=== PATIENT | female | born 1945 | race Two or more races ===

== ENCOUNTER 2016-11-12 14:34 | Emergency (ER) | payer MEDICARE, OTHER ==
[~2016-11-12] VITALS: Ht 152.4 cm; Wt 82.6 kg
[~2016-11-12 14:34] MED LIST: CALC-312 PO; DICL50TA2 PO; DULO60CA PO; FENO134C PO; LOSA100T27 PO; OMEP20CA74 OR; PREG25CA PO; PREG50CA PO; RISE35TA PO; RIVA20TA PO; SIMV-8 PO
[2016-11-12] MEDS ORDERED: ACETAMINOPHEN 325 MG TAB PO ONE (17:00)
[2016-11-12 18:34] VITALS: BP 151/70
== END 2016-11-12 19:15 | disposition home or self-care (01) ==
LOC: ER 14:34
DX: S20.211A Contusion of right front wall of thorax, initial encounter (principal); M19.90 Unspecified osteoarthritis, unspecified site; I25.10 Atherosclerotic heart disease of native coronary artery without angina pectoris; E78.5 Hyperlipidemia, unspecified; I10 Essential (primary) hypertension; W06.XXXA Fall from bed, initial encounter; Y93.89 Activity, other specified; Y92.89 Other specified places as the place of occurrence of the external cause; Y99.8 Other external cause status
CPT/HCPCS: 71020; 71250

== ENCOUNTER 2017-09-19 22:40 | Emergency (ER) | payer MEDICARE, OTHER ==
[~2017-09-19] VITALS: Ht 157.5 cm; Wt 87.5 kg
[2017-09-20 00:20] VITALS: BP 147/70
[2017-09-20] MEDS ORDERED: LIDOCAINE VISCOUS 2% 15ML UD PO ONE (01:30)
[2017-09-20] MEDS ORDERED: ALUM & MAG HYDROX-SIMETH LIQ(MAALOX) 30 ML PO ONE (01:30)
== END 2017-09-20 01:18 | disposition home or self-care (01) ==
LOC: ER 22:49
DX: K21.0 Gastro-esophageal reflux disease with esophagitis (principal); M19.90 Unspecified osteoarthritis, unspecified site; J45.909 Unspecified asthma, uncomplicated; I25.10 Atherosclerotic heart disease of native coronary artery without angina pectoris; E78.5 Hyperlipidemia, unspecified; I10 Essential (primary) hypertension; Z79.899 Other long term (current) drug therapy

== ENCOUNTER 2020-06-09 22:26 | Emergency (ER) | payer MEDICARE, OTHER ==
[~2020-06-09] VITALS: Ht 162.6 cm; Wt 68.0 kg
[~2020-06-09 22:26] MED LIST changes: +LOSA-39 PO; -LOSA100T27 PO
[2020-06-09 23:19] LABS: Basophils # (auto) 0.1 10 ^3/uL (0-0.2); Eosinophils # (auto) 0.1 10 ^3/uL (0-0.8); Lymphocytes # (auto) 2.6 10 ^3/uL (0.4-5.4); Mean Corpuscular Hemoglobin 19.4 pg (28.0-32.0); Monocytes # (auto) 0.7 10 ^3/uL (0-1.3); Neutrophils % (auto) 53.7 % (37.0-80.0); Nucleated Red Blood Cells % 0.1 %; White Blood Cell 7.5 10^3/uL (4.4-10.8)
[2020-06-09 23:21] LABS: Basophils % (auto) 1.3 % (0.0-2.0); Eosinophils % (auto) 1.6 % (0.0-7.0); Lymphocytes % (auto) 34.2 % (10.0-50.0); Mean Corpuscular Volume 62.7 fL (80.0-100.0); Monocytes % (auto) 9.2 % (0.0-12.0); Platelet Count (auto) 214 10^3/uL (140-450); Red Blood Cells 4.15 10^6/uL (4.0-5.20); Red Cell Distribution Width 19.6 % (11.8-14.3)
[2020-06-09 23:38] LABS: Albumin 3.1 g/dL (3.4-5.0); Anion Gap 4 (5-15); Blood Urea Nitrogen 15 mg/dL (7-18); Calcium 8.3 mg/dL (8.5-10.1); Carbon Dioxide 27 mmol/L (21-32); Chloride 114 mmol/L (98-107); Glucose 123 mg/dL (74-106); Magnesium 2.3 mg/dL (1.6-2.6); Potassium 3.7 mmol/L (3.5-5.1); Sodium 145 mmol/L (136-145)
[2020-06-09 23:43] LABS: Alanine Aminotransferase 9 U/L (13-56); Alkaline Phosphatase 119 U/L (45-117); Aspartate Aminotransferase 13 U/L (15-37); BUN/Creatinine Ratio 13.9; Bilirubin, Total 0.2 mg/dL (0.2-1.0); GFR African American 64 mL/min; GFR Non-African American 53 mL/min; Total Protein 7.5 g/dL (6.4-8.2)
[2020-06-09 23:48] LABS: INR 0.97 (0.9-1.15); Partial Thromboplastin Time 25.4 sec (23.0-31.2)
[2020-06-10] MEDS ORDERED: IOHEXOL 350 MG/ML 100ML IJ ONE (00:29)
[2020-06-10 02:18] LABS: Urine Bacteria FEW /hpf (None Seen); Urine Blood Negative /uL (Negative); Urine Specific Gravity 1.011 (1.001-1.035); Urine WBC <1 /hpf (0 - 5)
[2020-06-10 04:27] VITALS: BP 165/78
== END 2020-06-10 04:30 | disposition home or self-care (01) ==
LOC: ER 22:26 → EDBD 22:26 → ER 06-10 04:30
DX: R07.89 Other chest pain (principal); I10 Essential (primary) hypertension; E78.5 Hyperlipidemia, unspecified; K21.9 Gastro-esophageal reflux disease without esophagitis; Z79.899 Other long term (current) drug therapy; Z88.6 Allergy status to analgesic agent
CPT/HCPCS: 36415; 71045; 71275; 80053; 81001; 83735; 83880; 84443; 84484; 85025; 85379; 85610; 85730; 93005; 99285; Q9967

== ENCOUNTER 2020-08-16 18:05 | Emergency (ER) | payer MEDICARE, OTHER ==
[~2020-08-16] VITALS: Ht 154.9 cm; Wt 81.6 kg
[2020-08-16 18:05] VITALS: BP 149/46
== END 2020-08-16 20:53 | disposition home or self-care (01) ==
LOC: ER 18:05
DX: R07.89 Other chest pain (principal); I10 Essential (primary) hypertension; E78.5 Hyperlipidemia, unspecified; M19.90 Unspecified osteoarthritis, unspecified site; J45.909 Unspecified asthma, uncomplicated; K21.9 Gastro-esophageal reflux disease without esophagitis; Z88.6 Allergy status to analgesic agent; Z79.899 Other long term (current) drug therapy
CPT/HCPCS: 93005

== ENCOUNTER 2021-09-18 12:50 | Inpatient (IN) | payer MEDICARE, OTHER ==
[~2021-09-18] VITALS: Ht 152.4 cm; Wt 75.3 kg
[2021-09-18] MEDS ORDERED: MORPHINE SULFATE 4 MG/ML SYR/VIAL IV ONE (13:15)
[2021-09-18] MEDS ORDERED: ONDANSETRON HCL 4 MG/2 ML VIAL IV ONE (13:15)
[2021-09-18 14:23] LABS: Basophils # (auto) 0.2 10 ^3/uL (0-0.2); Basophils % (auto) 1.1 % (0.0-2.0); Eosinophils # (auto) 0 10 ^3/uL (0-0.8); Eosinophils % (auto) 0.2 % (0.0-7.0); Hematocrit 27.2 % (36.0-46.0); Hemoglobin 8.5 g/dL (12.2-16.2); Lymphocytes # (auto) 1.8 10 ^3/uL (0.4-5.4); Lymphocytes % (auto) 11.8 % (10.0-50.0); Mean Corpuscular Hemoglobin 19.7 pg (28.0-32.0); Mean Corpuscular Hgb Conc. 31.1 g/dL (32.0-36.0); Mean Corpuscular Volume 63.3 fL (80.0-100.0); Monocytes % (auto) 6.8 % (0.0-12.0); Neutrophils # (auto) 12.1 10 ^3/uL (1.6-8.6); Neutrophils % (auto) 80.1 % (37.0-80.0); Red Blood Cells 4.29 10^6/uL (4.0-5.20); Red Cell Distribution Width 29.2 % (11.8-14.3); White Blood Cell 15.1 10^3/uL (4.4-10.8)
[2021-09-18 14:41] LABS: Albumin 2.9 g/dL (3.4-5.0); Calcium 8.3 mg/dL (8.5-10.1)
[2021-09-18 14:43] LABS: BUN/Creatinine Ratio 10.1
[2021-09-18 14:46] LABS: Bilirubin, Total 0.3 mg/dL (0.2-1.0); Total Protein 7.2 g/dL (6.4-8.2)
[2021-09-18] MEDS ORDERED: KETOROLAC TROMETH 30 MG/ML 1ML VIAL IV ONE (15:30)
[2021-09-18] MEDS ORDERED: AZITHROMYCIN 500MG/ 250ML 250 ML IV ONE (15:45)
[2021-09-18] MEDS ORDERED: cefTRIAXone 1GM/50ML D5W 50 ML IV ONE (15:45)
[2021-09-18] MEDS ORDERED: ALBUTEROL SULF 2.5 MG/0.5ML(0.5%) NEB SOLN NEB PRN (18:00)
[2021-09-18] MEDS ORDERED: hydrALAZINE HCL 20 MG/ML VL IV PRN (18:00)
[2021-09-18] MEDS ORDERED: NICOTINE 7MG/24HR TOPICAL PATCH TD ONE (18:00)
[2021-09-18] MEDS ORDERED: PANTOPRAZOLE 40 MG/10 ML VIAL INJ IV ONE (18:00)
[2021-09-18 18:53] LABS: Cholesterol 136 mg/dL (< 200); Triglycerides 169 mg/dL (< 150)
[2021-09-18 18:55] LABS: HDL Cholesterol 30 mg/dL (40-59); LDL Cholesterol 83 mg/dL (< 100)
[2021-09-18 20:11] VITALS: BP 125/49
[2021-09-18 22:00] VITALS: BP 128/45
[2021-09-19 05:00] VITALS: BP 131/64
[2021-09-19 09:00] VITALS: BP 121/45
[2021-09-19] MEDS: NICOTINE 7MG/24HR TOPICAL PATCH TD SCH (09:34)
[2021-09-19] MEDS: PANTOPRAZOLE 40 MG/10 ML VIAL INJ IV SCH (09:34)
[2021-09-19] MEDS: cefTRIAXone 1GM/50ML D5W 50 ML IV SCH (09:35)
[2021-09-19] MEDS ORDERED: ENOXAPARIN SOD 40 MG/0.4 ML SYRINGE SC SCH (10:00)
[2021-09-19] MEDS ORDERED: AZITHROMYCIN 500MG/ 250ML 250 ML IV SCH (10:00)
[2021-09-19 13:00] VITALS: BP 132/40
[2021-09-19] MEDS ORDERED: traMADol HCL 50 MG TAB PO PRN (13:00)
[2021-09-19 13:41] LABS: Urine Bacteria FEW /hpf (None Seen); Urine Blood 3+ /uL (Negative); Urine Mucus FEW (None Seen); Urine WBC 4746 /hpf (0 - 5); Urine WBC Clumps PRESENT /hpf (None Seen)
[2021-09-19 13:46] LABS: Urine Specific Gravity 1.019 (1.001-1.035)
[2021-09-19] MEDS: SODIUM CHLORIDE 0.9% 1,000 ML IV SCH (13:48)
[2021-09-19] MEDS ORDERED: FUROSEMIDE 40 MG/4 ML VIAL IV ONE (15:00)
[2021-09-19 17:00] VITALS: BP 146/61
[2021-09-19 22:00] VITALS: BP 130/61
[2021-09-19 23:03] LABS: % Iron Saturation 3.4 % (15-50)
[2021-09-20 05:00] VITALS: BP 128/56
[2021-09-20 05:53] LABS: Basophils # (auto) 0 10 ^3/uL (0-0.2); Hemoglobin 7.6 g/dL (12.2-16.2); Lymphocytes # (auto) 2.1 10 ^3/uL (0.4-5.4); Lymphocytes % (auto) 12.6 % (10.0-50.0)
[2021-09-20 05:56] LABS: Basophils % (auto) 0.3 % (0.0-2.0); Eosinophils # (auto) 0.1 10 ^3/uL (0-0.8); Eosinophils % (auto) 0.4 % (0.0-7.0); Hematocrit 25.1 % (36.0-46.0); Mean Corpuscular Hemoglobin 19.4 pg (28.0-32.0); Mean Corpuscular Hgb Conc. 30.4 g/dL (32.0-36.0); Mean Corpuscular Volume 63.9 fL (80.0-100.0); Monocytes # (auto) 1.3 10 ^3/uL (0-1.3); Neutrophils % (auto) 78.7 % (37.0-80.0); Red Blood Cells 3.93 10^6/uL (4.0-5.20); White Blood Cell 16.5 10^3/uL (4.4-10.8)
[2021-09-20 05:59] LABS: Red Cell Distribution Width 29.1 % (11.8-14.3)
[2021-09-20 06:00] LABS: BUN/Creatinine Ratio 13.7; Calcium 8.5 mg/dL (8.5-10.1)
[2021-09-20] MEDS: PANTOPRAZOLE 40 MG/10 ML VIAL INJ IV SCH (11:49)
[2021-09-20] MEDS: cefTRIAXone 1GM/50ML D5W 50 ML IV SCH (11:49)
[2021-09-20] MEDS: NICOTINE 7MG/24HR TOPICAL PATCH TD SCH (11:50)
[2021-09-20] MEDS: SODIUM CHLORIDE 0.9% 1,000 ML IV SCH (11:51)
[2021-09-20 13:00] VITALS: BP 135/59
[2021-09-20 17:00] VITALS: BP 144/64
[2021-09-20] MEDS ORDERED: FERROUS SULFATE 325mg EC TAB PO SCH (18:00)
[2021-09-20 21:04] VITALS: BP 144/80
== END 2021-09-20 21:34 | disposition left against medical advice (07) | DRG 872 ==
LOC: ER 12:50 → OVERFLOW 18:00 → WEST WING 20:45
PROVIDERS: ADMIT Registered Nurse; ATTEND Internal Medicine
DX: A41.9 Sepsis, unspecified organism (principal); N13.6 Pyonephrosis; I13.10 Hypertensive heart and chronic kidney disease without heart failure, with stage 1 through stage 4 chronic kidney disease, or unspecified chronic kidney disease; D50.9 Iron deficiency anemia, unspecified; D63.8 Anemia in other chronic diseases classified elsewhere; E66.01 Morbid (severe) obesity due to excess calories; E78.5 Hyperlipidemia, unspecified; I25.10 Atherosclerotic heart disease of native coronary artery without angina pectoris; J45.909 Unspecified asthma, uncomplicated; M79.7 Fibromyalgia; H57.89 Other specified disorders of eye and adnexa; Z53.29 Procedure and treatment not carried out because of patient's decision for other reasons; R79.89 Other specified abnormal findings of blood chemistry; F17.210 Nicotine dependence, cigarettes, uncomplicated; H11.31 Conjunctival hemorrhage, right eye; K80.20 Calculus of gallbladder without cholecystitis without obstruction; Z20.822 Contact with and (suspected) exposure to COVID-19; X58.XXXA Exposure to other specified factors, initial encounter; K21.9 Gastro-esophageal reflux disease without esophagitis; K29.70 Gastritis, unspecified, without bleeding; K43.9 Ventral hernia without obstruction or gangrene; N18.2 Chronic kidney disease, stage 2 (mild); N26.1 Atrophy of kidney (terminal); R29.6 Repeated falls; S20.211A Contusion of right front wall of thorax, initial encounter; Z79.01 Long term (current) use of anticoagulants; Z79.899 Other long term (current) drug therapy; Z83.3 Family history of diabetes mellitus; Z86.718 Personal history of other venous thrombosis and embolism; Z86.711 Personal history of pulmonary embolism; Y93.89 Activity, other specified; Y92.89 Other specified places as the place of occurrence of the external cause; Y99.8 Other external cause status; Z88.5 Allergy status to narcotic agent; Z88.8 Allergy status to other drugs, medicaments and biological substances; Z68.32 Body mass index [BMI] 32.0-32.9, adult
CPT/HCPCS: 36415; 71045; 74176; 76775; 78707; 80048; 80053; 80061; 81001; 83036; 83540; 83550; 83880; 84484; 85025; 87040; 87086; 93005; 96365; 96367; 96375; C9113; G0378; J0696; J1885; J2405

== ENCOUNTER 2022-02-21 22:42 | Inpatient (IN) | payer MEDICARE, OTHER ==
[~2022-02-21] VITALS: Ht 162.6 cm; Wt 79.5 kg
[2022-02-22] VITALS (9 sets, daily range): BP systolic 128–147; BP diastolic 46–107
[2022-02-22 00:18] LABS: Basophils # (auto) 0 10 ^3/uL (0-0.2); Basophils % (auto) 0.5 % (0.0-2.0); Eosinophils # (auto) 0.1 10 ^3/uL (0-0.8); Eosinophils % (auto) 1.4 % (0.0-7.0); Hematocrit 21.6 % (36.0-46.0); Lymphocytes # (auto) 2.5 10 ^3/uL (0.4-5.4); Lymphocytes % (auto) 28.8 % (10.0-50.0); Mean Corpuscular Hemoglobin 19.1 pg (28.0-32.0); Mean Corpuscular Volume 63.7 fL (80.0-100.0); Monocytes % (auto) 11.3 % (0.0-12.0); Nucleated Red Blood Cells % 0.1 %; Red Blood Cells 3.38 10^6/uL (4.0-5.20); Red Cell Distribution Width 19.2 % (11.8-14.3); White Blood Cell 8.6 10^3/uL (4.4-10.8)
[2022-02-22 00:26] LABS: Albumin 2.7 g/dL (3.4-5.0); Calcium 7.7 mg/dL (8.5-10.1); Potassium 4.5 mmol/L (3.5-5.1)
[2022-02-22 00:29] LABS: Bilirubin, Total 0.3 mg/dL (0.2-1.0); Hemoglobin 6.5 g/dL (12.2-16.2); Total Protein 6.5 g/dL (6.4-8.2)
[2022-02-22 01:39] LABS: INR 1.23 (0.9-1.15); Partial Thromboplastin Time 40.9 sec (24.6-33.4)
[2022-02-22 01:49] LABS: Urine Bacteria MOD /hpf (None Seen); Urine Blood Negative /uL (Negative); Urine WBC 6 /hpf (0 - 5)
[2022-02-22] MEDS ORDERED: cefTRIAXone 1GM/50ML D5W 50 ML IV ONE (02:45)
[2022-02-22 07:37] LABS: Hemoglobin 7.5 g/dL (12.2-16.2)
[2022-02-22 07:40] LABS: Hematocrit 24.2 % (36.0-46.0)
[2022-02-22] MEDS ORDERED: PANTOPRAZOLE 80 MG in SODIUM CHL 0.9% 100 ML IV ONE (09:15)
[2022-02-22] MEDS ORDERED: guaiFENesin-DM 100/10mg/5ml SYR PO PRN (09:15)
[2022-02-22] MEDS ORDERED: DEXTROSE (50%) 50ML SYRG IV PRN (09:15)
[2022-02-22] MEDS ORDERED: PANTOPRAZOLE 40mg/50ML NS AE 50 ML IV ONE (09:15)
[2022-02-22] MEDS ORDERED: ONDANSETRON HCL 4 MG/2 ML VIAL IV PRN (09:15)
[2022-02-22] MEDS: FENOFIBRATE 134 MG PO SCH (10:00)
[2022-02-22] MEDS ORDERED: PREGABALIN 25 MG CAP PO SCH (10:00)
[2022-02-22 10:09] LABS: % Iron Saturation 3.8 % (15-50)
[2022-02-22] MEDS: SODIUM CHLORIDE 0.9% 1,000 ML IV SCH ×2 (10:13→23:42)
[2022-02-22] MEDS: DULoxetine HCL 30 MG CAP PO SCH (10:14)
[2022-02-22] MEDS: CALCIUM CARB 500 MG CHEW TAB PO SCH ×2 (10:14→22:24)
[2022-02-22] MEDS: LOSARTAN POTASSIUM 50 MG TAB PO SCH (10:14)
[2022-02-22] MEDS: ACCU-CHEK COMFORT CURVE STRIP VI SCH ×3 (12:00→23:43)
[2022-02-22] MEDS: InsuLIN REG 1unit/0.01ml Soln (100units/ml) SC SCH ×3 (12:00→23:43)
[2022-02-22] MEDS: PREGABALIN 25 MG CAP PO SCH ×2 (14:33→22:23)
[2022-02-22] MEDS ORDERED: LORazepam 0.5 MG TAB PO PRN (16:30)
[2022-02-22] MEDS ORDERED: NICOTINE 21MG/24 HR TOPICAL PATCH TD ONE (16:45)
[2022-02-22] MEDS ORDERED: ATORVASTATIN 20 MG TAB PO SCH (22:00)
[2022-02-22] MEDS: SUCRALFATE 1 GM/10 ML ORAL SUSP PO SCH (22:22)
[2022-02-23 00:01] LABS: Basophils # (auto) 0.2 10 ^3/uL (0-0.2); Eosinophils # (auto) 0.1 10 ^3/uL (0-0.8); Eosinophils % (auto) 1.7 % (0.0-7.0); Hematocrit 29.2 % (36.0-46.0); Lymphocytes # (auto) 1.9 10 ^3/uL (0.4-5.4); Lymphocytes % (auto) 21.8 % (10.0-50.0); Mean Corpuscular Hemoglobin 20.5 pg (28.0-32.0); Mean Corpuscular Hgb Conc. 30.7 g/dL (32.0-36.0); Mean Corpuscular Volume 66.9 fL (80.0-100.0); Monocytes # (auto) 0.4 10 ^3/uL (0-1.3); Monocytes % (auto) 4.6 % (0.0-12.0); Neutrophils # (auto) 6.2 10 ^3/uL (1.6-8.6); Neutrophils % (auto) 69.9 % (37.0-80.0); Nucleated Red Blood Cells % 0.1 %; Red Blood Cells 4.36 10^6/uL (4.0-5.20); Red Cell Distribution Width 22.2 % (11.8-14.3); White Blood Cell 8.8 10^3/uL (4.4-10.8)
[2022-02-23] MEDS: InsuLIN REG 1unit/0.01ml Soln (100units/ml) SC SCH (05:33)
[2022-02-23] MEDS: ACCU-CHEK COMFORT CURVE STRIP VI SCH (05:33)
[2022-02-23 05:52] VITALS: BP 127/74
[2022-02-23] MEDS: SUCRALFATE 1 GM/10 ML ORAL SUSP PO SCH ×4 (06:09→22:09)
[2022-02-23] MEDS: PREGABALIN 25 MG CAP PO SCH ×3 (06:09→22:05)
[2022-02-23 06:37] LABS: Basophils # (auto) 0 10 ^3/uL (0-0.2); Eosinophils # (auto) 0.1 10 ^3/uL (0-0.8); Hemoglobin 8.5 g/dL (12.2-16.2); Lymphocytes # (auto) 1.6 10 ^3/uL (0.4-5.4); Red Blood Cells 4.05 10^6/uL (4.0-5.20); White Blood Cell 7.8 10^3/uL (4.4-10.8)
[2022-02-23 06:39] LABS: Basophils % (auto) 0.4 % (0.0-2.0); Eosinophils % (auto) 1.6 % (0.0-7.0); Lymphocytes % (auto) 21.2 % (10.0-50.0); Mean Corpuscular Hemoglobin 20.9 pg (28.0-32.0); Mean Corpuscular Hgb Conc. 31.4 g/dL (32.0-36.0); Mean Corpuscular Volume 66.6 fL (80.0-100.0); Monocytes # (auto) 0.8 10 ^3/uL (0-1.3); Monocytes % (auto) 10.5 % (0.0-12.0); Neutrophils # (auto) 5.2 10 ^3/uL (1.6-8.6); Neutrophils % (auto) 66.3 % (37.0-80.0); Nucleated Red Blood Cells % 0.1 %
[2022-02-23 06:51] LABS: Red Cell Distribution Width 22.2 % (11.8-14.3)
[2022-02-23 06:56] LABS: Albumin 2.7 g/dL (3.4-5.0); Calcium 8.2 mg/dL (8.5-10.1); Potassium 3.6 mmol/L (3.5-5.1)
[2022-02-23 07:02] LABS: BUN/Creatinine Ratio 11.9; Bilirubin, Total 0.5 mg/dL (0.2-1.0); Total Protein 6.5 g/dL (6.4-8.2)
[2022-02-23 09:00] VITALS: BP 138/68
[2022-02-23] MEDS: FENOFIBRATE 134 MG PO SCH (10:00)
[2022-02-23] MEDS: CALCIUM CARB 500 MG CHEW TAB PO SCH ×2 (10:23→22:09)
[2022-02-23] MEDS: NICOTINE 21MG/24 HR TOPICAL PATCH TD SCH (10:23)
[2022-02-23] MEDS: LOSARTAN POTASSIUM 50 MG TAB PO SCH (10:23)
[2022-02-23] MEDS: DULoxetine HCL 30 MG CAP PO SCH (10:23)
[2022-02-23] MEDS ORDERED: cefTRIAXone 1GM/50ML D5W 50 ML IV ONE (10:30)
[2022-02-23] MEDS ORDERED: PANTOPRAZOLE 40 MG/10 ML VIAL INJ IV ONE (10:30)
[2022-02-23 12:26] VITALS: BP 139/59
[2022-02-23] MEDS: SODIUM CHLORIDE 0.9% 1,000 ML IV SCH (13:51)
[2022-02-23 17:32] VITALS: BP 155/58
[2022-02-23 21:23] VITALS: BP 130/60
[2022-02-23] MEDS: PANTOPRAZOLE 40 MG/10 ML VIAL INJ IV SCH (22:06)
[2022-02-24 04:56] VITALS: BP 148/69
[2022-02-24 05:32] LABS: Basophils # (auto) 0.1 10 ^3/uL (0-0.2); Eosinophils # (auto) 0.1 10 ^3/uL (0-0.8); Eosinophils % (auto) 1.6 % (0.0-7.0); Hematocrit 27.6 % (36.0-46.0); Hemoglobin 8.6 g/dL (12.2-16.2); Lymphocytes # (auto) 1.4 10 ^3/uL (0.4-5.4); Lymphocytes % (auto) 17.7 % (10.0-50.0); Mean Corpuscular Hemoglobin 20.8 pg (28.0-32.0); Mean Corpuscular Hgb Conc. 31.3 g/dL (32.0-36.0); Mean Corpuscular Volume 66.4 fL (80.0-100.0); Monocytes # (auto) 0.7 10 ^3/uL (0-1.3); Monocytes % (auto) 9.6 % (0.0-12.0); Neutrophils # (auto) 5.4 10 ^3/uL (1.6-8.6); Neutrophils % (auto) 70.1 % (37.0-80.0); Red Blood Cells 4.16 10^6/uL (4.0-5.20); White Blood Cell 7.7 10^3/uL (4.4-10.8)
[2022-02-24 05:34] LABS: Red Cell Distribution Width 22.3 % (11.8-14.3)
[2022-02-24] MEDS: PREGABALIN 25 MG CAP PO SCH ×3 (05:49→22:13)
[2022-02-24 06:01] LABS: BUN/Creatinine Ratio 11.1; Calcium 8.3 mg/dL (8.5-10.1); Potassium 3.4 mmol/L (3.5-5.1)
[2022-02-24] MEDS: SODIUM CHLORIDE 0.9% 1,000 ML IV SCH ×2 (06:29→19:00)
[2022-02-24] MEDS: SUCRALFATE 1 GM/10 ML ORAL SUSP PO SCH ×4 (06:33→22:13)
[2022-02-24 08:50] VITALS: BP 153/72
[2022-02-24] MEDS: DULoxetine HCL 30 MG CAP PO SCH (10:00)
[2022-02-24] MEDS: CALCIUM CARB 500 MG CHEW TAB PO SCH ×2 (10:00→22:14)
[2022-02-24] MEDS ORDERED: POTASSIUM CHL 20 Meq TABLET PO ONE (10:15)
[2022-02-24] MEDS: PANTOPRAZOLE 40 MG/10 ML VIAL INJ IV SCH ×2 (11:33→22:13)
[2022-02-24] MEDS: cefTRIAXone 1GM/50ML D5W 50 ML IV SCH (11:33)
[2022-02-24] MEDS: LOSARTAN POTASSIUM 50 MG TAB PO SCH (11:34)
[2022-02-24] MEDS: NICOTINE 21MG/24 HR TOPICAL PATCH TD SCH (11:34)
[2022-02-24 12:50] VITALS: BP 152/90
[2022-02-24] MEDS ORDERED: HYDROcodone-ACET 5/325MG TAB PO PRN (13:00)
[2022-02-24] MEDS ORDERED: ACETAMINOPHEN 500 MG TAB PO PRN (13:00)
[2022-02-24] MEDS ORDERED: LIDOCAINE VISCOUS 2% 15ML UD ONE (13:57)
[2022-02-24] MEDS ORDERED: SODIUM CHLORIDE LOCK 10 ML ONE (13:57)
[2022-02-24] MEDS ORDERED: diphenhdrAMINE HCL 50 MG/1 ML VL ONE (13:58)
[2022-02-24] MEDS: MIDAZOLAM HCL 5 MG/ML-1ML VIAL ONE ×2 (14:26→14:29)
[2022-02-24] MEDS: fentaNYL CITRATE 100 MCG/2 ML VL ONE ×2 (14:26→14:29)
[2022-02-24 16:50] VITALS: BP 132/62
[2022-02-24 22:04] VITALS: BP 135/49
[2022-02-25 05:27] VITALS: BP 150/71
[2022-02-25] MEDS: SUCRALFATE 1 GM/10 ML ORAL SUSP PO SCH ×2 (05:54→12:51)
[2022-02-25] MEDS: PREGABALIN 25 MG CAP PO SCH ×2 (05:54→14:00)
[2022-02-25 06:00] VITALS: BP 149/68
[2022-02-25 06:27] LABS: Basophils # (auto) 0 10 ^3/uL (0-0.2); Basophils % (auto) 0.5 % (0.0-2.0); Eosinophils # (auto) 0.1 10 ^3/uL (0-0.8); Eosinophils % (auto) 1.3 % (0.0-7.0); Hematocrit 30.9 % (36.0-46.0); Hemoglobin 9.7 g/dL (12.2-16.2); Lymphocytes # (auto) 1.7 10 ^3/uL (0.4-5.4); Mean Corpuscular Hgb Conc. 31.2 g/dL (32.0-36.0); Mean Corpuscular Volume 67.1 fL (80.0-100.0); Monocytes # (auto) 0.8 10 ^3/uL (0-1.3); Monocytes % (auto) 9.4 % (0.0-12.0); Neutrophils # (auto) 5.8 10 ^3/uL (1.6-8.6); Neutrophils % (auto) 68.8 % (37.0-80.0); Red Blood Cells 4.61 10^6/uL (4.0-5.20); Red Cell Distribution Width 22.4 % (11.8-14.3); White Blood Cell 8.4 10^3/uL (4.4-10.8)
[2022-02-25 06:35] LABS: BUN/Creatinine Ratio 10.8; Calcium 8.4 mg/dL (8.5-10.1); Potassium 3.6 mmol/L (3.5-5.1)
[2022-02-25 08:41] VITALS: BP 149/69
[2022-02-25] MEDS: cefTRIAXone 1GM/50ML D5W 50 ML IV SCH (09:25)
[2022-02-25] MEDS: NICOTINE 21MG/24 HR TOPICAL PATCH TD SCH (09:26)
[2022-02-25] MEDS: PANTOPRAZOLE 40 MG/10 ML VIAL INJ IV SCH (09:27)
[2022-02-25] MEDS: LOSARTAN POTASSIUM 50 MG TAB PO SCH (09:28)
[2022-02-25] MEDS: DULoxetine HCL 30 MG CAP PO SCH (09:28)
[2022-02-25] MEDS: CALCIUM CARB 500 MG CHEW TAB PO SCH (09:29)
[2022-02-25] MEDS: SODIUM CHLORIDE 0.9% 1,000 ML IV SCH (09:44)
[2022-02-25] MEDS ORDERED: SUCR1TAB22 OR (12:09)
[2022-02-25] MEDS ORDERED: CIPR250T3 PO (12:09)
[2022-02-25] MEDS ORDERED: PANT40TA2 PO (12:09)
[2022-02-25 13:00] VITALS: BP 158/68
[2022-02-25 13:52] VITALS: BP 141/68
== END 2022-02-25 15:00 | disposition home or self-care (01) | DRG 378 ==
LOC: ER 22:42 → TELE 02-22 09:29 → TELE-CENTR 02-22 21:37
PROVIDERS: ADMIT Nurse Practitioner Family; ATTEND Internal Medicine
PROC: 30233N1 Transfusion of Nonautologous Red Blood Cells into Peripheral Vein, Percutaneous Approach (ICD-10-PCS; 2022-02-22)
PROC: 0DB68ZX Excision of Stomach, Via Natural or Artificial Opening Endoscopic, Diagnostic (ICD-10-PCS; 2022-02-24)
PROC: 0DB98ZX Excision of Duodenum, Via Natural or Artificial Opening Endoscopic, Diagnostic (ICD-10-PCS; principal; 2022-02-24 14:20)
DX: K29.91 Gastroduodenitis, unspecified, with bleeding (principal); E46 Unspecified protein-calorie malnutrition; E87.0 Hyperosmolality and hypernatremia; N12 Tubulo-interstitial nephritis, not specified as acute or chronic; K44.9 Diaphragmatic hernia without obstruction or gangrene; D64.9 Anemia, unspecified; J45.909 Unspecified asthma, uncomplicated; I25.10 Atherosclerotic heart disease of native coronary artery without angina pectoris; K80.20 Calculus of gallbladder without cholecystitis without obstruction; N18.9 Chronic kidney disease, unspecified; I12.9 Hypertensive chronic kidney disease with stage 1 through stage 4 chronic kidney disease, or unspecified chronic kidney disease; E83.51 Hypocalcemia; K21.9 Gastro-esophageal reflux disease without esophagitis; R73.9 Hyperglycemia, unspecified; Z20.822 Contact with and (suspected) exposure to COVID-19; R51.9 Headache, unspecified; E78.5 Hyperlipidemia, unspecified; E66.9 Obesity, unspecified; Z79.899 Other long term (current) drug therapy; Z68.31 Body mass index [BMI] 31.0-31.9, adult; Z88.8 Allergy status to other drugs, medicaments and biological substances; Z83.3 Family history of diabetes mellitus; Z71.6 Tobacco abuse counseling; Z86.718 Personal history of other venous thrombosis and embolism; Z72.0 Tobacco use
CPT/HCPCS: 36415; 43239; 70450; 71046; 74176; 80048; 80053; 81001; 82962; 83540; 83550; 83930; 83935; 84300; 84550; 85014; 85018; 85025; 85045; 85610; 85730; 86850; 86900; 86901; 86920; 87086; 87426; 93970; 96365; 96366; 96367; 99291; C9113; G0378; J0696; J2250

== ENCOUNTER 2022-08-20 12:41 | Inpatient (IN) | payer MEDICARE, OTHER ==
[~2022-08-20] VITALS: Ht 154.9 cm; Wt 71.6 kg
[~2022-08-20 12:41] MED LIST changes: +CIPR250T3 PO; -DICL50TA2 PO; -OMEP20CA74 OR; +PANT40TA2 PO; +SUCR1TAB22 OR
[2022-08-20 13:29] LABS: Basophils # (auto) 0 10 ^3/uL (0-0.2); Basophils % (auto) 0.7 % (0.0-2.0); Eosinophils # (auto) 0.1 10 ^3/uL (0-0.8); Lymphocytes # (auto) 1.7 10 ^3/uL (0.4-5.4); Monocytes # (auto) 0.6 10 ^3/uL (0-1.3); Neutrophils # (auto) 4.5 10 ^3/uL (1.6-8.6)
[2022-08-20 13:31] LABS: Eosinophils % (auto) 1.7 % (0.0-7.0); Hematocrit 36.1 % (36.0-46.0); Hemoglobin 11.3 g/dL (12.2-16.2); Mean Corpuscular Hemoglobin 26.3 pg (28.0-32.0); Mean Corpuscular Hgb Conc. 31.3 g/dL (32.0-36.0); Mean Corpuscular Volume 84.3 fL (80.0-100.0); Monocytes % (auto) 8.7 % (0.0-12.0); Neutrophils % (auto) 64.9 % (37.0-80.0); Red Blood Cells 4.28 10^6/uL (4.0-5.20)
[2022-08-20 13:33] LABS: Red Cell Distribution Width 21.8 % (11.8-14.3)
[2022-08-20 13:58] LABS: Albumin 3.1 g/dL (3.4-5.0); Calcium 9.1 mg/dL (8.5-10.1); Potassium 3.7 mmol/L (3.5-5.1)
[2022-08-20 14:01] LABS: BUN/Creatinine Ratio 14.3 (10.0-20.0); Bilirubin, Total 0.2 mg/dL (0.2-1.0); Total Protein 7.5 g/dL (6.4-8.2)
[2022-08-20] MEDS ORDERED: IOHEXOL 300 MG/ML 100ML BOTTLE IJ ONE ×2 (15:47→19:15)
[2022-08-20 20:11] LABS: Urine Bacteria FEW /hpf (None Seen); Urine Blood Negative /uL (Negative); Urine Mucus FEW (None Seen); Urine WBC 7 /hpf (0 - 5)
[2022-08-20 21:22] VITALS: BP 153/66
[2022-08-20] MEDS ORDERED: hydrALAZINE HCL 20 MG/ML VL IV PRN (23:45)
[2022-08-20] MEDS ORDERED: D5W/SOD CHLO 0.9% 1,000 ML IV SCH (23:45)
[2022-08-20] MEDS ORDERED: ONDANSETRON HCL 4 MG/2 ML VIAL IV PRN (23:45)
[2022-08-21] MEDS ORDERED: cefTRIAXone 1GM/50ML D5W 50 ML IV SCH (09:00)
[2022-08-21] MEDS ORDERED: PANTOPRAZOLE 40 MG/10 ML VIAL INJ IV SCH (10:00)
== END 2022-08-21 03:16 | disposition left against medical advice (07) | DRG 392 ==
LOC: ER 12:41 → OVERFLOW 23:46
PROVIDERS: ADMIT Nurse Practitioner; ATTEND Nurse Practitioner
DX: R10.9 Unspecified abdominal pain (principal); N39.0 Urinary tract infection, site not specified; I25.10 Atherosclerotic heart disease of native coronary artery without angina pectoris; N18.9 Chronic kidney disease, unspecified; K21.9 Gastro-esophageal reflux disease without esophagitis; M19.90 Unspecified osteoarthritis, unspecified site; E78.5 Hyperlipidemia, unspecified; J45.909 Unspecified asthma, uncomplicated; I12.9 Hypertensive chronic kidney disease with stage 1 through stage 4 chronic kidney disease, or unspecified chronic kidney disease; Z88.5 Allergy status to narcotic agent; Z88.8 Allergy status to other drugs, medicaments and biological substances; Z83.3 Family history of diabetes mellitus; Z88.3 Allergy status to other anti-infective agents; Z79.899 Other long term (current) drug therapy; K42.9 Umbilical hernia without obstruction or gangrene
CPT/HCPCS: 36415; 71046; 74177; 76705; 80053; 81001; 85025; 93005; G0378

== ENCOUNTER 2022-09-25 13:26 | Emergency (ER) | payer MEDICARE, OTHER ==
[~2022-09-25] VITALS: Ht 152.4 cm; Wt 72.2 kg
[~2022-09-25 13:26] MED LIST changes: -DULO60CA PO; +DULO60CA41 PO; -FENO134C PO; +FENO134C19 PO; -LOSA-39 PO; +LOSA100T58 PO; -SIMV-8 PO; +SIMV20TA20 PO
[2022-09-25 13:37] VITALS: BP 133/60
[2022-09-25] MEDS ORDERED: ACET500T58 PO (17:39)
[2022-09-25] MEDS ORDERED: IBUP1TAB5 PO (17:39)
[2022-09-25] MEDS ORDERED: ACETAMINOPHEN 500 MG TAB PO ONE (17:45)
== END 2022-09-25 17:54 | disposition home or self-care (01) ==
LOC: ER 13:26
DX: L60.0 Ingrowing nail (principal); I12.9 Hypertensive chronic kidney disease with stage 1 through stage 4 chronic kidney disease, or unspecified chronic kidney disease; N18.9 Chronic kidney disease, unspecified; I25.10 Atherosclerotic heart disease of native coronary artery without angina pectoris; K21.9 Gastro-esophageal reflux disease without esophagitis; E78.5 Hyperlipidemia, unspecified; J45.909 Unspecified asthma, uncomplicated; Z79.899 Other long term (current) drug therapy; Z88.5 Allergy status to narcotic agent; Z88.8 Allergy status to other drugs, medicaments and biological substances
CPT/HCPCS: 11730; 99284; L3260

== ENCOUNTER 2022-10-09 14:59 | Emergency (ER) | payer MEDICARE, OTHER ==
[~2022-10-09] VITALS: Ht 157.5 cm; Wt 75.0 kg
[~2022-10-09 14:59] MED LIST changes: +ACET500T58 PO; +IBUP1TAB5 PO
[2022-10-09 15:44] LABS: Basophils # (auto) 0 10 ^3/uL (0-0.2); Basophils % (auto) 0.5 % (0.0-2.0); Eosinophils # (auto) 0.1 10 ^3/uL (0-0.8); Lymphocytes # (auto) 1.8 10 ^3/uL (0.4-5.4); Monocytes # (auto) 0.7 10 ^3/uL (0-1.3); Nucleated Red Blood Cells % 0.1 %
[2022-10-09 15:45] LABS: Eosinophils % (auto) 1.7 % (0.0-7.0); Hematocrit 34.6 % (36.0-46.0); Hemoglobin 11.1 g/dL (12.2-16.2); Lymphocytes % (auto) 23.5 % (10.0-50.0); Mean Corpuscular Hemoglobin 25.6 pg (28.0-32.0); Monocytes % (auto) 8.7 % (0.0-12.0); Neutrophils % (auto) 65.6 % (37.0-80.0); Red Blood Cells 4.32 10^6/uL (4.0-5.20); White Blood Cell 7.6 10^3/uL (4.4-10.8)
[2022-10-09 16:26] LABS: Anion Gap 8 (5-15); BUN/Creatinine Ratio 22.2 (10.0-20.0); Blood Urea Nitrogen 30 mg/dL (7-18); Carbon Dioxide 24 mmol/L (21-32); Chloride 110 mmol/L (98-107); GFR African American 49 mL/min; GFR Non-African American 40 mL/min; Glucose 98 mg/dL (74-106); Potassium 4.2 mmol/L (3.5-5.1); Sodium 142 mmol/L (136-145)
[2022-10-09 16:27] LABS: Alanine Aminotransferase 10 U/L (13-56); Albumin 3.2 g/dL (3.4-5.0); Alkaline Phosphatase 80 U/L (45-117); Aspartate Aminotransferase 18 U/L (15-37); Bilirubin, Total 0.3 mg/dL (0.2-1.0); Calcium 8.7 mg/dL (8.5-10.1); Total Protein 7.2 g/dL (6.4-8.2)
[2022-10-09 16:42] LABS: Urine Bacteria FEW /hpf (None Seen); Urine Blood Negative /uL (Negative); Urine Mucus FEW (None Seen); Urine Specific Gravity 1.024 (1.001-1.035); Urine WBC 9 /hpf (0 - 5)
[2022-10-09] MEDS ORDERED: ZOFR4T PO (16:48)
[2022-10-09] MEDS ORDERED: CEPH250C PO (16:48)
[2022-10-09] MEDS ORDERED: ONDANSETRON ODT 4 MG TAB PO ONE (17:00)
[2022-10-09 17:18] VITALS: BP 141/74
== END 2022-10-09 17:21 | disposition home or self-care (01) ==
LOC: ER 14:59
DX: K52.9 Noninfective gastroenteritis and colitis, unspecified (principal); K43.9 Ventral hernia without obstruction or gangrene; I12.9 Hypertensive chronic kidney disease with stage 1 through stage 4 chronic kidney disease, or unspecified chronic kidney disease; N18.9 Chronic kidney disease, unspecified; J45.909 Unspecified asthma, uncomplicated; K21.9 Gastro-esophageal reflux disease without esophagitis; E78.5 Hyperlipidemia, unspecified; Z90.710 Acquired absence of both cervix and uterus; Z88.6 Allergy status to analgesic agent; Z88.2 Allergy status to sulfonamides
CPT/HCPCS: 36415; 74176; 80053; 81001; 84484; 85025; 93005; 99284; Q0162

== ENCOUNTER 2023-05-20 18:27 | Inpatient (IN) | payer MEDICARE, OTHER ==
[~2023-05-20] VITALS: Ht 152.4 cm; Wt 72.9 kg
[~2023-05-20 18:27] MED LIST changes: +CEPH250C PO; +ZOFR4T PO
[2023-05-20 20:02] LABS: Basophils # (auto) 0 10 ^3/uL (0-0.2); Basophils % (auto) 0.6 % (0.0-2.0); Eosinophils # (auto) 0.1 10 ^3/uL (0-0.8); Hematocrit 18.6 % (36.0-46.0); Lymphocytes # (auto) 1.4 10 ^3/uL (0.4-5.4); Lymphocytes % (auto) 17.3 % (10.0-50.0); Mean Corpuscular Hgb Conc. 29.2 g/dL (32.0-36.0); Mean Corpuscular Volume 65.1 fL (80.0-100.0); Monocytes # (auto) 0.7 10 ^3/uL (0-1.3); Neutrophils % (auto) 73.1 % (37.0-80.0); Nucleated Red Blood Cells % 0.2 %; Red Blood Cells 2.86 10^6/uL (4.0-5.20); Red Cell Distribution Width 18.7 % (11.8-14.3); White Blood Cell 8.2 10^3/uL (4.4-10.8)
[2023-05-20 20:09] LABS: Hemoglobin 5.4 g/dL (12.2-16.2)
[2023-05-20 20:19] LABS: Albumin 3.8 g/dL (3.2-4.8); Alkaline Phosphatase 82 U/L (46-116); Anion Gap 9 (5-15); Aspartate Aminotransferase 12 U/L (13-40); BUN/Creatinine Ratio 13.6 (10.0-20.0); Bilirubin, Total 0.4 mg/dL (0.2-1.0); Blood Urea Nitrogen 14 mg/dL (9-23); Calcium 8.5 mg/dL (8.7-10.4); Carbon Dioxide 23 mmol/L (20-30); Chloride 114 mmol/L (98-107); Glucose 104 mg/dL (74-106); Potassium 3.5 mmol/L (3.5-5.1); Sodium 146 mmol/L (136-145); Total Protein 7.3 g/dL (5.7-8.2)
[2023-05-20 20:29] LABS: Alanine Aminotransferase < 9 U/L (7-40)
[2023-05-20 20:37] LABS: Anisocytosis Slight; Hypochromia Marked; Platelet Estimate Adequate
[2023-05-20] MEDS ORDERED: ONDANSETRON HCL 4 MG/2 ML VIAL IV PRN (22:15)
[2023-05-20] MEDS ORDERED: NITROGLYCERIN 0.4 MG SL TAB SL PRN (22:15)
[2023-05-20] MEDS ORDERED: MORPHINE SULFATE INJ 2 MG/ml SYRG IV PRN (22:15)
[2023-05-20 23:31] LABS: Urine Epithelial Cast None Seen /hpf (<5)
[2023-05-20 23:57] LABS: Urine Bacteria MOD /hpf (None Seen); Urine Blood Negative /uL (Negative); Urine Clarity Clear (Clear); Urine Color Yellow (Yellow); Urine Mucus FEW (None Seen); Urine Protein, UAD TRACE (Negative); Urine Specific Gravity 1.017 (1.001-1.035); Urine WBC 19 /hpf (0 - 5)
[2023-05-21] VITALS (11 sets, daily range): BP systolic 110–158; BP diastolic 48–76; PULSE 80–86; RESP 18–22; TEMP 97.7–98.7; O2SAT 94–96
[2023-05-21] MEDS: PANTOPRAZOLE 40 MG TAB PO ONE (01:02)
[2023-05-21] MEDS: FUROSEMIDE 20 MG/2 ML VIAL IV ONE (01:03)
[2023-05-21 08:45] LABS: Eosinophils # (auto) 0.1 10 ^3/uL (0-0.8); Hemoglobin 7.7 g/dL (12.2-16.2); Lymphocytes # (auto) 1.4 10 ^3/uL (0.4-5.4); Mean Corpuscular Volume 71.5 fL (80.0-100.0)
[2023-05-21 08:46] LABS: Basophils # (auto) 0 10 ^3/uL (0-0.2); Basophils % (auto) 0.4 % (0.0-2.0); Eosinophils % (auto) 1.3 % (0.0-7.0); Hematocrit 25.5 % (36.0-46.0); Mean Corpuscular Hemoglobin 21.6 pg (28.0-32.0); Mean Corpuscular Hgb Conc. 30.3 g/dL (32.0-36.0); Monocytes # (auto) 0.8 10 ^3/uL (0-1.3); Monocytes % (auto) 8.8 % (0.0-12.0); Neutrophils # (auto) 6.4 10 ^3/uL (1.6-8.6); Neutrophils % (auto) 73.5 % (37.0-80.0); Nucleated Red Blood Cells % 0.5 %; Red Blood Cells 3.57 10^6/uL (4.0-5.20); White Blood Cell 8.7 10^3/uL (4.4-10.8)
[2023-05-21 08:55] LABS: Red Cell Distribution Width 24.1 % (11.8-14.3)
[2023-05-21 09:02] LABS: Alanine Aminotransferase < 9 U/L (7-40); Albumin 3.7 g/dL (3.2-4.8); Alkaline Phosphatase 79 U/L (46-116); Anion Gap 7 (5-15); Aspartate Aminotransferase 15 U/L (13-40); BUN/Creatinine Ratio 10.6 (10.0-20.0); Bilirubin, Total 0.6 mg/dL (0.2-1.0); Blood Urea Nitrogen 10 mg/dL (9-23); Calcium 8.6 mg/dL (8.5-10.1); Carbon Dioxide 24 mmol/L (20-30); Chloride 114 mmol/L (98-107); Glucose 100 mg/dL (74-106); Potassium 3.5 mmol/L (3.5-5.1); Sodium 145 mmol/L (136-145)
[2023-05-21] MEDS: PANTOPRAZOLE 40 MG TAB PO SCH (09:22)
[2023-05-21] MEDS: FUROSEMIDE 20 MG TAB PO SCH (09:22)
[2023-05-21] MEDS: LOSARTAN POTASSIUM 50 MG TAB PO SCH (09:23)
[2023-05-21] MEDS ORDERED: IPRATROPIUM BROM 0.5 MG/2.5ML INH SOL NEB PRN (09:45)
[2023-05-21] MEDS ORDERED: ALBUTEROL SULF 2.5 MG/0.5ML(0.5%) NEB SOLN NEB ONE (09:45)
[2023-05-21] MEDS ORDERED: ALBUTEROL SULF 2.5 MG/0.5ML(0.5%) NEB SOLN NEB SCH (10:00)
[2023-05-21] MEDS: NICOTINE 7MG/24HR TOPICAL PATCH TD SCH (11:31)
[2023-05-21] MEDS: cefTRIAXone 1GM/50ML D5W 50 ML IV SCH (11:32)
[2023-05-21 12:36] LABS: Triglycerides 110 mg/dL (< 150)
[2023-05-21 12:37] LABS: LDL Cholesterol 47 mg/dL (< 100)
[2023-05-21 12:38] LABS: Cholesterol 82 mg/dL (< 200); HDL Cholesterol 21 mg/dL (40-59)
[2023-05-21] MEDS: PANTOPRAZOLE 40 MG/10 ML VIAL INJ IV ONE (14:14)
[2023-05-21] MEDS: AZITHROMYCIN 500MG/ 250ML 250 ML IV ONE (14:14)
[2023-05-21 15:26] LABS: Basophils # (auto) 0 10 ^3/uL (0-0.2); Eosinophils # (auto) 0.1 10 ^3/uL (0-0.8); Mean Corpuscular Hgb Conc. 30.2 g/dL (32.0-36.0); Red Blood Cells 3.54 10^6/uL (4.0-5.20); White Blood Cell 9.2 10^3/uL (4.4-10.8)
[2023-05-21 15:27] LABS: Basophils % (auto) 0.4 % (0.0-2.0); Eosinophils % (auto) 1.1 % (0.0-7.0); Hematocrit 24.9 % (36.0-46.0); Hemoglobin 7.5 g/dL (12.2-16.2); Lymphocytes # (auto) 1.4 10 ^3/uL (0.4-5.4); Lymphocytes % (auto) 15.5 % (10.0-50.0); Mean Corpuscular Hemoglobin 21.3 pg (28.0-32.0); Mean Corpuscular Volume 70.4 fL (80.0-100.0); Monocytes # (auto) 0.6 10 ^3/uL (0-1.3); Nucleated Red Blood Cells % 0.2 %
[2023-05-21 15:35] LABS: Red Cell Distribution Width 24.2 % (11.8-14.3)
[2023-05-21 17:18] LABS: Anisocytosis Slight; Hypochromia Moderate; Platelet Estimate Adequate
[2023-05-21] MEDS: ATORVASTATIN 20 MG TAB PO SCH (22:22)
[2023-05-21] MEDS: hydrALAZINE HCL 20 MG/ML VL IV PRN (23:14)
[2023-05-22] VITALS (8 sets, daily range): BP systolic 108–148; BP diastolic 54–93; PULSE 79–85; RESP 17–20; TEMP 97.9–98.5; O2SAT 94–100
[2023-05-22] MEDS ORDERED: INFLUENZA QUAD 2023-2024 0.5 ML SYRG IM ONE (03:45)
[2023-05-22 04:25] LABS: Basophils # (auto) 0 10 ^3/uL (0-0.2); Eosinophils # (auto) 0.1 10 ^3/uL (0-0.8); Eosinophils % (auto) 1.5 % (0.0-7.0); Hemoglobin 7.9 g/dL (12.2-16.2); Lymphocytes # (auto) 1.7 10 ^3/uL (0.4-5.4); Monocytes # (auto) 0.8 10 ^3/uL (0-1.3); Neutrophils % (auto) 68.2 % (37.0-80.0)
[2023-05-22 04:28] LABS: Basophils % (auto) 0.4 % (0.0-2.0); Chloride 112 mmol/L (98-107); Hematocrit 25.7 % (36.0-46.0); Lymphocytes % (auto) 20.2 % (10.0-50.0); Mean Corpuscular Hgb Conc. 30.8 g/dL (32.0-36.0); Mean Corpuscular Volume 71.4 fL (80.0-100.0); Monocytes % (auto) 9.7 % (0.0-12.0); Neutrophils # (auto) 5.7 10 ^3/uL (1.6-8.6); Nucleated Red Blood Cells % 0.2 %; Potassium 3.2 mmol/L (3.5-5.1); Sodium 145 mmol/L (136-145); White Blood Cell 8.4 10^3/uL (4.4-10.8)
[2023-05-22 04:29] LABS: Anion Gap 7 (5-15); Carbon Dioxide 26 mmol/L (20-30)
[2023-05-22 04:30] LABS: Calcium 8.5 mg/dL (8.7-10.4); Red Cell Distribution Width 23.9 % (11.8-14.3)
[2023-05-22 04:35] LABS: % Iron Saturation 6.6 % (15-50); BUN/Creatinine Ratio 11.6 (10.0-20.0); Blood Urea Nitrogen 10 mg/dL (9-23); Glucose 95 mg/dL (74-106)
[2023-05-22 04:37] LABS: INR 1.12 (0.9-1.15); Partial Thromboplastin Time 29.9 SEC (24.5-34.5); Prothrombin Time 11.7 sec (9.3-11.8)
[2023-05-22] MEDS ORDERED: NALOXONE HCL 0.4 MG/ML VIAL ONE (08:11)
[2023-05-22] MEDS ORDERED: SODIUM CHLORIDE LOCK 10 ML ONE (08:11)
[2023-05-22] MEDS ORDERED: FLUMAZENIL 0.1 MG/ML INJ 10ML MDV IV ONE (08:11)
[2023-05-22] MEDS ORDERED: SIMETHICONE 40 MG/0.6 ML ORAL DROP ONE (08:13)
[2023-05-22] MEDS ORDERED: PNEUMOCOCCAL VACC POLYS 25 MCG/0.5 ML VIAL IM ONE (10:00)
[2023-05-22] MEDS: LIDOCAINE VISCOUS 2% 15ML UD ONE (10:40)
[2023-05-22] MEDS: fentaNYL CITRATE 100 MCG/2 ML VL ONE (10:42)
[2023-05-22] MEDS: MIDAZOLAM HCL 5 MG/ML-1ML VIAL ONE (10:42)
[2023-05-22] MEDS: diphenhdrAMINE HCL 50 MG/1 ML VL ONE (10:43)
[2023-05-22] MEDS: POTASSIUM CHL 20 Meq TABLET PO ONE (12:04)
[2023-05-22] MEDS: GOLYTELY 4L KIT PO ONE (12:10)
[2023-05-22] MEDS: AZITHROMYCIN 500MG/ 250ML 250 ML IV SCH (12:33)
[2023-05-22] MEDS: IRON SUCROSE COMPLEX 100 ML IV SCH (14:22)
[2023-05-22] MEDS: PANTOPRAZOLE 40 MG/10 ML VIAL INJ IV SCH (14:24)
[2023-05-23] VITALS (7 sets, daily range): BP systolic 130–149; BP diastolic 46–85; PULSE 74–89; RESP 13–18; TEMP 97.9–98.9; O2SAT 93–98
[2023-05-23] MEDS: MAGNESIUM CITRATE SOLUTION 300 ML BTL PO ONE ×2 (06:05→11:30)
[2023-05-23] MEDS: GOLYTELY 4L KIT PO ONE (06:06)
[2023-05-23 06:17] LABS: Basophils # (auto) 0.1 10 ^3/uL (0-0.2); Hemoglobin 8.2 g/dL (12.2-16.2); Lymphocytes # (auto) 1.5 10 ^3/uL (0.4-5.4); Monocytes # (auto) 0.8 10 ^3/uL (0-1.3)
[2023-05-23 06:21] LABS: Anion Gap 8 (5-15); Basophils % (auto) 1.2 % (0.0-2.0); Carbon Dioxide 22 mmol/L (20-30); Chloride 112 mmol/L (98-107); Eosinophils # (auto) 0.2 10 ^3/uL (0-0.8); Eosinophils % (auto) 2.3 % (0.0-7.0); Hematocrit 27.9 % (36.0-46.0); Mean Corpuscular Hemoglobin 21.9 pg (28.0-32.0); Mean Corpuscular Hgb Conc. 29.6 g/dL (32.0-36.0); Monocytes % (auto) 11.5 % (0.0-12.0); Neutrophils # (auto) 4.3 10 ^3/uL (1.6-8.6); Nucleated Red Blood Cells % 0.1 %; Potassium 3.5 mmol/L (3.5-5.1); Red Blood Cells 3.77 10^6/uL (4.0-5.20); Sodium 142 mmol/L (136-145); White Blood Cell 6.8 10^3/uL (4.4-10.8)
[2023-05-23 06:22] LABS: Calcium 8.7 mg/dL (8.7-10.4)
[2023-05-23 06:27] LABS: BUN/Creatinine Ratio 8.6 (10.0-20.0); Blood Urea Nitrogen 7 mg/dL (9-23); Glucose 84 mg/dL (74-106)
[2023-05-23 06:33] LABS: Red Cell Distribution Width 24.6 % (11.8-14.3)
[2023-05-23 08:39] LABS: Platelet Estimate Adequate
[2023-05-23 08:45] LABS: Anisocytosis Moderate; Hypochromia Moderate
[2023-05-23 08:46] LABS: Ovalocytes MANY; Stomatocytes Few; Tear Drop Cells FEW
[2023-05-23] MEDS: AZITHROMYCIN 250 MG TAB PO SCH (10:08)
[2023-05-23] MEDS ORDERED: PROPOFOL 10 MG/ML 20 ML IV ONE (14:44)
[2023-05-23] MEDS ORDERED: LIDOCAINE HCL 100 MG/5ML (2%) SYRG INJ IV ONE (14:44)
[2023-05-23] MEDS ORDERED: fentaNYL CITRATE 100 MCG/2 ML VL ONE (15:05)
[2023-05-23] MEDS ORDERED: ONDANSETRON HCL 4 MG/2 ML VIAL IV PRN (15:30)
[2023-05-24 05:00] VITALS: BP 142/46; PULSE 75; RESP 17; TEMP 98; O2SAT 96
[2023-05-24 06:08] LABS: Basophils # (auto) 0 10 ^3/uL (0-0.2); Basophils % (auto) 0.6 % (0.0-2.0); Eosinophils # (auto) 0.2 10 ^3/uL (0-0.8); Lymphocytes # (auto) 1.3 10 ^3/uL (0.4-5.4); Monocytes # (auto) 0.8 10 ^3/uL (0-1.3); Nucleated Red Blood Cells % 0.2 %
[2023-05-24 06:10] LABS: Eosinophils % (auto) 2.5 % (0.0-7.0); Hematocrit 26.9 % (36.0-46.0); Hemoglobin 8.2 g/dL (12.2-16.2); Lymphocytes % (auto) 18.4 % (10.0-50.0); Mean Corpuscular Hemoglobin 21.4 pg (28.0-32.0); Mean Corpuscular Hgb Conc. 30.3 g/dL (32.0-36.0); Mean Corpuscular Volume 70.4 fL (80.0-100.0); Monocytes % (auto) 11.1 % (0.0-12.0); Neutrophils # (auto) 4.7 10 ^3/uL (1.6-8.6); Neutrophils % (auto) 67.4 % (37.0-80.0); Red Blood Cells 3.82 10^6/uL (4.0-5.20)
[2023-05-24 06:15] LABS: Anion Gap 7 (5-15); Carbon Dioxide 22 mmol/L (20-30); Chloride 115 mmol/L (98-107); Potassium 3.6 mmol/L (3.5-5.1); Red Cell Distribution Width 24.7 % (11.8-14.3); Sodium 144 mmol/L (136-145)
[2023-05-24 06:16] LABS: Calcium 8.6 mg/dL (8.7-10.4)
[2023-05-24 06:21] LABS: BUN/Creatinine Ratio 7.9 (10.0-20.0); Blood Urea Nitrogen 6 mg/dL (9-23); Glucose 90 mg/dL (74-106)
[2023-05-24 07:40] LABS: Anisocytosis Moderate
[2023-05-24 07:41] LABS: Hypochromia Moderate; Platelet Estimate Adequate
[2023-05-24 08:00] VITALS: RESP 18
[2023-05-24 08:54] VITALS: BP 155/73; PULSE 75; RESP 17; TEMP 98; O2SAT 98
[2023-05-24] MEDS ORDERED: POTA-228 PO ×2 (10:16)
[2023-05-24] MEDS ORDERED: PANT40TA2 PO ×2 (10:16)
[2023-05-24] MEDS ORDERED: FUR20T PO ×2 (10:16)
[2023-05-24] MEDS ORDERED: SUCR1TAB22 OR ×2 (10:16)
[2023-05-24 12:35] VITALS: BP 157/77; PULSE 79; RESP 17; TEMP 98.1; O2SAT 93
[2023-05-24 13:17] VITALS: BP 139/66; PULSE 79; RESP 17; TEMP 98.1; O2SAT 97
[2023-05-24] MEDS ORDERED: FERR1TAB36 PO ×2 (16:54)
== END 2023-05-24 14:05 | disposition home or self-care (01) | DRG 380 ==
LOC: ER 18:27 → OVERFLOW 22:29 → CENTRAL 05-21 21:43
PROVIDERS: ADMIT Nurse Practitioner; ATTEND Internal Medicine
PROC: 30233N1 Transfusion of Nonautologous Red Blood Cells into Peripheral Vein, Percutaneous Approach (ICD-10-PCS; principal; 2023-05-21)
PROC: 0DB48ZX Excision of Esophagogastric Junction, Via Natural or Artificial Opening Endoscopic, Diagnostic (ICD-10-PCS; 2023-05-22)
PROC: 0DB68ZX Excision of Stomach, Via Natural or Artificial Opening Endoscopic, Diagnostic (ICD-10-PCS; 2023-05-22)
PROC: 0DBP8ZZ Excision of Rectum, Via Natural or Artificial Opening Endoscopic (ICD-10-PCS; 2023-05-23)
DX: K22.11 Ulcer of esophagus with bleeding (principal); I21.A1 Myocardial infarction type 2; I50.41 Acute combined systolic (congestive) and diastolic (congestive) heart failure; J96.00 Acute respiratory failure, unspecified whether with hypoxia or hypercapnia; I13.0 Hypertensive heart and chronic kidney disease with heart failure and stage 1 through stage 4 chronic kidney disease, or unspecified chronic kidney disease; N39.0 Urinary tract infection, site not specified; D50.9 Iron deficiency anemia, unspecified; K21.01 Gastro-esophageal reflux disease with esophagitis, with bleeding; K57.30 Diverticulosis of large intestine without perforation or abscess without bleeding; K29.70 Gastritis, unspecified, without bleeding; E66.9 Obesity, unspecified; F17.210 Nicotine dependence, cigarettes, uncomplicated; K44.9 Diaphragmatic hernia without obstruction or gangrene; I25.10 Atherosclerotic heart disease of native coronary artery without angina pectoris; E78.5 Hyperlipidemia, unspecified; M81.0 Age-related osteoporosis without current pathological fracture; J44.9 Chronic obstructive pulmonary disease, unspecified; N18.9 Chronic kidney disease, unspecified; Z79.01 Long term (current) use of anticoagulants; Z86.711 Personal history of pulmonary embolism; Z88.3 Allergy status to other anti-infective agents; Z88.5 Allergy status to narcotic agent; Z86.718 Personal history of other venous thrombosis and embolism; Z95.1 Presence of aortocoronary bypass graft; Z90.710 Acquired absence of both cervix and uterus; Z83.3 Family history of diabetes mellitus; Z68.31 Body mass index [BMI] 31.0-31.9, adult
CPT/HCPCS: 36415; 36430; 43239; 71045; 71260; 80048; 80053; 80061; 81001; 82962; 83036; 83540; 83550; 83605; 83880; 84443; 84484; 85025; 85610; 85730; 86850; 86900; 86901; 86920; 87040; 87086; 93005; 93306; 96365; 96367; 96375; 97110; 97163; 99291; C9113; G0378; J1756; J2250; J2704

== ENCOUNTER → 2023-06-05 | Outpatient (CLI) | payer MEDICARE, OTHER ==
[~2023-06-05] MED LIST changes: -CEPH250C PO; -CIPR250T3 PO; +FERR1TAB36 PO; +FUR20T PO; -IBUP1TAB5 PO; +POTA-228 PO; -PREG25CA PO; -PREG50CA PO
[2023-06-05 10:40] LABS: Basophils # (auto) 0 10 ^3/uL (0-0.2); Basophils % (auto) 0.7 % (0.0-2.0); Eosinophils # (auto) 0.1 10 ^3/uL (0-0.8); Eosinophils % (auto) 1.5 % (0.0-7.0); Hemoglobin 9.1 g/dL (12.2-16.2); Lymphocytes # (auto) 1.4 10 ^3/uL (0.4-5.4); Monocytes # (auto) 0.7 10 ^3/uL (0-1.3)
[2023-06-05 10:43] LABS: Hematocrit 30.3 % (36.0-46.0); Lymphocytes % (auto) 20.2 % (10.0-50.0); Mean Corpuscular Hemoglobin 22.1 pg (28.0-32.0); Mean Corpuscular Volume 73.4 fL (80.0-100.0); Monocytes % (auto) 10.1 % (0.0-12.0); Neutrophils # (auto) 4.6 10 ^3/uL (1.6-8.6); Neutrophils % (auto) 67.5 % (37.0-80.0); Red Blood Cells 4.13 10^6/uL (4.0-5.20); White Blood Cell 6.8 10^3/uL (4.4-10.8)
== END | disposition home or self-care (01) ==
LOC: LAB 10:25
PROVIDERS: ATTEND Internal Medicine
DX: I10 Essential (primary) hypertension (principal); E55.9 Vitamin D deficiency, unspecified
CPT/HCPCS: 36415; 82306; 85025

== ENCOUNTER → 2023-06-19 | Outpatient (CLI) | payer MEDICARE, OTHER ==
[~2023-06-19] MED LIST changes: +CEPH250C PO; +CIPR250T3 PO; +IBUP1TAB5 PO; +PREG25CA PO; +PREG50CA PO
[2023-06-19 10:29] LABS: Basophils % (auto) 0.7 % (0.0-2.0); Eosinophils # (auto) 0.1 10 ^3/uL (0-0.8); Lymphocytes # (auto) 2.2 10 ^3/uL (0.4-5.4); Monocytes # (auto) 0.6 10 ^3/uL (0-1.3)
[2023-06-19 10:36] LABS: Basophils # (auto) 0 10 ^3/uL (0-0.2); Eosinophils % (auto) 1.6 % (0.0-7.0); Hematocrit 37.4 % (36.0-46.0); Hemoglobin 11.3 g/dL (12.2-16.2); Lymphocytes % (auto) 31.3 % (10.0-50.0); Mean Corpuscular Hgb Conc. 30.2 g/dL (32.0-36.0); Mean Corpuscular Volume 73.1 fL (80.0-100.0); Neutrophils # (auto) 4.1 10 ^3/uL (1.6-8.6); Neutrophils % (auto) 58.4 % (37.0-80.0); Nucleated Red Blood Cells % 0.2 %; Red Blood Cells 5.12 10^6/uL (4.0-5.20); White Blood Cell 7.1 10^3/uL (4.4-10.8)
[2023-06-19 10:53] LABS: Red Cell Distribution Width 27.8 % (11.8-14.3)
[2023-06-19 11:12] LABS: Albumin 4.3 g/dL (3.2-4.8); Alkaline Phosphatase 91 U/L (46-116); Anion Gap 8 (5-15); Aspartate Aminotransferase 16 U/L (13-40); BUN/Creatinine Ratio 16.7 (10.0-20.0); Blood Urea Nitrogen 17 mg/dL (9-23); Calcium 10.3 mg/dL (8.5-10.1); Carbon Dioxide 28 mmol/L (20-30); Chloride 107 mmol/L (98-107); Glucose 96 mg/dL (74-106); Potassium 4.1 mmol/L (3.5-5.1); Sodium 143 mmol/L (136-145)
[2023-06-19 11:13] LABS: Bilirubin, Total 0.4 mg/dL (0.2-1.0); Folate (Folic Acid) 15.67 ng/mL (>5.38); Total Protein 8.1 g/dL (5.7-8.2)
[2023-06-19 11:19] LABS: Alanine Aminotransferase < 9 U/L (7-40)
[2023-06-19 12:42] LABS: Platelet Estimate Adequate
[2023-06-19 12:43] LABS: Anisocytosis Moderate; Hypochromia Moderate
[2023-06-19 12:44] LABS: Ovalocytes MODERATE; Stomatocytes Few
== END | disposition home or self-care (01) ==
LOC: LAB 09:26
PROVIDERS: ATTEND Internal Medicine
DX: I10 Essential (primary) hypertension (principal); D64.9 Anemia, unspecified
CPT/HCPCS: 36415; 80053; 82607; 82746; 83615; 85025

== ENCOUNTER → 2023-08-21 | Outpatient (CLI) | payer MEDICARE, MEDICAID ==
[~2023-08-21] MED LIST changes: -CEPH250C PO; -CIPR250T3 PO; -IBUP1TAB5 PO; +LOSA-535 PO; -LOSA100T58 PO; -PREG25CA PO; -PREG50CA PO; -SUCR1TAB22 OR; +SUCR1TAB31 OR
== END | disposition home or self-care (01) ==
LOC: XYW 08:01
PROVIDERS: ATTEND Internal Medicine
DX: R07.9 Chest pain, unspecified (principal); I34.0 Nonrheumatic mitral (valve) insufficiency; I10 Essential (primary) hypertension; R42 Dizziness and giddiness; Z79.899 Other long term (current) drug therapy
CPT/HCPCS: 78452; 93017; A9500

== ENCOUNTER → 2023-08-23 | Outpatient (CLI) | payer MEDICARE, MEDICAID ==
[2023-08-21] MEDS: ADENOSINE 61 MG in GIVE UN-DILUTED 0 ML IV STA (09:44)
[~2023-08-23] VITALS: Ht 149.9 cm; Wt 72.6 kg
[~2023-08-23] MED LIST changes: +AMLO1TAB22 PO; +APIX5TAB PO; +BECL80AE11 IN; +FERR-7 PO; +PANT40PA PO; +PREG75CA PO; +RANO500T3 PO; +RISETAB3 PO; +SIMV10TA20 PO; +SUCR1TAB PO; +[UNRECOGNIZED DRUG - CODE] IM
== END | disposition home or self-care (01) ==
LOC: XYW 09:01
PROVIDERS: ATTEND Internal Medicine
DX: I08.0 Rheumatic disorders of both mitral and aortic valves (principal); R07.9 Chest pain, unspecified
CPT/HCPCS: 93306; J0153

== ENCOUNTER 2023-08-31 06:58 | Day surgery (SDC) | payer MEDICARE, MEDICAID ==
[2023-08-30 10:20] LABS: Basophils # (auto) 0 10 ^3/uL (0-0.2); Eosinophils # (auto) 0.1 10 ^3/uL (0-0.8); Monocytes # (auto) 0.8 10 ^3/uL (0-1.3); Neutrophils # (auto) 4.6 10 ^3/uL (1.6-8.6)
[2023-08-30 10:21] LABS: Basophils % (auto) 0.5 % (0.0-2.0); Eosinophils % (auto) 1.2 % (0.0-7.0); Hematocrit 37.9 % (36.0-46.0); Hemoglobin 12.2 g/dL (12.2-16.2); Lymphocytes % (auto) 34.9 % (10.0-50.0); Mean Corpuscular Hemoglobin 25.6 pg (28.0-32.0); Mean Corpuscular Hgb Conc. 32.3 g/dL (32.0-36.0); Mean Corpuscular Volume 79.4 fL (80.0-100.0); Monocytes % (auto) 9.3 % (0.0-12.0); Neutrophils % (auto) 54.1 % (37.0-80.0); Red Blood Cells 4.77 10^6/uL (4.0-5.20); Red Cell Distribution Width 20.6 % (11.8-14.3); White Blood Cell 8.5 10^3/uL (4.4-10.8)
[2023-08-30 10:22] LABS: INR 1.06 (0.9-1.15); Partial Thromboplastin Time 31.3 SEC (24.5-34.5); Prothrombin Time 11.2 sec (9.3-11.8)
[2023-08-30 10:46] LABS: Albumin 4.1 g/dL (3.2-4.8); Alkaline Phosphatase 86 U/L (46-116); Anion Gap 5 (5-15); Aspartate Aminotransferase 17 U/L (13-40); Bilirubin, Total 0.3 mg/dL (0.2-1.0); Blood Urea Nitrogen 16 mg/dL (9-23); Calcium 9.7 mg/dL (8.5-10.1); Carbon Dioxide 28 mmol/L (20-30); Chloride 110 mmol/L (98-107); Glucose 85 mg/dL (74-106); Potassium 4.4 mmol/L (3.5-5.1); Sodium 143 mmol/L (136-145); Total Protein 7.5 g/dL (5.7-8.2)
[2023-08-30 10:59] LABS: Alanine Aminotransferase < 9 U/L (7-40)
[~2023-08-31] VITALS: Ht 154.9 cm; Wt 72.1 kg
[2023-08-31] VITALS (9 sets, daily range): BP systolic 141–162; BP diastolic 62–76; PULSE 61–83; RESP 11–19; TEMP 97.8; O2SAT 92–100
[~2023-08-31 06:58] MED LIST changes: -ACET500T58 PO; -CALC-312 PO; -DULO60CA41 PO; -FERR1TAB36 PO; -PANT40TA2 PO; -RISE35TA PO; -RIVA20TA PO; -SIMV20TA20 PO; -SUCR1TAB31 OR; -ZOFR4T PO
[2023-08-31] MEDS ORDERED: HEPARIN IN NS 1000Units/500mL 1,500 ML ONE (08:01)
[2023-08-31] MEDS ORDERED: IODIXANOL 320MG/ML 100ML BTL IV ONE (08:01)
[2023-08-31] MEDS ORDERED: LIDOCAINE 2%HCL (LOCAL ANESTH.) INJ 20ML MDV ONE (08:01)
[2023-08-31] MEDS ORDERED: IOHEXOL 350 MG/ML 100ML IJ ONE (08:01)
[2023-08-31] MEDS ORDERED: VERAPAMIL 2.5MG/ML INJ 2ML VIAL IV ONE (08:02)
[2023-08-31] MEDS ORDERED: HEPARIN SODIUM (PORCINE) 5000 UNITS/ML 1ML VIAL ONE (08:02)
[2023-08-31] MEDS ORDERED: ANGIOMAX 250 MG VIAL IV ONE (08:02)
[2023-08-31] MEDS ORDERED: fentaNYL CITRATE 100 MCG/2 ML VL ONE (08:03)
[2023-08-31] MEDS ORDERED: SODIUM CHL 0.9% 0 ML ONE (08:03)
[2023-08-31] MEDS ORDERED: MIDAZOLAM HCL 2MG/2ML 2ml VIAL (1mg/ml) ONE (08:03)
== END 2023-08-31 10:42 | disposition home or self-care (01) ==
LOC: CATH 06:58
PROVIDERS: ATTEND Student in an Organized Health Care Education/Training Program
DX: R94.39 Abnormal result of other cardiovascular function study (principal); I20.9 Angina pectoris, unspecified; I25.82 Chronic total occlusion of coronary artery; I34.81 Nonrheumatic mitral (valve) annulus calcification; F17.210 Nicotine dependence, cigarettes, uncomplicated; Z88.6 Allergy status to analgesic agent; Z88.5 Allergy status to narcotic agent; Z88.8 Allergy status to other drugs, medicaments and biological substances; Z79.899 Other long term (current) drug therapy; Z98.890 Other specified postprocedural states; Z86.718 Personal history of other venous thrombosis and embolism; Z83.3 Family history of diabetes mellitus; Z86.711 Personal history of pulmonary embolism
CPT/HCPCS: 36415; 80053; 85025; 85610; 85730; 93458; C1725; C1894; J1644; J2250; J7030; Q9967; 99152

== ENCOUNTER 2023-09-28 13:27 | Emergency (ER) | payer MEDICARE, MEDICAID ==
[~2023-09-28] VITALS: Ht 149.9 cm; Wt 70.6 kg
[2023-09-28] MEDS ORDERED: ACET-1080 PO (14:48)
[2023-09-28] MEDS ORDERED: CEPH500C PO (14:48)
[2023-09-28 14:59] VITALS: BP 120/58; PULSE 77; RESP 16; TEMP 98.2; O2SAT 97
== END 2023-09-28 15:07 | disposition home or self-care (01) ==
LOC: ER 13:29
DX: L03.031 Cellulitis of right toe (principal); J45.909 Unspecified asthma, uncomplicated; I12.9 Hypertensive chronic kidney disease with stage 1 through stage 4 chronic kidney disease, or unspecified chronic kidney disease; N18.9 Chronic kidney disease, unspecified; K21.9 Gastro-esophageal reflux disease without esophagitis; E78.5 Hyperlipidemia, unspecified; F17.210 Nicotine dependence, cigarettes, uncomplicated; Z90.710 Acquired absence of both cervix and uterus

== ENCOUNTER 2023-12-26 13:58 | Inpatient (IN) | payer MEDICARE, MEDICAID ==
[~2023-12-26] VITALS: Ht 182.9 cm; Wt 83.8 kg
[~2023-12-26 13:58] MED LIST changes: +ACET-1080 PO; +CEPH500C PO; -FUR20T PO; +FURO20TA4 PO
[2023-12-26] MEDS ORDERED: ONDANSETRON HCL 4 MG/2 ML VIAL IV PRN (16:00)
[2023-12-26] MEDS ORDERED: MAALOX PLUS or MAALOX 30 ML PO PRN (16:00)
[2023-12-26] MEDS: SODIUM CHLORIDE 0.9% 1,000 ML IV SCH (16:00)
[2023-12-26] MEDS ORDERED: DOCUSATE SOD 100 MG CAP PO PRN (16:00)
[2023-12-26] MEDS ORDERED: RISEDRONATE SODIUM 35 MG PO SCH (16:00)
[2023-12-26] MEDS ORDERED: ACETAMINOPHEN 325 MG TAB PO PRN (16:00)
[2023-12-26 16:54] VITALS: BP 156/75; PULSE 82; PULSE 85; RESP 18; RESP 20; TEMP 98.6; O2SAT 97
[2023-12-26 17:00] VITALS: BP 162/73; PULSE 84; RESP 17; TEMP 98.7; O2SAT 95
[2023-12-26 17:36] VITALS: BP 152/78; PULSE 82; RESP 20; TEMP 98.5; O2SAT 97
[2023-12-26] MEDS: ERGOCALCIFEROL 50,000 UNIT(1.25MG) CAP PO SCH (19:01)
[2023-12-26] MEDS: cefTRIAXone 1GM/50ML D5W 50 ML IV ONE (19:01)
[2023-12-26] MEDS: CYANOCOBALAMIN (B-12) 1000 MCG/1 ML VIAL IM ONE (19:01)
[2023-12-26 21:00] VITALS: BP 160/82; PULSE 69; RESP 20; TEMP 97.9; O2SAT 91
[2023-12-26] MEDS: SUCRALFATE 1 GM TAB PO SCH (22:55)
[2023-12-26] MEDS: APIXABAN 5 MG TAB PO SCH (22:56)
[2023-12-26] MEDS: RANOLAZINE ER 500 MG TAB PO SCH (22:56)
[2023-12-26] MEDS: PREGABALIN CAPSULE 75 MG CAP PO SCH (22:57)
[2023-12-27 01:00] VITALS: BP 164/83; PULSE 70; RESP 20; TEMP 98; O2SAT 93
[2023-12-27 05:00] VITALS: BP 153/72; PULSE 76; RESP 18; TEMP 98.2; O2SAT 94
[2023-12-27 06:21] LABS: Basophils # (auto) 0.1 10 ^3/uL (0-0.2); Basophils % (auto) 0.8 % (0.0-2.0); Eosinophils # (auto) 0.2 10 ^3/uL (0-0.8); Hematocrit 31.9 % (36.0-46.0); Hemoglobin 10.5 g/dL (12.2-16.2); Lymphocytes # (auto) 1.8 10 ^3/uL (0.4-5.4); Lymphocytes % (auto) 23.9 % (10.0-50.0); Mean Corpuscular Hemoglobin 28.1 pg (28.0-32.0); Mean Corpuscular Hgb Conc. 32.8 g/dL (32.0-36.0); Mean Corpuscular Volume 85.7 fL (80.0-100.0); Monocytes # (auto) 0.9 10 ^3/uL (0-1.3); Monocytes % (auto) 11.2 % (0.0-12.0); Neutrophils # (auto) 4.8 10 ^3/uL (1.6-8.6); Neutrophils % (auto) 62.1 % (37.0-80.0); Platelet Count (auto) 287 10^3/uL (140-450); Red Blood Cells 3.73 10^6/uL (4.0-5.20); Red Cell Distribution Width 15.9 % (11.8-14.3); White Blood Cell 7.7 10^3/uL (4.4-10.8)
[2023-12-27 06:24] LABS: Chloride 111 mmol/L (98-107); Sodium 144 mmol/L (136-145)
[2023-12-27 06:25] LABS: Anion Gap 6 (5-15); Carbon Dioxide 27 mmol/L (20-30)
[2023-12-27 06:26] LABS: Calcium 8.8 mg/dL (8.7-10.4)
[2023-12-27 06:30] LABS: Glucose 90 mg/dL (74-106)
[2023-12-27 06:31] LABS: BUN/Creatinine Ratio 9.9 (10.0-20.0); Blood Urea Nitrogen 10 mg/dL (9-23)
[2023-12-27] MEDS: POTASSIUM CHL 10 Meq TABLET PO SCH (06:37)
[2023-12-27 08:04] VITALS: BP 139/73; PULSE 59; RESP 17; TEMP 97.9; O2SAT 97
[2023-12-27] MEDS: FERROUS SULFATE 325mg EC TAB PO SCH (08:42)
[2023-12-27] MEDS: LOSARTAN POTASSIUM 50 MG TAB PO SCH (08:42)
[2023-12-27] MEDS: amLODIPine BESYLATE 5 MG TAB PO SCH (08:42)
[2023-12-27] MEDS: PANTOPRAZOLE 40 MG TAB PO SCH (08:43)
[2023-12-27] MEDS: FUROSEMIDE 20 MG TAB PO SCH (08:44)
[2023-12-27] MEDS: FENOFIBRATE PO SCH (10:00)
[2023-12-27] MEDS ORDERED: ENOXAPARIN SOD 40 MG/0.4 ML SYRINGE SC SCH (10:00)
[2023-12-27 11:47] VITALS: BP 139/67; PULSE 74; RESP 17; TEMP 97.6; O2SAT 94
[2023-12-27] MEDS: LORazepam 0.5 MG TAB PO PRN (12:44)
[2023-12-27] MEDS: CYANOCOBALAMIN (B-12) 1000 MCG/1 ML VIAL IM SCH (13:36)
[2023-12-27 16:54] VITALS: BP_SYST 131; BP_SYST 136; BP_DIAS 65; BP_DIAS 78; PULSE 67; PULSE 69; RESP 18; TEMP 97.2; TEMP 98.2; O2SAT 97; O2SAT 98
[2023-12-27 21:00] VITALS: BP 140/71; PULSE 86; RESP 18; TEMP 98.3; O2SAT 96
[2023-12-27] MEDS: NICOTINE 14 MG/24HR TOPICAL PATCH TD ONE (22:36)
[2023-12-27] MEDS: cefTRIAXone 1GM/50ML D5W 50 ML IV SCH (22:37)
[2023-12-28 01:00] VITALS: BP 152/77; PULSE 75; RESP 18; TEMP 97.9; O2SAT 97
[2023-12-28 05:00] VITALS: BP 130/70; PULSE 69; RESP 19; TEMP 97.3; O2SAT 98
[2023-12-28 08:00] VITALS: PULSE 63; RESP 18; O2SAT 95
[2023-12-28] MEDS ORDERED: CEFD300C2 PO (08:40)
[2023-12-28 09:00] VITALS: BP 149/71; PULSE 63; RESP 18; TEMP 99.7; O2SAT 95
[2023-12-28] MEDS: NICOTINE 14 MG/24HR TOPICAL PATCH TD SCH (11:08)
[2023-12-28] MEDS: cefTRIAXone 1GM/50ML D5W 50 ML IV ONE (11:08)
[2023-12-28 12:25] VITALS: BP 149/71; PULSE 63; RESP 18; TEMP 99.7; O2SAT 95
== END 2023-12-28 13:10 | disposition home or self-care (01) | DRG 690 ==
LOC: EAST 15:08
PROVIDERS: ADMIT Internal Medicine; ATTEND Internal Medicine
DX: N30.00 Acute cystitis without hematuria (principal); I50.32 Chronic diastolic (congestive) heart failure; I11.0 Hypertensive heart disease with heart failure; J44.9 Chronic obstructive pulmonary disease, unspecified; E66.01 Morbid (severe) obesity due to excess calories; E78.5 Hyperlipidemia, unspecified; I48.91 Unspecified atrial fibrillation; I25.5 Ischemic cardiomyopathy; Z88.3 Allergy status to other anti-infective agents; Z68.25 Body mass index [BMI] 25.0-25.9, adult; Z72.0 Tobacco use; Z71.6 Tobacco abuse counseling
CPT/HCPCS: 36415; 74018; 76775; 80048; 80053; 81001; 82306; 82607; 84443; 85025; G0378

== ENCOUNTER → 2024-01-24 | Outpatient (CLI) | payer MEDICARE, MEDICAID ==
[~2024-01-24] MED LIST changes: +CEFD300C2 PO; -CEPH500C PO
[2024-01-24 13:35] LABS: Urine Bacteria None Seen /hpf (None Seen)
[2024-01-24 14:13] LABS: Urine Blood Negative /uL (Negative); Urine Clarity Clear (Clear); Urine Color Yellow (Yellow); Urine Protein, UAD TRACE (Negative); Urine Specific Gravity 1.016 (1.001-1.035); Urine Urobilinogen Normal (Negative); Urine WBC 1 /hpf (0 - 5); Urine pH 5.5 (5.0-9.0)
== END | disposition home or self-care (01) ==
LOC: LAB 13:32
PROVIDERS: ATTEND Internal Medicine
DX: N30.00 Acute cystitis without hematuria (principal)
CPT/HCPCS: 81001; 87086

== ENCOUNTER → 2024-05-06 | Outpatient (CLI) | payer MEDICARE, MEDICAID ==
[2024-05-06 14:43] LABS: Urine Bacteria None Seen /hpf (None Seen)
[2024-05-06 16:03] LABS: Basophils # (auto) 0 10 ^3/uL (0-0.2); Basophils % (auto) 0.3 % (0.0-2.0); Eosinophils # (auto) 0.1 10 ^3/uL (0-0.8); Eosinophils % (auto) 1.4 % (0.0-7.0); Hematocrit 39.8 % (36.0-46.0); Hemoglobin 12.9 g/dL (12.2-16.2); Lymphocytes # (auto) 2.1 10 ^3/uL (0.4-5.4); Lymphocytes % (auto) 32.1 % (10.0-50.0); Mean Corpuscular Hemoglobin 27.7 pg (28.0-32.0); Mean Corpuscular Hgb Conc. 32.3 g/dL (32.0-36.0); Mean Corpuscular Volume 85.5 fL (80.0-100.0); Monocytes # (auto) 0.6 10 ^3/uL (0-1.3); Neutrophils # (auto) 3.7 10 ^3/uL (1.6-8.6); Neutrophils % (auto) 57.2 % (37.0-80.0); Nucleated Red Blood Cells % 0.2 %; Platelet Count (auto) 201 10^3/uL (140-450); Red Blood Cells 4.65 10^6/uL (4.0-5.20); Red Cell Distribution Width 17.2 % (11.8-14.3); White Blood Cell 6.5 10^3/uL (4.4-10.8)
[2024-05-06 16:04] LABS: Urine Blood Negative /uL (Negative); Urine Clarity Clear (Clear); Urine Color Yellow (Yellow); Urine Protein, UAD TRACE (Negative); Urine Specific Gravity 1.019 (1.001-1.035); Urine Squamous Epithelial Cell FEW /hpf (<5); Urine Urobilinogen Normal (Negative); Urine WBC 2 /hpf (0 - 5); Urine pH 5.5 (5.0-9.0)
[2024-05-06 16:10] LABS: Alkaline Phosphatase 75 U/L (46-116); Anion Gap 7 (5-15); Aspartate Aminotransferase 15 U/L (13-40); BUN/Creatinine Ratio 14.4 (10.0-20.0); Blood Urea Nitrogen 17 mg/dL (9-23); Calcium 10.3 mg/dL (8.7-10.4); Carbon Dioxide 26 mmol/L (20-31); Glucose 100 mg/dL (74-106); Potassium 4.7 mmol/L (3.5-5.1)
[2024-05-06 16:11] LABS: Albumin 4.1 g/dL (3.2-4.8); Total Protein 7.5 g/dL (5.7-8.2)
[2024-05-06 16:12] LABS: Alanine Aminotransferase < 9 U/L (7-40); Bilirubin, Total 0.3 mg/dL (0.2-1.0); Chloride 112 mmol/L (98-107); Sodium 145 mmol/L (136-145)
== END | disposition home or self-care (01) ==
LOC: LAB 14:23
PROVIDERS: ATTEND Internal Medicine
DX: I10 Essential (primary) hypertension (principal); Z79.899 Other long term (current) drug therapy
CPT/HCPCS: 36415; 80053; 81001; 82306; 82607; 84443; 85025

== ENCOUNTER 2024-06-25 10:41 | Inpatient (IN) | payer MEDICARE, MEDICAID ==
[~2024-06-25] VITALS: Ht 152.4 cm; Wt 71.6 kg
[2024-06-25] VITALS (8 sets, daily range): BP systolic 0–122; BP diastolic 69; PULSE 80–90; RESP 18–84; TEMP 97.5–98.2; O2SAT 96–100
--- NOTE | 2024-06-25 11:10 | ED.PDOC ---
SOB-HPI HPI Comments 79y F who presents to the ED for chief complaint of shortness of breath. Per daughter, pt has been having flu-like symptoms for the past 1 week with associated fever, cough, congestion, with associated nausea, vomiting and diarrhea for the past 1 week. Pt was at PCP appt today for her symptoms with noted increasing shortness of breath and pt had vitals checked and noted 02 sat was at 80% and pt was placed on 4 L via nc and sent to the ED for further eval uation. Pt now in the ED, in no noted respiratory distress with noted 02 sat of 96% on 4 L via nc. Pt states she is heavy smoker but denies history of COPD and 02 use at home. Pt otherwise denies chest pain, headache, dizziness, and any other symptoms. Pt otherwise denies any other symptoms at this time. Chief Complaint: shorntess of breath Time Seen by MD: 11:04 Primary Care Provider: YONIS Reviewed notes: Nurses Notes, Employment Instructional Associate Notes, Medications, Allergies Information Source: Patient, Relative Mode of Arrival: Wheelchair Brought in by: daughter Severity: Moderate Timing: Days Duration: Since onset Context: At Rest, With Light Exertion PE Risk Factors: None History of: Asthma, DVT/PE Prehospital treatment: Oxygen Modifying Factors: Exertion Associated Signs and Symptoms: Fever, Wheeze, Cough, Nasal Congestion If cough with SOB: Clear Past Medical History PAST MEDICAL HISTORY: Arthritis, Asthma, CAD, CKF, GERD, High Lipids, HTN Surgical History: CABG, Hernia Repair, Hysterectomy EXPEDITIONARY FIGHTING [employer] History: No Pertinent EXPEDITIONARY FIGHTING [employer]WMAN History Family History Family History: Family hx of DM Social History Smoker: Cigarettes Alcohol: Denies ETOH Use Drugs: Denies Drug Use Lives In: Home Constitutional: reports: fatigue, fever; denies: chills, diaphoresis, malaise, sweats, weakness, others EENTM: reports: nose congestion; denies: blurred vision, double vision, ear bleeding, ear discharge, ear drainage, ear pain, ear ringing, eye pain, eye redness, hearing loss, mouth pain, mouth swelling, nasal discharge, nose bleeding, nose pain, photophobia, tearing, throat pain, throat swelling, voice changes, others Respiratory: reports: cough, shortness of breath; denies: hemoptysis, orthopnea, SOB at rest, SOB with excertion, stridor, wheezing, others Cardiovascular: denies: chest pain, dizzy spells, diaphoresis, Dyspnea on exertion, edema, irregular heart beat, left arm pain, lightheadedness, palpitations, PND, syncope, others Gastrointestinal: reports: diarrhea, nausea, vomiting; denies: abdomen distended, abdominal pain, blood streaked bowels, constipated, dysphagia, difficulty swallowing, hematemesis, melena, poor appetite, poor fluid intake, rectal bleeding, rectal pain, others Genitourinary: denies: abnormal vagina bleeding, burning, dyspareunia, dysuria, flank pain, frequency, hematuria, incontinence, pain, , vagina di scharge, urgency, others Neurological: denies: dizziness, fainting, headache, left sided numbness, left sided weakness, numbness, paresthesia, pre-existing deficit, right sided numbness, right sided weakness, seizure, speech problems, tingling, tremors, weakness, others Musculoskeletal: denies: back pain, gout, joint pain, joint swelling, muscle pain, muscle stiffness, neck pain, others Integumetry: denies: bruises, change in color, change in hair/nails, dryness, laceration, lesions, lumps, rash, wounds, others Allergic/Immunocompromised: denies: Difficulty Healing, Frequent Infections, Hives, Itching, others Hematologic/Lymphatic: denies: anemia, blood clots, easy bleeding, easy bruising, swollen glands, others Endocrine: denies: excessive hunger, excessive sweating, excessive thirst, excessive urination, flushing, intolerance to cold, intolerance to heat, unexplained weight gain, unexplained weight loss, others Psychiatric: denies: anxiety, bipolar disorder, depression, hopeless, panic disorder, schizophrenia, sleepless, suicidal, others All Other Systems: Reviewed and Negative Physical Exam General Appearance: Moderate Distress HEENT: Normal ENT Inspection, Pharynx Normal, TMs Normal Neck: Full Range of Motion, Non-Tender, Normal, Normal Inspection Respiratory: Chest Non-Tender, Decreased Breath Sounds, Lungs Clear, Respiratory Distress Cardiovascular: No Edema, No JVD, No Murmur, No Gallop, Normal Peripheral Pulses, Regular Rate/Rhythm Breast Exam: Deferred Gastrointestinal: No Organomegaly, Non Tender, No Pulsatile Mass, Normal Bowel Sounds, Soft Genitalia: Deferred Pelvic: Deferred Rectal: Deferred Extremities: No calf tenderness, Normal capillary refill, Normal inspection, Normal range of motion, Non-tender, No pedal edema Musculoskeletal : Apperance: Normal Neurologic: Alert, oracle iam consultant II-XII nml as Tested, No Motor Deficits, Normal Affect, Normal Mood, No Sensory Deficits Cerebellar Function: Normal Reflexes: Normal Skin: Dry, Normal Color, Warm Lymphatic: No Adenopathy EKG EKG : Pulse Rate (adult): 85 Francis: Normal Cardiac Rhythm: NSR Block: None Hypertrophy: None ST: Normal Was a procedure done? Was a procedure done?: No Differential Dx Differential Diagnosis: Asthma, Bronchitis, CHF, COPD, Hypertension, Myocardial infarction, Pneumonia, Pulmonary Embolism, Respiratory Distress Comments COVID, Influenza A and B, X-Ray, Labs, Meds, VS Vital Signs Date Time Temp Pulse Resp B/P (MAP) Pulse Ox O2 Delivery O2 Flow Rate FiO2 06/25/24 14:36 88 15 135/60 (85) 85 06/25/24 11:47 98.2 88 20 122/69 (86) 96 98.2 06/25/24 11:47 88 20 96 Nasal Cannula* 6 44 06/25/24 11:20 18 97 Nasal Cannula* 4 36 06/25/24 11:10 85 06/25/24 10:48 85 06/25/24 10:46 28 96 Nasal Cannula* 4 36 06/25/24 10:46 98.2 82 28 122/64 (83) 96 Lab Test 06/25/24 15:00 06/25/24 12:44 06/25/24 11:30 Range/Units Influenza Type A Antigen Negative Negative Influenza Type B Antigen Negative Negative SARS-CoV-2 Antigen (Rapid) Negative NEGATIVE Troponin I High Sensitivity 5 5 </=34 ng/L White Blood Count 10.4 4.4-10.8 10^3/uL Red Blood Count 4.84 4.0-5.20 10^6/uL Hemoglobin 13.3 12.2-16.2 g/dL Hematocrit 41.3 36.0-46.0 % Mean Corpuscular Volume 85.3 80.0-100.0 fL Mean Corpuscular Hemoglobin 27.5 L 28.0-32.0 pg Mean Corpuscular Hemoglobin Concent 32.2 32.0-36.0 g/dL Red Cell Distribution Width 14.9 H 11.8-14.3 % Platelet Count 308 140-450 10^3/uL Mean Platelet Volume 9.8 6.9-10.8 fL Neutrophils (%) (Auto) 76.8 37.0-80.0 % Lymphocytes (%) (Auto) 13.9 10.0-50.0 % Monocytes (%) (Auto) 8.2 0.0-12.0 % Eosinophils (%) (Auto) 0.7 0.0-7.0 % Basophils (%) (Auto) 0.4 0.0-2.0 % Neutrophils # (Auto) 8.0 1.6-8.6 10 ^3/uL Lymphocytes # (Auto) 1.4 0.4-5.4 10 ^3/uL Monocytes # (Auto) 0.8 0-1.3 10 ^3/uL Eosinophils # (Auto) 0.1 0-0.8 10 ^3/uL Basophils # (Auto) 0 0-0.2 10 ^3/uL Nucleated Red Blood Cells 0.0 % D-Dimer, Quantitative 4.40 H 0.0-0.49 mg/L FEU Sodium Level 143 136-145 mmol/L Potassium Level 4.0 3.5-5.1 mmol/L Chloride Level 109 H 98-107 mmol/L Carbon Dioxide Level 26 20-31 mmol/L Anion Gap 8 5-15 Blood Urea Nitrogen 16 9-23 mg/dL Creatinine 1.38 H 0.550-1.02 mg/dL Glomerular Filtration Rate Calc 39 >90 mL/min BUN/Creatinine Ratio 11.6 10.0-20.0 Serum Glucose 105 74-106 mg/dL Lactic Acid Level 1.1 0.4-2.0 mmol/L Calcium Level 10.0 8.7-10.4 mg/dL B-Type Natriuretic Peptide 70.26 0-100 pg/mL Current Medications Medications (Trade) Dose Ordered Sig/Callie Route Start Time Stop Time Status Last Admin Methylprednisolone Sodium Succinate (Solu Medrol) 125 mg ONCE ONCE IV 06/25/24 11:00 06/25/24 11:01 DC 06/25/24 11:30 Ipratropium [place] (Atrovent Medneb) 1 mg ONCE ONCE HHN 06/25/24 11:00 06/25/24 11:01 DC 06/25/24 11:19 Albuterol (Ventolin Medneb) 20 mg ONCE ONCE HHN 06/25/24 11:00 06/25/24 11:01 DC 06/25/24 11:19 Levofloxacin/ Dextrose 100 ml @ 100 mls/hr ONCE ONCE IV 06/25/24 15:00 06/25/24 15:59 DC 06/25/24 15:07 EXAM: XY CHEST PORTABLE IMPRESSION: Right basilar opacity which may reflect pneumonia. CBC is within normal limits The chemistry panel is within normal limits The D-dimer is elevated at 4.40 The rest of the chemistry panel is within normal limits. The patient was started on Solu-Medrol 125 mg IV push The patient was given a breathing treatment of albuterol and Atrovent The patient was also started on Levaquin after blood cultures were drawn. There is a concern for possible PE We discussed the findings with the hospitalist and there is a chance we are going to get a CT scan of the chest to rule out PE The patient was being admitted. Images Reviewed?: Images reviewed and evaluated by me Time of 1ST Reevaluation: 11:35 Reevaluation 1ST: Unchanged Patient Education/Counseling: Diagnosis, Treatment, Prognosis Family Education/Counseling: Diagnosis, Treatment, Prognosis Additional Information -Reviewed patient's previous visit(s): - The following tests were ordered, and results were reviewed by me: ekgx1, trop x3, cbc, bmp, ua, chest x-ray, bmp, lactic acid, covid test, influenza a and b, - Additional information was gathered from interviewing the following independent Historian: pt daughter - I reviewed and agreed with the following test results read by other provider: radiologist - I discussed treatments and results with medical personnel and: patient Comprehensive systems review obtained and negative except for what is stated in the HPI. Departure 1 Departure Time of Disposition: 17:21 Impression: Primary Impression: Acute respiratory failure Qualified Codes: J96.01 - Acute respiratory failure with hypoxia Additional Impression: Elevated d-dimer Disposition: 09 ADMITTED INPATIENT Admit to: Tele Condition: Fair Critical Care Note Critical Care Time?: Yes (45 min-critical care time only) Stability Stability form required: Yes Unstable for transfer: Telemetry monitoring (Telemetry monitoring required), ED Physician Assesment (Clinical assesment) Heart Score Heart Score: Heart Score Response (Comments) Value History Moderate Suspicious 1 EKG Normal 0 Age >65 2 Risk Factors 1 or 2 risk factors 1 Troponin Normal limit 0 Total 4 I personally scribed for BRIGIDA SINGER MD ([email or web address]) on 06/25/24 at 11:10. Electronically submitted by Caity Phan ([facility]). I personally scribed for BRIGIDA SINGER MD ([email or web address]) on 06/25/24 at 11:34. Electronically submitted by Caity Phan ([facility]). BRIGIDA SINGER MD Jun 25, 2024 11:10
[2024-06-25] MEDS: IPRATROPIUM BROM 0.5 MG/2.5ML INH SOL HHN ONE (11:19)
[2024-06-25] MEDS: ALBUTEROL SULF 2.5 MG/0.5ML(0.5%) NEB SOLN HHN ONE (11:19)
--- NOTE | 2024-06-25 11:23 | DVH ---
EXAM: XY CHEST PORTABLE Indication: sob Technique: Single frontal view of the chest was obtained Comparison: XY CHEST PORTABLE on DOS: 05/22/23, XY CHEST PORTABLE on DOS: 05/20/23, EKG on DOS: 2, CXRP on DOS: 09/18/21 FINDINGS: Lines and Tubes: None Lungs: Right basilar opacity. Pleura: No effusion. No pneumothorax. Cardiomediastinal contours: Unremarkable. Atherosclerotic vascular calcifications of the thoracic ao rta are noted. Bones: No acute osseous abnormality. IMPRESSION: Right basilar opacity which may reflect pneumonia.
[2024-06-25] MEDS: methylPREDNISolone SOD SUCC 125 MG/2 ML VL IV ONE (11:30)
[2024-06-25 12:04] LABS: Basophils # (auto) 0 10 ^3/uL (0-0.2); Basophils % (auto) 0.4 % (0.0-2.0); Eosinophils # (auto) 0.1 10 ^3/uL (0-0.8); Eosinophils % (auto) 0.7 % (0.0-7.0); Hematocrit 41.3 % (36.0-46.0); Hemoglobin 13.3 g/dL (12.2-16.2); Lymphocytes # (auto) 1.4 10 ^3/uL (0.4-5.4); Lymphocytes % (auto) 13.9 % (10.0-50.0); Mean Corpuscular Hemoglobin 27.5 pg (28.0-32.0); Mean Corpuscular Hgb Conc. 32.2 g/dL (32.0-36.0); Mean Corpuscular Volume 85.3 fL (80.0-100.0); Monocytes # (auto) 0.8 10 ^3/uL (0-1.3); Monocytes % (auto) 8.2 % (0.0-12.0); Neutrophils % (auto) 76.8 % (37.0-80.0); Platelet Count (auto) 308 10^3/uL (140-450); Red Blood Cells 4.84 10^6/uL (4.0-5.20); Red Cell Distribution Width 14.9 % (11.8-14.3); White Blood Cell 10.4 10^3/uL (4.4-10.8)
[2024-06-25 12:07] LABS: Sodium 143 mmol/L (136-145)
[2024-06-25 12:08] LABS: Anion Gap 8 (5-15); Carbon Dioxide 26 mmol/L (20-31)
[2024-06-25 12:13] LABS: BUN/Creatinine Ratio 11.6 (10.0-20.0); Blood Urea Nitrogen 16 mg/dL (9-23); Glucose 105 mg/dL (74-106)
[2024-06-25 12:16] LABS: Chloride 109 mmol/L (98-107)
[2024-06-25] MEDS: levoFLOXacin 500MG 100 ML IV ONE (15:07)
[2024-06-25] MEDS ORDERED: NITROGLYCERIN 0.4 MG SL TAB SL PRN (15:30)
[2024-06-25] MEDS ORDERED: MORPHINE SULFATE INJ 2 MG/ml SYRG IV PRN (15:30)
[2024-06-25] MEDS ORDERED: HYDROcodone-ACET 5/325MG TAB PO PRN (15:30)
[2024-06-25] MEDS ORDERED: ONDANSETRON HCL 4 MG/2 ML VIAL IV PRN (15:30)
[2024-06-25] MEDS ORDERED: DOCUSATE SOD 100 MG CAP PO PRN (15:30)
[2024-06-25] MEDS ORDERED: DULO1CAP6 PO (15:36)
[2024-06-25] MEDS: AZITHROMYCIN 500MG/ 250ML 250 ML IV ONE (15:45)
--- NOTE | 2024-06-25 15:56 | DVHHP2 ---
History of Present Illness Reason for Visit: Shortness of breath History of Present Illness Manda Groves is a 79-year-old female with past medical history of GERD, hypertension, hyperlipidemia, coronary artery disease, chronic renal disease, asthma, fibromyalgia, and arthritis, who came to the hospital due to shortness of breath. Patient lives with her daughter. Per the daughter the patient had been experiencing flu like symptoms, including fever, cough, congestion, nausea, vomiting, and diarrhea for 1 week. She went to her primary care provider today who sent her to the hospital due to her oxygenation being in the low 80's when she went to see them. On arrival to the ER her RA O2 sats were in the low 80's, patient was placed on 4L NC, O2 sats increased to mid 90's. Cardiovascular: CAD, HTN, hyperipidemia Pulmonary: Asthma GI: GERD Renal/: Chronic renal insuff Past Surgical History: CABG (2001), Hysterectomy, Hernia Repair Smoke: <1 pack per day ALCOHOL: none Drugs: None Lives: with Family Domestic Violence: Neg Review of Systems Constitutional: No: Fever, Chills, Sweats, Weakness, Malaise, Other Eyes: No: Pain, Vision change, Conjunctivae inflammation, Eyelid inflammation, Other, Redness ENT: No: Ear pain, Ear discharge, Nose pain, Nose discharge, Nose congestion, Mouth pain, Mouth swelling, Throat pain, Throat swelling, Other Respiratory: Cough, Shortness of breath, SOB with excertion, Wheezing; No: Dry, Hemoptysis, Pleuritic Pain, Sputum, Wheezing, Other Cardiovascular: No: Chest Pain, Palpitations, Orthopnea, Paroxysmal Noc. Dyspnea, Edema, Lt Headedness, Other Gastrointestinal: No: Nausea, Vomiting, Abdominal Pain, Diarrhea, Constipation, Melena, Hematochezia, Other Genitourinary: No Dysuria, No Frequency, No Incontinence, No Hematuria, No Retention, No Other Musculoskeletal: No: other, neck pain, shoulder pain, arm pain, back pain, hand pain, leg pain, foot pain Skin: No: Rash, Lesions, Jaundice, Bruising, Other Neurological: No: Weakness, Numbness, Incoordination, Change in speech, Confusion, Seizures, Other Allergies: Coded Allergies: Metronidazole (Verified Allergy, Intermediate, SWELLING, 09/20/21) SWELLING AND REDNESS Morphine (Verified Allergy, Mild, 11/03/15) NAUSEA/VOMITING Codeine (Verified Allergy, Unknown, 11/12/16) Medications Current Medications Medications Dose Ordered Sig/Callie Route Start Time Stop Time Status Last Admin Dose Admin Sodium Chloride 10 ml Q8HR IV 06/25/24 22:00 UNV Acetaminophen/ Hydrocodone Bitart 1 tab Q4HP PRN PO 06/25/24 15:30 UNV Ondansetron HCl 4 mg Q4HP PRN IV 06/25/24 15:30 UNV Docusate Sodium 100 mg BIDPRN PRN PO 06/25/24 15:30 UNV Acetaminophen 650 mg Q6HP PRN PO 06/25/24 15:30 UNV Nitroglycerin 0.4 mg Q5MINP PRN SL 06/25/24 15:30 UNV Morphine Sulfate 2 mg Q30M PRN IV 06/25/24 15:30 UNV Methylprednisolone Sodium Succinate 40 mg BID IV 06/25/24 22:00 UNV Ipratropium [place] 0.5 mg Q6HWA NEB 06/25/24 18:00 UNV Albuterol 2.5 mg Q6HWA NEB 06/25/24 18:00 UNV Nicotine 1 patch DAILY TD 06/26/24 10:00 UNV Amlodipine Besylate 10 mg DAILY PO 06/26/24 10:00 UNV Apixaban 5 mg BID PO 06/25/24 22:00 UNV Pregabalin 5 mg BID PO 06/25/24 22:00 UNV Ranolazine 500 mg BID PO 06/25/24 22:00 UNV Patient Own Medication 1 cap DAILY PO 06/26/24 10:00 UNV Patient Own Medication 325 mg DAILY PO 06/26/24 10:00 UNV Patient Own Medication 1 tab DAILY PO 06/26/24 10:00 UNV Patient Own Medication 10 mg DAILY PO 06/26/24 10:00 UNV Patient Own Medication 1 tab DAILY PO 06/26/24 10:00 UNV Azithromycin 250 ml @ 125 mls/hr DAILY IV 06/26/24 10:00 UNV Ceftriaxone Sodium 50 ml @ 100 mls/hr DAILY@09 IV 06/26/24 09:00 UNV Exam Vital Signs Vital Signs Date Time Temp Pulse Resp B/P (MAP) Pulse Ox O2 Delivery O2 Flow Rate FiO2 06/25/24 11:47 98.2 88 20 122/69 (86) 96 98.2 06/25/24 11:47 Nasal Cannula* 6 44 General Appearance: Alert, Oriented X3, Cooperative, moderate distress HEENT: Atraumatic, PERRLA Respiratory: Other (bilateral wheezing and diminished breath sounds) Cardiovascular: Regular rate, Normal S1, Normal S2, No murmurs Abdominal: Normal bowel sounds, Soft, No tenderness, No hepatospenomegaly Extremities: No clubbing, No cyanosis, No edema, Normal pulses, No tenderness/swelling Skin: No rashes, No breakdown, No significant lesion Neuro: Normal gait, Normal speech, Strength at 5/5 X4 ext, Normal tone Psych/Mental Status: Mental status NL, Mood NL Labs/Xrays Labs Test 06/25/24 15:00 06/25/24 12:44 06/25/24 11:30 Range/Units Troponin I High Sensitivity 5 </=34 ng/L White Blood Count 10.4 4.4-10.8 10^3/uL Red Blood Count 4.84 4.0-5.20 10^6/uL Hemoglobin 13.3 12.2-16.2 g/dL Hematocrit 41.3 36.0-46.0 % Mean Corpuscular Volume 85.3 80.0-100.0 fL Mean Corpuscular Hemoglobin 27.5 L 28.0-32.0 pg Mean Corpuscular Hemoglobin Concent 32.2 32.0-36.0 g/dL Red Cell Distribution Width 14.9 H 11.8-14.3 % Platelet Count 308 140-450 10^3/uL Mean Platelet Volume 9.8 6.9-10.8 fL Neutrophils (%) (Auto) 76.8 37.0-80.0 % Lymphocytes (%) (Auto) 13.9 10.0-50.0 % Monocytes (%) (Auto) 8.2 0.0-12.0 % Eosinophils (%) (Auto) 0.7 0.0-7.0 % Basophils (%) (Auto) 0.4 0.0-2.0 % Neutrophils # (Auto) 8.0 1.6-8.6 10 ^3/uL Lymphocytes # (Auto) 1.4 0.4-5.4 10 ^3/uL Monocytes # (Auto) 0.8 0-1.3 10 ^3/uL Eosinophils # (Auto) 0.1 0-0.8 10 ^3/uL Basophils # (Auto) 0 0-0.2 10 ^3/uL Nucleated Red Blood Cells 0.0 % D-Dimer, Quantitative 4.40 H 0.0-0.49 mg/L FEU Sodium Level 143 136-145 mmol/L Potassium Level 4.0 3.5-5.1 mmol/L Chloride Level 109 H 98-107 mmol/L Carbon Dioxide Level 26 20-31 mmol/L Anion Gap 8 5-15 Blood Urea Nitrogen 16 9-23 mg/dL Creatinine 1.38 H 0.550-1.02 mg/dL Glomerular Filtration Rate Calc 39 >90 mL/min BUN/Creatinine Ratio 11.6 10.0-20.0 Serum Glucose 105 74-106 mg/dL Lactic Acid Level 1.1 0.4-2.0 mmol/L Calcium Level 10.0 8.7-10.4 mg/dL B-Type Natriuretic Peptide 70.26 0-100 pg/mL EXAM: XY CHEST PORTABLE FINDINGS: Lines and Tubes: None Lungs: Right basilar opacity. Pleura: No effusion. No pneumothorax. Cardiomediastinal contours: Unremarkable. Atherosclerotic vascular calcifications of the thoracic aorta are noted. Bones: No acute osseous abnormality. IMPRESSION: Right basilar opacity which may reflect pneumonia. Assessment/Plan Assessment/Plan Assessment: Pneumonia, Acute hypomimia, Elevated D-dimer, Hypertension, Hyperlipidemia, Chronic kidney disease, Asthma, Tobacco dependance, Plan: Admit to Tele, VQ scan ordered not CTA due to renal function, IV hydration, IV steroids, IV antibiotics, Supplemental oxygen as needed, Breathing treatments, Home medications reconciled, Counseled on importance of tobacco cessation, Plan discussed with: Patient, Daughter My Orders Orders - ARELIS BILLINGSLEY Procedure Category Date Status Time Admit ADMIT 06/25/24 Transmitted 15:27 Code Status CODE 06/25/24 Transmitted 15:27 Sodium Chloride Lock PHA 06/25/24 Logged (Saline Lock Ns) 22:00 Hydrocodone-Acet PHA 06/25/24 Logged 5/325mg Tab ([place] 15:30 Ondansetron Hcl PHA 06/25/24 Logged (Zofran) 15:30 Docusate Sodium PHA 06/25/24 Logged Capsule (Colace 15:30 Complete Blood Count LAB 06/26/24 Verified 04:00 Comprehensive LAB 06/26/24 Verified Metabolic Panel 04:00 Cardiac DIET 06/25/24 Transmitted Diet-2gna,Lofat,Lochol Dinner Condition: Critical JOSEPHINE 06/25/24 In Process 15:27 Acetaminophen Tablet PHA 06/25/24 Logged (Tylenol Tablet) 15:30 Nitroglycerin PHA 06/25/24 Logged Sublingual (Ntrostat 15:30 Morphine Sulfate PHA 06/25/24 Logged Injection 15:30 Stat Ekg For Chest JOSEPHINE 06/25/24 In Process Pain 15:27 Notify Of Changes JOSEPHINE 06/25/24 In Process From Base 15:27 Seismic Engineer For JOSEPHINE 06/25/24 In Process 24 Hours 15:27 Emergency Dysrhythmia [facility] 06/25/24 In Process Protocol 15:27 Rhythm Strips Once JOSEPHINE 06/25/24 In Process Every Shift 15:27 Oxygen By Nasal RT 06/25/24 Transmitted Cannula 15:27 Methylprednisolone PHA 06/25/24 Logged Sod Succ (Solu Medrol 22:00 Ipratropium Medneb PHA 06/25/24 Logged (Atrovent Medneb) 18:00 Albuterol Medneb PHA 06/25/24 Logged (Ventolin Medneb) 18:00 Nicotine 14mg/24hr PHA 06/26/24 Logged (Nicoderm 14mg/24hr) 10:00 Amlodipine Tablet PHA 06/26/24 Logged (Norvasc Tablet) 10:00 Apixaban (Eliquis) PHA 06/25/24 Logged 22:00 Pregabalin Capsule PHA 06/25/24 Logged (Lyrica Capsule) 22:00 Ranolazine (Ranexa Er) PHA 06/25/24 Logged 22:00 (Nf) Fenofibrate PHA 06/26/24 Logged (Fenofibrate 10:00 (Nf) Ferrous Sulfate PHA 06/26/24 Logged (Iron) 10:00 (Nf) Losartan PHA 06/26/24 Logged Potassium 10:00 (Nf) Simvastatin PHA 06/26/24 Logged 10:00 (Nf) Duloxetine Hcl PHA 06/26/24 Logged 10:00 Azithromycin 500mg/ PHA 06/26/24 Logged 250ml (Zithromax 50 10:00 Azithromycin 500mg/ PHA 06/25/24 Logged 250ml (Zithromax 50 15:45 Ceftriaxone 1gm/50ml PHA 06/26/24 Logged D5w (Rocephin) 09:00 Sodium Chloride 0.9% PHA 06/25/24 Logged 15:45 Nm Vq Scan NM 06/25/24 Logged 15:39 Date of Service: Jun 25, 2024 Billing Provider: ARELIS BILLINGSLEY Common Visit Codes: [id number] INP/OBS CARE (MOD) ARELIS BILLINGSLEY Jun 25, 2024 15:56
[2024-06-25 16:14] LABS: COVID19 ANTIGEN SOFIA FIA NEGATIVE (NEGATIVE); Rapid Influenza A Negative (Negative); Rapid Influenza B Negative (Negative)
[2024-06-25] MEDS: ALBUTEROL SULF 2.5 MG/0.5ML(0.5%) NEB SOLN NEB SCH (17:33)
[2024-06-25] MEDS: IPRATROPIUM BROM 0.5 MG/2.5ML INH SOL NEB SCH (17:33)
[2024-06-25] MEDS: SODIUM CHLORIDE 0.9% 1,000 ML IV ONE (17:55)
[2024-06-25] MEDS: SIMVASTATIN 10MG TABLET PO SCH (22:00)
[2024-06-25] MEDS: SODIUM CHLOR 0.9% PF (SALINE LOCK) 10ML VIAL/SYR IV SCH (22:00)
[2024-06-25 22:54] LABS: Urine Bacteria FEW /hpf (None Seen); Urine Blood Negative /uL (Negative); Urine Clarity Turbid (Clear); Urine Color Yellow (Yellow); Urine Hyaline Cast MANY /lpf (0 - 2); Urine Mucus FEW (None Seen); Urine Protein, UAD 1+ (Negative); Urine Squamous Epithelial Cell FEW /hpf (<5); Urine Urobilinogen Normal (Negative); Urine WBC 9 /HPF (0-5)
[2024-06-25] MEDS: APIXABAN 5 MG TAB PO SCH (22:57)
[2024-06-25] MEDS: PREGABALIN CAPSULE 75 MG CAP PO SCH (22:57)
[2024-06-25] MEDS: RANOLAZINE ER 500 MG TAB PO SCH (22:57)
[2024-06-25] MEDS: methylPREDNISolone SOD SUCC 40 MG/ML VL IV SCH (22:57)
[2024-06-26] VITALS (18 sets, daily range): BP systolic 105–124; BP diastolic 56–70; PULSE 72–91; RESP 16–20; TEMP 97–98; O2SAT 86–100
[2024-06-26 05:57] LABS: Basophils # (auto) 0 10 ^3/uL (0-0.2); Eosinophils # (auto) 0 10 ^3/uL (0-0.8); Hematocrit 34.6 % (36.0-46.0); Lymphocytes # (auto) 0.9 10 ^3/uL (0.4-5.4); Lymphocytes % (auto) 7.6 % (10.0-50.0); Mean Corpuscular Hgb Conc. 31.7 g/dL (32.0-36.0); Mean Corpuscular Volume 85.3 fL (80.0-100.0); Monocytes # (auto) 0.2 10 ^3/uL (0-1.3); Monocytes % (auto) 1.6 % (0.0-12.0); Neutrophils # (auto) 11.3 10 ^3/uL (1.6-8.6); Neutrophils % (auto) 90.8 % (37.0-80.0); Platelet Count (auto) 258 10^3/uL (140-450); Red Blood Cells 4.06 10^6/uL (4.0-5.20); Red Cell Distribution Width 15.2 % (11.8-14.3); White Blood Cell 12.4 10^3/uL (4.4-10.8)
[2024-06-26 06:21] LABS: Alkaline Phosphatase 63 U/L (46-116); Anion Gap 9 (5-15); BUN/Creatinine Ratio 19.1 (10.0-20.0); Calcium 9.7 mg/dL (8.7-10.4); Carbon Dioxide 22 mmol/L (20-31); Sodium 143 mmol/L (136-145)
[2024-06-26 06:22] LABS: Albumin 3.8 g/dL (3.2-4.8); Aspartate Aminotransferase 13 U/L (13-40)
[2024-06-26 06:23] LABS: Total Protein 6.7 g/dL (5.7-8.2)
[2024-06-26 06:33] LABS: Alanine Aminotransferase < 9 U/L (7-40); Bilirubin, Total 0.2 mg/dL (0.2-1.0); Blood Urea Nitrogen 27 mg/dL (9-23); Chloride 112 mmol/L (98-107); Glucose 156 mg/dL (74-106)
[2024-06-26] MEDS: cefTRIAXone 1GM/50ML D5W 50 ML IV SCH (09:06)
[2024-06-26] MEDS: NICOTINE 14 MG/24HR TOPICAL PATCH TD SCH (09:08)
[2024-06-26] MEDS: LOSARTAN POTASSIUM 50 MG TAB PO SCH (09:10)
[2024-06-26] MEDS: DULoxetine HCL 30 MG CAP PO SCH (09:10)
[2024-06-26] MEDS: FERROUS SULFATE 325mg EC TAB PO SCH (09:11)
[2024-06-26] MEDS: amLODIPine BESYLATE 5 MG TAB PO SCH (09:11)
--- NOTE | 2024-06-26 10:35 | ECG ---
[facility] Test Date: 2024-06-25 Test Time: 10:48:36 Pat Name: DOMI YANG Department: ER Room: [facility]T B Gender: F Claims Specialist: RENEE : 1945 Requested By: BRIGIDA SINGER Order Number: [id number] Reading MD: Mauro Cruz Measurements Intervals [place] Rate: 85 P: 44 WV: 145 QRS: -14 QRSD: 95 T: 49 QT: 389 QTc: 463 Interpretive Statements Sinus rhythm Electronically Signed On 06-28-2024 17:36:59 PST by Mauro Cruz Please click the below link to view image of tracing.
--- NOTE | 2024-06-26 11:29 | DVH ---
CLINICAL INFORMATION: 79 years old, Female; PULMONARY EMBOLISM. TECHNIQUE: 9.7 mCi of Xenon-133 gas was used for the ventilation portion of the exam. Posterior vent ilation imaging was obtained. 4.5 mCi of technetium 99m MAA was used for the perfusion portion of the exam. Imaging was obtained in multiple planes of projection. COMPARISON: Chest radiograph dated 06/25/2024. FINDINGS: Perfusion imaging shows no mismatched segmental or subsegmental segmental defects. Ventilation imaging shows no defects. There is normal washout. IMPRESSION: Normal exam. No evidence of pulmonary embolism.
[2024-06-26] MEDS: AZITHROMYCIN 500MG/ 250ML 250 ML IV SCH (14:00)
--- NOTE | 2024-06-26 15:05 | DVHPN2 ---
Progress Note Date Seen: Jun 26, 2024 Medical Necessity Reason Pt with a Central, PICC or Fol: No Subjective Patient reports: No new complaints Review of Systems: HEENT:Normal, CVS:Normal, RESPIRATORY:Normal, GI:Normal, :Normal, MSK:Normal, NEURO:Normal Objective vital signs Vital Sign Date Time Temp Pulse Resp B/P (MAP) Pulse Ox O2 Delivery O2 Flow Rate FiO2 06/26/24 12:38 97.9 78 18 113/59 (77) 94 97.9 06/26/24 12:27 Nasal Cannula* 4 36 Total Intake and Output 06/25/24 06/25/24 06/26/24 15:00 23:00 07:00 Intake Total 800 ml 140 ml Balance 800 ml 140 ml medications Current Medications Medications Dose Ordered Sig/Callie Route Start Time Stop Time Status Last Admin Dose Admin Sodium Chloride 10 ml Q8HR IV 06/25/24 22:00 06/26/24 14:02 10 ML Acetaminophen/ Hydrocodone Bitart 1 tab Q4HP PRN PO 06/25/24 15:30 Ondansetron HCl 4 mg Q4HP PRN IV 06/25/24 15:30 Docusate Sodium 100 mg BIDPRN PRN PO 06/25/24 15:30 Acetaminophen 650 mg Q6HP PRN PO 06/25/24 15:30 Nitroglycerin 0.4 mg Q5MINP PRN SL 06/25/24 15:30 Morphine Sulfate 2 mg Q30M PRN IV 06/25/24 15:30 Methylprednisolone Sodium Succinate 40 mg BID IV 06/25/24 22:00 06/26/24 09:06 40 MG Ipratropium [place] 0.5 mg Q6HWA NEB 06/25/24 18:00 06/26/24 12:27 0.5 MG Albuterol 2.5 mg Q6HWA NEB 06/25/24 18:00 06/26/24 12:27 2.5 MG Nicotine 1 patch DAILY TD 06/26/24 10:00 06/26/24 09:08 1 PATCH Amlodipine Besylate 10 mg DAILY PO 06/26/24 10:00 06/26/24 09:11 10 MG Apixaban 5 mg BID PO 06/25/24 22:00 06/26/24 09:11 5 MG Pregabalin 75 mg BID PO 06/25/24 22:00 06/26/24 09:10 75 MG Ranolazine 500 mg BID PO 06/25/24 22:00 06/26/24 09:11 500 MG Ferrous Sulfate 325 mg DAILY PO 06/26/24 10:00 06/26/24 09:11 325 MG Duloxetine HCl 60 mg DAILY PO 06/26/24 10:00 06/26/24 09:10 60 MG Azithromycin 250 ml @ 125 mls/hr DAILY IV 06/26/24 10:00 06/26/24 14:00 125 MLS/HR Ceftriaxone Sodium 50 ml @ 100 mls/hr DAILY@09 IV 06/26/24 09:00 06/26/24 09:06 100 MLS/HR Losartan Potassium 50 mg DAILY PO 06/27/24 10:00 UNV Examination: GENERAL:Normal, HEENT:Normal, NECK:Normal, LUNGS:Normal, LUNGS:Abnormal (on oxygen, decreased bilateral), CVS:Normal, ABDOMEN:Normal, MSK:Normal, SKIN:Normal, NEURO:Normal, :Normal laboratory and microbiology Laboratory Tests 06/26/24 04:37 Test 06/26/24 04:37 Range/Units Serum Glucose 156 H 74-106 mg/dL Microbiology Date/Time Source Procedure Growth Status 06/25/24 11:10 Blood Blood Culture - Preliminary NO GROWTH AFTER 24 HOURS OF INCUBATION. Resulted Problem List/Assessment/Plan Problem List/Assessment/Plan #1 acute resp failure: cont oxygen #2 right pneumonia- gram positive/neg: iv antibiotics #3 copd with exacerbation : steroids, bronchodilators #4 cad ? s/p stent #5 obesity #6 chronic diastolic heart failure #7 ckd stage 3 #8 htn #9 hyperlipidemia #10 ? afib: on eliquis #11 gerd advance care planning- full code- time spent 19 mins Plan discussed with: Patient My Orders My Orders Orders - PASCALE CASTRO MD Procedure Category Date Status Time Losartan Tablet PHA 06/27/24 Logged (Cozaar Tablet) 10:00 Pt Request For Service PT 06/26/24 Logged 14:51 Echo 2d Mode Cardiac US 06/26/24 Logged DOP 14:51 Basic Metabolic Panel LAB 06/27/24 Verified 06:00 Complete Blood Count LAB 06/27/24 Verified 06:00 Chest Portable XY 06/27/24 Logged 06:00 Date of Service: Jun 26, 2024 Billing Provider: PASCALE ACSTRO MD Common Visit Codes: [id number] INP/OBS CARE(HIGH) Secondary Visit Codes: [id number] CARE PLAN 30 MINUTES PASCALE CASTRO MD Jun 26, 2024 15:05
--- NOTE | 2024-06-26 15:06 | CODING ---
Date of Service: Jun 26, 2024 Billing Provider: PASCALE CASTRO MD Common Visit Codes: [id number] INP/OBS CARE(HIGH) Secondary Visit Codes: [id number] CHNG SMOKING >10MIN, [id number] CARE PLAN 30 MINUTES PASCALE CASTRO MD Jun 26, 2024 15:06
[2024-06-26] MEDS: PANTOPRAZOLE 40 MG TAB PO ONE (17:35)
--- NOTE | 2024-06-26 21:30 | DVHSR ---
APPROVED REPORT EXAM: Two-dimensional and M-mode echocardiogram with Doppler and color Doppler. Blood Pressure: 113/59 mmHg INDICATION CAD RISK FACTORS Height: 60, Weight: 157 DIMENSIONS LVDd (3.8-5.7cm)LA (2D)4.8 (1.9-4.0cm)Aortic Root3.1 (2.0-3.7cm) LVDs (2.5-4.0cm)LA (MM) (1.9-4.0cm)Aortic Cusp Exc1.8 (1.5-2.0cm) EF (%) 60.0 (55-70%)Rt. Atrium3.9 (1.9-4.0cm)Asc. Aorta cm Mitral Valve MitralMitral Stenosis E wave1.38m/sMV Mean GR.6mmHg A wave1.66m/sMV Peak GR.126mmHg E/A ratio0.82D MVAcm2 DECEL [id number] 1/2 Inhp41ot IVRTmsDop MVA2.83cm2 Aortic Valve Aortic ValveAortic Stenosis V11.08m/Jenniffer Mean GR.6mmHg V21.70m/Jenniffer Peak GR.12mmHg LVOT Diameter2.0 (1.8-2.4cm)Doppler AVA1.99cm2 AI P 1/2 Pkle104.58ms Pulmonic Valve V20.84m/s Tricuspid Valve TR Velocity2.78m/s [id number] Conclusion Sinus rhythm. Left atrial enlargement with concentric LVH. Mild aortic sclerosis without stenosis. Moderate mitral annular calcification of the base of the pos terior mitral leaflet. There is calcification at the base. Mild calcification of the sinuses of Kiley tony and the right coronary cusp. Left ventricular function is preserved at 60% with normal RV function. Moderate mitral insufficiency. Moderate tricuspid regurgitation. Mild aortic insufficiency. No pericardial effusion masses or vegetations.
[2024-06-26] MEDS ORDERED: FENOFIBRATE MICRONIZED 134 MG PO SCH (22:00)
[2024-06-27] VITALS (15 sets, daily range): BP systolic 111–149; BP diastolic 57–79; PULSE 76–95; RESP 16–20; TEMP 97.4–98.3; O2SAT 81–100
[2024-06-27] MEDS: PANTOPRAZOLE 40 MG TAB PO SCH (05:20)
--- NOTE | 2024-06-27 05:47 | DVH ---
EXAM: XR Chest, 1 View CLINICAL INDICATION: pneumonia TECHNIQUE: Frontal view of the chest. COMPARISON: XY CHEST PORTABLE on DOS: 06/25/24, XY CHEST PORTABLE on DOS: 05/22/23, XY CHEST PORTABLE on DOS: 05/20/23, EKG on DOS: 02/21/22, CXRP on DOS: 09/18/21 FINDINGS: LUNGS AND PLEURAL SPACES: Bibasilar atelectasis or pneumonia. No pneumothorax. HEART: Unremarkable. No cardiomegaly. MEDIASTINUM: Unremarkable. Normal mediastinal contour. BONES/JOINTS: Unremarkable. No acute fracture. OTHER FINDINGS: . IMPRESSION: Bibasilar atelectasis or pneumonia.
[2024-06-27 06:26] LABS: Basophils # (auto) 0 10 ^3/uL (0-0.2); Basophils % (auto) 0.1 % (0.0-2.0); Eosinophils # (auto) 0 10 ^3/uL (0-0.8); Hematocrit 36.4 % (36.0-46.0); Hemoglobin 11.5 g/dL (12.2-16.2); Lymphocytes % (auto) 5.6 % (10.0-50.0); Mean Corpuscular Hgb Conc. 31.7 g/dL (32.0-36.0); Mean Corpuscular Volume 85.2 fL (80.0-100.0); Monocytes # (auto) 0.4 10 ^3/uL (0-1.3); Monocytes % (auto) 1.9 % (0.0-12.0); Neutrophils # (auto) 17.1 10 ^3/uL (1.6-8.6); Neutrophils % (auto) 92.4 % (37.0-80.0); Nucleated Red Blood Cells % 0.1 %; Platelet Count (auto) 290 10^3/uL (140-450); Red Blood Cells 4.27 10^6/uL (4.0-5.20); White Blood Cell 18.5 10^3/uL (4.4-10.8)
[2024-06-27 07:49] LABS: Anion Gap 11 (5-15); Calcium 9.7 mg/dL (8.7-10.4); Carbon Dioxide 21 mmol/L (20-31)
[2024-06-27 07:54] LABS: Chloride 111 mmol/L (98-107); Potassium 4.7 mmol/L (3.5-5.1); Sodium 143 mmol/L (136-145)
[2024-06-27 07:55] LABS: BUN/Creatinine Ratio 23.4 (10.0-20.0)
[2024-06-27 07:56] LABS: Blood Urea Nitrogen 30 mg/dL (9-23); Glucose 145 mg/dL (74-106)
[2024-06-27] MEDS: LOSARTAN POTASSIUM 50 MG TAB PO SCH (08:54)
--- NOTE | 2024-06-27 12:37 | DVHPN2 ---
Reviewed: Care Plan, H&P, Labs, Medications, Previous Orders, Radiology Changes from previous H/P or p: No Changes Eyes: No Pain, No Vision change, No Conjunctivae inflammation, No Eyelid inflammation, No Other, No Redness ENT: No Ear pain, No Ear discharge, No Nose pain, No Nose discharge, No Nose congestion, No Mouth pain, No Mouth swelling, No Throat pain, No Throat swelling, No Other Cardiovascular: No Chest Pain, No Palpitations, No Orthopnea, No Paroxysmal Noc. Dyspnea, No Edema, No Lt Headedness, No Other Respiratory: Cough; No Dry; Shortness of breath, SOB with excertion, Wheezing; No Hemoptysis, No Pleuritic Pain, No Sputum, No Other Gastrointestinal: No Nausea, No Vomiting, No Abdominal Pain, No Diarrhea, No Constipation, No Melena, No Hematochezia, No Other Genitourinary: No Dysuria, No Frequency, No Incontinence, No Hematuria, No Retention, No Other Musculoskeletal: No other, No neck pain, No shoulder pain, No arm pain, No back pain, No hand pain, No leg pain, No foot pain Skin: No Rash, No Lesions, No Jaundice, No Bruising, No Other Objective Vitals Vital Signs Date Time Temp Pulse Resp B/P (MAP) Pulse Ox O2 Delivery O2 Flow Rate FiO2 06/27/24 11:41 81 18 99 06/27/24 09:00 97.8 132/57 (82) 97.8 06/27/24 08:15 Nasal Cannula* 4 36 Intake/Output Intake and Output 06/27/24 07:00 Intake Total 1840 ml Balance 1840 ml Intake Oral 1540 ml IV Total 300 ml # Voids 6 Medications Current Medications Medications Dose Ordered Sig/Callie Route Start Time Stop Time Status Last Admin Dose Admin Sodium Chloride 10 ml Q8HR IV 06/25/24 22:00 06/27/24 05:23 10 ML Acetaminophen/ Hydrocodone Bitart 1 tab Q4HP PRN PO 06/25/24 15:30 Ondansetron HCl 4 mg Q4HP PRN IV 06/25/24 15:30 Docusate Sodium 100 mg BIDPRN PRN PO 06/25/24 15:30 Acetaminophen 650 mg Q6HP PRN PO 06/25/24 15:30 Nitroglycerin 0.4 mg Q5MINP PRN SL 06/25/24 15:30 Morphine Sulfate 2 mg Q30M PRN IV 06/25/24 15:30 Methylprednisolone Sodium Succinate 40 mg BID IV 06/25/24 22:00 06/27/24 08:53 40 MG Ipratropium [place] 0.5 mg Q6HWA NEB 06/25/24 18:00 06/27/24 11:31 0.5 MG Albuterol 2.5 mg Q6HWA NEB 06/25/24 18:00 06/27/24 11:31 2.5 MG Nicotine 1 patch DAILY TD 06/26/24 10:00 06/27/24 08:51 1 PATCH Amlodipine Besylate 10 mg DAILY PO 06/26/24 10:00 06/27/24 08:55 10 MG Apixaban 5 mg BID PO 06/25/24 22:00 06/27/24 08:54 5 MG Pregabalin 75 mg BID PO 06/25/24 22:00 06/27/24 10:12 75 MG Ranolazine 500 mg BID PO 06/25/24 22:00 06/27/24 08:55 500 MG Ferrous Sulfate 325 mg DAILY PO 06/26/24 10:00 06/27/24 08:54 325 MG Duloxetine HCl 60 mg DAILY PO 06/26/24 10:00 06/27/24 08:53 60 MG Azithromycin 250 ml @ 125 mls/hr DAILY IV 06/26/24 10:00 06/27/24 08:56 125 MLS/HR Ceftriaxone Sodium 50 ml @ 100 mls/hr DAILY@09 IV 06/26/24 09:00 06/27/24 08:52 100 MLS/HR Losartan Potassium 50 mg DAILY PO 06/27/24 10:00 06/27/24 08:54 50 MG Pantoprazole Sodium 40 mg DAILY@0600 PO 06/27/24 06:00 06/27/24 05:20 40 MG Laboratory Results Laboratory Tests 06/27/24 05:25 Chemistry Test 06/27/24 05:25 Calcium Level 9.7 mg/dL (8.7-10.4) HgA1c, TSH Test 06/27/24 05:25 Thyroid Stimulating Hormone (TSH) 0.08 uIU/mL (0.55-4.78) L Urinalysis Test 06/25/24 21:00 Urine Color Yellow (Yellow) Urine Clarity Turbid (Clear) H Urine pH 5.0 (5.0-9.0) Urine Specific [place] 1.020 (1.001-1.035) Urine Protein 1+ (Negative) H Urine Ketones Trace (Negative) Urine Blood Negative /uL (Negative) Urine Nitrite Negative (Negative) Urine Bilirubin Negative (Negative) Urine Urobilinogen Normal mg/dL (Negative) Urine Leukocyte Esterase Trace /uL (Negative) Urine RBC 1 /hpf (0 - 4) Urine Microscopic WBC 9 /HPF (0-5) H Urine Squamous Epithelial Cells Few /hpf (<5) Urine Bacteria Few /hpf (None Seen) H Urine Hyaline Casts Many /lpf (0 - 2) Urine Mucus Few (None Seen) Urine Glucose Trace mg/dL (Normal) Microbiology Microbiology Date/Time Source Procedure Growth Status 06/25/24 11:10 Blood Blood Culture - Preliminary NO GROWTH AFTER 48 HOURS OF INCUBATION. Resulted Labs and/or images reviewed: Labs reviewed by me, Image(s) reviewed by me Assessment/Plan Assessment/Plan Covering for Dr. Mercer #1 acute resp failure: cont oxygen #2 right pneumonia- gram positive/neg: iv antibiotics Rocephin azithromycin #3 copd with exacerbation : steroids, bronchodilators #4 cad ? s/p stent #5 obesity #6 chronic diastolic heart failure #7 ckd stage 3 #8 htn #9 hyperlipidemia #10 ? afib: on eliquis #11 gerd # 12. Severe hyperthyroidism TSH less than 0.08, patient is not on any thyroid replacement medication, thyroid ultrasound ordered Daughter Amanda [phone] Fuller came Plan discussed with: Patient Date of Service: Jun 27, 2024 Billing Provider: ANJELICA BREWER MD Common Visit Codes: [id number] INP/OBS CARE(HIGH) ANJELICA BREWER MD Jun 27, 2024 12:37
[2024-06-28] VITALS (17 sets, daily range): BP systolic 128–149; BP diastolic 53–78; PULSE 79–111; RESP 16–85; TEMP 97.5–98.3; O2SAT 20–100
--- NOTE | 2024-06-28 11:09 | DVHPN2 ---
Reviewed: Care Plan, H&P, Labs, Medications, Previous Orders, Radiology Changes from previous H/P or p: No Changes Eyes: No Pain, No Vision change, No Conjunctivae inflammation, No Eyelid inflammation, No Other, No Redness ENT: No Ear pain, No Ear discharge, No Nose pain, No Nose discharge, No Nose congestion, No Mouth pain, No Mouth swelling, No Throat pain, No Throat swelling, No Other Cardiovascular: No Chest Pain, No Palpitations, No Orthopnea, No Paroxysmal Noc. Dyspnea, No Edema, No Lt Headedness, No Other Respiratory: Cough; No Dry; Shortness of breath, SOB with excertion, Wheezing; No Hemoptysis, No Pleuritic Pain, No Sputum, No Other Gastrointestinal: No Nausea, No Vomiting, No Abdominal Pain, No Diarrhea, No Constipation, No Melena, No Hematochezia, No Other Genitourinary: No Dysuria, No Frequency, No Incontinence, No Hematuria, No Retention, No Other Musculoskeletal: No other, No neck pain, No shoulder pain, No arm pain, No back pain, No hand pain, No leg pain, No foot pain Skin: No Rash, No Lesions, No Jaundice, No Bruising, No Other Objective Vitals Vital Signs Date Time Temp Pulse Resp B/P (MAP) Pulse Ox O2 Delivery O2 Flow Rate FiO2 06/28/24 09:45 149/78 06/28/24 09:00 97.8 93 16 93 97.8 06/28/24 08:15 Nasal Cannula* 4 36 Intake/Output Intake and Output 06/28/24 07:00 Intake Total 1120 ml Balance 1120 ml Intake Oral 820 ml IV Total 300 ml # Voids 4 # Bowel Movements 2 Medications Current Medications Medications Dose Ordered Sig/Callie Route Start Time Stop Time Status Last Admin Dose Admin Sodium Chloride 10 ml Q8HR IV 06/25/24 22:00 06/28/24 06:05 10 ML Acetaminophen/ Hydrocodone Bitart 1 tab Q4HP PRN PO 06/25/24 15:30 Ondansetron HCl 4 mg Q4HP PRN IV 06/25/24 15:30 Docusate Sodium 100 mg BIDPRN PRN PO 06/25/24 15:30 Acetaminophen 650 mg Q6HP PRN PO 06/25/24 15:30 Nitroglycerin 0.4 mg Q5MINP PRN SL 06/25/24 15:30 Morphine Sulfate 2 mg Q30M PRN IV 06/25/24 15:30 Methylprednisolone Sodium Succinate 40 mg BID IV 06/25/24 22:00 06/28/24 09:43 40 MG Ipratropium [place] 0.5 mg Q6HWA NEB 06/25/24 18:00 06/28/24 06:50 0.5 MG Albuterol 2.5 mg Q6HWA NEB 06/25/24 18:00 06/28/24 06:50 2.5 MG Nicotine 1 patch DAILY TD 06/26/24 10:00 06/28/24 09:46 1 PATCH Amlodipine Besylate 10 mg DAILY PO 06/26/24 10:00 06/28/24 09:45 10 MG Apixaban 5 mg BID PO 06/25/24 22:00 06/28/24 09:44 5 MG Pregabalin 75 mg BID PO 06/25/24 22:00 06/28/24 09:44 75 MG Ranolazine 500 mg BID PO 06/25/24 22:00 06/28/24 09:44 500 MG Ferrous Sulfate 325 mg DAILY PO 06/26/24 10:00 06/28/24 09:45 325 MG Duloxetine HCl 60 mg DAILY PO 06/26/24 10:00 06/28/24 09:45 60 MG Azithromycin 250 ml @ 125 mls/hr DAILY IV 06/26/24 10:00 06/28/24 09:45 125 MLS/HR Ceftriaxone Sodium 50 ml @ 100 mls/hr DAILY@09 IV 06/26/24 09:00 06/28/24 09:34 100 MLS/HR Losartan Potassium 50 mg DAILY PO 06/27/24 10:00 06/28/24 09:45 50 MG Pantoprazole Sodium 40 mg DAILY@0600 PO 06/27/24 06:00 06/28/24 06:05 40 MG Laboratory Results Laboratory Tests 06/27/24 05:25 Urinalysis Test 06/25/24 21:00 Urine Color Yellow (Yellow) Urine Clarity Turbid (Clear) H Urine pH 5.0 (5.0-9.0) Urine Specific [place] 1.020 (1.001-1.035) Urine Protein 1+ (Negative) H Urine Ketones Trace (Negative) Urine Blood Negative /uL (Negative) Urine Nitrite Negative (Negative) Urine Bilirubin Negative (Negative) Urine Urobilinogen Normal mg/dL (Negative) Urine Leukocyte Esterase Trace /uL (Negative) Urine RBC 1 /hpf (0 - 4) Urine Microscopic WBC 9 /HPF (0-5) H Urine Squamous Epithelial Cells Few /hpf (<5) Urine Bacteria Few /hpf (None Seen) H Urine Hyaline Casts Many /lpf (0 - 2) Urine Mucus Few (None Seen) Urine Glucose Trace mg/dL (Normal) Microbiology Microbiology Date/Time Source Procedure Growth Status 06/25/24 11:10 Blood Blood Culture - Preliminary NO GROWTH AFTER 48 HOURS OF INCUBATION. Resulted Labs and/or images reviewed: Labs reviewed by me, Image(s) reviewed by me Assessment/Plan Assessment/Plan Covering for Dr. Mercer #1 acute resp failure: cont oxygen #2 right pneumonia- gram positive/neg: iv antibiotics Rocephin azithromycin #3 copd with exacerbation : steroids, bronchodilators #4 CAD stents #5 obesity #6 chronic diastolic heart failure #7 ckd stage 3 #8 htn #9 hyperlipidemia #10 afib: on eliquis #11 gerd # 12. Severe hyperthyroidism TSH less than 0.08, patient is not on any thyroid replacement medication, thyroid ultrasound ordered Daughter Amanda [phone] Marcano Plan discussed with: Patient Date of Service: Jun 28, 2024 Billing Provider: ANJELICA BREWER MD Common Visit Codes: [id number] INP/OBS CARE(HIGH) ANJELICA BREWER MD Jun 28, 2024 11:09
--- NOTE | 2024-06-28 12:00 | DVH ---
ULTRASOUND SOFT TISSUE HEAD AND NECK CLINICAL INDICATION: TECHNIQUE: Multiple real time sonographic images of the thyroid were obtained. Comparison: None FINDINGS: The right thyroid gland measures 4.2 x 1.5 x 2.1 cm. The left thyroid gland measures approximately 4.0 x 2.3 x 1.7 cm. The isthmus measures 0.6 cm. Multiple cysts and colloid cysts are present. Echogenic nodule is present in the left thyroid measuring 1.2 cm, TR 3. IMPRESSION: 1.2 cm TR 3 nodule in the left thyroid. [employer] TI-RADS Categories and Recommendations (2017): TR1: 0 points, Benign, No FNA TR2: 2 points, Not suspicious, No FNA TR3: 3 points, Mildly suspicious, FNA if > or = 2.5 cm, Follow if > or = 1.5 cm TR4: 4-6 points, Moderately Suspicious, FNA if > or = 1.5 cm, Follow if > or = 1.0 cm TR5: 7+ points, Highly Suspicious, FNA if > or = 1.0 cm, Follow if > or = 0.5 cm Follow-up ultrasound guidelines: TR5: yearly for 5 years, if no growth or change in TI-RADS level TR4: at 1, 2, 3 and 5 years, if no growth or change in TI-RADS level TR3: at 1, 3 and 5 years, if no growth or change in TI-RADS level If increased but below threshold for FNA, repeat in one year. Source: ACR Thyroid Imaging, Reporting and Data System (TI-RADS): White Paper of the A[employer] TI-RADS Committee. Thanh et al., J Am Fan Radiol 2017;14:587-595.
[2024-06-29] VITALS (15 sets, daily range): BP systolic 111–142; BP diastolic 52–73; PULSE 74–91; RESP 15–19; TEMP 97.5–98.2; O2SAT 91–98
--- NOTE | 2024-06-29 12:04 | DVHPN2 ---
Reviewed: Care Plan, H&P, Labs, Medications, Previous Orders, Radiology Changes from previous H/P or p: No Changes Eyes: No Pain, No Vision change, No Conjunctivae inflammation, No Eyelid inflammation, No Other, No Redness ENT: No Ear pain, No Ear discharge, No Nose pain, No Nose discharge, No Nose congestion, No Mouth pain, No Mouth swelling, No Throat pain, No Throat swelling, No Other Cardiovascular: No Chest Pain, No Palpitations, No Orthopnea, No Paroxysmal Noc. Dyspnea, No Edema, No Lt Headedness, No Other Respiratory: Cough; No Dry; Shortness of breath, SOB with excertion, Wheezing; No Hemoptysis, No Pleuritic Pain, No Sputum, No Other Gastrointestinal: No Nausea, No Vomiting, No Abdominal Pain, No Diarrhea, No Constipation, No Melena, No Hematochezia, No Other Genitourinary: No Dysuria, No Frequency, No Incontinence, No Hematuria, No Retention, No Other Musculoskeletal: No other, No neck pain, No shoulder pain, No arm pain, No back pain, No hand pain, No leg pain, No foot pain Skin: No Rash, No Lesions, No Jaundice, No Bruising, No Other Objective Vitals Vital Signs Date Time Temp Pulse Resp B/P (MAP) Pulse Ox O2 Delivery O2 Flow Rate FiO2 06/29/24 10:32 135/60 06/29/24 09:00 97.9 74 15 91 97.9 06/29/24 06:28 Nasal Cannula 5.0 06/29/24 06:28 40 Intake/Output Intake and Output 06/29/24 07:00 Intake Total 1600 ml Balance 1600 ml Intake Oral 1300 ml IV Total 300 ml # Voids 2 Medications Current Medications Medications Dose Ordered Sig/Callie Route Start Time Stop Time Status Last Admin Dose Admin Sodium Chloride 10 ml Q8HR IV 06/25/24 22:00 06/29/24 05:53 10 ML Acetaminophen/ Hydrocodone Bitart 1 tab Q4HP PRN PO 06/25/24 15:30 Ondansetron HCl 4 mg Q4HP PRN IV 06/25/24 15:30 Docusate Sodium 100 mg BIDPRN PRN PO 06/25/24 15:30 Acetaminophen 650 mg Q6HP PRN PO 06/25/24 15:30 Nitroglycerin 0.4 mg Q5MINP PRN SL 06/25/24 15:30 Morphine Sulfate 2 mg Q30M PRN IV 06/25/24 15:30 Methylprednisolone Sodium Succinate 40 mg BID IV 06/25/24 22:00 06/29/24 10:29 40 MG Ipratropium [place] 0.5 mg Q6HWA NEB 06/25/24 18:00 06/29/24 06:28 0.5 MG Albuterol 2.5 mg Q6HWA NEB 06/25/24 18:00 06/29/24 06:28 2.5 MG Nicotine 1 patch DAILY TD 06/26/24 10:00 06/29/24 10:30 1 PATCH Amlodipine Besylate 10 mg DAILY PO 06/26/24 10:00 06/29/24 10:32 10 MG Apixaban 5 mg BID PO 06/25/24 22:00 06/29/24 10:32 5 MG Pregabalin 75 mg BID PO 06/25/24 22:00 06/29/24 10:52 75 MG Ranolazine 500 mg BID PO 06/25/24 22:00 06/29/24 10:52 500 MG Ferrous Sulfate 325 mg DAILY PO 06/26/24 10:00 06/29/24 10:31 325 MG Duloxetine HCl 60 mg DAILY PO 06/26/24 10:00 06/29/24 10:31 60 MG Azithromycin 250 ml @ 125 mls/hr DAILY IV 06/26/24 10:00 06/29/24 10:31 125 MLS/HR Ceftriaxone Sodium 50 ml @ 100 mls/hr DAILY@09 IV 06/26/24 09:00 06/29/24 08:50 100 MLS/HR Losartan Potassium 50 mg DAILY PO 06/27/24 10:00 06/29/24 10:32 50 MG Pantoprazole Sodium 40 mg DAILY@0600 PO 06/27/24 06:00 06/29/24 05:52 40 MG Laboratory Results Laboratory Tests 06/27/24 05:25 Urinalysis Test 06/25/24 21:00 Urine Color Yellow (Yellow) Urine Clarity Turbid (Clear) H Urine pH 5.0 (5.0-9.0) Urine Specific [place] 1.020 (1.001-1.035) Urine Protein 1+ (Negative) H Urine Ketones Trace (Negative) Urine Blood Negative /uL (Negative) Urine Nitrite Negative (Negative) Urine Bilirubin Negative (Negative) Urine Urobilinogen Normal mg/dL (Negative) Urine Leukocyte Esterase Trace /uL (Negative) Urine RBC 1 /hpf (0 - 4) Urine Microscopic WBC 9 /HPF (0-5) H Urine Squamous Epithelial Cells Few /hpf (<5) Urine Bacteria Few /hpf (None Seen) H Urine Hyaline Casts Many /lpf (0 - 2) Urine Mucus Few (None Seen) Urine Glucose Trace mg/dL (Normal) Microbiology Microbiology Date/Time Source Procedure Growth Status 06/25/24 11:10 Blood Blood Culture - Preliminary NO GROWTH AFTER 72 HOURS OF INCUBATION. Resulted Labs and/or images reviewed: Labs reviewed by me, Image(s) reviewed by me Assessment/Plan Assessment/Plan Covering for Dr. Mercer #1 acute resp failure: cont oxygen #2 Right-sided pneumonia: Rocephin azithromycin #3 copd with exacerbation : steroids, bronchodilators #4 CAD stents #5 obesity #6 chronic diastolic heart failure #7 ckd stage 3 #8 htn #9 hyperlipidemia #10 afib: on eliquis #11 gerd # 12. Severe hyperthyroidism TSH less than 0.08, patient is not on any thyroid replacement medication, thyroid ultrasound shows 1.2 cm left thyroid nodule, fine needle aspiration biopsy recommended if more than 2.5 cm Daughter Amanda [phone] Krys Contreras discussed with: Patient Date of Service: Jun 29, 2024 Billing Provider: ANJELICA BREWER MD Common Visit Codes: [id number] INP/OBS CARE(HIGH) ANJELICA BREWER MD Jun 29, 2024 12:04
[2024-06-29] MEDS: ACETAMINOPHEN 325 MG TAB PO PRN (17:16)
[2024-06-30] VITALS (13 sets, daily range): BP systolic 132–145; BP diastolic 58–87; PULSE 67–87; RESP 16–20; TEMP 97.5–98.2; O2SAT 91–100
[2024-06-30 06:39] LABS: Hemoglobin 12.1 g/dL (12.2-16.2); Platelet Count (auto) 244 10^3/uL (140-450); White Blood Cell 10.6 10^3/uL (4.4-10.8)
[2024-06-30 06:42] LABS: Hematocrit 38.3 % (36.0-46.0); Mean Corpuscular Hemoglobin 26.6 pg (28.0-32.0); Mean Corpuscular Hgb Conc. 31.5 g/dL (32.0-36.0); Mean Corpuscular Volume 84.4 fL (80.0-100.0); Red Blood Cells 4.54 10^6/uL (4.0-5.20); Red Cell Distribution Width 15.2 % (11.8-14.3)
[2024-06-30 07:25] LABS: Albumin 3.7 g/dL (3.2-4.8); Alkaline Phosphatase 61 U/L (46-116); Anion Gap 8 (5-15); BUN/Creatinine Ratio 21.3 (10.0-20.0); Carbon Dioxide 26 mmol/L (20-31); Sodium 143 mmol/L (136-145); Total Protein 6.5 g/dL (5.7-8.2)
[2024-06-30 07:36] LABS: Band Neutrophils % (manual) 0; Basophils % (manual) 0 (0.0-2.0); Blast Cells 0; Eosinophils % (manual) 0 (0-7); Metamyelocytes % 0; Myelocytes % 0; Promyelocytes % 0; Reactive Lymphocytes 0
[2024-06-30 07:38] LABS: Alanine Aminotransferase < 9 U/L (7-40); Aspartate Aminotransferase < 8 U/L (13-40); Bilirubin, Total 0.2 mg/dL (0.2-1.0); Blood Urea Nitrogen 27 mg/dL (9-23); Chloride 109 mmol/L (98-107); Glucose 143 mg/dL (74-106); Potassium 5.3 mmol/L (3.5-5.1)
[2024-06-30 10:53] LABS: Lymphocytes % (manual) 6 (10.0-50.0); Monocytes % (manual) 4 (0-12); Platelet Estimate Adequate
--- NOTE | 2024-06-30 11:39 | DVHDS2 ---
Discharge Summary Date of Admission Jun 25, 2024 at 15:27 Date of Discharge: Jun 30, 2024 Labs/Diagnostic Data: Laboratory Results Test 06/30/24 06:21 06/27/24 05:25 06/25/24 21:00 06/25/24 15:00 White Blood Count 10.6 10^3/uL (4.4-10.8) Red Blood Count 4.54 10^6/uL (4.0-5.20) Hemoglobin 12.1 g/dL (12.2-16.2) Hematocrit 38.3 % (36.0-46.0) Mean Corpuscular Volume 84.4 fL (80.0-100.0) Mean Corpuscular Hemoglobin 26.6 pg (28.0-32.0) Mean Corpuscular Hemoglobin Concent 31.5 g/dL (32.0-36.0) Red Cell Distribution Width 15.2 % (11.8-14.3) Platelet Count 244 10^3/uL (140-450) Mean Platelet Volume 9.7 fL (6.9-10.8) Neutrophils (%) (Auto) % (37.0-80.0) Lymphocytes (%) (Auto) % (10.0-50.0) Monocytes (%) (Auto) % (0.0-12.0) Basophils (%) (Auto) % (0.0-2.0) Neutrophils # (Auto) 10 ^3/uL (1.6-8.6) Lymphocytes # (Auto) 10 ^3/uL (0.4-5.4) Monocytes # (Auto) 10 ^3/uL (0-1.3) Differential Total Cells Counted 100.0 (100) Neutrophils % (Manual) 90 (37.0-80.0) Band Neutrophils % (Manual) 0 Lymphocytes % (Manual) 6 (10.0-50.0) Monocytes % (Manual) 4 (0-12) Eosinophils % (Manual) 0 (0-7) Basophils % (Manual) 0 (0.0-2.0) Metamyelocytes % (manual) 0 Myelocytes % (Manual) 0 Promyelocytes % (Manual) 0 Blast Cells % (Manual) 0 Reactive Lymphocytes 0 Platelet Estimate Adequate Sodium Level 143 mmol/L (136-145) Potassium Level 5.3 mmol/L (3.5-5.1) Chloride Level 109 mmol/L (98-107) Carbon Dioxide Level 26 mmol/L (20-31) Anion Gap 8 (5-15) Blood Urea Nitrogen 27 mg/dL (9-23) Creatinine 1.27 mg/dL (0.550-1.02) Glomerular Filtration Rate Calc 43 mL/min (>90) BUN/Creatinine Ratio 21.3 (10.0-20.0) Serum Glucose 143 mg/dL (74-106) Calcium Level 9.0 mg/dL (8.7-10.4) Total Bilirubin 0.2 mg/dL (0.2-1.0) Aspartate Amino Transferase (AST) < 8 U/L (13-40) Alanine Aminotransferase (ALT) < 9 U/L (7-40) Alkaline Phosphatase 61 U/L (46-116) Total Protein 6.5 g/dL (5.7-8.2) Albumin 3.7 g/dL (3.2-4.8) Eosinophils (%) (Auto) 0.0 % (0.0-7.0) Eosinophils # (Auto) 0 10 ^3/uL (0-0.8) Basophils # (Auto) 0 10 ^3/uL (0-0.2) Nucleated Red Blood Cells 0.1 % Thyroid Stimulating Hormone (TSH) 0.08 uIU/mL (0.55-4.78) Urine Color Yellow (Yellow) Urine Clarity Turbid (Clear) Urine pH 5.0 (5.0-9.0) Urine Specific [place] 1.020 (1.001-1.035) Urine Protein 1+ (Negative) Urine Ketones Trace (Negative) Urine Blood Negative /uL (Negative) Urine Nitrite Negative (Negative) Urine Bilirubin Negative (Negative) Urine Urobilinogen Normal mg/dL (Negative) Urine Leukocyte Esterase Trace /uL (Negative) Urine RBC 1 /hpf (0 - 4) Urine Microscopic WBC 9 /HPF (0-5) Urine Squamous Epithelial Cells Few /hpf (<5) Urine Bacteria Few /hpf (None Seen) Urine Hyaline Casts Many /lpf (0 - 2) Urine Mucus Few (None Seen) Urine Glucose Trace mg/dL (Normal) Influenza Type A Antigen Negative (Negative) Influenza Type B Antigen Negative (Negative) SARS-CoV-2 Antigen (Rapid) Negative (NEGATIVE) Test 06/25/24 12:44 06/25/24 11:30 Troponin I High Sensitivity 5 ng/L (</=34) D-Dimer, Quantitative 4.40 mg/L FEU (0.0-0.49) Lactic Acid Level 1.1 mmol/L (0.4-2.0) B-Type Natriuretic Peptide 70.26 pg/mL (0-100) Other Laboratory Tests 06/30/24 06:21 Brief Hx & Hospital Course: SEE DICTATED NOTE Condition at Discharge: Fair Final Diagnosis/Problems List COPD Discharge Disposition: Home Discharge Instruct/Medications Diet: Cardiac 2g Na,low cholest Activity: No Restrictions, As Tolerated Follow Up/Referral: FU WITH DR KRUEGER IN 1 WK Medications: RESUME HOME MEDS SCRIPT TO PHARMACY DC HOME AFTER K LEVEL Discharge Statement: "Patient was advised to return to the ER or call 911 if any headaches, dizziness, shortness of breath, chest pain, abdominal pain, bleeding, fevers, or worsening of medical condition. Patient was counseled about treatment plan, medications, possible side effects, patientverbalized understanding. All questions were answered to the best of my ability. This discharge took greater then 30 minutes in planning, reviewing documentation, counseling the patient, and discussing with other team members." ASSESSMENT ASSESSMENT Assessment COPD Date of Service: Jun 30, 2024 Billing Provider: PASCALE CASTRO MD Common Visit Codes: 33248-[id number]/OBS DISCH DAY >30min PASCALE CASTRO MD Jun 30, 2024 11:39
[2024-06-30] MEDS ORDERED: NICO14DI29 TD (11:50)
[2024-06-30] MEDS ORDERED: AZITTAB2 PO (11:50)
[2024-06-30] MEDS ORDERED: PRED20TA2 PO (11:50)
--- NOTE | 2024-06-30 12:10 | DVHDS ---
DATE OF DISCHARGE: 06/30/2024 The patient is a 79-year-old lady who was admitted with history of increasing shortness of breath, fever, and cough and congestion. The patient has history of hypertension, hyperlipidemia, coronary artery disease, chronic kidney disease, and GERD. HOSPITAL COURSE: The patient had V/Q scan that was normal. Chest x-ray showed a right basilar opacity. The patient was placed on intravenous antibiotics along with bronchodilators. The patient had a thyroid ultrasound that showed evidence of a thyroid nodule on the left thyroid. The patient is now improved in her symptoms. Echocardiogram done showed ejection fraction of 60% with concentric LVH. The patient will now be discharged home after a repeat potassium to resume her home medications as well as to be on prednisone 20 mg daily for five days, Zithromax 500 mg daily for five days, and nicotine patch 14 mg daily. She will follow up with her primary in one week. FINAL DIAGNOSES: * Acute respiratory failure. * Right-sided pneumonia, gram-positive, gram-negative. * Chronic obstructive pulmonary disease with exacerbation. * Coronary artery disease. * Chronic diastolic heart failure. * Obesity. * Chronic kidney disease stage III. * Hypertension. * Hyperlipidemia. * Gastroesophageal reflux disease. * Tobacco abuse. * Questionable atrial fibrillation. Time spent in discharge planning and review of plan with the patient and nursing was 39 minutes. MD ANAIS Miller/CHRIST TID: [id number] RECEIPT: [id number]
[2024-07-01] MEDS ORDERED: predniSONE 20 MG TAB PO SCH (10:00)
[2024-07-01] MEDS ORDERED: AZITHROMYCIN 250 MG TAB PO SCH (10:00)
== END 2024-06-30 13:03 | disposition home or self-care (01) | DRG 177 ==
LOC: ER 10:41 → OVERFLOW 15:27 → TELE-WESTW 23:38
PROVIDERS: ADMIT Internal Medicine; ATTEND Internal Medicine
DX: J15.69 Pneumonia due to other Gram-negative bacteria (principal); J96.00 Acute respiratory failure, unspecified whether with hypoxia or hypercapnia; J44.1 Chronic obstructive pulmonary disease with (acute) exacerbation; J44.0 Chronic obstructive pulmonary disease with (acute) lower respiratory infection; I13.0 Hypertensive heart and chronic kidney disease with heart failure and stage 1 through stage 4 chronic kidney disease, or unspecified chronic kidney disease; I50.32 Chronic diastolic (congestive) heart failure; J15.9 Unspecified bacterial pneumonia; F17.210 Nicotine dependence, cigarettes, uncomplicated; K21.9 Gastro-esophageal reflux disease without esophagitis; E78.5 Hyperlipidemia, unspecified; E05.90 Thyrotoxicosis, unspecified without thyrotoxic crisis or storm; E04.1 Nontoxic single thyroid nodule; N18.30 Chronic kidney disease, stage 3 unspecified; Z20.822 Contact with and (suspected) exposure to COVID-19; I48.91 Unspecified atrial fibrillation; E66.9 Obesity, unspecified; M79.7 Fibromyalgia; I25.10 Atherosclerotic heart disease of native coronary artery without angina pectoris; Z90.710 Acquired absence of both cervix and uterus; Z95.1 Presence of aortocoronary bypass graft; Z83.3 Family history of diabetes mellitus; Z88.6 Allergy status to analgesic agent; Z88.5 Allergy status to narcotic agent; Z88.8 Allergy status to other drugs, medicaments and biological substances; Z79.899 Other long term (current) drug therapy; Z88.3 Allergy status to other anti-infective agents; Z79.01 Long term (current) use of anticoagulants; Z79.2 Long term (current) use of antibiotics; Z68.30 Body mass index [BMI] 30.0-30.9, adult
CPT/HCPCS: 36415; 71045; 76536; 78582; 80048; 80053; 81001; 83605; 83880; 84132; 84443; 84484; 85007; 85025; 85027; 85379; 87040; 87426; 87804; 93005; 93306; 94640; 94644; 97110; 97116; 97163; 97530; 99291; G0378; J1956

== ENCOUNTER 2024-07-16 11:15 | Inpatient (IN) | payer MEDICARE, MEDICAID ==
[2024-07-16] VITALS (8 sets, daily range): BP systolic 119–145; BP diastolic 58–69; PULSE 77–93; RESP 17–19; TEMP 97.5–97.8; O2SAT 90–100
[~2024-07-16] VITALS: Ht 152.4 cm; Wt 77.0 kg
[~2024-07-16 11:15] MED LIST changes: +AZITTAB2 PO; -CEFD300C2 PO; +DULO1CAP6 PO; -FURO20TA4 PO; +NICO14DI29 TD; -POTA-228 PO; +PRED20TA2 PO; -SUCR1TAB PO
[2024-07-16] MEDS ORDERED: ACETAMINOPHEN 325 MG TAB PO PRN (15:15)
--- NOTE | 2024-07-16 15:25 | DVHHPRES ---
History of Present Illness Resident Creating Document: PATRICIO DEL RIO RESIDENT Reason for Visit: SOB History of Present Illness This is a 79-year-old female who came into the hospital with chief complain of shortness of Breath. 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 Surgical history: Hernia repair Family history: Noncontributory Social history: Denies illicit drug use and alcohol use. States being a heavy smoker for the last four years, quit recently a couple of weeks ago. Patient states that for the last couple of weeks she has been having worsening shortness of breath, cough, fever, general malaise. She was recently discharged from this hospital on June 30, at that time she had COPD exacerbation and pneumonia. Patient stated that after being discharged she felt better for one week but then she started to have significant shortness of breath again. Patient currently denies any recent sick contacts, any traveling, any other new medication. She says she is compliant with her prescribed medications. Family was at bedside and they also concur with the was patient was saying. On my initial assessment, patient only complain of shortness of breath and mild productive cough, she denied any chest pain, abdominal pain, nausea, lightheadedness, dizziness, she is tolerating diet, ambulatory, independent, she has a walker at home. Patient was admitted for further management. Cardiovascular: CAD, CHF, HTN, hyperipidemia Pulmonary: Asthma, COPD, Pulmonary embolus Psych: Depression Rheumatologic: Fibromyalgia Past Medical History See HPI Past Surgical History See HPI Family History See HPI Smoke: 1 pack per day ALCOHOL: none Drugs: None Lives: with Family Review of Systems Constitutional: Yes: Fever; No: Chills, Sweats, Weakness, Malaise, Other Eyes: No: Pain, Vision change, Conjunctivae inflammation, Eyelid inflammation, Other, Redness ENT: No: Ear pain, Ear discharge, Nose pain, Nose discharge, Nose congestion, Mouth pain, Mouth swelling, Throat pain, Throat swelling, Other Respiratory: Cough, Shortness of breath, SOB with excertion, Wheezing, Sputum; No: Dry, Hemoptysis, Pleuritic Pain, Wheezing, Other Cardiovascular: No: Chest Pain, Palpitations, Orthopnea, Paroxysmal Noc. Dyspnea, Edema, Lt Headedness, Other Gastrointestinal: No: Nausea, Vomiting, Abdominal Pain, Diarrhea, Constipation, Melena, Hematochezia, Other Genitourinary: No Dysuria, No Frequency, No Incontinence, No Hematuria, No Retention, No Other Musculoskeletal: No: other, neck pain, shoulder pain, arm pain, back pain, hand pain, leg pain, foot pain Skin: No: Rash, Lesions, Jaundice, Bruising, Other Neurological: No: Weakness, Numbness, Incoordination, Change in speech, Confusion, Seizures, Other Allergies: Coded Allergies: Metronidazole (Verified Allergy, Intermediate, SWELLING, 09/20/21) SWELLING AND REDNESS Morphine (Verified Allergy, Mild, 11/03/15) NAUSEA/VOMITING Codeine (Verified Allergy, Unknown, 11/12/16) Medications Current Medications Medications Dose Ordered Sig/Callie Route Start Time Stop Time Status Last Admin Dose Admin Levofloxacin/ Dextrose 100 ml @ 100 mls/hr DAILY IV 07/17/24 10:00 UNV Nicotine 1 patch DAILY TD 07/17/24 10:00 UNV Albuterol 2.5 mg Q6HWA NEB 07/16/24 18:00 UNV Ipratropium [place] 0.5 mg Q6HWA NEB 07/16/24 18:00 UNV Methylprednisolone Sodium Succinate 40 mg BID IV 07/16/24 22:00 UNV Exam General Appearance: Alert, Oriented X3, Cooperative, No acute distress HEENT: Atraumatic, PERRLA, EOMI, Mucous membr. moist/pink Respiratory: Other ([id number] diffuse crackles, scattered wheezing) Cardiovascular: Regular rate Abdominal: Normal bowel sounds, Soft Extremities: No clubbing, No cyanosis, No edema, Normal pulses Skin: No rashes, No breakdown, No significant lesion Neuro: Normal gait, Normal speech, Strength at 5/5 X4 ext, Normal tone Psych/Mental Status: Mental status NL, Mood NL Assessment/Plan Assessment/Plan Shortness of breath likely due to COPD/asthma exacerbation, rule out pneumonia, acute on chronic diastolic CHF exacerbation History of CAD status post one stent History of DVT History of PE History of hypertension Dyslipidemia Fibromyalgia Depression GERD Ex heavy smoker Plan: DuoNebs q.6 hours while awake Levaquin 500 mg IV q.d. Solu-Medrol 40 mg IV b.i.d. Continue therapeutic Lovenox Ordered COVID test, influenza test, MRSA test Ordered chest x-ray, EKG Ordered CBC, CMP, magnesium, urinalysis, BNP, lactic acid Continue home medications Goals of care were discussed for over 30 minutes. Full code Case was discussed with Dr. Perrin Plan discussed with: Patient, Daughter, Other (RN) My Orders Orders - PATRICIO DEL RIO RESIDENT Procedure Category Date Status Time Admit ADMIT 07/16/24 Transmitted 15:05 Notify Of Changes JOSEPHINE 07/16/24 In Process From Base 15:05 Electrocardigram EKG 07/16/24 Logged 15:05 Complete Blood Count LAB 07/16/24 Logged 15:05 Comprehensive LAB 07/16/24 Logged Metabolic Panel 15:05 Magnesium LAB 07/16/24 Logged 15:05 B-Type Natriuretic LAB 07/16/24 Logged Peptide 15:05 Chest Portable XY 07/16/24 Logged 15:05 Urinalysis LAB 07/16/24 Logged 15:05 Respiratory Culture TONY 07/16/24 Logged W/ Gs 15:05 Covid19 Antigen [place] LAB 07/16/24 Logged Rapid Influenza A&B LAB 07/16/24 Logged 15:05 Mrsa Screen TONY 07/16/24 Logged 15:05 Levofloxacin 500mg PHA 07/17/24 Logged (Levaquin 500mg/ 100m 10:00 Levofloxacin 500mg PHA 07/16/24 Logged (Levaquin 500mg/ 100m 15:15 Nicotine 14mg/24hr PHA 07/16/24 Logged (Nicoderm 14mg/24hr) 15:15 Nicotine 14mg/24hr PHA 07/17/24 Logged (Nicoderm 14mg/24hr) 10:00 Albuterol Medneb PHA 07/16/24 Logged (Ventolin Medneb) 18:00 Ipratropium Medneb PHA 07/16/24 Logged (Atrovent Medneb) 18:00 Methylprednisolone PHA 07/16/24 Logged Sod Succ (Solu Medrol 15:15 Methylprednisolone PHA 07/16/24 Logged Sod Succ (Solu Medrol 22:00 Lactic Acid W/ Reflex LAB 07/16/24 Logged Order 15:05 Furosemide Injection PHA 07/16/24 Logged (Lasix Injection) 15:15 Ranolazine (Ranexa Er) PHA 07/16/24 Transmitted 22:00 (Nf) Duloxetine Hcl PHA 07/17/24 Transmitted 10:00 (Nf) Pantoprazole PHA 07/17/24 Transmitted Sodium 10:00 (Nf) Simvastatin PHA 07/17/24 Transmitted 10:00 Date of Service: Jul 16, 2024 Billing Provider: DANA PERRIN MD Common Visit Codes: [id number] INP/OBS CARE (HIGH) Secondary Visit Codes: [id number] CARE PLAN 30 MINUTES PATRICIO DEL RIO RESIDENT Jul 16, 2024 15:25 DANA PERRIN MD Jul 16, 2024 17:33
[2024-07-16 16:03] LABS: Basophils # (auto) 0 10 ^3/uL (0-0.2); Basophils % (auto) 0.4 % (0.0-2.0); Eosinophils # (auto) 0.2 10 ^3/uL (0-0.8); Eosinophils % (auto) 2.4 % (0.0-7.0); Hematocrit 38.7 % (36.0-46.0); Hemoglobin 12.4 g/dL (12.2-16.2); Lymphocytes # (auto) 1.5 10 ^3/uL (0.4-5.4); Mean Corpuscular Hemoglobin 27.9 pg (28.0-32.0); Mean Corpuscular Hgb Conc. 32.1 g/dL (32.0-36.0); Mean Corpuscular Volume 86.8 fL (80.0-100.0); Monocytes # (auto) 0.6 10 ^3/uL (0-1.3); Monocytes % (auto) 8.4 % (0.0-12.0); Neutrophils # (auto) 4.6 10 ^3/uL (1.6-8.6); Neutrophils % (auto) 66.8 % (37.0-80.0); Nucleated Red Blood Cells % 0.1 %; Platelet Count (auto) 154 10^3/uL (140-450); Red Blood Cells 4.46 10^6/uL (4.0-5.20); Red Cell Distribution Width 17.5 % (11.8-14.3); White Blood Cell 6.9 10^3/uL (4.4-10.8)
[2024-07-16 16:20] LABS: Alkaline Phosphatase 67 U/L (46-116); Anion Gap 8 (5-15); BUN/Creatinine Ratio 18.3 (10.0-20.0); Blood Urea Nitrogen 22 mg/dL (9-23); Calcium 9.5 mg/dL (8.7-10.4); Carbon Dioxide 24 mmol/L (20-31); Glucose 82 mg/dL (74-106); Potassium 4.1 mmol/L (3.5-5.1); Total Protein 6.5 g/dL (5.7-8.2)
[2024-07-16 16:21] LABS: Bilirubin, Total 0.3 mg/dL (0.2-1.0)
[2024-07-16 16:22] LABS: Alanine Aminotransferase < 9 U/L (7-40); Aspartate Aminotransferase 11 U/L (13-40); Chloride 115 mmol/L (98-107); Sodium 147 mmol/L (136-145)
[2024-07-16] MEDS: methylPREDNISolone SOD SUCC 40 MG/ML VL IV ONE (18:19)
[2024-07-16] MEDS: levoFLOXacin 500MG 100 ML IV ONE (18:19)
[2024-07-16] MEDS: FUROSEMIDE 20 MG/2 ML VIAL IV ONE (18:19)
[2024-07-16] MEDS: NICOTINE 14 MG/24HR TOPICAL PATCH TD ONE (18:20)
[2024-07-16] MEDS: ALBUTEROL SULF 2.5 MG/0.5ML(0.5%) NEB SOLN NEB SCH (19:24)
[2024-07-16] MEDS: IPRATROPIUM BROM 0.5 MG/2.5ML INH SOL NEB SCH (19:24)
[2024-07-16 20:13] LABS: Urine Bacteria FEW /hpf (None Seen); Urine Blood Negative /uL (Negative); Urine Clarity Clear (Clear); Urine Color Light-Yellow (Yellow); Urine Protein, UAD Negative (Negative); Urine Specific Gravity 1.015 (1.001-1.035); Urine Squamous Epithelial Cell FEW /hpf (<5); Urine Urobilinogen Normal (Negative); Urine WBC 2 /HPF (0-5); Urine pH 5.5 (5.0-9.0)
[2024-07-16 20:30] LABS: Rapid Influenza A Negative (Negative); Rapid Influenza B Negative (Negative)
[2024-07-16 20:31] LABS: COVID19 ANTIGEN SOFIA FIA NEGATIVE (NEGATIVE)
[2024-07-16] MEDS: RANOLAZINE ER 500 MG TAB PO SCH (21:05)
[2024-07-16] MEDS: ENOXAPARIN SOD 100 MG/1 ML SYRINGE SC SCH (21:06)
[2024-07-16] MEDS: methylPREDNISolone SOD SUCC 40 MG/ML VL IV SCH (21:06)
[2024-07-16] MEDS: PREGABALIN CAPSULE 75 MG CAP PO SCH (21:06)
--- NOTE | 2024-07-16 22:56 | DVH ---
CHEST RADIOGRAPH Indication: sob Technique: Single frontal view of the chest was obtained Comparison: XY CHEST PORTABLE on DOS: 06/27/24, XY CHEST PORTABLE on DOS: 06/25/24, XY CHEST PORTABLE o n DOS: 05/22/23 FINDINGS: Lines and Tubes: None Lungs: No focal consolidation. Mild elevation of the right diaphragm with atelectasis in the right ba se Pleura: No effusion. No pneumothorax. Cardiomediastinal contours: Unremarkable Bones: No acute osseous abnormality. IMPRESSION: 1. Mild elevation of the right diaphragm with atelectasis in the right base.
[2024-07-17] VITALS (14 sets, daily range): BP systolic 117–144; BP diastolic 55–77; PULSE 66–91; RESP 16–20; TEMP 97.4–98.4; O2SAT 90–99
[2024-07-17 06:49] LABS: Basophils # (auto) 0 10 ^3/uL (0-0.2); Basophils % (auto) 0.2 % (0.0-2.0); Eosinophils # (auto) 0 10 ^3/uL (0-0.8); Hematocrit 35.9 % (36.0-46.0); Lymphocytes # (auto) 0.8 10 ^3/uL (0.4-5.4); Lymphocytes % (auto) 13.6 % (10.0-50.0); Mean Corpuscular Hemoglobin 28.5 pg (28.0-32.0); Mean Corpuscular Hgb Conc. 33.5 g/dL (32.0-36.0); Mean Corpuscular Volume 85.1 fL (80.0-100.0); Monocytes # (auto) 0.1 10 ^3/uL (0-1.3); Monocytes % (auto) 1.3 % (0.0-12.0); Neutrophils % (auto) 84.9 % (37.0-80.0); Nucleated Red Blood Cells % 0.1 %; Platelet Count (auto) 170 10^3/uL (140-450); Red Blood Cells 4.22 10^6/uL (4.0-5.20); Red Cell Distribution Width 16.9 % (11.8-14.3); White Blood Cell 5.9 10^3/uL (4.4-10.8)
--- NOTE | 2024-07-17 06:49 | DVHPNRES ---
Progress Note Date Seen: Jul 17, 2024 Resident Creating Document: PATRICIO DEL RIO RESIDENT Medical Necessity Reason Pt with a Central, PICC or Fol: No Subjective Review of Systems On my assessment, patient only complain of shortness of breath and mild product shakira cough, she denied any chest pain, abdominal pain, nausea, lightheadedness, dizziness, she is tolerating diet, ambulatory, independent. She stated feeling better than on admission. Objective vital signs Vital Sign Date Time Temp Pulse Resp B/P (MAP) Pulse Ox O2 Delivery O2 Flow Rate FiO2 07/17/24 06:21 82 16 96 07/17/24 06:15 Nasal Cannula* 2 28 07/17/24 05:00 97.4 117/61 (79) 97.4 Total Intake and Output 07/16/24 07/16/24 07/17/24 15:00 23:00 07:00 Intake Total 250 ml 400 ml Balance 250 ml 400 ml medications Current Medications Medications Dose Ordered Sig/Callie Route Start Time Stop Time Status Last Admin Dose Admin Levofloxacin/ Dextrose 100 ml @ 100 mls/hr DAILY IV 07/17/24 10:00 Nicotine 1 patch DAILY TD 07/17/24 10:00 Albuterol 2.5 mg Q6HWA NEB 07/16/24 18:00 07/17/24 06:15 2.5 MG Ipratropium [place] 0.5 mg Q6HWA NEB 07/16/24 18:00 07/17/24 06:15 0.5 MG Methylprednisolone Sodium Succinate 40 mg BID IV 07/16/24 22:00 07/16/24 21:06 40 MG Ranolazine 500 mg BID PO 07/16/24 22:00 07/16/24 21:05 500 MG Duloxetine HCl 60 mg DAILY PO 07/17/24 10:00 Pantoprazole Sodium 40 mg DAILY PO 07/17/24 10:00 Patient Own Medication 10 mg DAILY PO 07/17/24 10:00 Acetaminophen 650 mg Q6HP PRN PO 07/16/24 15:15 Pregabalin 75 mg BID PO 07/16/24 22:00 07/16/24 21:06 75 MG Enoxaparin Sodium 80 mg Q12HR SC 07/16/24 22:00 07/16/24 21:06 80 MG Examination General: Awake, alert, comfortable appearing, in no acute distress. HEENT: Head is normocephalic and atraumatic. Pupils are equal, round, and reactive to light. Extraocular muscles are intact. No nasal discharge. No facial trauma. Intraoral exam shows moist mucous membranes with no tonsillar enlargement or exudate. Neck: Supple with no cervical lymphadenopathy No meningismus. No goiter. Heart: Regular rate without murmur, rub, or gallop. Lungs: Diffuse mild crackles and scattered wheezing Abdomen: No external sign of injury. Bowel sounds are present. Abdomen is soft, nontender. No rebound, no guarding, no rigidity. There are no palpable masses. There is no flank pain on exam. Extremities: Strong peripheral pulses. There is no clubbing, no cyanosis, and no edema. Skin: No rash. Neurologic: Cranial nerves II-XII intact without motor, sensory, or cerebellar deficit, no asterixis. laboratory and microbiology Test 07/17/24 06:13 Range/Units Serum Glucose Pending Labs and/or images reviewed: Labs reviewed by me, Image(s) reviewed by me (RN) Problem List/Assessment/Plan Problem List/Assessment/Plan Acute hypoxic respiratory failure COPD/asthma exacerbation, Pneumonia gram (+) vs gram (-), atypicals, acute on chronic diastolic CHF exacerbation History of CAD status post one stent History of DVT History of PE History of hypertension CKD stage 3a Dyslipidemia Fibromyalgia Depression GERD Ex heavy smoker Obesity Plan: DuoNebs q.6 hours while awake Levaquin 500 mg IV q.d. Solu-Medrol 40 mg IV qd Lasix 40mg iv Continue therapeutic Lovenox Ordered COVID test (-), influenza test (-), MRSA test Ordered chest x-ray shows atelectasis, mild congestion Continue home medications ordered chest ct shows possible interstitial pneumonia, possible viral, vascular congestion Goals of care were discussed for over 30 minutes. Full code Case was discussed with Dr. Perrin Plan discussed with: Patient, Other (RN) My Orders My Orders Orders - PATRICIO DEL RIO RESIDENT Procedure Category Date Status Time Admit ADMIT 07/16/24 Transmitted 15:05 Notify Of Changes JOSEPHINE 07/16/24 In Process From Base 15:05 Electrocardigram EKG 07/16/24 Logged 15:05 Chest Portable XY 07/16/24 Resulted 15:05 Respiratory Culture TONY 07/16/24 Logged W/ Gs 15:05 Mrsa Screen TONY 07/16/24 In Process 15:05 Levofloxacin 500mg PHA 07/17/24 In Process (Levaquin 500mg/ 100m 10:00 Nicotine 14mg/24hr PHA 07/17/24 In Process (Nicoderm 14mg/24hr) 10:00 Albuterol Medneb PHA 07/16/24 In Process (Ventolin Medneb) 18:00 Ipratropium Medneb PHA 07/16/24 In Process (Atrovent Medneb) 18:00 Methylprednisolone PHA 07/16/24 In Process Sod Succ (Solu Medrol 22:00 Ranolazine (Ranexa Er) PHA 07/16/24 In Process 22:00 Duloxetine Hcl PHA 07/17/24 In Process Capsule (Cymbalta 10:00 Pantoprazole Tablet PHA 07/17/24 In Process (Protonix Tablet) 10:00 (Nf) Simvastatin PHA 07/17/24 In Process 10:00 Acetaminophen Tablet PHA 07/16/24 In Process (Tylenol Tablet) 15:15 Pregabalin Capsule PHA 07/16/24 In Process (Lyrica Capsule) 22:00 Enoxaparin Sodium PHA 07/16/24 In Process (Lovenox) 22:00 Complete Blood Count LAB 07/17/24 In Process 04:00 Comprehensive LAB 07/17/24 In Process Metabolic Panel 04:00 Magnesium LAB 07/17/24 In Process 04:[address] 07/17/24 Logged 06:15 Date of Service: Jul 17, 2024 Billing Provider: DANA PERRIN MD Common Visit Codes: [id number] INP/OBS CARE(HIGH) Secondary Visit Codes: [id number] CARE PLAN 30 MINUTES PATRICIO DEL RIO RESIDENT Jul 17, 2024 06:49 DANA PERRIN MD Jul 18, 2024 12:46
[2024-07-17 07:18] LABS: Alkaline Phosphatase 73 U/L (46-116); Anion Gap 9 (5-15); BUN/Creatinine Ratio 19.3 (10.0-20.0); Bilirubin, Total 0.3 mg/dL (0.2-1.0); Calcium 9.6 mg/dL (8.7-10.4); Carbon Dioxide 22 mmol/L (20-31); Potassium 4.6 mmol/L (3.5-5.1); Total Protein 6.5 g/dL (5.7-8.2)
[2024-07-17 07:24] LABS: Alanine Aminotransferase < 9 U/L (7-40); Aspartate Aminotransferase 10 U/L (13-40); Blood Urea Nitrogen 28 mg/dL (9-23); Chloride 114 mmol/L (98-107); Glucose 141 mg/dL (74-106); Sodium 145 mmol/L (136-145)
--- NOTE | 2024-07-17 09:38 | ECG ---
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
[2024-07-17] MEDS: SIMVASTATIN 10 MG TABLET PO SCH (10:00)
--- NOTE | 2024-07-17 10:00 | DVH ---
Procedure: CT CHEST WITHOUT CONTRAST Reason for study/Clinical History: sob Comparison Study: None available at time of dictation. TECHNIQUE: Multidetector CT of the chest was performed from the lung apices to the upper abdomen with out the use of intravenous contract. Axial, coronal and sagittal multiplanar reformats were performed . Radiation Dose Information: CT Dose: CTDI volume is 18.6 mGy. Dose-length product is 606.8 mGy*cm The dose indicators for CT are the volume Computed Tomography (CT) Dose Index (CTDIvol) and the Dose Length Product (DLP), and are measured in units of mGy and mGy-cm, respectively. These indicators are not patient dose, but values generated from the CT scanner acquisition factors. The report includes radiation exposure data for exposures received during this examination. FINDINGS: Lower neck: Unremarkable. Lungs: Possible atelectasis or airspace disease in the right middle lobe. No suspicious pulmonary nod ule. Dependent atelectasis. Heart/Vascular Structures: Cardiomegaly. Coronary artery calcifications. Vascular calcifications of t he aorta. Main pulmonary artery is enlarged measuring 3.9 cm. Lymph Nodes: No adenopathy Pleura: No pleural effusion or significant pneumothorax. Musculoskeletal: No acute osseous abnormality. Degenerative changes of the spine. Soft tissues: Normal. Upper abdomen: Cholelithiasis. IMPRESSION: Limited examination secondary to extensive patient respiratory motion artifact. Dependent atelectasis. Suggestion of possible right middle lobe airspace disease. Enlarged main pulmonary artery measuring 3.9 cm may represent underlying pulmonary arterial hypertens ion. Radiation optimization: All CT scans at this facility use at least one of these dose optimization arthur hniques: automated exposure control mA and/or kV adjustment per patient size (includes targeted exam s where dose is matched to clinical indication) or iterative reconstruction.
[2024-07-17] MEDS: levoFLOXacin 500MG 100 ML IV SCH (10:11)
[2024-07-17] MEDS: DULoxetine HCL 30 MG CAP PO SCH (10:13)
[2024-07-17] MEDS: PANTOPRAZOLE 40 MG TAB PO SCH (10:13)
[2024-07-17] MEDS: NICOTINE 14 MG/24HR TOPICAL PATCH TD SCH (10:14)
[2024-07-17] MEDS: FUROSEMIDE 20 MG/2 ML VIAL IV ONE (13:23)
[2024-07-18] VITALS (9 sets, daily range): BP systolic 122–140; BP diastolic 62–76; PULSE 70–98; RESP 16–20; TEMP 97.4–98.6; O2SAT 90–99
[2024-07-18 05:29] LABS: Calcium 8.9 mg/dL (8.7-10.4); Sodium 144 mmol/L (136-145)
[2024-07-18 05:30] LABS: Anion Gap 9 (5-15); Carbon Dioxide 22 mmol/L (20-31)
[2024-07-18 05:35] LABS: BUN/Creatinine Ratio 24.8 (10.0-20.0)
[2024-07-18 05:36] LABS: Blood Urea Nitrogen 35 mg/dL (9-23); Chloride 113 mmol/L (98-107); Glucose 124 mg/dL (74-106)
--- NOTE | 2024-07-18 06:52 | DVHDSRES ---
Discharge Summary Date of Admission Resident Creating Document: PATRICIO DEL RIO RESIDENT Jul 16, 2024 at 14:05 Date of Discharge: Jul 18, 2024 Admitting Diagnosis COPD exacerbation Labs/Diagnostic Data: Laboratory Results Test 07/18/24 04:50 07/17/24 06:13 07/16/24 17:47 07/16/24 15:48 Sodium Level 144 mmol/L (136-145) Potassium Level 4.0 mmol/L (3.5-5.1) Chloride Level 113 mmol/L (98-107) Carbon Dioxide Level 22 mmol/L (20-31) Anion Gap 9 (5-15) Blood Urea Nitrogen 35 mg/dL (9-23) Creatinine 1.41 mg/dL (0.550-1.02) Glomerular Filtration Rate Calc 38 mL/min (>90) BUN/Creatinine Ratio 24.8 (10.0-20.0) Serum Glucose 124 mg/dL (74-106) Calcium Level 8.9 mg/dL (8.7-10.4) Magnesium Level 2.0 mg/dL (1.6-2.6) B-Type Natriuretic Peptide 91.45 pg/mL (0-100) White Blood Count 5.9 10^3/uL (4.4-10.8) Red Blood Count 4.22 10^6/uL (4.0-5.20) Hemoglobin 12.0 g/dL (12.2-16.2) Hematocrit 35.9 % (36.0-46.0) Mean Corpuscular Volume 85.1 fL (80.0-100.0) Mean Corpuscular Hemoglobin 28.5 pg (28.0-32.0) Mean Corpuscular Hemoglobin Concent 33.5 g/dL (32.0-36.0) Red Cell Distribution Width 16.9 % (11.8-14.3) Platelet Count 170 10^3/uL (140-450) Mean Platelet Volume 9.8 fL (6.9-10.8) Neutrophils (%) (Auto) 84.9 % (37.0-80.0) Lymphocytes (%) (Auto) 13.6 % (10.0-50.0) Monocytes (%) (Auto) 1.3 % (0.0-12.0) Eosinophils (%) (Auto) 0.0 % (0.0-7.0) Basophils (%) (Auto) 0.2 % (0.0-2.0) Neutrophils # (Auto) 5.0 10 ^3/uL (1.6-8.6) Lymphocytes # (Auto) 0.8 10 ^3/uL (0.4-5.4) Monocytes # (Auto) 0.1 10 ^3/uL (0-1.3) Eosinophils # (Auto) 0 10 ^3/uL (0-0.8) Basophils # (Auto) 0 10 ^3/uL (0-0.2) Nucleated Red Blood Cells 0.1 % Total Bilirubin 0.3 mg/dL (0.2-1.0) Aspartate Amino Transferase (AST) 10 U/L (13-40) Alanine Aminotransferase (ALT) < 9 U/L (7-40) Alkaline Phosphatase 73 U/L (46-116) Total Protein 6.5 g/dL (5.7-8.2) Albumin 4.0 g/dL (3.2-4.8) Urine Color Light-yellow (Yellow) Urine Clarity Clear (Clear) Urine pH 5.5 (5.0-9.0) Urine Specific Cortez 1.015 (1.001-1.035) Urine Protein Negative (Negative) Urine Ketones Negative (Negative) Urine Blood Negative /uL (Negative) Urine Nitrite Negative (Negative) Urine Bilirubin Negative (Negative) Urine Urobilinogen Normal mg/dL (Negative) Urine Leukocyte Esterase Negative /uL (Negative) Urine RBC <1 /hpf (0 - 4) Urine Microscopic WBC 2 /HPF (0-5) Urine Squamous Epithelial Cells Few /hpf (<5) Urine Bacteria Few /hpf (None Seen) Urine Glucose Normal mg/dL (Normal) Influenza Type A Antigen Negative (Negative) Influenza Type B Antigen Negative (Negative) SARS-CoV-2 Antigen (Rapid) Negative (NEGATIVE) Lactic Acid Level 0.6 mmol/L (0.4-2.0) Other Laboratory Tests 07/18/24 04:50 07/17/24 06:13 Brief Hx & Hospital Course: This is a 79-year-old female who came into the hospital with chief complain of shortness of Breath. 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 Surgical history: Hernia repair Family history: Noncontributory Social history: Denies illicit drug use and alcohol use. States being a heavy smoker for the last four years, quit recently a couple of weeks ago. Patient states that for the last couple of weeks she has been having worsening shortness of breath, cough, fever, general malaise. She was recently discharged from this hospital on June 30, at that time she had COPD exacerbation and pneumonia. Patient stated that after being discharged she felt better for one week but then she started to have significant shortness of breath again. Patient currently denies any recent sick contacts, any traveling, any other new medication. She says she is compliant with her prescribed medications. Family was at bedside and they also concur with the was patient was saying. On my initial assessment, patient only complain of shortness of breath and mild productive cough, she denied any chest pain, abdominal pain, nausea, lightheadedness, dizziness, she is tolerating diet, ambulatory, independent, she has a walker at home. Patient was admitted for further management. Throughout patient's hospitalization she had significant clinical improvement, she continued to be on DuoNebs, she was on broad-spectrum antibiotics as well, we will also diurese in the patient with Lasix. Patient was negative for COVID and influenza test. We performed a chest CT which demonstrated atelectasis, patient was started on incentive spirometry. Patient was walked for minutes and we menstrual her saturation, it was well above 92%. Patient states feeling much better than on admission, she currently denied any significant shortness of breath, chest pain, dizziness, lightheadedness, abdominal pain, nausea, vomiting, she is currently tolerating diet, ambulatory, independent. Physical examination as below: General: Awake, alert, comfortable appearing, in no acute distress. HEENT: Head is normocephalic and atraumatic. Pupils are equal, round, and reactive to light. Extraocular muscles are intact. No nasal discharge. No facial trauma. Intraoral exam shows moist mucous membranes with no tonsillar enlargement or exudate. Neck: Supple with no cervical lymphadenopathy No meningismus. No goiter. Heart: Regular rate without murmur, rub, or gallop. Lungs: Diffuse mild crackles and scattered wheezing Abdomen: No external sign of injury. Bowel sounds are present. Abdomen is soft, nontender. No rebound, no guarding, no rigidity. There are no palpable masses. There is no flank pain on exam. Extremities: Strong peripheral pulses. There is no clubbing, no cyanosis, and no edema. Skin: No rash. Neurologic: Cranial nerves II-XII intact without motor, sensory, or cerebellar deficit, no asterixis. Patient will be discharged home and continue home medications as prescribed. She will continue taking Anoro inhaler, albuterol inhaler as needed, she will continue Levaquin for three more days, prednisone 40 mg p.o. q.d. for three days, she will also continue her home medications as prescribed. Patient will follow with her PCP within 1-2 weeks, we spent over 30 minute explaining the plan. Case was discussed with Dr. Perrin Operations or Procedures [place] [id number] Ph: [phone] DIAGNOSTIC IMAGING Diagnostic Imaging Report : [id number] Signed PATIENT: DOMI YANG ACCT: [id number] UNIT: [id number] : 1945 LOC: [facility] ROOM / BED: [address] [place] [address] AGE / SEX: 79 / F ADM STATUS: ADM IN SERVICE 1505 ORDERING PHYSICIAN: PATRICIO DEL RIO RESIDENT PROCEDURE(s): CXRP - CHEST PORTABLE REASON: sob ORDER NUMBER(s): [id number], ACCESSION NUMBER(s): [id number] CHEST RADIOGRAPH Indication: sob Technique: Single frontal view of the chest was obtained Comparison: XY CHEST PORTABLE on DOS: 06/27/24, XY CHEST PORTABLE on DOS: 06/25/24, XY CHEST PORTABLE on DOS: 05/22/23 FINDINGS: Lines and Tubes: None Lungs: No focal consolidation. Mild elevation of the right diaphragm with atelectasis in the right base Pleura: No effusion. No pneumothorax. Cardiomediastinal contours: Unremarkable Bones: No acute osseous abnormality. IMPRESSION: 1. Mild elevation of the right diaphragm with atelectasis in the right base. ATED BY: BRYANT CARLSON Jr., DO DICTATED DATE/TIME: 07/16/24 7138 SIGNED BY: BRYANT CARLSON Jr., DO SIGNED DATE/TIME: 07/16/242252 CC: [place] [id number] Ph: [phone] DIAGNOSTIC IMAGING Diagnostic Imaging Report : [id number] Signed PATIENT: DOMI YANG ACCT: [id number] UNIT: [id number] : 1945 LOC: [facility] ROOM / BED: [address] [place] [address] AGE / SEX: 79 / F ADM STATUS: ADM IN SERVICE 4 ORDERING PHYSICIAN: PATRICIO DEL RIO RESIDENT PROCEDURE(s): CX2CT - CHEST WITHOUT CONTRAST REASON: sob ORDER NUMBER(s): [id number], ACCESSION NUMBER(s): [id number] Procedure: CT CHEST WITHOUT CONTRAST Reason for study/Clinical History: sob Comparison Study: None available at time of dictation. TECHNIQUE: Multidetector CT of the chest was performed from the lung apices to the upper abdomen without the use of intravenous contract. Axial, coronal and sagittal multiplanar reformats were performed. Radiation Dose Information: CT Dose: CTDI volume is 18.6 mGy. Dose-length product is 606.8 mGy*cm The dose indicators for CT are the volume Computed Tomography (CT) Dose Index (CTDIvol) and the Dose Length Product (DLP), and are measured in units of mGy and mGy-cm, respectively. These indicators are not patient dose, but values generated from the CT scanner acquisition factors. The report includes radiation exposure data for exposures received during this examination. FINDINGS: Lower neck: Unremarkable. Lungs: Possible atelectasis or airspace disease in the right middle lobe. No suspicious pulmonary nodule. Dependent atelectasis. Heart/Vascular Structures: Cardiomegaly. Coronary artery calcifications. Vascular calcifications of the aorta. Main pulmonary artery is enlarged measuring 3.9 cm. Lymph Nodes: No adenopathy Pleura: No pleural effusion or significant pneumothorax. Musculoskeletal: No acute osseous abnormality. Degenerative changes of the spine. Soft tissues: Normal. Upper abdomen: Cholelithiasis. IMPRESSION: Limited examination secondary to extensive patient respiratory motion artifact. Dependent atelectasis. Suggestion of possible right middle lobe airspace disease. Enlarged main pulmonary artery measuring 3.9 cm may represent underlying pulmonary arterial hypertension. Radiation optimization: All CT scans at this facility use at least one of these dose optimization techniques: automated exposure control mA and/or kV adjustment per patient size (includes targeted exams where dose is matched to clinical indication) or iterative reconstruction. ATED BY: PRADEEP BAILEY MD DICTATED DATE/TIME: 07/17/24957 SIGNED BY: PRADEEP BAILEY MD SIGNED DATE/TIME: 07/17/24957 CC: Condition at Discharge: Guarded Final Diagnosis/Problems List Acute hypoxic respiratory failure COPD/asthma exacerbation, Pneumonia gram (+) vs gram (-), atypicals, acute on chronic diastolic CHF exacerbation History of CAD status post one stent History of DVT History of PE History of hypertension CKD stage 3a Dyslipidemia Fibromyalgia Depression GERD Ex heavy smoker Obesity Discharge Disposition: Home Discharge Statement: "Patient was advised to return to the ER or call 911 if any headaches, dizziness, shortness of breath, chest pain, abdominal pain, bleeding, fevers, or worsening of medical condition. Patient was counseled about treatment plan, medications, possible side effects, patientverbalized understanding. All questions were answered to the best of my ability. This discharge took greater then 30 minutes in planning, reviewing documentation, counseling the patient, and discussing with other team members." ASSESSMENT ASSESSMENT Assessment Date of Service: Jul 18, 2024 Billing Provider: DANA PERRIN MD Common Visit Codes: 62514-JYP/OBS DISCH DAY >30min PATRICIO DEL RIO RESIDENT Jul 18, 2024 06:51 DANA PERRIN MD Jul 18, 2024 18:53
[2024-07-18] MEDS: ENOXAPARIN SOD 80 MG/0.8ML SYRINGE SC SCH (09:36)
[2024-07-18] MEDS: methylPREDNISolone SOD SUCC 40 MG/ML VL IV SCH (09:38)
[2024-07-18] MEDS ORDERED: LEVO500T91 PO (12:02)
[2024-07-18] MEDS ORDERED: UMEC1AER IN (12:02)
[2024-07-18] MEDS ORDERED: PRED20TA2 PO (12:02)
== END 2024-07-18 15:12 | disposition home or self-care (01) | DRG 177 ==
LOC: WEST WING 14:05
PROVIDERS: ADMIT Internal Medicine; ATTEND Internal Medicine
DX: J15.69 Pneumonia due to other Gram-negative bacteria (principal); I50.33 Acute on chronic diastolic (congestive) heart failure; J96.01 Acute respiratory failure with hypoxia; I13.0 Hypertensive heart and chronic kidney disease with heart failure and stage 1 through stage 4 chronic kidney disease, or unspecified chronic kidney disease; J45.901 Unspecified asthma with (acute) exacerbation; J15.9 Unspecified bacterial pneumonia; E78.5 Hyperlipidemia, unspecified; M79.7 Fibromyalgia; F32.A Depression, unspecified; E66.9 Obesity, unspecified; K21.9 Gastro-esophageal reflux disease without esophagitis; F17.210 Nicotine dependence, cigarettes, uncomplicated; N18.31 Chronic kidney disease, stage 3a; Z20.822 Contact with and (suspected) exposure to COVID-19; I25.10 Atherosclerotic heart disease of native coronary artery without angina pectoris; Z79.899 Other long term (current) drug therapy; Z86.711 Personal history of pulmonary embolism; Z79.01 Long term (current) use of anticoagulants; Z88.6 Allergy status to analgesic agent; Z88.5 Allergy status to narcotic agent; Z88.8 Allergy status to other drugs, medicaments and biological substances; Z68.32 Body mass index [BMI] 32.0-32.9, adult
CPT/HCPCS: 36415; 71045; 71250; 80048; 80053; 81001; 83605; 83735; 83880; 85025; 87081; 87426; 87804; 93005; 94640; G0378; J1956

== ENCOUNTER 2024-08-06 06:53 | Day surgery (SDC) | payer MEDICARE, MEDICAID ==
[2024-08-01 10:05] LABS: Basophils # (auto) 0 10 ^3/uL (0-0.2); Basophils % (auto) 0.6 % (0.0-2.0); Eosinophils # (auto) 0.1 10 ^3/uL (0-0.8); Hemoglobin 11.4 g/dL (12.2-16.2); Lymphocytes # (auto) 1.5 10 ^3/uL (0.4-5.4); Lymphocytes % (auto) 22.9 % (10.0-50.0); Mean Corpuscular Hemoglobin 27.3 pg (28.0-32.0); Mean Corpuscular Hgb Conc. 31.8 g/dL (32.0-36.0); Mean Corpuscular Volume 85.8 fL (80.0-100.0); Monocytes # (auto) 0.7 10 ^3/uL (0-1.3); Monocytes % (auto) 10.4 % (0.0-12.0); Neutrophils # (auto) 4.3 10 ^3/uL (1.6-8.6); Neutrophils % (auto) 65.1 % (37.0-80.0); Nucleated Red Blood Cells % 0.1 %; Platelet Count (auto) 195 10^3/uL (140-450); Red Blood Cells 4.19 10^6/uL (4.0-5.20); Red Cell Distribution Width 17.8 % (11.8-14.3); White Blood Cell 6.7 10^3/uL (4.4-10.8)
[2024-08-01 10:38] LABS: Alkaline Phosphatase 58 U/L (46-116); Anion Gap 7 (5-15); Aspartate Aminotransferase 13 U/L (13-40); BUN/Creatinine Ratio 13.4 (10.0-20.0); Blood Urea Nitrogen 15 mg/dL (9-23); Calcium 9.1 mg/dL (8.7-10.4); Carbon Dioxide 26 mmol/L (20-31); Glucose 81 mg/dL (74-106); Potassium 4.2 mmol/L (3.5-5.1); Sodium 144 mmol/L (136-145); Total Protein 6.3 g/dL (5.7-8.2)
[2024-08-01 10:39] LABS: Alanine Aminotransferase < 9 U/L (7-40); Bilirubin, Total 0.4 mg/dL (0.2-1.0); Chloride 111 mmol/L (98-107)
[2024-08-01 10:45] LABS: INR 1.05 (0.9-1.15); Partial Thromboplastin Time 29.7 SEC (24.5-34.5); Prothrombin Time 11.1 sec (9.3-11.8)
[~2024-08-06] VITALS: Ht 162.6 cm; Wt 73.9 kg
[2024-08-06] VITALS (12 sets, daily range): BP systolic 116–138; BP diastolic 49–70; PULSE 68–80; RESP 14–18; TEMP 97.2–97.3; O2SAT 92–95
[~2024-08-06 06:53] MED LIST changes: -AZITTAB2 PO; +CHOL1CAP59 PO; +CYAN1TAB11 PO; -DULO1CAP6 PO; +DULO60CA90 PO; +FURO20TA3 PO; -NICO14DI29 TD; -PANT40PA PO; +PANT40TA57 PO; +POM PR; +POTA-228 PO; -PRED20TA2 PO; +SUCR1TAB PO; +UMEC1AER IN
[2024-08-06] MEDS: IODIXANOL 320MG/ML 100ML BTL IV ONE (07:25)
[2024-08-06] MEDS: HEPARIN IN NS 1000Units/500mL 1,500 ML ONE (07:25)
[2024-08-06] MEDS: HEPARIN SODIUM (PORCINE) 5000 UNITS/ML 1ML VIAL ONE (08:37)
[2024-08-06] MEDS: VERAPAMIL 2.5MG/ML INJ 2ML VIAL IV ONE (08:37)
[2024-08-06] MEDS: fentaNYL CITRATE 100 MCG/2 ML VL ONE (08:37)
[2024-08-06] MEDS: ANGIOMAX 250 MG VIAL IV ONE (08:37)
[2024-08-06] MEDS: LIDOCAINE 2%HCL (LOCAL ANESTH.) INJ 20ML MDV ONE (08:38)
[2024-08-06] MEDS: MIDAZOLAM HCL 2MG/2ML 2ml VIAL (1mg/ml) ONE (08:38)
[2024-08-06] MEDS: SODIUM CHL 0.9% 50 ML ONE (08:38)
--- NOTE | 2024-08-06 10:32 | DVHOP2 ---
Operative Report - 2 Report Details Date: 08/06/24 Preop Diagnosis: CAD Postop Diagnosis: CAD. Unsuccessful aperture of HOT BREAD BAKER of RCA Surgeon: Quintin Cruz MD Anesthesiologist: Conscious sedation Anesthesia: Mac, Local ( conscious sedation ordered. Monitor patient throughout the procedure.) Consent: The patient was informed of the risks and benefits of the procedure. These include but are not limited to complications of anesthesia, postoperative infection, incomplete relief of symptoms, recurrence of symptoms, damage to blood vessels, nerves and tendons, deep venous thrombosis, pulmonary embolism and possible need for repeat surgery in the future. Complications: Wire perforation of RCA. No tamponade. Patient was dynamically stable throughout. Estimated Blood Loss: 5 cc Findings: Occluded RCA Indications for Surgery: Chest pain Name of Procedure Performed Left heart catheterization bilateral cine coronary angiography. Left ventriculography. Attempted aperture of occluded RCA/ HOT BREAD BAKER. Procedure Details Procedure Details: Prior local anesthesia with 2% lidocaine to the right wrist and full informed consent obtained patient was prepped and draped in usual fashion followed by placement of a six English sheath into the radial artery through which a Mark catheter was used for ventriculography and cannulation of both right and left coronary ostia. In AL seven five guide was then used to attempted aperture of the RCA as will be delineated below. Patient tolerated procedure well. Wire perforation occurred sealed with a small balloon inflation. Patient remained hemodynamically stable. Hemodynamics: Aortic blood pressure was 130/70. End-diastolic pressure was 10. There was no gradient across the aortic valve on pullback. Coronary anatomy the RCA is a large vessel that is 100% occluded proximally. Intracoronary collaterals to the mid RCA. Left main is large and normal. Left anterior descending is large and normal. Diagonals and septals are free of significant disease. The circumflex is large and codominant. Two obtuse marginal branches are within normal limits. Collateralization to the distal posterolateral branch of the RCA and PDA are noted. Ventriculography in the DICKEY projection shows an EF of 65% with no significant regional wall motion abnormalities. Angioplasty was performed for which an AL 0.75 SIX EQUATORIAL GUINEAN GUIDE WAS PLACED INTO THE RCA. WE THEN TOOK A PRO VIA THREE IN AN EFFORT TO OBTAIN ACCESS INTO THE PROXIMAL CAP WHICH WAS SUCCESSFUL. WE THEN USED THE TELEPORT CATHETER TO GET INTO THE PROXIMAL RCA. APPROXIMATELY 8-10 MM DISTAL TO THE CATHETER AND WE WERE ENCOUNTERING A DISTAL PLAQUE WHICH WE WERE NOT ABLE TO CROSS. WE TRIED A PRO VIA SIX AND SUBSEQUENTLY PRO BN NINE WIRE. We found ourselves not to be in the true lumen. A small contrast injection revealed wire perforation. There was no evidence of significant pericardial staining. Perforation was self-limited. We cautiously took an eight by 2.5 mm balloon to tamponade the ostium of the RCA. We left a 3 minute inflation and discontinued anticoagulants. Patient remained hemodynamically stable. The procedure was terminated. Impression: Unsuccessful aperture of CTA. Wire perforation without hemodynamic abnormalities further complications. Self sealing perforation. Recommendations: will continue with medical therapy . Risk factor modificat ion to continue. Condition Guarded Disposition Home Date of Service: Aug 06, 2024 Billing Provider: QUINTIN CRUZ Sr., MD Cardiology Common Codes: 32706-BISNAYY INP/OBS CARE (High) Cardiology Procedure Codes: 79105-MGKOKH VESSEL W/I VASC FAM, 88997-YKZH HEART CATH W/INTRA INJ ( PTCA of RCA. Unsuccessful aperture of HOT BREAD BAKER of the RCA) QUINTIN CRUZ Sr., MD Aug 06, 2024 10:32
== END 2024-08-06 15:40 | disposition home or self-care (01) ==
LOC: CATH 06:53
PROVIDERS: ATTEND Internal Medicine
DX: I25.119 Atherosclerotic heart disease of native coronary artery with unspecified angina pectoris (principal); I25.82 Chronic total occlusion of coronary artery; F41.8 Other specified anxiety disorders; Z79.01 Long term (current) use of anticoagulants; Z79.899 Other long term (current) drug therapy; Z95.1 Presence of aortocoronary bypass graft; Z95.5 Presence of coronary angioplasty implant and graft; Z86.718 Personal history of other venous thrombosis and embolism; Z86.711 Personal history of pulmonary embolism; Z86.2 Personal history of diseases of the blood and blood-forming organs and certain disorders involving the immune mechanism; Z87.891 Personal history of nicotine dependence; Z88.5 Allergy status to narcotic agent; Z83.3 Family history of diabetes mellitus; Z82.0 Family history of epilepsy and other diseases of the nervous system
CPT/HCPCS: 36415; 80053; 85025; 85610; 85730; 92943; 93458; C1725; C1769; C1887; C1894; J0583; J1644; J2250; J3010; Q9967; 99152; 99153

== ENCOUNTER 2024-10-09 13:25 | Emergency (ER) | payer MEDICARE, MEDICAID ==
[~2024-10-09] VITALS: Ht 149.9 cm; Wt 74.2 kg
--- NOTE | 2024-10-09 13:37 | ED.PDOC ---
History of Present Illness HPI Comments A 79 year old female presents to the ED c/o generalized body itching. Patient states she has been experiencing generalized body itching for the past 3 days. Patient reports her itching initially started on her nose, but eventually spread to the rest of her body. Patient denies fever, SOB, chest pain, abdominal pain, nausea, vomiting, diarrhea, headache, dizziness. No other symptoms or modifying factors reported at this time. Patient is alert and oriented x4 and has a stable gait. pt also wants her h/h checked, because every 6 months, she needs a transfusion Time Seen by MD: 13:29 Primary Care Provider: PATI Reviewed Notes: Nurses Notes, Medications, Allergies Allergies: Coded Allergies: Metronidazole (Verified Allergy, Intermediate, SWELLING, 08/01/24) SWELLING AND REDNESS Morphine (Verified Allergy, Mild, 08/01/24) NAUSEA/VOMITING Codeine (Verified Allergy, Unknown, 08/01/24) Home Meds Active Scripts Umeclidinium-Vilanterol (Anoro Ellipta 62.5-25 Mcg/INH) 1 Aer Aer, 1 AER IN DAILY for 30 Days, #1 AER 2 Refills Prov:PATRICIO DEL RIO RESIDENT 07/18/24 Acetaminophen (Tylenol 8 Hour Arthritis) 650 Mg Tab, 650 MG PO TID, #30 TAB Prov:JORGE DELGADILLO 09/28/23 Reported Medications Patients Own Medication (PATIENTS OWN MEDICATION) ., 45 MCG MI for SUPPLEMENT/ K2 PTS OWN MED-OBTAIN FROM PT AND SEND TO RX DRUG: FREQ: RX# EXP: DATE DISP: TECH: RPH: 08/01/24 Cholecalciferol (Vitamin D3 250 Mcg (43848 Ut)) 1 Cap Cap, 1 CAP PO QWEEKLY for SUPPLEMENT, CAP 08/01/24 Cyanocobalamin (Vitamin B12) 1,000 Mcg Tab, 1000 MCG PO DAILY for SUPPLEMENT, TAB 08/01/24 Sucralfate (Sucralfate) 1 Gm Tab, 1 GM PO ACHS for GERD, GM 08/01/24 Beclomethasone Dipropionate (Qvar Redihaler) 80 Mcg/Act Aer, 160 MCG IN BID for COPD, AER 08/01/24 Duloxetine HCl (Duloxetine Hydrocloride) 60 Mg Cap, 60 MG PO DAILY for DEPRESSION, CAP 08/01/24 Furosemide (Furosemide) 20 Mg Tab, 20 MG PO DAILY for EDEMA, MG 08/01/24 Potassium Chloride (Potassium Chloride ER) 10 Meq Tab, 10 MEQ PO DAILY for SUPPLEMENT, TAB 08/01/24 Pantoprazole Sodium Sesquihydr (Pantoprazole Sodium Dr) 40 Mg Tab, 40 MG PO DAILY for GERD, TAB 08/01/24 Simvastatin (Simvastatin) 10 Mg Tab, 10 MG PO DAILY for HIGH CHOLESTEROL, MG 08/30/23 Ranolazine (Ranolazine ER) 500 Mg Tab, 500 MG PO BID for CHEST PAIN, TAB 08/30/23 Pregabalin (Lyrica) 75 Mg Cap, 1 CAP PO BID for NERVE PAIN, 0 Refills 08/30/23 Ferrous Sulfate (Iron) 325 Mg Tab, 325 MG PO DAILY for LOW IRON, TAB 08/30/23 Hydroxyzine Hcl (Hydroxyzine Hcl) 50 Mg/Ml Inj, 25 MG IM Q6HPRN 08/30/23 Apixaban Base (ELIQUIS) 5 Mg Tab, 5 MG PO BID for STOP ON 08/05/24, TAB 08/30/23 Risedronate Sodium (Atelvia) 35 Mg Tab, 35 MG PO QWEEKLY for OSTEOPOROSIS 08/30/23 Amlodipine Besylate (Amlodipine Besylate) 5 Mg Tab, 10 MG PO DAILY for HTN 08/30/23 Fenofibrate (Fenofibrate Micronized) 134 Mg Cap, 1 CAP PO DAILY for HIGH CHOLESTEROL 11/02/15 Losartan Potassium (Losartan Potassium) 100 Mg Tab, 1 TAB PO DAILY for HTN, #30 TAB 5 Refills 11/02/15 Information Source: Patient Mode of Arrival: Ambulatory Severity: Mild Timing: Days Duration: Since onset, Days Prehospital treatment: None Medication Refill: For: Other (generalized body itching) Past Medical History PAST MEDICAL HISTORY: Arthritis, Asthma, CAD, CKF, COPD, GERD, High Lipids, HTN Surgical History: CABG, Hernia Repair, Hysterectomy WEB SOFTWARE ENGINEER History: No Pertinent WEB SOFTWARE ENGINEER History Family History Family History: Reviewed,noncontributory to illness Social History Smoker: Cigarettes Alcohol: Denies ETOH Use Drugs: Denies Drug Use Lives In: Home Constitutional: denies: chills, diaphoresis, fatigue, fever, malaise, sweats, weakness, others EENTM: denies: blurred vision, double vision, ear bleeding, ear discharge, ear drainage, ear pain, ear ringing, eye pain, eye redness, hearing loss, mouth pain, mouth swelling, nasal discharge, nose bleeding, nose congestion, nose pain, photophobia, tearing, throat pain, throat swelling, voice changes, others Respiratory: denies: cough, hemoptysis, orthopnea, SOB at rest, shortness of breath, SOB with excertion, stridor, wheezing, others Cardiovascular: denies: chest pain, dizzy spells, diaphoresis, Dyspnea on exertion, edema, irregular heart beat, left arm pain, lightheadedness, palpitations, PND, syncope, others Gastrointestinal: denies: abdomen distended, abdominal pain, blood streaked bowels, constipated, diarrhea, dysphagia, difficulty swallowing, hematemesis, melena, nausea, poor appetite, poor fluid intake, rectal bleeding, rectal pain, vomiting, others Genitourinary: denies: abnormal vagina bleeding, burning, dyspareunia, dysuria, flank pain, frequency, hematuria, incontinence, pain, , vagina discharge, urgency, others Neurological: denies: dizziness, fainting, headache, left sided numbness, left sided weakness, numbness, paresthesia, pre-existing deficit, right sided numbness, right sided weakness, seizure, speech problems, tingling, tremors, we akness, others Musculoskeletal: denies: back pain, gout, joint pain, joint swelling, muscle pain, muscle stiffness, neck pain, others Integumetry: reports: others (itching); denies: bruises, change in color, change in hair/nails, dryness, laceration, lesions, lumps, rash, wounds Allergic/Immunocompromised: denies: Difficulty Healing, Frequent Infections, Hives, Itching, others Hematologic/Lymphatic: denies: anemia, blood clots, easy bleeding, easy bruising, swollen glands, others Endocrine: denies: excessive hunger, excessive sweating, excessive thirst, excessive urination, flushing, intolerance to cold, intolerance to heat, unex plained weight gain, unexplained weight loss, others Psychiatric: denies: anxiety, bipolar disorder, depression, hopeless, panic disorder, schizophrenia, sleepless, suicidal, others All Other Systems: Reviewed and Negative Physical Exam General Appearance: No Apparent Distress, Normal HEENT: Normal ENT Inspection, Pharynx Normal, TMs Normal Neck: Full Range of Motion, Non-Tender, Normal, Normal Inspection Respiratory: Chest Non-Tender, Lungs Clear, No Accessory Muscle Use, No Respiratory Distress, Normal Breath Sounds Cardiovascular: No Edema, No JVD, No Murmur, No Gallop, Normal Peripheral Puls es, Regular Rate/Rhythm Breast Exam: Deferred Gastrointestinal: No Organomegaly, Non Tender, No Pulsatile Mass, Normal Bowel Sounds, Soft Genitalia: Deferred Pelvic: Deferred Rectal: Deferred Extremities: No calf tenderness, Normal capillary refill, Normal inspection, Normal range of motion, Non-tender, No pedal edema Musculoskeletal : Apperance: Normal Neurologic: Alert, frame assembler II-XII nml as Tested, No Motor Deficits, Normal Affect, Normal Mood, No Sensory Deficits Cerebellar Function: Normal Reflexes: Normal Skin: Dry, Normal Color, Warm Lymphatic: No Adenopathy Was a procedure done? Was a procedure done?: No Differential Dx Considerations may include: generalized body itching, allergic reaction, pruritus, herpes zoster, parasitosis, hyperbilirubinemia, other causes of pruritis, such as PV, fe deficiency anemia, lymphoma X-Ray, Labs, Meds, VS Vital Signs Date Time Temp Pulse Resp B/P (MAP) Pulse Ox O2 Delivery O2 Flow Rate FiO2 10/09/24 13:35 98.1 78 18 129/71 (90) 95 98.1 Lab Test 10/09/24 14:27 Range/Units White Blood Count 7.0 4.4-10.8 10^3/uL Red Blood Count 4.89 4.0-5.20 10^6/uL Hemoglobin 13.0 12.2-16.2 g/dL Hematocrit 40.0 36.0-46.0 % Mean Corpuscular Volume 81.9 80.0-100.0 fL Mean Corpuscular Hemoglobin 26.6 L 28.0-32.0 pg Mean Corpuscular Hemoglobin Concent 32.5 32.0-36.0 g/dL Red Cell Distribution Width 16.2 H 11.8-14.3 % Platelet Count 202 140-450 10^3/uL Mean Platelet Volume 9.7 6.9-10.8 fL Neutrophils (%) (Auto) 50.0 37.0-80.0 % Lymphocytes (%) (Auto) 38.2 10.0-50.0 % Monocytes (%) (Auto) 9.0 0.0-12.0 % Eosinophils (%) (Auto) 1.9 0.0-7.0 % Basophils (%) (Auto) 0.9 0.0-2.0 % Neutrophils # (Auto) 3.5 1.6-8.6 10 ^3/uL Lymphocytes # (Auto) 2.7 0.4-5.4 10 ^3/uL Monocytes # (Auto) 0.6 0-1.3 10 ^3/uL Eosinophils # (Auto) 0.1 0-0.8 10 ^3/uL Basophils # (Auto) 0.1 0-0.2 10 ^3/uL Nucleated Red Blood Cells 0.1 % X-Ray, Labs, Meds, VS Comment External medical records reviewed: [None] Independent historians: [None] Social determinants of health: [None] Labs ordered: CBC Reviewed and interpreted results: Normal Radiology imaging ordered: None Treatments ordered: None Procedures performed: None Critical care time: None Based on the history of present illness and physical exam, patient will be discharged home. Discussed plan for discharge home with Rx [Vistaril 25mg ]. Medications warnings given. Shared decision making: Patient instructed to follow up with their primary care physician in 1-2 days for re-evaluation of symptoms. Patient verbalizes understanding to return to ED for new or worsening symptoms of if follow up with PCP cannot be obtained. Patient understands and feels comfortable going home at this time. All questions addressed at time of discharge. Time of 1ST Reevaluation: 16:05 Reevaluation 1ST: Improved Patient Education/Counseling: Diagnosis, Treatment, Need For Follow Up Family Education/Counseling: Diagnosis, Treatment, Need For Follow Up Departure 1 Departure Time of Disposition: 16:05 Impression: Primary Impression: Pruritus Disposition: 01 HOME / SELF CARE / HOMELESS Condition: Stable Additional Instructions: Follow up with PCP in 1-2 days. Take medications as prescribed. Return to ED for any new or worsening symptoms. Discharged With: Self Critical Care Note Critical Care Time?: No Stability Stability form required: No I personally scribed for PRADEEP MONACO MD ([email or web address]) on 10/09/24 at 13:37. Electronically submitted by Chris Rodriguez ([email or web address]). I personally scribed for PRADEEP MONACO MD ([facility]) on 10/09/24 at 14:09. Electronically submitted by Chris Rodriguez ([email or web address]). I personally scribed for PRADEEP MONACO MD ([facility]) on 10/09/24 at 15:17. Electronically submitted by Chris Rodriguez ([email or web address]). PRADEEP MONACO MD Oct 09, 2024 13:37
[2024-10-09 14:47] LABS: Basophils # (auto) 0.1 10 ^3/uL (0-0.2); Basophils % (auto) 0.9 % (0.0-2.0); Eosinophils # (auto) 0.1 10 ^3/uL (0-0.8); Eosinophils % (auto) 1.9 % (0.0-7.0); Lymphocytes # (auto) 2.7 10 ^3/uL (0.4-5.4); Lymphocytes % (auto) 38.2 % (10.0-50.0); Mean Corpuscular Hemoglobin 26.6 pg (28.0-32.0); Mean Corpuscular Hgb Conc. 32.5 g/dL (32.0-36.0); Mean Corpuscular Volume 81.9 fL (80.0-100.0); Monocytes # (auto) 0.6 10 ^3/uL (0-1.3); Neutrophils # (auto) 3.5 10 ^3/uL (1.6-8.6); Nucleated Red Blood Cells % 0.1 %; Platelet Count (auto) 202 10^3/uL (140-450); Red Blood Cells 4.89 10^6/uL (4.0-5.20); Red Cell Distribution Width 16.2 % (11.8-14.3)
[2024-10-09 17:48] VITALS: BP 129/84; PULSE 80; RESP 20; TEMP 98.1; O2SAT 99
== END 2024-10-09 17:49 | disposition home or self-care (01) ==
LOC: ER 13:30
DX: L29.9 Pruritus, unspecified (principal); F17.210 Nicotine dependence, cigarettes, uncomplicated; M19.90 Unspecified osteoarthritis, unspecified site; E78.5 Hyperlipidemia, unspecified; J44.9 Chronic obstructive pulmonary disease, unspecified; I12.9 Hypertensive chronic kidney disease with stage 1 through stage 4 chronic kidney disease, or unspecified chronic kidney disease; N18.9 Chronic kidney disease, unspecified; I25.810 Atherosclerosis of coronary artery bypass graft(s) without angina pectoris; K21.9 Gastro-esophageal reflux disease without esophagitis; Z79.01 Long term (current) use of anticoagulants; Z79.51 Long term (current) use of inhaled steroids; Z79.899 Other long term (current) drug therapy; Z88.1 Allergy status to other antibiotic agents; Z88.5 Allergy status to narcotic agent; Z90.710 Acquired absence of both cervix and uterus; Z95.1 Presence of aortocoronary bypass graft; Z98.890 Other specified postprocedural states
CPT/HCPCS: 36415; 85025

== ENCOUNTER 2024-10-14 14:45 | Outpatient (CLI) | payer MEDICARE, MEDICAID ==
[~2024-10-14 14:45] MED LIST changes: +ALBUTEROL SULF 2.5 MG/0.5ML(0.5%) NEB SOLN ONE
== END 2024-10-14 17:00 | disposition home or self-care (01) ==
LOC: RT 14:45
PROVIDERS: ATTEND Internal Medicine Pulmonary Disease
DX: J44.9 Chronic obstructive pulmonary disease, unspecified (principal); R06.00 Dyspnea, unspecified
CPT/HCPCS: 94060; 94729

== ENCOUNTER 2024-10-26 20:51 | Inpatient (IN) | payer MEDICARE, MEDICAID ==
[~2024-10-26] VITALS: Ht 152.4 cm; Wt 78.1 kg
[~2024-10-26 20:51] MED LIST changes: -ALBUTEROL SULF 2.5 MG/0.5ML(0.5%) NEB SOLN ONE
[2024-10-26] MEDS: HYDROcodone-ACET 5/325MG TAB PO ONE (21:20)
--- NOTE | 2024-10-26 21:49 | DVH ---
CLINICAL INDICATION: fall TECHNIQUE: 3 radiographic views of the left ribs were obtained. Comparison: None FINDINGS/IMPRESSION: There is no evidence of acute fracture or dislocation. Cortical irregularity around the neck of the left humerus correlate for symptoms. The visualized joint space is well maintained. Small left pleural effusion. Not present on prior study 06/25/2024 The alignment is anatomical. There is no radiopaque foreign body.
--- NOTE | 2024-10-26 21:55 | ED.PDOC ---
Delia. trauma (HPI) HPI Comments 79y F who presents to the ED for chief complaint of fall injury. Pt states she had fall from wheelchair to the L side of her hip and states she has since been having lightheadedness with shortness with exertion that has been exacerbated earlier this afternoon which led to the fall and pt came to the ED for further e valuation. reportedly, pt has copd and is O2 dependent but awaiting for oxygen Time Seen by MD: 21:02 Primary Care Provider: ? Reviewed notes: Medications, Allergies Allergies: Coded Allergies: Metronidazole (Verified Allergy, Intermediate, SWELLING, 08/01/24) SWELLING AND REDNESS Morphine (Verified Allergy, Mild, 08/01/24) NAUSEA/VOMITING Codeine (Verified Allergy, Unknown, 08/01/24) Home Meds Active Scripts Umeclidinium-Vilanterol (Anoro Ellipta 62.5-25 Mcg/INH) 1 Aer Aer, 1 AER IN DAILY for 30 Days, #1 AER 2 Refills Prov:PATRICIO DEL RIO RESIDENT 07/18/24 Acetaminophen (Tylenol 8 Hour Arthritis) 650 Mg Tab, 650 MG PO TID, #30 TAB Prov:JORGE DELGADILLO PA 09/28/23 Reported Medications Patients Own Medication (PATIENTS OWN MEDICATION) ., 45 MCG MS for SUPPLEMENT/ K2 PTS OWN MED-OBTAIN FROM PT AND SEND TO RX DRUG: FREQ: RX# EXP: DATE DISP: TECH: RPH: 08/01/24 Cholecalciferol (Vitamin D3 250 Mcg (09252 Ut)) 1 Cap Cap, 1 CAP PO QWEEKLY for SUPPLEMENT, CAP 08/01/24 Cyanocobalamin (Vitamin B12) 1,000 Mcg Tab, 1000 MCG PO DAILY for SUPPLEMENT, TAB 08/01/24 Sucralfate (Sucralfate) 1 Gm Tab, 1 GM PO ACHS for GERD, GM 08/01/24 Beclomethasone Dipropionate (Qvar Redihaler) 80 Mcg/Act Aer, 160 MCG IN BID for COPD, AER 08/01/24 Duloxetine HCl (Duloxetine Hydrocloride) 60 Mg Cap, 60 MG PO DAILY for DEPRESSION, CAP 08/01/24 Furosemide (Furosemide) 20 Mg Tab, 20 MG PO DAILY for EDEMA, MG 08/01/24 Potassium Chloride (Potassium Chloride ER) 10 Meq Tab, 10 MEQ PO DAILY for SUPPLEMENT, TAB 08/01/24 Pantoprazole Sodium Sesquihydr (Pantoprazole Sodium Dr) 40 Mg Tab, 40 MG PO ROSE LY for GERD, TAB 08/01/24 Simvastatin (Simvastatin) 10 Mg Tab, 10 MG PO DAILY for HIGH CHOLESTEROL, MG 08/30/23 Ranolazine (Ranolazine ER) 500 Mg Tab, 500 MG PO BID for CHEST PAIN, TAB 08/30/23 Pregabalin (Lyrica) 75 Mg Cap, 1 CAP PO BID for NERVE PAIN, 0 Refills 08/30/23 Ferrous Sulfate (Iron) 325 Mg Tab, 325 MG PO DAILY for LOW IRON, TAB 08/30/23 Hydroxyzine Hcl (Hydroxyzine Hcl) 50 Mg/Ml Inj, 25 MG IM Q6HPRN 08/30/23 Apixaban Base (ELIQUIS) 5 Mg Tab, 5 MG PO BID for STOP ON 08/05/24, TAB 08/30/23 Risedronate Sodium (Atelvia) 35 Mg Tab, 35 MG PO QWEEKLY for OSTEOPOROSIS 08/30/23 Amlodipine Besylate (Amlodipine Besylate) 5 Mg Tab, 10 MG PO DAILY for HTN 08/30/23 Fenofibrate (Fenofibrate Micronized) 134 Mg Cap, 1 CAP PO DAILY for HIGH CHOLESTEROL 11/02/15 Losartan Potassium (Losartan Potassium) 100 Mg Tab, 1 TAB PO DAILY for HTN, #30 TAB 5 Refills 11/02/15 Information Source: Patient, Relative Mode of Arrival: Wheelchair Brought in by: family member Past Medical History PAST MEDICAL HISTORY: Arthritis, Asthma, CAD, CKF, COPD, GERD, High Lipids, HTN Surgical History: CABG, Hernia Repair, Hysterectomy 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 History: No Pertinent 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 PORTFOLIO LEADER History Family History Family History: Reviewed,noncontributory to illness Social History Smoker: Cigarettes Alcohol: Denies ETOH Use Drugs: Denies Drug Use Lives In: Home Constitutional: denies: chills, diaphoresis, fatigue, fever, malaise, sweats, weakness, others EENTM: denies: blurred vision, double vision, ear bleeding, ear discharge, ear drainage, ear pain, ear ringing, eye pain, eye redness, hearing loss, mouth pain, mouth swelling, nasal discharge, nose bleeding, nose congestion, nose pain, photophobia, tearing, throat pain, throat swelling, voice changes, others Respiratory: reports: shortness of breath; denies: cough, hemoptysis, orthopnea, SOB at rest, SOB with excertion, stridor, wheezing, others Cardiovascular: denies: chest pain, dizzy spells, diaphoresis, Dyspnea on exertion, edema, irregular heart beat, left arm pain, lightheadedness, palpitations, PND, syncope, others Gastrointestinal: denies: abdomen distended, abdominal pain, blood streaked bowels, constipated, diarrhea, dysphagia, difficulty swallowing, hematemesis, melena, nausea, poor appetite, poor fluid intake, rectal bleeding, rectal pain, vomiting, others Genitourinary: denies: abnormal vagina bleeding, burning, dyspareunia, dysuria, flank pain, frequency, hematuria, incontinence, pain, , vagina discharge, urgency, others Neurological: denies: dizziness, fainting, headache, left sided numbness, left sided weakness, numbness, paresthesia, pre-existing deficit, right sided numbness, right sided weakness, seizure, speech problems, tingling, tremors, weakness, others Musculoskeletal: reports: joint pain (L hip pain); denies: back pain, gout, joint swelling, muscle pain, muscle stiffness, neck pain, others Integumetry: denies: bruises, change in color, change in hair/nails, dryness, laceration, lesions, lumps, rash, wounds, others Allergic/Immunocompromised: denies: Difficulty Healing, Frequent Infections, Hives, Itching, others Hematologic/Lymphatic: denies: anemia, blood clots, easy bleeding, easy bruising, swollen glands, others Endocrine: denies: excessive hunger, excessive sweating, excessive thirst, excessive urination, flushing, intolerance to cold, intolerance to heat, unexplained weight gain, unexplained weight loss, others Psychiatric: denies: anxiety, bipolar disorder, depression, hopeless, panic disorder, schizophrenia, sleepless, suicidal, others All Other Systems: Reviewed and Negative Physical Exam General Appearance: No Apparent Distress, Normal HEENT: Normal ENT Inspection, Pharynx Normal, TMs Normal Neck: Full Range of Motion, Non-Tender, Normal, Normal Inspection Respiratory: Chest Non-Tender, Lungs Clear, No Accessory Muscle Use, No Respiratory Distress, Normal Breath Sounds Cardiovascular: No Edema, No JVD, No Murmur, No Gallop, Normal Peripheral Pulses, Regular Rate/Rhythm Breast Exam: Deferred Gastrointestinal: LLQ (tenderness to palpation) Genitalia: Deferred Pelvic: Deferred Rectal: Deferred Extremities: Other Musculoskeletal : Apperance: Normal Neurologic: Alert, emt i/85 II-XII nml as Tested, No Motor Deficits, Normal Affect, Normal Mood, No Sensory Deficits Cerebellar Function: Normal Reflexes: Normal Skin: Dry, Normal Color, Warm Lymphatic: No Adenopathy Was a procedure done? Was a procedure done?: No Differential Diagnosis Multiple Trauma: Fractures, Intraabdominal Injury, Pneumothorax, Cerebral Contusion, Pulmonary Contusion, Abrasions, Contusion, Hematoma, Other (chf, respiratory failure, acs) Neck Injury: Cervical Sprain X-Ray, Labs, Meds, VS Vital Signs Date Time Temp Pulse Resp B/P (MAP) Pulse Ox O2 Delivery O2 Flow Rate FiO2 10/26/24 23:22 97.7 71 20 112/56 (74) 93 97.7 10/26/24 23:22 72 20 93 Room Air 10/26/24 21:10 97.9 72 20 120/78 (92) 93 97.9 Lab Test 10/26/24 22:48 Range/Units White Blood Count 7.6 4.4-10.8 10^3/uL Red Blood Count 4.55 4.0-5.20 10^6/uL Hemoglobin 11.9 L 12.2-16.2 g/dL Hematocrit 36.6 36.0-46.0 % Mean Corpuscular Volume 80.5 80.0-100.0 fL Mean Corpuscular Hemoglobin 26.2 L 28.0-32.0 pg Mean Corpuscular Hemoglobin Concent 32.6 32.0-36.0 g/dL Red Cell Distribution Width 15.8 H 11.8-14.3 % Platelet Count 179 140-450 10^3/uL Mean Platelet Volume 9.7 6.9-10.8 fL Neutrophils (%) (Auto) 55.2 37.0-80.0 % Lymphocytes (%) (Auto) 32.7 10.0-50.0 % Monocytes (%) (Auto) 9.9 0.0-12.0 % Eosinophils (%) (Auto) 1.5 0.0-7.0 % Basophils (%) (Auto) 0.7 0.0-2.0 % Neutrophils # (Auto) 4.2 1.6-8.6 10 ^3/uL Lymphocytes # (Auto) 2.5 0.4-5.4 10 ^3/uL Monocytes # (Auto) 0.8 0-1.3 10 ^3/uL Eosinophils # (Auto) 0.1 0-0.8 10 ^3/uL Basophils # (Auto) 0.1 0-0.2 10 ^3/uL Nucleated Red Blood Cells 0.0 % Sodium Level 146 H 136-145 mmol/L Potassium Level 3.9 3.5-5.1 mmol/L Chloride Level 111 H 98-107 mmol/L Carbon Dioxide Level 26 20-31 mmol/L Anion Gap 9 5-15 Blood Urea Nitrogen 31 H 9-23 mg/dL Creatinine 1.83 H 0.550-1.02 mg/dL Glomerular Filtration Rate Calc 28 >90 mL/min BUN/Creatinine Ratio 16.9 10.0-20.0 Serum Glucose 111 H 74-106 mg/dL Calcium Level 9.2 8.7-10.4 mg/dL Troponin I High Sensitivity 5 </=34 ng/L Current Medications Medications (Trade) Dose Ordered Sig/Callie Route Start Time Stop Time Status Last Admin Acetaminophen/ Hydrocodone Bitart ([place] 5/325MG Tab) 1 tab ONCE ONCE PO 10/26/24 21:15 10/26/24 21:16 DC 10/26/24 21:20 [place] [id number] Ph: [phone] DIAGNOSTIC IMAGING Diagnostic Imaging Report : [id number] Signed PATIENT: DOMI YANG ACCT: [id number] UNIT: [id number] : 1945 LOC: ER ROOM / BED: / AGE / SEX: 79 / F ADM STATUS: REG ER SERVICE 08 ORDERING PHYSICIAN: PRADEEP MONACO MD PROCEDURE(s): LRIBS - L RIB X RAY REASON: fall ORDER NUMBER(s): [id number], ACCESSION NUMBER(s): [id number] CLINICAL INDICATION: fall TECHNIQUE: 3 radiographic views of the left ribs were obtained. Comparison: None FINDINGS/IMPRESSION: There is no evidence of acute fracture or dislocation. Cortical irregularity around the neck of the left humerus correlate for symptoms. The visualized joint space is well maintained. Small left pleural effusion. Not present on prior study 06/25/2024 The alignment is anatomical. There is no radiopaque foreign body. ATED BY: BRYANT CARLSON Jr., DO DICTATED DATE/TIME: 10/26/242146 SIGNED BY: BRYANT CARLSON Jr., SIGNED DATE/TIME: 10/26/242146 CC: Time of 1ST Reevaluation: 23:52 Reevaluation 1ST: Unchanged Patient Education/Counseling: Diagnosis, Treatment, Prognosis, Need For Follow Up Family Education/Counseling: Diagnosis, Treatment, Prognosis, Need For Follow Up, No Family Present Comments pt has significant pain from the fall. xray and ct are unremarkable. however she will need continuous pain control. more importantly, she fell, due to dizziness that followed dyspnea with exertion. she will be admitted for workup for a cardiac cause of the near syncope Departure 1 Departure Time of Disposition: 23:54 Impression: Primary Impression: Near syncope Additional Impressions: Falling Chest wall contusion Qualified Codes: S20.212A - Contusion of left front wall of thorax, initial encounter Intractable pain MEJIA (dyspnea on exertion) Disposition: ADMITTED INPATIENT Admit to: Tele Condition: Serious Discharged With: Self, Relative Critical Care Note Critical Care Time?: Yes (55 min-critical care time only) Critical care comment: Due to concerns for patients condition deteriorating, the care required my highest level of attention and readiness to intervene. I assessed the patient, reviewed the medical records, ordered the appropriate tests and treatments, then reassessed for results and responsiveness. I communicated with medical personnel and consultants and formulated a plan of care. Total critical care time excludes any procedures Stability Stability form required: No Heart Score Heart Score: Heart Score Response (Comments) Value History Moderate Suspicious 1 EKG Repolarization Disturb 1 Age >65 2 Risk Factors >3 or Hx ASHD 2 Troponin Normal limit 0 Total 6 I personally scribed for PRADEEP MONACO MD ([email or web address]) on 10/26/24 at 21:54. Electronically submitted by Caity Phan ([email or web address]). I personally scribed for PRADEEP MONACO MD ([facility]) on 10/26/24 at 22:27. Electronically submitted by Caity Phan ([email or web address]). PRADEEP MONACO MD Oct 26, 2024 21:54
[2024-10-26 23:01] LABS: Nucleated Red Blood Cells % 0.0 %
[2024-10-26 23:03] LABS: Hematocrit 36.6 % (36.0-46.0); Hemoglobin 11.9 g/dL (12.2-16.2); Mean Corpuscular Hemoglobin 26.2 pg (28.0-32.0); Mean Corpuscular Volume 80.5 fL (80.0-100.0)
[2024-10-26 23:12] LABS: Potassium 3.9 mmol/L (3.5-5.1)
[2024-10-26 23:13] LABS: Anion Gap 9 (5-15); Calcium 9.2 mg/dL (8.7-10.4); Carbon Dioxide 26 mmol/L (20-31)
[2024-10-26 23:15] LABS: Chloride 111 mmol/L (98-107); Sodium 146 mmol/L (136-145)
[2024-10-26 23:18] LABS: BUN/Creatinine Ratio 16.9 (10.0-20.0)
[2024-10-26 23:20] LABS: Blood Urea Nitrogen 31 mg/dL (9-23); Glucose 111 mg/dL (74-106)
[2024-10-27] VITALS (10 sets, daily range): BP systolic 120–132; BP diastolic 60–73; PULSE 61–77; RESP 15–20; TEMP 97.1–98; O2SAT 91–98
[2024-10-27] MEDS: fentaNYL CITRATE 100 MCG/2 ML VL IM ONE (01:50)
[2024-10-27] MEDS ORDERED: ONDANSETRON HCL 4 MG/2 ML VIAL IV PRN (03:00)
[2024-10-27] MEDS ORDERED: MECLIZINE HCL 25 MG TAB PO PRN (03:00)
[2024-10-27] MEDS: SODIUM CHLORIDE 0.9% 500 ML IV ONE (03:00)
--- NOTE | 2024-10-27 03:13 | DVHHP2 ---
History of Present Illness Reason for Visit: Fall injury History of Present Illness 79-year-old female presents for evaluation of fall injury. Patient reports having recurrent falls over the past three months. She states becoming dizzy and then she loses her balance. Yesterday she fell onto her left side and presents with complaints of left rib pain. Denies head trauma or loss of consciousness. No other acute complaints reported. Past Medical History Chronic kidney disease, CAD, asthma, COPD, GERD, dyslipidemia, hypertension Past Surgical History Hernia repair, hysterectomy, CABG Family History Noncontributory Smoke: <1 pack per day ALCOHOL: none Drugs: None Lives: with Family Review of Systems Review of Systems Review of systems are currently negative otherwise addressed in HPI. Allergies: Coded Allergies: Metronidazole (Verified Allergy, Intermediate, SWELLING, 08/01/24) SWELLING AND REDNESS Morphine (Verified Allergy, Mild, 08/01/24) NAUSEA/VOMITING Codeine (Verified Allergy, Unknown, 08/01/24) Exam Vital Signs Vital Signs Date Time Temp Pulse Resp B/P (MAP) Pulse Ox O2 Delivery O2 Flow Rate FiO2 10/27/24 01:50 125/61 10/27/24 00:18 97.7 64 16 90 97.7 10/27/24 00:18 Nasal Cannula* 4 36 Exam Gen: 79-year-old female in mild distress Skin: Warm, dry, normal color and texture, no rash. HEENT: Normocephalic atraumatic, mucous membranes moist and pink. Neck: Cervical and supraclavicular nodes normal without enlargement, trachea is midline, thyroid gland is normal without masses. Pulmonary: Clear to auscultation and percussion bilaterally. Cardiac: Regular rate and rhythm. No murmur Abdomen: Soft, nontender, nondistended, bowel sounds present all 4 quadrants, no guarding, no rigidity, no organomegaly. Extremities: No cyanosis, clubbing, no edema Neuro: Cranial nerves II through XII grossly intact, normal affect and speech, no focal motor deficits. Labs/Xrays ORDERING PHYSICIAN: PRADEEP MONACO MD PROCEDURE(s): LRIBS - L RIB X RAY REASON: fall ORDER NUMBER(s): [id number], ACCESSION NUMBER(s): [id number] CLINICAL INDICATION: fall TECHNIQUE: 3 radiographic views of the left ribs were obtained. Comparison: None FINDINGS/IMPRESSION: There is no evidence of acute fracture or dislocation. Cortical irregularity around the neck of the left humerus correlate for symptoms. The visualized joint space is well maintained. Small left pleural effusion. Not present on prior study 06/25/2024 The alignment is anatomical. There is no radiopaque foreign body. Labs Test 10/26/24 23:50 10/26/24 22:48 Range/Units Troponin I High Sensitivity 4 </=34 ng/L White Blood Count 7.6 4.4-10.8 10^3/uL Red Blood Count 4.55 4.0-5.20 10^6/uL Hemoglobin 11.9 L 12.2-16.2 g/dL Hematocrit 36.6 36.0-46.0 % Mean Corpuscular Volume 80.5 80.0-100.0 fL Mean Corpuscular Hemoglobin 26.2 L 28.0-32.0 pg Mean Corpuscular Hemoglobin Concent 32.6 32.0-36.0 g/dL Red Cell Distribution Width 15.8 H 11.8-14.3 % Platelet Count 179 140-450 10^3/uL Mean Platelet Volume 9.7 6.9-10.8 fL Neutrophils (%) (Auto) 55.2 37.0-80.0 % Lymphocytes (%) (Auto) 32.7 10.0-50.0 % Monocytes (%) (Auto) 9.9 0.0-12.0 % Eosinophils (%) (Auto) 1.5 0.0-7.0 % Basophils (%) (Auto) 0.7 0.0-2.0 % Neutrophils # (Auto) 4.2 1.6-8.6 10 ^3/uL Lymphocytes # (Auto) 2.5 0.4-5.4 10 ^3/uL Monocytes # (Auto) 0.8 0-1.3 10 ^3/uL Eosinophils # (Auto) 0.1 0-0.8 10 ^3/uL Basophils # (Auto) 0.1 0-0.2 10 ^3/uL Nucleated Red Blood Cells 0.0 % Sodium Level 146 H 136-145 mmol/L Potassium Level 3.9 3.5-5.1 mmol/L Chloride Level 111 H 98-107 mmol/L Carbon Dioxide Level 26 20-31 mmol/L Anion Gap 9 5-15 Blood Urea Nitrogen 31 H 9-23 mg/dL Creatinine 1.83 H 0.550-1.02 mg/dL Glomerular Filtration Rate Calc 28 >90 mL/min BUN/Creatinine Ratio 16.9 10.0-20.0 Serum Glucose 111 H 74-106 mg/dL Calcium Level 9.2 8.7-10.4 mg/dL Assessment/Plan Assessment/Plan Assessment Recurrent falls Dizziness COPD with exacerbation Hypertension Acute on chronic renal failure Plan Admit the patient to [facility] to the hospitalist Physical therapy eval Head CT pending Chest x-ray pending UA pending Resume home medications Continue treatment per orders. Plan discussed with: Patient My Orders Orders - PASCALE PAL Procedure Category Date Status Time NS PHA 10/27/24 Verified 03:00 Pt Request For Service PT 10/27/24 Verified 02:58 Meclizine Tablet PHA 10/27/24 Verified (Antivert Tablet) 03:00 Chest Xray 1 View XY 10/27/24 Verified 02:[address] 10/27/24 Verified 02:58 Ranolazine (Ranexa Er) PHA 10/27/24 Verified 10:00 Atorvastatin (Lipitor) PHA 10/27/24 Verified 22:00 Amlodipine Tablet PHA 10/27/24 Verified (Norvasc Tablet) 10:00 Apixaban (Eliquis) PHA 10/27/24 Verified 10:00 Duloxetine Hcl PHA 10/27/24 Verified Capsule (Cymbalta 10:00 Furosemide Tablet PHA 10/27/24 Verified (Lasix Tablet) 10:00 Date of Service: Oct 27, 2024 Billing Provider: PASCALE PAL Common Visit Codes: [id number] INP/OBS CARE (HIGH) PASCALE PAL Oct 27, 2024 03:13
--- NOTE | 2024-10-27 03:55 | DVH ---
EXAM: CT HEAD WITHOUT CONTRAST INDICATION: DIZZINESS TECHNIQUE: CT of the head without intravenous contrast. Radiation Dose : 1. Head: CT Dose: CTDI volume is 53.49 mGy. Dose-length product is 926.16 mGy*cm The dose indicators for CT are the volume Computed Tomography (CT) Dose Index (CTDIvol) and the Dose Length Product (DLP), and are measured in units of mGy and mGy-cm, respectively. These indicators are not patient dose, but values generated from the CT scanner acquisition factors. The report includes radiation exposure data for exposures received during this examination. COMPARISON: HEAD WITHOUT CONTRAST on DOS: 02/22/22 FINDINGS: There is no evidence of acute intracranial hemorrhage, extra-axial collection, mass effect, midline s hift, herniation or hydrocephalus. Chronic appearing right basal ganglia lacunar infarct. The ventricles, sulci and cisterns are age appropriate. The simons-white differentiation is intact. Patchy periventricular and subcortical white matter hypoattenuation is nonspecific but may be related to small vessel ischemic disease. The visualized paranasal sinuses and mastoid air cells are clear. The surrounding soft tissues and osseous structures are unremarkable. IMPRESSION: 1. No acute intracranial abnormality. 2. Chronic sequelae of microvascular disease and right basal ganglia lacunar infarct. Radiation optimization: All CT scans at this facility use at least one of these dose optimization arthur hniques: automated exposure control mA and/or kV adjustment per patient size (includes targeted exam s where dose is matched to clinical indication) or iterative reconstruction.
[2024-10-27] MEDS: APIXABAN 5 MG TAB PO SCH (10:27)
[2024-10-27] MEDS: RANOLAZINE ER 500 MG TAB PO SCH (10:27)
[2024-10-27] MEDS: FUROSEMIDE 20 MG TAB PO SCH (10:27)
--- NOTE | 2024-10-27 13:35 | DVHPN2 ---
Subjective Seen and examined at bedside, patient is known to me from outpatient clinic. Need sputum sample. Very short of breath Changes from previous H/P or p: No Changes Objective Vitals Vital Signs Date Time Temp Pulse Resp B/P (MAP) Pulse Ox O2 Delivery O2 Flow Rate FiO2 10/27/24 12:00 65 17 136/70 (92) 92 10/27/24 07:30 98.0 98.0 10/27/24 07:30 Nasal Cannula* 2 28 General Appearance: Alert, Oriented X3, Cooperative Lungs: Other (Creps) Cardiovascular: Regular rate, Normal S1, Normal S2 Abdomen: Normal bowel sounds, Soft Psych/Mental Status: Mental status NL Medications Current Medications Medications Dose Ordered Sig/Callie Route Start Time Stop Time Status Last Admin Dose Admin Meclizine HCl 25 mg Q8HPRN PRN PO 10/27/24 03:00 Ranolazine 500 mg BID PO 10/27/24 10:00 10/27/24 10:27 500 MG Atorvastatin Calcium 10 mg HS PO 10/27/24 22:00 Amlodipine Besylate 10 mg DAILY PO 10/27/24 10:00 10/27/24 10:28 10 MG Apixaban 5 mg BID PO 10/27/24 10:00 10/27/24 10:27 5 MG Duloxetine HCl 60 mg DAILY PO 10/27/24 10:00 10/27/24 10:28 60 MG Furosemide 20 mg DAILY PO 10/27/24 10:00 10/27/24 10:27 20 MG Albuterol 2.5 mg Q6HPRN PRN NEB 10/27/24 03:00 Ipratropium [place] 0.5 mg Q6HPRN PRN NEB 10/27/24 03:00 Ondansetron HCl 4 mg Q4HP PRN IV 10/27/24 03:00 Acetaminophen 650 mg Q6HP PRN PO 10/27/24 03:00 Laboratory Results Laboratory Tests 10/26/24 22:48 Chemistry Test 10/26/24 22:48 Calcium Level 9.2 mg/dL (8.7-10.4) Cardiac Markers Test 10/26/24 22:48 B-Type Natriuretic Peptide 64.37 pg/mL (0-100) Assessment/Plan Assessment/Plan # Acute Resp Failure - Titrate Oxygen down # COPD Exacerbation - Prednisone PO - Doxy - Duoneb # Pleural Effusion - Lasix # Thyroid Disorder - Check TFTs critical care time 39 mins Plan discussed with: Patient, Daughter My Orders Orders - DANA KRUEGER MD Procedure Category Date Status Time Urinalysis LAB 10/27/24 Logged 13:10 Sputum Induction RT 10/27/24 Logged 13:10 Respiratory Culture TONY 10/27/24 Logged W/ Gs 13:10 Furosemide Injection PHA 10/27/24 Logged (Lasix Injection) 18:00 Doxycycline Tablet PHA 10/27/24 Logged (Vibramycin Tablet) 22:00 Acetylcysteine PHA 10/27/24 Logged Inhalation 20% 18:00 Prednisone Tablet PHA 10/27/24 Logged 13:15 Prednisone Tablet PHA 10/27/24 Logged 22:00 Complete Blood Count LAB 10/28/24 Verified 04:00 Comprehensive LAB 10/28/24 Verified Metabolic Panel 04:00 Magnesium LAB 10/28/24 Verified 04:00 Communication Order ORDERS 10/27/24 Transmitted 13:14 Date of Service: Oct 27, 2024 Billing Provider: DANA KRUEGER MD Common Visit Codes: [id number] CARE 30-74 MIN DANA KRUEGER MD Oct 27, 2024 13:35
[2024-10-27] MEDS: predniSONE 20 MG TAB PO ONE (14:15)
[2024-10-27 15:08] LABS: Free T4 (Free Thyroxine) 1.18 ng/dL (0.89-1.76)
--- NOTE | 2024-10-27 16:46 | DVHSR ---
APPROVED REPORT EXAM: Two-dimensional and M-mode echocardiogram with Doppler and color Doppler. Blood Pressure: 128/59 mmHg INDICATION EF RISK FACTORS Height: 60, Weight: 160 DIMENSIONS LVDd4.4 (3.8-5.7cm)LA (2D)4.2 (1.9-4.0cm)Aortic Root3.3 (2.0-3.7cm) LVDs2.9 (2.5-4.0cm)LA (MM) (1.9-4.0cm)Aortic Cusp Exc1.4 (1.5-2.0cm) EF (%) 64.0 (55-70%)Rt. Atrium (1.9-4.0cm)Asc. Aorta cm Mitral Valve MitralMitral Stenosis E wave1.10m/sMV Mean GR.mmHg A wave1.43m/sMV Peak GR.109mmHg E/A ratio0.82D MVAcm2 DECEL [id number] 1/2 [id number] IVRTmsDop MVA2.10cm2 Aortic Valve Aortic ValveAortic Stenosis V10.98m/Jenniffer Mean GR.6mmHg V21.77m/Jenniffer Peak GR.13mmHg LVOT Diameter2.0 (1.8-2.4cm)Doppler AVA1.74cm2 AI P 1/2 Bcxd737.86ms Pulmonic Valve V20.96m/s Tricuspid Valve TR Velocity2.76m/s [id number] Conclusion lvef 60% by visual estimate mild LVH normal rv function biatrial enlargement moderate to severe mitral regurg moderate MAC, MS not assessed well moderate aortic regurg by p12t no significant
[2024-10-27] MEDS: FUROSEMIDE 20 MG/2 ML VIAL IV SCH (18:00)
[2024-10-27] MEDS: IPRATROPIUM BROM 0.5 MG/2.5ML INH SOL NEB PRN (19:53)
[2024-10-27] MEDS: ACETYLCYSTEINE 20%(200MG/ML) SOL 4ML NEB SCH (19:53)
[2024-10-27] MEDS: ALBUTEROL SULF 2.5 MG/0.5ML(0.5%) NEB SOLN NEB PRN (19:53)
[2024-10-27] MEDS: predniSONE 20 MG TAB PO SCH (21:46)
[2024-10-27] MEDS: ATORVASTATIN 20 MG TAB PO SCH (21:47)
[2024-10-27] MEDS: DOXYCYCLINE 100 MG TAB/CAP PO SCH (21:56)
[2024-10-28] VITALS (14 sets, daily range): BP systolic 114–140; BP diastolic 61–86; PULSE 73–100; RESP 16–22; TEMP 97.2–99.1; O2SAT 90–99
[2024-10-28 05:49] LABS: Hematocrit 35.6 % (36.0-46.0); Hemoglobin 11.7 g/dL (12.2-16.2); Mean Corpuscular Hemoglobin 26.3 pg (28.0-32.0); Mean Corpuscular Volume 80.1 fL (80.0-100.0); Nucleated Red Blood Cells % 0.1 %
[2024-10-28 06:38] LABS: Albumin 3.9 g/dL (3.2-4.8); Alkaline Phosphatase 56 U/L (46-116); BUN/Creatinine Ratio 17.9 (10.0-20.0); Calcium 9.2 mg/dL (8.7-10.4); Magnesium 2.0 mg/dL (1.6-2.6); Potassium 3.9 mmol/L (3.5-5.1); Sodium 143 mmol/L (136-145); Total Protein 6.7 g/dL (5.7-8.2)
[2024-10-28 06:55] LABS: Alanine Aminotransferase < 9 U/L (7-40); Bilirubin, Total 0.3 mg/dL (0.2-1.0); Blood Urea Nitrogen 27 mg/dL (9-23); Chloride 111 mmol/L (98-107); Glucose 148 mg/dL (74-106)
[2024-10-28 06:58] LABS: Anion Gap 12 (5-15); Carbon Dioxide 20 mmol/L (20-31)
[2024-10-28] MEDS: ACETAMINOPHEN 325 MG TAB PO PRN (10:18)
[2024-10-28] MEDS: ERGOCALCIFEROL 50,000 UNIT(1.25MG) CAP PO SCH (16:24)
[2024-10-28 18:31] LABS: Urine Protein, UAD Negative (Negative)
[2024-10-29] VITALS (13 sets, daily range): BP systolic 110–133; BP diastolic 62–76; PULSE 70–87; RESP 16–22; TEMP 97–98.2; O2SAT 90–99
[2024-10-29 15:38] LABS: Base Excess -3.8 mmol/L (-2.0-3.0)
--- NOTE | 2024-10-29 18:20 | DVHPN2 ---
Subjective LATE ENTRY 10/28/24 Seen and examined at bedside, cont present meds Changes from previous H/P or p: No Changes Objective Vitals Vital Signs Date Time Temp Pulse Resp B/P (MAP) Pulse Ox O2 Delivery O2 Flow Rate FiO2 10/29/24 18:13 121/62 10/29/24 16:36 97.7 84 18 90 97.7 10/29/24 12:11 Room Air 0.0 10/29/24 12:11 21 Intake/Output Intake and Output 10/29/24 07:00 Intake Total 1300 ml Balance 1300 ml Intake Oral 1300 ml # Voids 3 General Appearance: Alert, Oriented X3, Cooperative Lungs: Other (Creps) Cardiovascular: Regular rate, Normal S1, Normal S2 Abdomen: Normal bowel sounds, Soft Psych/Mental Status: Mental status NL Medications Current Medications Medications Dose Ordered Sig/Callie Route Start Time Stop Time Status Last Admin Dose Admin Meclizine HCl 25 mg Q8HPRN PRN PO 10/27/24 03:00 Ranolazine 500 mg BID PO 10/27/24 10:00 10/29/24 09:27 500 MG Atorvastatin Calcium 10 mg HS PO 10/27/24 22:00 10/28/24 22:03 10 MG Amlodipine Besylate 10 mg DAILY PO 10/27/24 10:00 10/29/24 09:27 10 MG Apixaban 5 mg BID PO 10/27/24 10:00 10/29/24 09:27 5 MG Duloxetine HCl 60 mg DAILY PO 10/27/24 10:00 10/29/24 09:27 60 MG Albuterol 2.5 mg Q6HPRN PRN NEB 10/27/24 03:00 10/29/24 12:08 2.5 MG Ipratropium [place] 0.5 mg Q6HPRN PRN NEB 10/27/24 03:00 10/29/24 12:08 0.5 MG Ondansetron HCl 4 mg Q4HP PRN IV 10/27/24 03:00 Acetaminophen 650 mg Q6HP PRN PO 10/27/24 03:00 10/28/24 10:18 650 MG Furosemide 20 mg BIDD IV 10/27/24 18:00 10/29/24 18:13 20 MG Doxycycline Monohydrate 100 mg Q12HR PO 10/27/24 22:00 10/29/24 09:27 100 MG Acetylcysteine 200 mg Q6HR NEB 10/27/24 18:00 10/29/24 12:08 200 MG Prednisone 20 mg BID PO 10/27/24 22:00 10/29/24 09:27 20 MG Ergocalciferol 50,000 unit Q7D PO 10/28/24 16:15 10/28/24 16:24 50,000 UNIT Laboratory Results Laboratory Tests 10/28/24 05:14 Urinalysis Test 10/28/24 18:00 Urine Color Yellow (Yellow) Urine Clarity Clear (Clear) Urine pH 5.0 (5.0-9.0) Urine Specific [place] 1.019 (1.001-1.035) Urine Protein Negative (Negative) Urine Ketones Negative (Negative) Urine Blood Negative /uL (Negative) Urine Nitrite Negative (Negative) Urine Bilirubin Negative (Negative) Urine Urobilinogen Normal mg/dL (Negative) Urine Leukocyte Esterase Trace /uL (Negative) Urine RBC 1 /hpf (0 - 4) Urine Microscopic WBC 2 /HPF (0-5) Urine Squamous Epithelial Cells Few /hpf (<5) Urine Bacteria None seen /hpf (None Seen) Urine Glucose Normal mg/dL (Normal) Blood Gas Results Test 10/29/24 15:30 Arterial Blood pH 7.438 (7.350-7.450) FiO2 % 21.0 Microbiology Microbiology Date/Time Source Procedure Growth Status 10/27/24 14:05 Sputum Gram Stain - Final Resulted 10/27/24 14:05 Sputum Respiratory Culture - Preliminary Resulted Assessment/Plan Assessment/Plan # Acute Resp Failure - Titrate Oxygen down # COPD Exacerbation - Prednisone PO - Doxy - Duoneb # Pleural Effusion - Lasix # Thyroid Disorder - Check TFTs Plan discussed with: Patient My Orders Orders - DANA KRUEGER MD Procedure Category Date Status Time Abg W/ Co-Ox RT 10/29/24 Logged 15:18 * Archaeology Professor CONS 10/30/24 Transmitted Consult 08:10 Date of Service: Oct 28, 2024 Billing Provider: DANA KRUEGER MD Common Visit Codes: [id number] INP/OBS CARE(HIGH) DANA KRUEGER MD Oct 29, 2024 18:20
--- NOTE | 2024-10-29 18:21 | DVHPN2 ---
Subjective Seen and examined at bedside, cont present meds. Home OXygen eval with ABG Changes from previous H/P or p: No Changes Objective Vitals Vital Signs Date Time Temp Pulse Resp B/P (MAP) Pulse Ox O2 Delivery O2 Flow Rate FiO2 10/29/24 18:13 121/62 10/29/24 16:36 97.7 84 18 90 97.7 10/29/24 12:11 Room Air 0.0 10/29/24 12:11 21 Intake/Output Intake and Output 10/29/24 07:00 Intake Total 1300 ml Balance 1300 ml Intake Oral 1300 ml # Voids 3 General Appearance: Alert, Oriented X3, Cooperative Lungs: Other (Creps) Cardiovascular: Regular rate, Normal S1, Normal S2 Abdomen: Normal bowel sounds, Soft Psych/Mental Status: Mental status NL Medications Current Medications Medications Dose Ordered Sig/Callie Route Start Time Stop Time Status Last Admin Dose Admin Meclizine HCl 25 mg Q8HPRN PRN PO 10/27/24 03:00 Ranolazine 500 mg BID PO 10/27/24 10:00 10/29/24 09:27 500 MG Atorvastatin Calcium 10 mg HS PO 10/27/24 22:00 10/28/24 22:03 10 MG Amlodipine Besylate 10 mg DAILY PO 10/27/24 10:00 10/29/24 09:27 10 MG Apixaban 5 mg BID PO 10/27/24 10:00 10/29/24 09:27 5 MG Duloxetine HCl 60 mg DAILY PO 10/27/24 10:00 10/29/24 09:27 60 MG Albuterol 2.5 mg Q6HPRN PRN NEB 10/27/24 03:00 10/29/24 12:08 2.5 MG Ipratropium [place] 0.5 mg Q6HPRN PRN NEB 10/27/24 03:00 10/29/24 12:08 0.5 MG Ondansetron HCl 4 mg Q4HP PRN IV 10/27/24 03:00 Acetaminophen 650 mg Q6HP PRN PO 10/27/24 03:00 10/28/24 10:18 650 MG Furosemide 20 mg BIDD IV 10/27/24 18:00 10/29/24 18:13 20 MG Doxycycline Monohydrate 100 mg Q12HR PO 10/27/24 22:00 10/29/24 09:27 100 MG Acetylcysteine 200 mg Q6HR NEB 10/27/24 18:00 10/29/24 12:08 200 MG Prednisone 20 mg BID PO 10/27/24 22:00 10/29/24 09:27 20 MG Ergocalciferol 50,000 unit Q7D PO 10/28/24 16:15 10/28/24 16:24 50,000 UNIT Laboratory Results Laboratory Tests 10/28/24 05:14 Urinalysis Test 10/28/24 18:00 Urine Color Yellow (Yellow) Urine Clarity Clear (Clear) Urine pH 5.0 (5.0-9.0) Urine Specific [place] 1.019 (1.001-1.035) Urine Protein Negative (Negative) Urine Ketones Negative (Negative) Urine Blood Negative /uL (Negative) Urine Nitrite Negative (Negative) Urine Bilirubin Negative (Negative) Urine Urobilinogen Normal mg/dL (Negative) Urine Leukocyte Esterase Trace /uL (Negative) Urine RBC 1 /hpf (0 - 4) Urine Microscopic WBC 2 /HPF (0-5) Urine Squamous Epithelial Cells Few /hpf (<5) Urine Bacteria None seen /hpf (None Seen) Urine Glucose Normal mg/dL (Normal) Blood Gas Results Test 10/29/24 15:30 Arterial Blood pH 7.438 (7.350-7.450) FiO2 % 21.0 Microbiology Microbiology Date/Time Source Procedure Growth Status 10/27/24 14:05 Sputum Gram Stain - Final Resulted 10/27/24 14:05 Sputum Respiratory Culture - Preliminary Resulted Assessment/Plan Assessment/Plan # Acute Resp Failure - Titrate Oxygen down # COPD Exacerbation - Prednisone PO - Doxy - Duoneb # Pleural Effusion - Lasix # Thyroid Disorder - Check TFTs Plan discussed with: Patient, Daughter My Orders Orders - DANA KRUEGER MD Procedure Category Date Status Time Abg W/ Co-Ox RT 10/29/24 Logged 15:18 * Quality Engineering Manager CONS 10/30/24 Transmitted Consult 08:10 Date of Service: Oct 29, 2024 Billing Provider: DANA KRUEGER MD Common Visit Codes: [id number] INP/OBS CARE(MOD) DANA KRUEGER MD Oct 29, 2024 18:21
[2024-10-30] VITALS (13 sets, daily range): BP systolic 126–140; BP diastolic 69–84; PULSE 81–91; RESP 16–22; TEMP 36.8; O2SAT 92–100
[2024-10-30 06:43] LABS: Anion Gap 13 (5-15); Carbon Dioxide 24 mmol/L (20-31); Potassium 3.7 mmol/L (3.5-5.1)
[2024-10-30 06:44] LABS: Calcium 9.0 mg/dL (8.7-10.4)
[2024-10-30 06:49] LABS: BUN/Creatinine Ratio 24.4 (10.0-20.0)
[2024-10-30 06:54] LABS: Blood Urea Nitrogen 33 mg/dL (9-23); Chloride 109 mmol/L (98-107); Glucose 141 mg/dL (74-106); Sodium 146 mmol/L (136-145)
[2024-10-30] MEDS ORDERED: PRED20TA2 PO (07:34)
[2024-10-30] MEDS ORDERED: ERGO1CAP23 PO (07:34)
[2024-10-30] MEDS ORDERED: DOX100T PO (07:34)
--- NOTE | 2024-10-30 07:39 | DVHDS2 ---
Discharge Summary Date of Admission Oct 27, 2024 at 02:58 Date of Discharge: Oct 30, 2024 Admitting Diagnosis Acute Resp Failure Labs/Diagnostic Data: Laboratory Results Test 10/30/24 04:47 10/29/24 15:30 10/28/24 18:00 10/28/24 05:14 Sodium Level 146 mmol/L (136-145) Potassium Level 3.7 mmol/L (3.5-5.1) Chloride Level 109 mmol/L (98-107) Carbon Dioxide Level 24 mmol/L (20-31) Anion Gap 13 (5-15) Blood Urea Nitrogen 33 mg/dL (9-23) Creatinine 1.35 mg/dL (0.550-1.02) Glomerular Filtration Rate Calc 40 mL/min (>90) BUN/Creatinine Ratio 24.4 (10.0-20.0) Serum Glucose 141 mg/dL (74-106) Calcium Level 9.0 mg/dL (8.7-10.4) Blood Gas Specimen Type Arterial Blood Gas Sample Site Left radial Blood Gas Patient Temperature 37.0 Arterial Blood Date Drawn [id number] Arterial Blood pH 7.438 (7.350-7.450) Arterial Blood Partial Pressure CO2 29.1 mmHg (32.0-45.0) Arterial Blood Partial Pressure O2 50.9 mmHg (83.0-108.0) Arterial Blood HCO3 19.2 mmol/L (21.0-28.0) Arterial Blood Oxygen Saturation 84.2 % (94.0-98.0) Arterial Blood Base Excess -3.8 mmol/L (-2.0-3.0) Arterial Blood Oxyhemoglobin 83.4 % (94.0-98.0) Arterial Blood Carboxyhemoglobin 0.5 % (0.5-1.5) Arterial Blood Methemoglobin 0.4 % (0.0-1.5) Eber Test Yes Blood Gas Total Hemoglobin 12.70 g/dL (12.0-16.0) Blood Gas Modality Room air Blood Gas Spontaneous Rate 20 FiO2 % 21.0 Blood Gas Critical Value Read Back Yes Blood Gas Notified Whom Dr. annetta perrin Blood Gas Notified Time [id number] Blood Gas Notified By Rt tello adame Urine Color Yellow (Yellow) Urine Clarity Clear (Clear) Urine pH 5.0 (5.0-9.0) Urine Specific [place] 1.019 (1.001-1.035) Urine Protein Negative (Negative) Urine Ketones Negative (Negative) Urine Blood Negative /uL (Negative) Urine Nitrite Negative (Negative) Urine Bilirubin Negative (Negative) Urine Urobilinogen Normal mg/dL (Negative) Urine Leukocyte Esterase Trace /uL (Negative) Urine RBC 1 /hpf (0 - 4) Urine Microscopic WBC 2 /HPF (0-5) Urine Squamous Epithelial Cells Few /hpf (<5) Urine Bacteria None seen /hpf (None Seen) Urine Glucose Normal mg/dL (Normal) White Blood Count 5.2 10^3/uL (4.4-10.8) Red Blood Count 4.45 10^6/uL (4.0-5.20) Hemoglobin 11.7 g/dL (12.2-16.2) Hematocrit 35.6 % (36.0-46.0) Mean Corpuscular Volume 80.1 fL (80.0-100.0) Mean Corpuscular Hemoglobin 26.3 pg (28.0-32.0) Mean Corpuscular Hemoglobin Concent 32.8 g/dL (32.0-36.0) Red Cell Distribution Width 15.9 % (11.8-14.3) Platelet Count 161 10^3/uL (140-450) Mean Platelet Volume 9.8 fL (6.9-10.8) Neutrophils (%) (Auto) 82.0 % (37.0-80.0) Lymphocytes (%) (Auto) 15.9 % (10.0-50.0) Monocytes (%) (Auto) 1.7 % (0.0-12.0) Eosinophils (%) (Auto) 0.0 % (0.0-7.0) Basophils (%) (Auto) 0.4 % (0.0-2.0) Neutrophils # (Auto) 4.3 10 ^3/uL (1.6-8.6) Lymphocytes # (Auto) 0.8 10 ^3/uL (0.4-5.4) Monocytes # (Auto) 0.1 10 ^3/uL (0-1.3) Eosinophils # (Auto) 0 10 ^3/uL (0-0.8) Basophils # (Auto) 0 10 ^3/uL (0-0.2) Nucleated Red Blood Cells 0.1 % Magnesium Level 2.0 mg/dL (1.6-2.6) Total Bilirubin 0.3 mg/dL (0.2-1.0) Aspartate Amino Transferase (AST) 16 U/L (13-40) Alanine Aminotransferase (ALT) < 9 U/L (7-40) Alkaline Phosphatase 56 U/L (46-116) Total Protein 6.7 g/dL (5.7-8.2) Albumin 3.9 g/dL (3.2-4.8) Vitamin D 25-Hydroxy 27.1 ng/mL (30.0-100) Test 10/27/24 14:29 10/26/24 23:50 10/26/24 22:48 Thyroid Stimulating Hormone (TSH) 1.29 uIU/mL (0.55-4.78) Free Thyroxine (T4) Calculated 1.18 ng/dL (0.89-1.76) Total Triiodothyronine (TT3) 1.06 ng/mL (0.60-1.81) Troponin I High Sensitivity 4 ng/L (</=34) B-Type Natriuretic Peptide 64.37 pg/mL (0-100) Other Laboratory Tests 10/30/24 04:47 10/28/24 05:14 Brief Hx & Hospital Course: 79-year-old female presents for evaluation of fall injury. Patient reports having recurrent falls over the past three months. She states becoming dizzy and then she loses her balance. Patient reports she did not hit her head but rather she has been more short of breath. Patient was admitted and treated for Acute Resp Failure. Patient will be discharged with Doxy PO and Home Oxygen. Patient will be arranged for outpatient Mitral valve repair. Will see me in clinic in 1 week. Condition at Discharge: Stable Final Diagnosis/Problems List # Acute Resp Failure - Titrate Oxygen down # Severe Mitral Regurg # COPD Exacerbation - Prednisone PO - Doxy # Pleural Effusion / Pulm Edema - Lasix # Thyroid Disorder - Stable Discharge Disposition: Home Discharge Instruct/Medications Diet: Cardiac 2g Na,low cholest Activity: Light activity Follow Up/Referral: Dr. Perrin Medications: see med recc Scheduled Acetaminophen (Tylenol 8 Hour Arthritis), 650 MG PO TID Amlodipine Besylate (Amlodipine Besylate), 10 MG PO DAILY, (Reported) Apixaban Base (Eliquis), 5 MG PO BID, (Reported) Beclomethasone Dipropionate (Qvar Redihaler), 160 MCG IN BID, (Reported) Cholecalciferol (Vitamin D3 250 Mcg (64682 Ut)), 1 CAP PO QWEEKLY, (Reported) Cyanocobalamin (Vitamin B12), 1,000 MCG PO DAILY, (Reported) Doxycycline Monohydrate (Doxycycline Monohydrate), 100 MG PO Q12HR Duloxetine HCl (Duloxetine Hydrocloride), 60 MG PO DAILY, (Reported) Ergocalciferol (Vitamin D 09402 Unit), 50,000 UNIT PO Q7D Fenofibrate (Fenofibrate Micronized), 1 CAP PO DAILY, (Reported) Ferrous Sulfate (Iron), 325 MG PO DAILY, (Reported) Furosemide (Furosemide), 20 MG PO DAILY, (Reported) Hydroxyzine Hcl (Hydroxyzine Hcl), 25 MG IM Q6HPRN, (Reported) Losartan Potassium (Losartan Potassium), 1 TAB PO DAILY, (Reported) Pantoprazole Sodium Sesquihydr (Pantoprazole Sodium Dr), 40 MG PO DAILY, (Reported) Potassium Chloride (Potassium Chloride ER), 10 MEQ PO DAILY, (Reported) Prednisone (Prednisone), 20 MG PO QAM Pregabalin (Lyrica), 1 CAP PO BID, (Reported) Ranolazine (Ranolazine ER), 500 MG PO BID, (Reported) Risedronate Sodium (Atelvia), 35 MG PO QWEEKLY, (Reported) Simvastatin (Simvastatin), 10 MG PO DAILY, (Reported) Sucralfate (Sucralfate), 1 GM PO ACHS, (Reported) Umeclidinium-Vilanterol (Anoro Ellipta 62.5-25 Mcg/INH), 1 AER IN DAILY Miscellaneous Medications Patients Own Medication (Patients Own Medication), 45 MCG AK, (Reported) Discharge Statement: "Patient was advised to return to the ER or call 911 if any headaches, dizziness, shortness of breath, chest pain, abdominal pain, bleeding, fevers, or worsening of medical condition. Patient was counseled about treatment plan, medications, possible side effects, patientverbalized understanding. All questions were answered to the best of my ability. This discharge took greater then 30 minutes in planning, reviewing documentation, counseling the patient, and discussing with other team members." ASSESSMENT ASSESSMENT Assessment Date of Service: Oct 30, 2024 Billing Provider: DANA PERRIN MD Common Visit Codes: [id number] DISCH DAY >30min DANA PERRIN MD Oct 30, 2024 07:39
[2024-10-30] MEDS: FUROSEMIDE 20 MG/2 ML VIAL IV ONE (09:16)
== END 2024-10-30 13:00 | disposition home or self-care (01) | DRG 189 ==
LOC: ER 20:51 → OVERFLOW 10-27 02:58 → WEST WING 10-27 15:50
PROVIDERS: ADMIT Internal Medicine; ATTEND Internal Medicine
DX: J96.00 Acute respiratory failure, unspecified whether with hypoxia or hypercapnia (principal); N17.0 Acute kidney failure with tubular necrosis; J81.1 Chronic pulmonary edema; J90 Pleural effusion, not elsewhere classified; J44.1 Chronic obstructive pulmonary disease with (acute) exacerbation; N18.9 Chronic kidney disease, unspecified; I34.0 Nonrheumatic mitral (valve) insufficiency; I12.9 Hypertensive chronic kidney disease with stage 1 through stage 4 chronic kidney disease, or unspecified chronic kidney disease; K21.9 Gastro-esophageal reflux disease without esophagitis; I25.10 Atherosclerotic heart disease of native coronary artery without angina pectoris; F17.210 Nicotine dependence, cigarettes, uncomplicated; E07.9 Disorder of thyroid, unspecified; E78.5 Hyperlipidemia, unspecified; S20.212A Contusion of left front wall of thorax, initial encounter; R29.6 Repeated falls; Z95.1 Presence of aortocoronary bypass graft; Z90.710 Acquired absence of both cervix and uterus; Z88.3 Allergy status to other anti-infective agents; Z88.5 Allergy status to narcotic agent; W05.0XXA Fall from non-moving wheelchair, initial encounter; Y93.89 Activity, other specified; Y92.89 Other specified places as the place of occurrence of the external cause; Y99.8 Other external cause status
CPT/HCPCS: 36415; 36600; 70450; 71101; 80048; 80053; 81001; 82306; 82805; 83735; 83880; 84439; 84443; 84480; 84484; 85025; 87070; 87077; 87205; 93306; 94640; 97116; 97162; 97530; 99291; G0378

== ENCOUNTER 2024-12-10 17:36 | Inpatient (IN) | payer MEDICARE, MEDICAID ==
[~2024-12-10] VITALS: Ht 154.9 cm; Wt 71.0 kg
[~2024-12-10 17:36] MED LIST changes: +DOX100T PO; +ERGO1CAP23 PO; +PRED20TA2 PO
[2024-12-10] MEDS: SODIUM CHLORIDE 0.9% 1,000 ML IV ONE (18:45)
--- NOTE | 2024-12-10 18:58 | ED.PDOC ---
HPI Comments 79y F who presents to the ED for chief complaint of chest pain. Pt states she has been having chest pain for the past 4 days. Pt states the pain is left sided, rating the pain 9/10, radiating to the bilateral arms and legs, with associated generalized body aches with noted exacerbation of pain with movement and no relieving factors. Pt has associated shortness of breath but otherwise denies any other symptoms. Pt states she is followed by Dr Cruz and states she is waiting for referral for angiogram procedure. Pt otherwise has history of COPD, HTN and HLD. Pt otherwise has stable vitals in the ED. Pt denies any other symptoms at this time. pt has noted history of DVT in leg and is on blood thinner eliquis. Chief Complaint: Chest Pain Time Seen by MD: 18:45 Primary Care Provider: ? Reviewed Notes: Medications, Allergies Allergies: Coded Allergies: Metronidazole (Verified Allergy, Intermediate, SWELLING, 08/01/24) SWELLING AND REDNESS Morphine (Verified Allergy, Mild, 08/01/24) NAUSEA/VOMITING Codeine (Verified Allergy, Unknown, 08/01/24) Home Meds Active Scripts Ergocalciferol (VITAMIN D 90037 UNIT) 50,000 [place], [address] UNIT PO Q7D for 12 Days, #12 CAP Prov:DANA KRUEGER MD 10/30/24 Prednisone (Prednisone) 20 Mg Tab, 20 MG PO QAM for 3 Days, #3 TAB Prov:DANA KRUEGER MD 10/30/24 Doxycycline Monohydrate (Doxycycline Monohydrate) 100 Mg Tab, 100 MG PO Q12HR for 7 Days, #14 TAB Prov:DANA KRUEGER MD 10/30/24 Umeclidinium-Vilanterol (Anoro Ellipta 62.5-25 Mcg/INH) 1 Aer Aer, 1 AER IN DAILY for 30 Days, #1 AER 2 Refills Prov:PATRICIO DEL RIO 07/18/24 Acetaminophen (Tylenol 8 Hour Arthritis) 650 Mg Tab, 650 MG PO TID, #30 TAB Prov:JORGE DELGADILLO 09/28/23 Reported Medications Patients Own Medication (PATIENTS OWN MEDICATION) ., 45 MCG OK for SUPPLEMENT/ K2 PTS OWN MED-OBTAIN FROM PT AND SEND TO RX DRUG: FREQ: RX# EXP: DATE DISP: TECH: [facility] [place]: 08/01/24 Cholecalciferol (Vitamin D3 250 Mcg (49167 Ut)) 1 Cap Cap, 1 CAP PO QWEEKLY for SUPPLEMENT, CAP 08/01/24 Cyanocobalamin (Vitamin B12) 1,000 Mcg Tab, 1000 MCG PO DAILY for SUPPLEMENT, TAB 08/01/24 Sucralfate (Sucralfate) 1 Gm Tab, 1 GM PO ACHS for GERD, GM 08/01/24 Beclomethasone Dipropionate (Qvar Redihaler) 80 Mcg/Act Aer, 160 MCG IN BID for COPD, AER 08/01/24 Duloxetine HCl (Duloxetine Hydrocloride) 60 Mg Cap, 60 MG PO DAILY for DEPRESSION, CAP 08/01/24 Furosemide (Furosemide) 20 Mg Tab, 20 MG PO DAILY for EDEMA, MG 08/01/24 Potassium Chloride (Potassium Chloride ER) 10 Meq Tab, 10 MEQ PO DAILY for SUPPLEMENT, TAB 08/01/24 Pantoprazole Sodium Sesquihydr (Pantoprazole Sodium Dr) 40 Mg Tab, 40 MG PO DAILY for GERD, TAB 08/01/24 Simvastatin (Simvastatin) 10 Mg Tab, 10 MG PO DAILY for HIGH CHOLESTEROL, MG 08/30/23 Ranolazine (Ranolazine ER) 500 Mg Tab, 500 MG PO BID for CHEST PAIN, TAB 08/30/23 Pregabalin (Lyrica) 75 Mg Cap, 1 CAP PO BID for NERVE PAIN, 0 Refills 08/30/23 Ferrous Sulfate (Iron) 325 Mg Tab, 325 MG PO DAILY for LOW IRON, TAB 08/30/23 Hydroxyzine Hcl (Hydroxyzine Hcl) 50 Mg/Ml Inj, 25 MG IM Q6HPRN 08/30/23 Apixaban Base (ELIQUIS) 5 Mg Tab, 5 MG PO BID for STOP ON 08/05/24, TAB 08/30/23 Risedronate Sodium (Atelvia) 35 Mg Tab, 35 MG PO QWEEKLY for OSTEOPOROSIS 08/30/23 Amlodipine Besylate (Amlodipine Besylate) 5 Mg Tab, 10 MG PO DAILY for HTN 08/30/23 Fenofibrate (Fenofibrate Micronized) 134 Mg Cap, 1 CAP PO DAILY for HIGH CHOLESTEROL 11/02/15 Losartan Potassium (Losartan Potassium) 100 Mg Tab, 1 TAB PO DAILY for HTN, #30 TAB 5 Refills 11/02/15 Information Source: Patient, Relative Mode of Arrival: Wheelchair Past Medical History PAST MEDICAL HISTORY: Arthritis, Asthma, CAD, CKF, COPD, GERD, High Lipids, HTN Surgical History: CABG, Hernia Repair, Hysterectomy 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 History Family History Family History: Reviewed,noncontributory to illness Social History Smoker: Cigarettes Alcohol: Denies ETOH Use Drugs: Denies Drug Use Lives In: Home Constitutional: denies: chills, diaphoresis, fatigue, fever, malaise, sweats, weakness, others EENTM: denies: blurred vision, double vision, ear bleeding, ear discharge, ear drainage, ear pain, ear ringing, eye pain, eye redness, hearing loss, mouth pain, mouth swelling, nasal discharge, nose bleeding, nose congestion, nose pain, photophobia, tearing, throat pain, throat swelling, voice changes, others Respiratory: reports: shortness of breath; denies: cough, hemoptysis, orthopnea, SOB at rest, SOB with excertion, stridor, wheezing, others Cardiovascular: reports: chest pain; denies: dizzy spells, diaphoresis, Dyspnea on exertion, edema, irregular heart beat, left arm pain, lightheadedness, palpitations, PND, syncope, others Gastrointestinal: denies: abdomen distended, abdominal pain, blood streaked bowels, constipated, diarrhea, dysphagia, difficulty swallowing, hematemesis, melena, nausea, poor appetite, poor fluid intake, rectal bleeding, rectal pain, vomiting, others Genitourinary: denies: abnormal vagina bleeding, burning, dyspareunia, dysuria, flank pain, frequency, hematuria, incontinence, pain, , vagina discharge, urgency, others Neurological: denies: dizziness, fainting, headache, left sided numbness, left sided weakness, numbness, paresthesia, pre-existing deficit, right sided numbness, right sided weakness, seizure, speech problems, tingling, tremors, weakness, others Musculoskeletal: denies: back pain, gout, joint pain, joint swelling, muscle pain, muscle stiffness, neck pain, others Integumetry: denies: bruises, change in color, change in hair/nails, dryness, laceration, lesions, lumps, rash, wounds, others Allergic/Immunocompromised: denies: Difficulty Healing, Frequent Infections, Hives, Itching, others Hematologic/Lymphatic: denies: anemia, blood clots, easy bleeding, easy bruising, swollen glands, others Endocrine: denies: excessive hunger, excessive sweating, excessive thirst, excessive urination, flushing, intolerance to cold, intolerance to heat, unexplained weight gain, unexplained weight loss, others Psychiatric: denies: anxiety, bipolar disorder, depression, hopeless, panic disorder, schizophrenia, sleepless, suicidal, others All Other Systems: Reviewed and Negative Physical Exam General Appearance: Moderate Distress, Obese HEENT: Normal ENT Inspection, PERRL/EOMI Neck: Full Range of Motion, Non-Tender, Normal, Normal Inspection Respiratory: Crackles, Decreased Breath Sounds, Expiration, Inspiration, No Respiratory Distress Cardiovascular: No Edema, No JVD, No Murmur, No Gallop, Normal Peripheral Pulses, Regular Rate/Rhythm Breast Exam: Deferred Gastrointestinal: No Organomegaly, Non Tender, No Pulsatile Mass, Normal Bowel Sounds, Soft, Other (Obesity) Genitalia: Deferred Pelvic: Deferred Rectal: Deferred Extremities: No calf tenderness, Normal capillary refill, Normal inspection, Normal range of motion, Non-tender, Pedal edema 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 Was a procedure done?: No CP Differential Dx Differential Diagnosis: A-fib, A-Flutter, Angina, Anxiety / Panic Attack, Atrial Dysrhythmia, Electrolyte Disorder, Heart Failure, SD, PVC's Differential Diagnosis: HTN Essential, HTN Accelerated Differential Diagnosis: Pneumothorax, Pulmonary Embolus X-Ray, Labs, Meds, VS Vital Signs Date Time Temp Pulse Resp B/P (MAP) Pulse Ox O2 Delivery O2 Flow Rate FiO2 12/10/24 20:55 69 12/10/24 20:03 97.7 76 24 139/66 (90) 98 97.7 12/10/24 18:58 73 12/10/24 18:46 73 12/10/24 17:39 98.0 81 20 136/71 95 98.0 12/10/24 17:39 82 Lab Test 12/10/24 21:08 12/10/24 19:03 12/10/24 17:59 Range/Units Troponin I High Sensitivity 3 L 5 3 L </=34 ng/L White Blood Count 8.3 4.4-10.8 10^3/uL Red Blood Count 4.39 4.0-5.20 10^6/uL Hemoglobin 11.7 L 12.2-16.2 g/dL Hematocrit 35.7 L 36.0-46.0 % Mean Corpuscular Volume 81.2 80.0-100.0 fL Mean Corpuscular Hemoglobin 26.6 L 28.0-32.0 pg Mean Corpuscular Hemoglobin Concent 32.7 32.0-36.0 g/dL Red Cell Distribution Width 17.9 H 11.8-14.3 % Platelet Count 220 140-450 10^3/uL Mean Platelet Volume 10.4 6.9-10.8 fL Neutrophils (%) (Auto) 56.9 37.0-80.0 % Lymphocytes (%) (Auto) 27.6 10.0-50.0 % Monocytes (%) (Auto) 12.9 H 0.0-12.0 % Eosinophils (%) (Auto) 2.2 0.0-7.0 % Basophils (%) (Auto) 0.4 0.0-2.0 % Neutrophils # (Auto) 4.7 1.6-8.6 10 ^3/uL Lymphocytes # (Auto) 2.3 0.4-5.4 10 ^3/uL Monocytes # (Auto) 1.1 0-1.3 10 ^3/uL Eosinophils # (Auto) 0.2 0-0.8 10 ^3/uL Basophils # (Auto) 0 0-0.2 10 ^3/uL Nucleated Red Blood Cells 0.1 % Prothrombin Time 11.0 9.3-11.8 sec Prothrombin Time INR 1.04 0.9-1.15 Activated Partial Thromboplast Time 29.3 24.5-34.5 SEC D-Dimer, Quantitative 2.16 H 0.0-0.49 mg/L FEU Sodium Level 146 H 136-145 mmol/L Potassium Level 3.9 3.5-5.1 mmol/L Chloride Level 108 H 98-107 mmol/L Carbon Dioxide Level 28 20-31 mmol/L Anion Gap 10 5-15 Blood Urea Nitrogen 19 9-23 mg/dL Creatinine 1.28 H 0.550-1.02 mg/dL Glomerular Filtration Rate Calc 43 >90 mL/min BUN/Creatinine Ratio 14.8 10.0-20.0 Serum Glucose 124 H 74-106 mg/dL Calcium Level 9.7 8.7-10.4 mg/dL Magnesium Level 1.7 1.6-2.6 mg/dL Total Bilirubin 0.2 0.2-1.0 mg/dL Aspartate Amino Transferase (AST) 17 13-40 U/L Alanine Aminotransferase (ALT) < 9 7-40 U/L Alkaline Phosphatase 105 46-116 U/L B-Type Natriuretic Peptide 65.14 0-100 pg/mL Total Protein 6.9 5.7-8.2 g/dL Albumin 4.3 3.2-4.8 g/dL Current Medications Medications (Trade) Dose Ordered Sig/Callie Route Start Time Stop Time Status Last Admin Aspirin 162 mg ONCE ONCE PO 12/10/24 18:45 12/10/24 18:46 DC 12/10/24 18:45 Sodium Chloride 1,000 ml @ 150 mls/hr Q6H40M ONCE IV 12/10/24 18:45 12/11/24 01:24 12/10/24 18:45 [place] [id number] Ph: [phone] DIAGNOSTIC IMAGING Diagnostic Imaging Report : [id number] Signed PATIENT: DOMI YANG ACCT: [id number] UNIT: [id number] : 1945 LOC: ER ROOM / BED: / AGE / SEX: 79 / F ADM STATUS: REG ER SERVICE 184 ORDERING PHYSICIAN: TODD CUMMINS MD PROCEDURE(s): CXR2 - CHEST TWO VIEWS ROUTINE REASON: cp sob ORDER NUMBER(s): [id number], ACCESSION NUMBER(s): [id number] EXAM: XY CHEST TWO VIEWS ROUTINE CLINICAL HISTORY: sob TECHNIQUE: Single AP view of the chest WID: COMPARISON: CT CHEST WITHOUT CONTRAST on DOS: 07/17/24, chest x-ray from 07/16/2024 FINDINGS: Lines and tubes: None Chest: The heart size and pulmonary vasculature is within normal limits. Calcified plaque projects over the aortic arch. Prominent mitral annular calcifications are seen. Eventration of the right hemidiaphragm is evident with increased convex opacity of the right lung base likely the outline of the dome of the liver when correlated with prior CT chest. Linear bibasilar scarring or atelectasis. No pneumothorax. No significant pleural effusion. The osseous structures are grossly intact. IMPRESSION: Linear bibasilar scarring or atelectasis. ATED BY: OSCAR HARDIN MD DICTATED DATE/TIME: 12/10/241934 SIGNED BY: OSCAR HARDIN MD SIGNED DATE/TIME: 12/10/241934 CC: X-Ray, Labs, Meds, VS Comment Course in the emergency department eventful patient came in because of chest pain and shortness of breath with a past four days with a pulse ox of 95 she is 79 years old and taking Eliquis Eliquis she has also history of COPD hyp ertension high cholesterol CKD GERD CHF fibromyalgia she has a history of DVT on the left side CBC 8300 with 77% neutrophils H&H 11.735.7 The EKG shows normal sinus rhythm at 73 Chest x-ray shows some atelectasis The INR is 1.04 D-dimer 2.16 CMP GFR at 43 with a blood sugar of 124 Troponin three and five BNP 65.14 Patient will be admitted for further care suspicious for pulmonary embolism Time of 1ST Reevaluation: 18:45 Reevaluation 1ST: Unchanged Time of 2ND Reevaluation: 21:25 Reevaluation 2ND: Unchanged Patient Education/Counseling: Diagnosis, Treatment, Prognosis Family Education/Counseling: Diagnosis, Treatment, Prognosis, No Family Present SEPSIS Sepsis Screen Date sepsis recognized/suspect: Dec 10, 2024 Time Sepsis recognized/suspect: 1738 Recent Procedure: No On Antibiotic Therapy: No Respiratory Rate >20: No Heart Rate >90: No Temp<36 C (96.8 F) or >38.3 C: No SBP <90 or MAP <65 mmHG: No New Acute Mental Status Change: No Is the patient on CPAP, BIPAP,: No Physician Orders Electrocardigram (12/10/24 20:39) Heplock Iv (12/10/24 18:43) Blood Pressure (12/10/24 18:43) Oxygen (12/10/24 18:43) Pulse Oximetry (12/10/24 18:43) Chest Two Views Routine (12/10/24 18:43) Sodium Chloride 0.9% (12/10/24 18:45) Urinalysis (12/10/24 18:43) Nm Vq Scan (12/10/24 20:26) Vital Signs Date Time Temp Pulse Resp B/P (MAP) Pulse Ox O2 Delivery O2 Flow Rate FiO2 12/10/24 20:55 69 12/10/24 20:03 97.7 76 24 139/66 (90) 98 97.7 12/10/24 18:58 73 12/10/24 18:46 73 12/10/24 17:39 98.0 81 20 136/71 95 98.0 12/10/24 17:39 82 Laboratory Tests Test 12/10/24 17:59 White Blood Count 8.3 10^3/uL (4.4-10.8) Medications Medications Dose Ordered Sig/Callie Route Start Time Stop Time Status Last Admin Dose Admin Aspirin 162 mg ONCE ONCE PO 12/10/24 18:45 12/10/24 18:46 DC 12/10/24 18:45 Sodium Chloride 1,000 ml @ 150 mls/hr Q6H40M ONCE IV 12/10/24 18:45 12/11/24 01:24 12/10/24 18:45 Departure 1 Departure Time of Disposition: 20:32 Impression: Primary Impression: Chest pain Additional Impressions: Elevated d-dimer CKD (chronic kidney disease) stage 3, GFR 30-59 ml/min Qualified Codes: N18.32 - Chronic kidney disease, stage 3b Ruled Out: Pneumonia Disposition: 09 ADMITTED INPATIENT Condition: Fair Critical Care Note Critical Care Time?: No Stability Stability form required: Yes Heart Score Heart Score: Heart Score Response (Comments) Value History Slightly Suspicious 0 EKG Normal 0 Age >65 2 Risk Factors >3 or Hx ASHD 2 Troponin Normal limit 0 Total 4 I personally scribed for TODD CUMMINS MD ([email or web address]) on 12/10/24 at 18:58. Electronically submitted by Caity Phan ([email or web address]). I personally scribed for TODD CUMMINS MD ([email or web address]) on 12/10/24 at 20:13. Electronically submitted by Caity Phan ([email or web address]). TODD CUMMINS MD Dec 10, 2024 18:58
[2024-12-10 19:03] LABS: Hematocrit 35.7 % (36.0-46.0); Hemoglobin 11.7 g/dL (12.2-16.2); Mean Corpuscular Hemoglobin 26.6 pg (28.0-32.0); Mean Corpuscular Volume 81.2 fL (80.0-100.0); Nucleated Red Blood Cells % 0.1 %
[2024-12-10 19:16] LABS: Albumin 4.3 g/dL (3.2-4.8); Alkaline Phosphatase 105 U/L (46-116); Anion Gap 10 (5-15); BUN/Creatinine Ratio 14.8 (10.0-20.0); Blood Urea Nitrogen 19 mg/dL (9-23); Calcium 9.7 mg/dL (8.7-10.4); Carbon Dioxide 28 mmol/L (20-31); Magnesium 1.7 mg/dL (1.6-2.6); Potassium 3.9 mmol/L (3.5-5.1); Total Protein 6.9 g/dL (5.7-8.2)
[2024-12-10 19:23] LABS: Alanine Aminotransferase < 9 U/L (7-40); Bilirubin, Total 0.2 mg/dL (0.2-1.0); Chloride 108 mmol/L (98-107); Glucose 124 mg/dL (74-106); Sodium 146 mmol/L (136-145)
[2024-12-10 19:27] LABS: INR 1.04 (0.9-1.15); Partial Thromboplastin Time 29.3 SEC (24.5-34.5); Prothrombin Time 11.0 sec (9.3-11.8)
--- NOTE | 2024-12-10 19:37 | DVH ---
EXAM: XY CHEST TWO VIEWS ROUTINE CLINICAL HISTORY: cp sob TECHNIQUE: Single AP view of the chest WID: COMPARISON: CT CHEST WITHOUT CONTRAST on DOS: 07/17/24, chest x-ray from 07/16/2024 FINDINGS: Lines and tubes: None Chest: The heart size and pulmonary vasculature is within normal limits. Calcified plaque projects over the aortic arch. Prominent mitral annular calcifications are seen. Eventration of the right hemidiaphragm is evident with increased convex opacity of the right lung bas e likely the outline of the dome of the liver when correlated with prior CT chest. Linear bibasilar s carring or atelectasis. No pneumothorax. No significant pleural effusion. The osseous structures are grossly intact. IMPRESSION: Linear bibasilar scarring or atelectasis.
--- NOTE | 2024-12-10 21:20 | ECG ---
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
--- NOTE | 2024-12-10 21:20 | ECG ---
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
[2024-12-10] MEDS ORDERED: DOCUSATE SOD 100 MG CAP PO PRN (22:45)
[2024-12-10] MEDS ORDERED: ONDANSETRON HCL 4 MG/2 ML VIAL IV PRN (22:45)
[2024-12-10] MEDS ORDERED: NITROGLYCERIN 0.4 MG SL TAB SL PRN (22:45)
[2024-12-10] MEDS ORDERED: ACETAMINOPHEN 325 MG TAB PO PRN (22:45)
--- NOTE | 2024-12-10 22:48 | DVHHPRES ---
History of Present Illness Resident Creating Document: DEMI MCMILLAN RESIDENT History of Present Illness Manda Flores is a 79-year-old female, with past medical history of COPD, , CAD, arthritis, asthma, hypertension, hyperlipidemia and DVT. The patient presented to the ED with the chief complaint of 4 days of chest pain 5/10, that is progressive, continues substernal, pressure-like, increase with activity and improved at rest, that irradiates to both upper extremities, associated shortness of breath, palpitation, lightheaded and, left leg swelling edema. Today, the chest pain increased to 9/10 and she felt more out of breath, this prompt her visit to the ED. The patient reported she was on blood thinner eliquis but she stopped one moth ago. The patient denies headache, fever. chills, nausea, vomit or other symptoms. On the ED D-dimer is 2.16, troponin 3,5,3. Patient will be admitted for further evaluation and management. Past Surgical History: CABG, Hysterectomy, Hernia Repair Family History: None, Hypertension Smoke: 1 pack per day ALCOHOL: none Drugs: None Lives: with Family Review of Systems Constitutional: No: Fever, Chills, Sweats, Weakness, Malaise, Other Eyes: No: Pain, Vision change, Conjunctivae inflammation, Eyelid inflammation, Other, Redness ENT: No: Ear pain, Ear discharge, Nose pain, Nose discharge, Nose congestion, Mouth pain, Mouth swelling, Throat pain, Throat swelling, Other Respiratory: Shortness of breath, SOB with excertion; No: Cough, Dry, Wheezing, Hemoptysis, Pleuritic Pain, Sputum, Wheezing, Other Cardiovascular: Chest Pain, Palpitations, Edema, Lt Headedness; No: Orthopnea, Paroxysmal Noc. Dyspnea, Other Gastrointestinal: No: Nausea, Vomiting, Abdominal Pain, Diarrhea, Constipation, Melena, Hematochezia, Other Genitourinary: No Dysuria, No Frequency, No Incontinence, No Hematuria, No Retention, No Other Musculoskeletal: other (left leg edema) Skin: No: Rash, Lesions, Jaundice, Bruising, Other Neurological: No: Weakness, Numbness, Incoordination, Change in speech, Confusion, Seizures, Other Allergies: Coded Allergies: Metronidazole (Verified Allergy, Intermediate, SWELLING, 08/01/24) SWELLING AND REDNESS Morphine (Verified Allergy, Mild, 08/01/24) NAUSEA/VOMITING Codeine (Verified Allergy, Unknown, 08/01/24) Exam Vital Signs Vital Signs Date Time Temp Pulse Resp B/P (MAP) Pulse Ox O2 Delivery O2 Flow Rate FiO2 12/10/24 20:55 69 12/10/24 20:03 97.7 24 139/66 (90) 98 97.7 General Appearance: Alert, Oriented X3, Cooperative, mild distress HEENT: Atraumatic, Mucous membr. moist/pink Respiratory: Other (Bilateral lung expansion reduction, disminuished lung soun ds, bilateral mild crackles. ) Cardiovascular: Regular rate, Normal S1, Normal S2, No murmurs Abdominal: Normal bowel sounds, Soft, No tenderness, No hepatospenomegaly Extremities: No clubbing, No cyanosis, Normal pulses, No tenderness/swelling, Other (Left leg and foot edema) Skin: No rashes, No breakdown, No significant lesion Neuro: Normal gait, Normal speech, Strength at 5/5 X4 ext, Normal tone, Sensation intact Psych/Mental Status: Mental status NL, Mood NL Labs/Xrays Labs Test 12/10/24 21:08 12/10/24 17:59 Range/Units Troponin I High Sensitivity 3 L </=34 ng/L White Blood Count 8.3 4.4-10.8 10^3/uL Red Blood Count 4.39 4.0-5.20 10^6/uL Hemoglobin 11.7 L 12.2-16.2 g/dL Hematocrit 35.7 L 36.0-46.0 % Mean Corpuscular Volume 81.2 80.0-100.0 fL Mean Corpuscular Hemoglobin 26.6 L 28.0-32.0 pg Mean Corpuscular Hemoglobin Concent 32.7 32.0-36.0 g/dL Red Cell Distribution Width 17.9 H 11.8-14.3 % Platelet Count 220 140-450 10^3/uL Mean Platelet Volume 10.4 6.9-10.8 fL Neutrophils (%) (Auto) 56.9 37.0-80.0 % Lymphocytes (%) (Auto) 27.6 10.0-50.0 % Monocytes (%) (Auto) 12.9 H 0.0-12.0 % Eosinophils (%) (Auto) 2.2 0.0-7.0 % Basophils (%) (Auto) 0.4 0.0-2.0 % Neutrophils # (Auto) 4.7 1.6-8.6 10 ^3/uL Lymphocytes # (Auto) 2.3 0.4-5.4 10 ^3/uL Monocytes # (Auto) 1.1 0-1.3 10 ^3/uL Eosinophils # (Auto) 0.2 0-0.8 10 ^3/uL Basophils # (Auto) 0 0-0.2 10 ^3/uL Nucleated Red Blood Cells 0.1 % Prothrombin Time 11.0 9.3-11.8 sec Prothrombin Time INR 1.04 0.9-1.15 Activated Partial Thromboplast Time 29.3 24.5-34.5 SEC D-Dimer, Quantitative 2.16 H 0.0-0.49 mg/L FEU Sodium Level 146 H 136-145 mmol/L Potassium Level 3.9 3.5-5.1 mmol/L Chloride Level 108 H 98-107 mmol/L Carbon Dioxide Level 28 20-31 mmol/L Anion Gap 10 5-15 Blood Urea Nitrogen 19 9-23 mg/dL Creatinine 1.28 H 0.550-1.02 mg/dL Glomerular Filtration Rate Calc 43 >90 mL/min BUN/Creatinine Ratio 14.8 10.0-20.0 Serum Glucose 124 H 74-106 mg/dL Calcium Level 9.7 8.7-10.4 mg/dL Magnesium Level 1.7 1.6-2.6 mg/dL Total Bilirubin 0.2 0.2-1.0 mg/dL Aspartate Amino Transferase (AST) 17 13-40 U/L Alanine Aminotransferase (ALT) < 9 7-40 U/L Alkaline Phosphatase 105 46-116 U/L B-Type Natriuretic Peptide 65.14 0-100 pg/mL Total Protein 6.9 5.7-8.2 g/dL Albumin 4.3 3.2-4.8 g/dL SEPSIS Sepsis Screen Date sepsis recognized/suspect: Dec 10, 2024 Time Sepsis recognized/suspect: 1738 Recent Procedure: No On Antibiotic Therapy: No Respiratory Rate >20: No Heart Rate >90: No Temp<36 C (96.8 F) or >38.3 C: No SBP <90 or MAP <65 mmHG: No New Acute Mental Status Change: No Is the patient on CPAP, BIPAP,: No Physician Orders Electrocardigram (12/10/24:39) Heplock Iv (12/10/24 18:43) Blood Pressure (12/10/24 18:43) Oxygen (12/10/24 18:43) Pulse Oximetry (12/10/24 18:43) Chest Two Views Routine (12/10/24 18:43) Sodium Chloride 0.9% (12/10/24 18:45) Urinalysis (12/10/24 18:43) Nm Vq Scan (12/10/24 20:26) Admit (12/10/24 22:39) Code Status (12/10/24:) Vital Signs .PER UNIT PROTOCOL (12/10/24:39) Review Orders With Adm.Md (12/10/24 22:39) Bedside Commode (12/10/24:39) Docusate Sodium Capsule (Colace Capsule) (12/10/24 22:45) Acetaminophen Tablet (Tylenol Tablet) (12/10/24 22:45) Notify Md Of Changes From Base (12/10/24 22:39) Advance Directive (12/10/24 22:39) Urinalysis (12/10/24:39) Complete Blood Count (12/11/24 04:00) Patient Condition (12/10/24 22:39) Allergies (12/10/24 22:39) Hydrocodone-Acet 5/325mg Tab (Lanse 5/32 (12/10/24 22:45) Ondansetron Hcl (Zofran) (12/10/24 22:45) Drug Screen (12/10/24 22:39) Nitroglycerin Sublingual (Ntrostat Subli (12/10/24 22:45) Oxygen By Nasal Cannula (12/10/24:39) Stat Ekg For Chest Pain (12/10/24:39) Notify Md Of Changes From Base (12/10/24 22:39) Leaf Binner For 24 Hours (12/10/24 22:39) Rhythm Strips Once Every Shift (12/10/24 22:39) Cardiac Diet-2gna,Lofat,Lochol (12/11/24 Breakfast) Pantoprazole Tablet (Protonix Tablet) (12/10/24 22:45) Bilat Lower Dvt (12/10/24 22:39) Rapid Influenza A&B (12/10/24 22:39) Covid19 Antigen [facility] (12/10/24 ) Comprehensive Metabolic Panel (12/11/24 04:00) Echo 2d Mode Cardiac Dop (12/10/24 22:39) Vital Signs Date Time Temp Pulse Resp B/P (MAP) Pulse Ox O2 Delivery O2 Flow Rate FiO2 12/10/24 20:55 69 12/10/24 20:03 97.7 76 24 139/66 (90) 98 97.7 12/10/24 18:58 73 12/10/24 18:46 73 12/10/24 17:39 98.0 81 20 136/71 95 98.0 12/10/24 17:39 82 Laboratory Tests Test 12/10/24 17:59 White Blood Count 8.3 10^3/uL (4.4-10.8) Medications Medications Dose Ordered Sig/Callie Route Start Time Stop Time Status Last Admin Dose Admin Aspirin 162 mg ONCE ONCE PO 12/10/24 18:45 12/10/24 18:46 DC 12/10/24 18:45 162 MG Sodium Chloride 1,000 ml @ 150 mls/hr Q6H40M ONCE IV 12/10/24 18:45 12/11/24 01:24 12/10/24 18:45 150 MLS/HR Assessment/Plan Assessment/Plan #Acute chest pain, rule out ACS #Hx of DVT #Rule out DVT & PE EKG, troponins D-Dimer: 2.16 Chest Xray Bilateral leg Doppler US CT angiogram Wells score:4.5 #Acute on chronic COPD exacerbation #Acute hypoxic respiratory failure #Asthma O2 via NC 3L/m Albuterol NB Ipatropium NB ABG #Obesity Life style modification counselling. Cardiac diet DVT prophylaxis- Eliquis. PUD prophylaxis Protonic. Goals of care discussed with the patient > 35 min. Discussed plan of care with Dr. Perrin Code status: Full code PCP: . Plan discussed with: Patient, the patient agrees with the admission plan. Plan discussed with: Patient, Daughter My Orders Orders - DEMI MCMILLAN RESIDENT Procedure Category Date Status Time Admit ADMIT 12/10/24 Transmitted 22:39 Code Status CODE 12/10/24 Transmitted 22:39 Vital Signs [facility] 12/10/24 Transmitted 22:39 Review Orders With [facility] 12/10/24 Transmitted Adm. 22:39 Bedside Commode [facility] 12/10/24 Transmitted 22:39 Docusate Sodium [facility] 12/10/24 Transmitted Capsule (Colace 22:45 Acetaminophen Tablet [facility] 12/10/24 Transmitted (Tylenol Tablet) 22:45 Notify Md Of Changes [facility] 12/10/24 Transmitted From Base 22:39 Advance Directive [facility] 12/10/24 Transmitted 22:39 Urinalysis LAB 12/10/24 Transmitted 22:39 Complete Blood Count LAB 12/11/24 Verified 04:00 Patient Condition ORDERS 12/10/24 Verified 22:39 Allergies [facility] 12/10/24 Verified 22:39 Hydrocodone-Acet [facility] 12/10/24 Verified 5/325mg Tab (Lanse 22:45 Ondansetron Hcl [facility] 12/10/24 Verified (Zofran) 22:45 Drug Screen LAB 12/10/24 Verified 22:39 Nitroglycerin [facility] 12/10/24 Verified Sublingual (Ntrostat 22:45 Oxygen By Nasal RT 12/10/24 Verified Cannula 22:39 Stat Ekg For Chest [facility] 12/10/24 Verified Pain 22:39 Notify Md Of Changes [facility] 12/10/24 Verified From Base 22:39 Leaf Binner For [facility] 12/10/24 Verified 24 Hours 22:39 Rhythm Strips Once [facility] 12/10/24 Verified Every Shift 22:39 Cardiac DIET 12/11/24 Verified Diet-2gna,Lofat,Lochol Breakfast Pantoprazole Tablet [facility] 12/10/24 Verified (Protonix Tablet) 22:45 Bilat Lower Dvt US 12/10/24 Verified 22:39 Rapid Influenza A&B LAB 12/10/24 Verified 22:39 Covid19 Antigen [facility] 12/10/24 Verified Comprehensive LAB 12/11/24 Verified Metabolic Panel 04:00 Echo 2d Mode Cardiac US 12/10/24 Verified DOP 22:39 Date of Service: Dec 10, 2024 Billing Provider: DANA PERRIN MD Common Visit Codes: [id number] INP/OBS CARE (HIGH) Secondary Visit Codes: [id number] CARE PLAN 30 MINUTES DEMI MCMILLAN RESIDENT Dec 10, 2024 22:48
[2024-12-10] MEDS: PANTOPRAZOLE 40 MG TAB PO ONE (23:24)
[2024-12-10 23:27] VITALS: O2SAT 93
--- NOTE | 2024-12-10 23:32 | DVH ---
CLINICAL HISTORY: Chest pain, SOB elevated D-Dimer. TECHNIQUE: Color and duplex doppler imaging of the bilateral lower extremity veins was performed. Ves cole compression if possible was also performed. WID: COMPARISON: BLDVT on DOS: 02/22/22, BI LOWER DVT on DOS: 02/22/22 FINDINGS: Right Lower Extremity: Right common femoral vein: Normal compressibility and flow. Right femoral vein: Normal compressibility and flow. Right popliteal vein: Normal compressibility and flow. Echogenic linear structure along the periphery of the right popliteal vein Proximal calf veins are normally compressible. Left Lower Extremity: Left common femoral vein: Normal compressibility and flow. Left femoral vein: Normal compressibility and flow. Left popliteal vein: Normal compressibility and flow. Proximal calf veins are normally compressible. Left antonio's cyst measuring 4.3 x 1.4 x 1.0 cm IMPRESSION: NO SONOGRAPHIC EVIDENCE FOR acute DEEP VENOUS THROMBOSIS IN THE BILATERAL LOWER EXTREMITY VEINS. Echogenic linear structure along the periphery of the right popliteal vein along the wall which could be chronic thrombus . Left Antonio's cysts
[2024-12-11] VITALS (11 sets, daily range): BP systolic 119–153; BP diastolic 58–72; PULSE 73–88; RESP 16–21; TEMP 97.6–98.3; O2SAT 92–100
[2024-12-11] MEDS: IOHEXOL 350 MG/ML 100ML IJ ONE (00:08)
--- NOTE | 2024-12-11 00:45 | DVH ---
STUDY: CT CT ANGIO CHEST CONTRAST Indication: R/O PE TECHNIQUE: Axial images were obtained through the chest with reformat images post intravenous contr ast. Reconstruction processing of 3D angiographic images of the vessels was obtained. 80 mL of omnipaque 35mg/dl was administered. DLP: default value FINDINGS: PULMONARY ARTERIES: Limited evaluation due to motion artifact and contrast bolus/timing. Evaluation of segmental and subsegmental branches are incomplete due to this limitation. No acute pulmonary emboli within the main or lobar branches. arterial webs are noted at bilateral pul monary artery segmental branch points. LUNGS AND PLEURA: Right middle lobe density may reflect pneumonia vs atelectasis. extensive pulmonary emphysema. No def inite pulmonary edema. No mass or nodule. No pleural effusion. No pneumothorax. MEDIASTINUM: No lymphadenopathy or mass. Mild cardiomegaly. Extensive coronary atherosclerosis. Mild pulmonary art art trunk dilation to 4.1 cm. The aorta shows no acute findings. Atherosclerotic thoracic aorta. SUPRACLAVICULAR AND AXILLARY: No abnormalities seen in these regions. No mass or significant lymphadenopathy. UPPER ABDOMEN: small hiatal hernia. Calcified gallstone. Upper abdominal ventral herniation. Mild hepatic steatosis. hepatomegaly. 1.7 cm cyst within the left kidney. BONES AND SOFT TISSUES: Healed multilevel right anterior rib fracture spanning T5, T6, T7 and T8. The visualized spine shows no significant acute findings. No focal bony mass lesions noted. The subcutaneous soft tissues are unremarkable. IMPRESSION: Limited evaluation due to motion artifact and contrast bolus/timing. Evaluation of segmental and subsegmental branches are incomplete due to this limitation. No acute pulmonary emboli within the main or lobar branches. arterial webs are noted at bilateral pul monary artery segmental branch points. Mild pulmonary artery trunk dilation to 4.1 cm. Right middle lobe density may reflect pneumonia vs atelectasis. extensive pulmonary emphysema. small hiatal hernia. Calcified gallstone. Upper abdominal ventral herniation. Mild hepatic steatosis. hepatomegaly. 1.7 cm cyst within the left kidney.
[2024-12-11] MEDS: ALBUTEROL SULF 2.5 MG/0.5ML(0.5%) NEB SOLN NEB ONE (04:45)
[2024-12-11] MEDS: IPRATROPIUM BROM 0.5 MG/2.5ML INH SOL NEB ONE (04:45)
[2024-12-11 05:40] LABS: Amphetamine Screen, Urine Neg (NEGATIVE); Barbiturate Scree,Urine Neg (NEGATIVE); Benzodiazephine Screen, Urine Neg (NEGATIVE); Cannabinoid Screen, Urine Neg (NEGATIVE); Cocaine Screen, Urine Neg (NEGATIVE); Opiate Scree,Urine Neg (NEGATIVE); Phencyclidine Screen, Urine Neg (NEGATIVE)
[2024-12-11 05:49] LABS: Urine Protein, UAD Negative (Negative)
[2024-12-11 06:12] LABS: Hematocrit 34.9 % (36.0-46.0); Hemoglobin 11.8 g/dL (12.2-16.2); Mean Corpuscular Hemoglobin 27.5 pg (28.0-32.0); Mean Corpuscular Volume 81.6 fL (80.0-100.0); Nucleated Red Blood Cells % 0.1 %
[2024-12-11 06:19] LABS: Albumin 4.1 g/dL (3.2-4.8); Alkaline Phosphatase 108 U/L (46-116); Anion Gap 10 (5-15); BUN/Creatinine Ratio 15.4 (10.0-20.0); Blood Urea Nitrogen 18 mg/dL (9-23); Calcium 9.3 mg/dL (8.7-10.4); Carbon Dioxide 26 mmol/L (20-31); Potassium 4.1 mmol/L (3.5-5.1); Total Protein 6.5 g/dL (5.7-8.2)
[2024-12-11 06:24] LABS: Alanine Aminotransferase < 9 U/L (7-40); Bilirubin, Total 0.2 mg/dL (0.2-1.0); Chloride 110 mmol/L (98-107); Glucose 118 mg/dL (74-106); Sodium 146 mmol/L (136-145)
[2024-12-11] MEDS: APIXABAN 5 MG TAB PO SCH (09:43)
[2024-12-11 10:04] LABS: COVID19 ANTIGEN SOFIA FIA NEGATIVE (NEGATIVE)
--- NOTE | 2024-12-11 14:50 | DVH ---
EXAM: NM NM VQ SCAN HISTORY: PULMONARY EMBOLISM COMPARISON: 12/10/2024 TECHNIQUE: Following the administration of the ventilation agent, standard projections of the lungs were acquired. The same images were repeated after administration of the perfusion agent. Findings: Ventilation images demonstrate homogenous distribution of radiotracer throughout both lungs. Perfusion images demonstrate homogeneous distribution of radiotracer throughout both lungs. No periph eral wedge-shaped moderate or large subsegmental or segmental mismatched perfusion defects to suggest acute pulmonary embolism. Impression: 1. Based on PIOPED criteria, low probability for pulmonary embolism.
--- NOTE | 2024-12-11 17:40 | DVHPNRES ---
Progress Note Date Seen: Dec 11, 2024 Resident Creating Document: FER SCHREIBER RESIDENT Medical Necessity Reason Pt with a Central, PICC or Fol: No Subjective Review of Systems 79-year-old female with past medical history of COPD but asthma, CAD, hypertension, hyperlipidemia, arthritis, DVT placenta to the ED with complaints of 4 days of chest pain. The pain was progressive radiating to both arms rated 10/10 in severity when she came to the ED. she also complained of shortness of breath palpitation lightheadedness and swelling in both ankles. PSHx: Coronary artery bypass graft 25 years ago, hysterectomy, hernia repair Family history: Noncontributory Social history: 40 pack year smoking history Allergic history: Metronidazole, morphine, codeine General: patient denies fever, fatigue, weaknes, sweating, any recent changes in appetite and weight HEENT: No headaches, visiual changes, hearing loss, tinnitus, nasal congestion and discharge, and sore throat. Cardiovascular: Denies chest pain, palpitations, dyspnea on exertion, orthopnea, or claudication. Respiratory: No cough, and wheezing. Gastrointestinal: Denies nausea, vomiting, dysphagia, odynophagia, heartburn, abdominal pain, flatulence, bloating, diarrhea, constipation, change in stool, or blood in stool. Genitourinary: No dysuria, hematuria, discharge, frequency, urgency, nocturia, incontinence, and urinary retention. Endocrine: No heat or cold intolerance, polydipsia, polyuria, and polyphagia. Neurological: No dizziness, extremity weakness and numbness, tremors, gait disturbance, seizures, and memory impairment. Psychiatric: Denies depression, anxiety,or insomnia. Musculoskeletal: Denies neck pain, stiffness and swelling, back pain, muscle weakness, joint pain, stiffness, swelling, or limited range of motion. Skin: No rashes, itching, skin lesion, changes in hair, nail, skin texture and breast. Hematologic/Lymphatic: Denies easy bruising, bleeding tendencies, or lymph node enlargement. Objective vital signs Vital Sign Date Time Temp Pulse Resp B/P (MAP) Pulse Ox O2 Delivery O2 Flow Rate FiO2 12/11/24 16:51 98.1 75 20 135/66 (89) 97 98.1 12/11/24 04:45 Nasal Cannula 2.0 12/11/24 04:45 28 Total Intake and Output 12/10/24 12/10/24 12/11/24 15:00 23:00 07:00 Intake Total 300 ml 50 ml Balance 300 ml 50 ml medications Current Medications Medications Dose Ordered Sig/Callie Route Start Time Stop Time Status Last Admin Dose Admin Docusate Sodium 100 mg BIDPRN PRN PO 12/10/24 22:45 Acetaminophen 650 mg Q6HP PRN PO 12/10/24 22:45 Acetaminophen/ Hydrocodone Bitart 1 tab Q4HP PRN PO 12/10/24 22:45 Ondansetron HCl 4 mg Q4HP PRN IV 12/10/24 22:45 Nitroglycerin 0.4 mg Q5MINP PRN SL 12/10/24 22:45 Apixaban 5 mg BID PO 12/11/24 10:00 12/11/24 09:43 5 MG Examination General Appearance: Alert, Oriented X3, Cooperative, No acute distress HEENT: Atraumatic, PERRLA, EOMI, Mucous membrane moist/pink Respiratory: Clear to auscultation, Normal air movement Cardiovascular: Regular rate, Normal S1, Normal S2, No murmurs, no chest wall tenderness Abdominal: Normal bowel sounds, Soft, No tenderness, No hepatospenomegaly, No masses Extremities: No clubbing, No cyanosis, No edema, Normal pulses, No tenderness/swelling Skin: No rashes, No breakdown, No significant lesion Neuro: Normal gait, Normal speech, Strength at 5/5 X4 ext, Normal tone, Sensation intact, Cranial nerves 3-12 NL, Reflexes 2+ Psych/Mental Status: Mental status NL, Mood NL laboratory and microbiology Laboratory Tests 12/11/24 05:24 12/11/24 04:55 Test 12/11/24 05:24 Range/Units Serum Glucose 118 H 74-106 mg/dL Microbiology Date/Time Source Procedure Growth Status 12/11/24 02:58 Nose MRSA Screen - Final Complete Problem List/Assessment/Plan Problem List/Assessment/Plan Possible noncardiac chest pain-musculoskeletal EKG shows no acute changes Troponin levels normal To rule out pulmonary embolism CT angiography and no Gram nuclear medicine scan shows no evidence of pulmonary embolism D-dimer 2.16 Coronary artery disease Post coronary artery bypass graft 25 years ago Hysterectomy COPD mild asthma Arthritis Hypertension Hyperlipidemia History of DVT DIET: Cardiac at DVT PROPHYLAXIS: Eliquis CODE STATUS: Goal of care discussed for more than 21 minutes, full code DISPOSITION: Med/surge Patient's status and plan discussed with the patient. Case discussed with Dr. Vuong Plan discussed with: Patient Date of Service: Dec 11, 2024 Billing Provider: SWAPNA VUONG MD Common Visit Codes: [id number] INP/OBS CARE(HIGH) FER SCHREIBER RESIDENT Dec 11, 2024 17:35 SWAPNA VUONG MD Dec 12, 2024 23:17
[2024-12-11] MEDS: AZITHROMYCIN 500MG/ 250ML 250 ML IV ONE (18:00)
[2024-12-11] MEDS: cefTRIAXone 1GM/50ML D5W 50 ML IV ONE (18:34)
[2024-12-12] VITALS (10 sets, daily range): BP systolic 95–149; BP diastolic 58–79; PULSE 63–94; RESP 15–18; TEMP 97.1–99; O2SAT 93–99
[2024-12-12] MEDS: HYDROcodone-ACET 5/325MG TAB PO PRN (00:01)
[2024-12-12] MEDS: cefTRIAXone 1GM/50ML D5W 50 ML IV SCH (10:39)
[2024-12-12] MEDS: AZITHROMYCIN 500MG/ 250ML 250 ML IV SCH (10:39)
--- NOTE | 2024-12-12 11:56 | ECG ---
[facility] Test Date: 2024-12-10 Test Time: 17:39:01 Pat Name: DOMI YANG Department: [facility] ED Patient ID: [facility]-[id number] Room: 0203T A Gender: F Gun Tester: DIAMANTE : 1945 Requested By: KVNG FIGUEROA Order Number: [id number] Reading MD: Mauro Cruz Measurements Intervals [place] Rate: 82 P: 44 AK: 175 QRS: 18 QRSD: 99 T: 26 QT: 396 QTc: 463 Interpretive Statements Sinus rhythm Baseline wander in lead(s) II,aVF Electronically Signed On 12-15-2024 22:41:06 PDT by Mauro Cruz Please click the below link to view image of tracing.
[2024-12-12] MEDS ORDERED: PREG75CA90 PO (16:07)
[2024-12-12] MEDS ORDERED: DULO1CAP6 PO (16:07)
[2024-12-12] MEDS: diphenhdrAMINE HCL 50 MG/1 ML VL IV ONE (16:24)
--- NOTE | 2024-12-12 18:49 | DVHPNRES ---
Progress Note Date Seen: Dec 12, 2024 Resident Creating Document: FER SCHREIBER Medical Necessity Reason Pt with a Central, PICC or Fol: No Subjective Review of Systems Patient seen at bedside the morning. No new complaints as per the nurse. Nurse informed of redness and itchiness. No new medication started. Benadryl 25 mg iv given. Objective vital signs Vital Sign Date Time Temp Pulse Resp B/P (MAP) Pulse Ox O2 Delivery O2 Flow Rate FiO2 12/12/24 16:19 97.1 68 18 142/58 (86) 93 97.1 12/12/24 10:00 Nasal Cannula* 2 28 Total Intake and Output 12/11/24 12/11/24 12/12/24 15:00 23:00 07:00 Intake Total 700 ml 405 ml Balance 700 ml 405 ml medications Current Medications Medications Dose Ordered Sig/Callie Route Start Time Stop Time Status Last Admin Dose Admin Docusate Sodium 100 mg BIDPRN PRN PO 12/10/24 22:45 Acetaminophen 650 mg Q6HP PRN PO 12/10/24 22:45 Acetaminophen/ Hydrocodone Bitart 1 tab Q4HP PRN PO 12/10/24 22:45 12/12/24 10:56 1 TAB Ondansetron HCl 4 mg Q4HP PRN IV 12/10/24 22:45 Nitroglycerin 0.4 mg Q5MINP PRN SL 12/10/24 22:45 Apixaban 5 mg BID PO 12/11/24 10:00 12/12/24 10:38 5 MG Ceftriaxone Sodium 50 ml @ 100 mls/hr DAILY@09 IV 12/12/24 09:00 12/12/24 10:39 100 MLS/HR Azithromycin 250 ml @ 125 mls/hr DAILY IV 12/12/24 10:00 12/12/24 10:39 125 MLS/HR Ranolazine 500 mg BID PO 12/12/24 22:00 Examination General Appearance: Alert, Oriented X3, Cooperative, No acute distress HEENT: Atraumatic, PERRLA, EOMI, Mucous membrane moist/pink Respiratory: Clear to auscultation, Normal air movement Cardiovascular: Regular rate, Normal S1, Normal S2, No murmurs, no chest wall tenderness Abdominal: Normal bowel sounds, Soft, No tenderness, No hepatospenomegaly, No masses Extremities: No clubbing, No cyanosis, No edema, Normal pulses, No tenderness/swelling Skin: No rashes, No breakdown, No significant lesion Neuro: Normal gait, Normal speech, Strength at 5/5 X4 ext, Normal tone, Sensation intact, Cranial nerves 3-12 NL, Reflexes 2+ Psych/Mental Status: Mental status NL, Mood NL laboratory and microbiology Laboratory Tests 12/11/24 05:24 12/11/24 04:55 Test 12/11/24 05:24 Range/Units Serum Glucose 118 H 74-106 mg/dL Microbiology Date/Time Source Procedure Growth Status 12/11/24 02:58 Nose MRSA Screen - Final Complete Problem List/Assessment/Plan Problem List/Assessment/Plan Possible noncardiac chest pain-musculoskeletal EKG shows no acute changes Troponin levels normal To rule out pulmonary embolism CT angiography and no Gram nuclear medicine scan shows no evidence of pulmonary embolism D-dimer 2.16 Coronary artery disease Post coronary artery bypass graft 25 years ago Hysterectomy COPD mild asthma Arthritis Hypertension Hyperlipidemia History of DVT DIET: Cardiac at DVT PROPHYLAXIS: Eliquis CODE STATUS: Goal of care discussed for more than 21 minutes, full code DISPOSITION: Med/surge Patient's status and plan discussed with the patient. Case discussed with Dr. Vuong Plan discussed with: Patient My Orders My Orders Orders - FER SCHREIBER RESIDENT Procedure Category Date Status Time Electrocardigram EKG 12/12/24 Logged 13:46 Date of Service: Dec 12, 2024 Billing Provider: SWAPNA VUONG MD Common Visit Codes: [id number] INP/OBS CARE(HIGH) FER SCHREIBER Dec 12, 2024 16:25 SWAPNA VUONG MD Dec 12, 2024 23:43
[2024-12-12] MEDS: RANOLAZINE ER 500 MG TAB PO SCH (21:22)
[2024-12-13 01:00] VITALS: BP 136/76; PULSE 93; RESP 18; TEMP 98.1; O2SAT 98
[2024-12-13 05:09] VITALS: BP 126/60; PULSE 81; RESP 18; TEMP 97.2; O2SAT 100
[2024-12-13 08:00] VITALS: RESP 18; O2SAT 98
[2024-12-13 08:37] VITALS: BP 148/82; PULSE 79; RESP 16; TEMP 97.6; O2SAT 97
--- NOTE | 2024-12-13 12:25 | DVHDS2 ---
Discharge Summary Date of Admission Dec 10, 2024 at 22:39 Date of Discharge: Dec 13, 2024 Labs/Diagnostic Data: Laboratory Results Test 12/11/24 08:30 12/11/24 05:24 12/11/24 05:00 12/11/24 04:55 Influenza Type A Antigen Negative (Negative) Influenza Type B Antigen Negative (Negative) SARS-CoV-2 Antigen (Rapid) Negative (NEGATIVE) Sodium Level 146 mmol/L (136-145) Potassium Level 4.1 mmol/L (3.5-5.1) Chloride Level 110 mmol/L (98-107) Carbon Dioxide Level 26 mmol/L (20-31) Anion Gap 10 (5-15) Blood Urea Nitrogen 18 mg/dL (9-23) Creatinine 1.17 mg/dL (0.550-1.02) Glomerular Filtration Rate Calc 47 mL/min (>90) BUN/Creatinine Ratio 15.4 (10.0-20.0) Serum Glucose 118 mg/dL (74-106) Calcium Level 9.3 mg/dL (8.7-10.4) Total Bilirubin 0.2 mg/dL (0.2-1.0) Aspartate Amino Transferase (AST) 17 U/L (13-40) Alanine Aminotransferase (ALT) < 9 U/L (7-40) Alkaline Phosphatase 108 U/L (46-116) Total Protein 6.5 g/dL (5.7-8.2) Albumin 4.1 g/dL (3.2-4.8) Urine Color Light-yellow (Yellow) Urine Clarity Clear (Clear) Urine pH 7.0 (5.0-9.0) Urine Specific [place] 1.043 (1.001-1.035) Urine Protein Negative (Negative) Urine Ketones Negative (Negative) Urine Blood Negative /uL (Negative) Urine Nitrite Negative (Negative) Urine Bilirubin Negative (Negative) Urine Urobilinogen Normal mg/dL (Negative) Urine Leukocyte Esterase Negative /uL (Negative) Urine RBC None seen /hpf (0 - 4) Urine Microscopic WBC < 1 /HPF (0-5) Urine Squamous Epithelial Cells Few /hpf (<5) Urine Bacteria None seen /hpf (None Seen) Urine Glucose Normal mg/dL (Normal) Urine Opiates Screen Neg (NEGATIVE) Urine Fentanyl Screen Neg (NEGATIVE) Urine Barbiturates Screen Neg (NEGATIVE) Urine Phencyclidine Screen Neg (NEGATIVE) Urine Amphetamines Screen Neg (NEGATIVE) Urine Benzodiazepines Screen Neg (NEGATIVE) Urine Cocaine Screen Neg (NEGATIVE) Urine Cannabinoids Screen Neg (NEGATIVE) White Blood Count 8.4 10^3/uL (4.4-10.8) Red Blood Count 4.27 10^6/uL (4.0-5.20) Hemoglobin 11.8 g/dL (12.2-16.2) Hematocrit 34.9 % (36.0-46.0) Mean Corpuscular Volume 81.6 fL (80.0-100.0) Mean Corpuscular Hemoglobin 27.5 pg (28.0-32.0) Mean Corpuscular Hemoglobin Concent 33.7 g/dL (32.0-36.0) Red Cell Distribution Width 17.8 % (11.8-14.3) Platelet Count 208 10^3/uL (140-450) Mean Platelet Volume 10.2 fL (6.9-10.8) Neutrophils (%) (Auto) 58.3 % (37.0-80.0) Lymphocytes (%) (Auto) 25.7 % (10.0-50.0) Monocytes (%) (Auto) 13.1 % (0.0-12.0) Eosinophils (%) (Auto) 2.4 % (0.0-7.0) Basophils (%) (Auto) 0.5 % (0.0-2.0) Neutrophils # (Auto) 4.9 10 ^3/uL (1.6-8.6) Lymphocytes # (Auto) 2.2 10 ^3/uL (0.4-5.4) Monocytes # (Auto) 1.1 10 ^3/uL (0-1.3) Eosinophils # (Auto) 0.2 10 ^3/uL (0-0.8) Basophils # (Auto) 0 10 ^3/uL (0-0.2) Nucleated Red Blood Cells 0.1 % Test 12/10/24 21:08 12/10/24 17:59 Troponin I High Sensitivity 3 ng/L (</=34) Prothrombin Time 11.0 sec (9.3-11.8) Prothrombin Time INR 1.04 (0.9-1.15) Activated Partial Thromboplast Time 29.3 SEC (24.5-34.5) D-Dimer, Quantitative 2.16 mg/L FEU (0.0-0.49) Magnesium Level 1.7 mg/dL (1.6-2.6) B-Type Natriuretic Peptide 65.14 pg/mL (0-100) Other Laboratory Tests 12/11/24 05:24 12/11/24 04:55 Brief Hx & Hospital Course: Patient left without being seen, patient was notified by nurse for risks of leaving AMA. Patient has been all risks. diagnosis: Chest pain, ACS ruled out, likely due to musculoskeletal pain PE ruled out Coronary artery disease Hysterectomy COPD mild asthma Arthritis Hypertension Hyperlipidemia History of DVT Condition at Discharge: Undetermined Final Diagnosis/Problems List Chest pain, ACS ruled out, likely due to musculoskeletal pain PE ruled out Coronary artery disease Hysterectomy COPD mild asthma Arthritis Hypertension Hyperlipidemia History of DVT Discharge Disposition: AMA Discharge Instruct/Medications Scheduled Acetaminophen (Tylenol 8 Hour Arthritis), 650 MG PO TID Amlodipine Besylate (Amlodipine Besylate), 10 MG PO DAILY, (Reported) Apixaban Base (Eliquis), 5 MG PO BID, (Reported) Beclomethasone Dipropionate (Qvar Redihaler), 160 MCG IN BID, (Reported) Cholecalciferol (Vitamin D3 250 Mcg (01690 Ut)), 1 CAP PO QWEEKLY, (Reported) Cyanocobalamin (Vitamin B12), 1,000 MCG PO DAILY, (Reported) Doxycycline Monohydrate (Doxycycline Monohydrate), 100 MG PO Q12HR Duloxetine HCl (Duloxetine Hydrocloride), 60 MG PO DAILY, (Reported) Duloxetine HCl (Duloxetine HCl), 1 CAP PO DAILY, (Reported) Ergocalciferol (Vitamin D 24555 Unit), 50,000 UNIT PO Q7D Fenofibrate (Fenofibrate Micronized), 1 CAP PO DAILY, (Reported) Ferrous Sulfate (Iron), 325 MG PO DAILY, (Reported) Furosemide (Furosemide), 20 MG PO DAILY, (Reported) Hydroxyzine Hcl (Hydroxyzine Hcl), 25 MG IM Q6HPRN, (Reported) Losartan Potassium (Losartan Potassium), 1 TAB PO DAILY, (Reported) Pantoprazole Sodium Sesquihydr (Pantoprazole Sodium Dr), 40 MG PO DAILY, (Reported) Potassium Chloride (Potassium Chloride ER), 10 MEQ PO DAILY, (Reported) Prednisone (Prednisone), 20 MG PO QAM Pregabalin (Lyrica), 1 CAP PO BID, (Reported) Pregabalin (Pregabalin), 1 CAP PO BID, (Reported) Ranolazine (Ranolazine ER), 500 MG PO BID, (Reported) Risedronate Sodium (Atelvia), 35 MG PO QWEEKLY, (Reported) Simvastatin (Simvastatin), 10 MG PO DAILY, (Reported) Sucralfate (Sucralfate), 1 GM PO ACHS, (Reported) Umeclidinium-Vilanterol (Anoro Ellipta 62.5-25 Mcg/INH), 1 AER IN DAILY Miscellaneous Medications Patients Own Medication (Patients Own Medication), 45 MCG MS, (Reported) Discharge Statement: "Patient was advised to return to the ER or call 911 if any headaches, dizziness, shortness of breath, chest pain, abdominal pain, bleeding, fevers, or worsening of medical condition. Patient was counseled about treatment plan, medications, possible side effects, patientverbalized understanding. All questions were answered to the best of my ability. This discharge took greater then 30 minutes in planning, reviewing documentation, counseling the patient, and discussing with other team members." ASSESSMENT ASSESSMENT Assessment Date of Service: Dec 13, 2024 Billing Provider: DANIE COHEN MD Common Visit Codes: NOT BILLABLE DANIE COHEN MD Dec 13, 2024 12:25
[2024-12-13] MEDS ORDERED: IOHEXOL 350 MG/ML 100ML IJ ONE (17:01)
--- NOTE | 2024-12-15 07:42 | ECG ---
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
== END 2024-12-13 09:46 | disposition left against medical advice (07) | DRG 189 ==
LOC: ER 17:36 → OVERFLOW 22:39 → TELE-CENTR 12-11 01:36
PROVIDERS: ADMIT Student in an Organized Health Care Education/Training Program; ATTEND Emergency Medicine
DX: J96.01 Acute respiratory failure with hypoxia (principal); J44.1 Chronic obstructive pulmonary disease with (acute) exacerbation; R07.89 Other chest pain; N18.30 Chronic kidney disease, stage 3 unspecified; Z68.32 Body mass index [BMI] 32.0-32.9, adult; E66.9 Obesity, unspecified; R16.0 Hepatomegaly, not elsewhere classified; I12.9 Hypertensive chronic kidney disease with stage 1 through stage 4 chronic kidney disease, or unspecified chronic kidney disease; Z20.822 Contact with and (suspected) exposure to COVID-19; E78.5 Hyperlipidemia, unspecified; I25.10 Atherosclerotic heart disease of native coronary artery without angina pectoris; F17.210 Nicotine dependence, cigarettes, uncomplicated; K76.0 Fatty (change of) liver, not elsewhere classified; K21.9 Gastro-esophageal reflux disease without esophagitis; M13.88 Other specified arthritis, other site; Z53.29 Procedure and treatment not carried out because of patient's decision for other reasons; Z95.1 Presence of aortocoronary bypass graft; Z90.710 Acquired absence of both cervix and uterus; Z86.718 Personal history of other venous thrombosis and embolism; Z88.5 Allergy status to narcotic agent
CPT/HCPCS: 36415; 36600; 71046; 71275; 78582; 80053; 80307; 81001; 82805; 83735; 83880; 84484; 85025; 85379; 85610; 85730; 87040; 87070; 87077; 87081; 87186; 87205; 87426; 87804; 93005; 93970; 94640; 96365; G0378

== ENCOUNTER 2024-12-13 15:00 | Inpatient (IN) | payer MEDICARE, MEDICAID ==
[~2024-12-13] VITALS: Ht 152.4 cm; Wt 85.7 kg
[~2024-12-13 15:00] MED LIST changes: +DULO1CAP6 PO; +PREG75CA90 PO
--- NOTE | 2024-12-13 15:14 | ED.PDOC ---
Altered Mental Status HPI Comments This is a 79 year old female BIBA and accompanied by daughter presenting to the ED with chief complaint of ALOC. Daughter reports patient had been admitted to the hospital on 12/10 previously for pneumonia, however, she had signed herself out AMA this morning due to being combative and not wanting to stay. Daughter relays that she herself has sole medical decision making and power of teacher asst, however, the patient was discharged prior to her coming to the hospital to prevent that from happening in the first place. Daughter states patient has been more confused than usual at home and called 911 today for further treatment and evaluation. EMS notes patient had to be placed on 3L NC due to a O2 saturation in the low 90s. Patient denies any chest pain, dizziness, fever, chills, N/V, or headache. Chief Complaint: ALOC Time Seen by MD: 15:09 Primary Care Provider: ? Reviewed Notes: Nurses Notes, Shovel Engineer Notes, Medications, Allergies Allergies: Coded Allergies: Metronidazole (Verified Allergy, Intermediate, SWELLING, 08/01/24) SWELLING AND REDNESS Morphine (Verified Allergy, Mild, 08/01/24) NAUSEA/VOMITING Azithromycin (Verified Allergy, Unknown, 12/12/24) Per day shift RN, patient had itchiness with redness after azithromycin administration Codeine (Verified Allergy, Unknown, 08/01/24) Home Meds Active Scripts Ergocalciferol (VITAMIN D 38356 UNIT) 50,000 [place], [address] UNIT PO Q7D for 12 Days, #12 CAP Prov:DANA KRUEGER MD 10/30/24 Prednisone (Prednisone) 20 Mg Tab, 20 MG PO QAM for 3 Days, #3 TAB Prov:DANA KRUEGER MD 10/30/24 Doxycycline Monohydrate (Doxycycline Monohydrate) 100 Mg Tab, 100 MG PO Q12HR for 7 Days, #14 TAB Prov:DANA KRUEGER MD 10/30/24 Umeclidinium-Vilanterol (Anoro Ellipta 62.5-25 Mcg/INH) 1 Aer Aer, 1 AER IN DAILY for 30 Days, #1 AER 2 Refills Prov:PATRICIO DEL RIO 07/18/24 Acetaminophen (Tylenol 8 Hour Arthritis) 650 Mg Tab, 650 MG PO TID, #30 TAB Prov:JORGE DELGADILLO 09/28/23 Reported Medications Duloxetine HCl (Duloxetine HCl) 60 Mg Cap, 1 CAP PO DAILY 12/12/24 Pregabalin (Pregabalin) 75 Mg Cap, 1 CAP PO BID 12/12/24 Patients Own Medication (PATIENTS OWN MEDICATION) ., 45 MCG UT for SUPPLEMENT/ K2 PTS OWN MED-OBTAIN FROM PT AND SEND TO RX DRUG: FREQ: RX# EXP: DATE DISP: TECH: RPH: 08/01/24 Cholecalciferol (Vitamin D3 250 Mcg (67274 Ut)) 1 Cap Cap, 1 CAP PO QWEEKLY for SUPPLEMENT, CAP 08/01/24 Cyanocobalamin (Vitamin B12) 1,000 Mcg Tab, 1000 MCG PO DAILY for SUPPLEMENT, TAB 08/01/24 Sucralfate (Sucralfate) 1 Gm Tab, 1 GM PO ACHS for GERD, GM 08/01/24 Beclomethasone Dipropionate (Qvar Redihaler) 80 Mcg/Act Aer, 160 MCG IN BID for COPD, AER 08/01/24 Duloxetine HCl (Duloxetine Hydrocloride) 60 Mg Cap, 60 MG PO DAILY for DEPRESSION, CAP 08/01/24 Furosemide (Furosemide) 20 Mg Tab, 20 MG PO DAILY for EDEMA, MG 08/01/24 Potassium Chloride (Potassium Chloride ER) 10 Meq Tab, 10 MEQ PO DAILY for SUPPLEMENT, TAB 08/01/24 Pantoprazole Sodium Sesquihydr (Pantoprazole Sodium Dr) 40 Mg Tab, 40 MG PO DAILY for GERD, TAB 08/01/24 Simvastatin (Simvastatin) 10 Mg Tab, 10 MG PO DAILY for HIGH CHOLESTEROL, MG 08/30/23 Ranolazine (Ranolazine ER) 500 Mg Tab, 500 MG PO BID for CHEST PAIN, TAB 08/30/23 Pregabalin (Lyrica) 75 Mg Cap, 1 CAP PO BID for NERVE PAIN, 0 Refills 08/30/23 Ferrous Sulfate (Iron) 325 Mg Tab, 325 MG PO DAILY for LOW IRON, TAB 08/30/23 Hydroxyzine Hcl (Hydroxyzine Hcl) 50 Mg/Ml Inj, 25 MG IM Q6HPRN 08/30/23 Apixaban Base (ELIQUIS) 5 Mg Tab, 5 MG PO BID for STOP ON 08/05/24, TAB 08/30/23 Risedronate Sodium (Atelvia) 35 Mg Tab, 35 MG PO QWEEKLY for OSTEOPOROSIS 08/30/23 Amlodipine Besylate (Amlodipine Besylate) 5 Mg Tab, 10 MG PO DAILY for HTN 08/30/23 Fenofibrate (Fenofibrate Micronized) 134 Mg Cap, 1 CAP PO DAILY for HIGH CHOLESTEROL 11/02/15 Losartan Potassium (Losartan Potassium) 100 Mg Tab, 1 TAB PO DAILY for HTN, #30 TAB 5 Refills 11/02/15 Information Source: Patient, Relative (Child), Emergency Med Personnel Mode of Arrival: EMS Severity: Moderate, Unable to Care for Self Timing: Hours Duration: Since onset Prehospital treatment: None Quality: Decreased Alertness, Confusion Recent: Cough History of: Other (Pneumonia) Past Medical History PAST MEDICAL HISTORY: Arthritis, Asthma, CAD, CKF, COPD, GERD, High Lipids, HTN Surgical History: CABG, Hernia Repair, Hysterectomy PIPELINE INSPECTOR History: No Pertinent PIPELINE INSPECTOR History Family History Family History: Reviewed,noncontributory to illness Social History Smoker: Cigarettes Alcohol: Denies ETOH Use Drugs: Denies Drug Use Lives In: Home Constitutional: reports: fatigue; denies: chills, diaphoresis, fever, malaise, sweats, weakness, others EENTM: denies: blurred vision, double vision, ear bleeding, ear discharge, ear drainage, ear pain, ear ringing, eye pain, eye redness, hearing loss, mouth pain, mouth swelling, nasal discharge, nose bleeding, nose congestion, nose pain, photophobia, tearing, throat pain, throat swelling, voice changes, others Respiratory: reports: cough, shortness of breath; denies: hemoptysis, orthopnea, SOB at rest, SOB with excertion, stridor, wheezing, others Cardiovascular: denies: chest pain, dizzy spells, diaphoresis, Dyspnea on exertion, edema, irregular heart beat, left arm pain, lightheadedness, palpitations, PND, syncope, others Gastrointestinal: denies: abdomen distended, abdominal pain, blood streaked bowels, constipated, diarrhea, dysphagia, difficulty swallowing, hematemesis, melena, nausea, poor appetite, poor fluid intake, rectal bleeding, rectal pain, vomiting, others Genitourinary: denies: abnormal vagina bleeding, burning, dyspareunia, dysuria, flank pain, frequency, hematuria, incontinence, pain, , vagina discharge, urgency, others Neurological: denies: dizziness, fainting, headache, left sided numbness, left sided weakness, numbness, paresthesia, pre-existing deficit, right sided numbness, right sided weakness, seizure, speech problems, tingling, tremors, weakness, others Musculoskeletal: denies: back pain, gout, joint pain, joint swelling, muscle pain, muscle stiffness, neck pain, others Integumetry: denies: bruises, change in color, change in hair/nails, dryness, laceration, lesions, lumps, rash, wounds, others Allergic/Immunocompromised: denies: Difficulty Healing, Frequent Infections, Hives, Itching, others Hematologic/Lymphatic: denies: anemia, blood clots, easy bleeding, easy bruising, swollen glands, others Endocrine: denies: excessive hunger, excessive sweating, excessive thirst, excessive urination, flushing, intolerance to cold, intolerance to heat, unexplained weight gain, unexplained weight loss, others Psychiatric: denies: anxiety, bipolar disorder, depression, hopeless, panic disorder, schizophrenia, sleepless, suicidal, others Unable to Obtain due to: Altered Mental Status Physical Exam General Appearance: Moderate Distress (Xceg-[id number] distress due to general health concerns. Patient was pleasant, but displayed signs of dementia and Alzheimer's.), Obese HEENT: Normal ENT Inspection, Pharynx Normal, TMs Normal Neck: Full Range of Motion, Non-Tender, Normal, Normal Inspection Respiratory: Other (Right middle lobe rhonchi appreciated. No signs of respiratory distress.) Cardiovascular: No Edema, No JVD, No Murmur, No Gallop, Normal Peripheral Pulses, Regular Rate/Rhythm Breast Exam: Deferred Gastrointestinal: No Organomegaly, Non Tender, No Pulsatile Mass, Normal Bowel Sounds, Soft Genitalia: Deferred Pelvic: Deferred Rectal: Deferred Extremities: No calf tenderness, Normal capillary refill Neurologic: Alert Cerebellar Function: NOT DONE Reflexes: NOT DONE Skin: Dry, Normal Color, Warm Lymphatic: No Adenopathy Was a procedure done? Was a procedure done?: No Differential Diagnosis (ALOC) Differential Diagnosis: Dehydration, Hypoglycemia, DKA, Encephalopathy, Other (Pneumonia, Alzheimer's) X-Ray, Labs, Meds, VS Vital Signs Date Time Temp Pulse Resp B/P (MAP) Pulse Ox O2 Delivery O2 Flow Rate FiO2 8/16/25 15:25 97.9 89 18 144/79 (100) 96 97.9 12/13/24 15:25 89 18 96 Nasal Cannula* 4 36 12/13/24 15:04 98.3 82 22 166/84 96 98.3 X-Ray, Labs, Meds, VS Comment Studies were pending at time of this note. EKG revealed a sinus rhythm with a rate of 89. Borderline prolonged QT interval was noted with a baseline wander in lead V2. UT interval 148 and QT interval of 407. Discussed the patient presentation with hospitalist Dr. Martín Blood. Advised him of the patient should have never been able to leave the facility AMA as she does not have medical decision making capacity. Dr. Blood stated he would be happy to readmit and manage the patient. Time of 1ST Reevaluation: 15:45 Reevaluation 1ST: Unchanged Consultation: PCP Patient Education/Counseling: Diagnosis, Treatment Family Education/Counseling: Diagnosis, Treatment SEPSIS Sepsis Screen Recent Procedure: No On Antibiotic Therapy: No Respiratory Rate >20: Yes Heart Rate >90: No Temp<36 C (96.8 F) or >38.3 C: No SBP <90 or MAP <65 mmHG: No New Acute Mental Status Change: No Is the patient on CPAP, BIPAP,: No Physician Orders Troponin-I Hs (12/13/24 15:08) Complete Blood Count (12/13/24 15:08) Comprehensive Metabolic Panel (12/13/24 15:08) Lactic Acid W/ Reflex Order (12/13/24 15:08) Urinalysis (12/13/24 15:08) Chest Portable (12/13/24 15:08) D-Dimer (12/13/24 15:08) Environmental Maintenance Worker (12/13/24 15:08) [place]ock Iv (12/13/24 15:08) Electrocardigram (12/13/24 15:08) Troponin-I Hs (12/13/24 16:08) Troponin-I Hs (12/13/24 18:08) Lipase (12/13/24 15:11) B-Type Natriuretic Peptide (12/13/24 15:11) Vital Signs Date Time Temp Pulse Resp B/P (MAP) Pulse Ox O2 Delivery O2 Flow Rate FiO2 12/13/24 15:25 97.9 89 18 144/79 (100) 96 97.9 12/13/24 15:25 89 18 96 Nasal Cannula* 4 36 12/13/24 15:04 98.3 82 22 166/84 96 98.3 Departure 1 Departure Time of Disposition: 15:46 Impression: Primary Impression: Metabolic encephalopathy Additional Impressions: Pneumonia COPD (chronic obstructive pulmonary disease) Disposition: ADMITTED INPATIENT Condition: Stable Discharged With: Self, Relative Critical Care Note Critical Care Time?: No Stability Stability form required: No Heart Score Heart Score: Heart Score Response (Comments) Value History Slightly Suspicious 0 EKG Repolarization Disturb 1 Age >65 2 Risk Factors 1 or 2 risk factors 1 Troponin N/A 0 Total 4 I personally scribed for MIRIAM DIAZ PAC ([email or web address]) on 12/13/24 at 15:14. Electronically submitted by Librado Parr ([email or web address]). MIRIAM DIAZ PAC Dec 13, 2024 15:14
[2024-12-13 15:25] VITALS: PULSE 89; RESP 18; O2SAT 96
--- NOTE | 2024-12-13 15:36 | DVH ---
CHEST RADIOGRAPH Indication: Shortness of breath Technique: Single frontal view of the chest was obtained COMPARISON: XY CHEST TWO VIEWS ROUTINE on DOS: 12/10/24, CT CHEST WITHOUT CONTRAST on DOS: 07/17/24, XY CHEST PORTABLE on DOS: 07/16/24, XY CHEST PORTABLE on DOS: 06/27/24, XY CHEST PORTABLE on DOS: 06/25/24 FINDINGS: Lines and Tubes: None Lungs: Congestion Pleura: No effusion. No pneumothorax. Cardiomediastinal contours: Cardiomegaly Bones: Unremarkable IMPRESSION: Increased interstital prominence. This may represent pulmonary vascular congestion and/or viral pneum onia. Clinical correlation advised.
[2024-12-13 16:11] LABS: Hematocrit 31.8 % (36.0-46.0); Hemoglobin 10.4 g/dL (12.2-16.2); Mean Corpuscular Hemoglobin 26.8 pg (28.0-32.0); Mean Corpuscular Volume 81.7 fL (80.0-100.0); Nucleated Red Blood Cells % 0.1 %
[2024-12-13 16:31] LABS: Albumin 4.2 g/dL (3.2-4.8); Alkaline Phosphatase 70 U/L (46-116); Anion Gap 10 (5-15); BUN/Creatinine Ratio 16.0 (10.0-20.0); Blood Urea Nitrogen 16 mg/dL (9-23); Calcium 9.6 mg/dL (8.7-10.4); Carbon Dioxide 25 mmol/L (20-31); Glucose 101 mg/dL (74-106); Potassium 3.7 mmol/L (3.5-5.1); Sodium 145 mmol/L (136-145); Total Protein 6.7 g/dL (5.7-8.2)
[2024-12-13 16:32] LABS: Bilirubin, Total 0.3 mg/dL (0.2-1.0)
[2024-12-13 16:38] LABS: Alanine Aminotransferase < 9 U/L (7-40); Chloride 110 mmol/L (98-107)
--- NOTE | 2024-12-13 16:48 | DVHHP2 ---
Admitting Diagnosis: ams History of Present Illness This is a 79 year old female BIBA and accompanied by daughter presenting to the ED with chief complaint of ALOC. Daughter reports patient had been admitted to the hospital on 12/10 previously for pneumonia, however, she had signed herself out AMA this morning due to being combative and not wanting to stay. Daughter relays that she herself has sole medical decision making and power of managing attorney, however, the patient was discharged prior to her coming to the hospital to prevent that from happening in the first place. Daughter states patient has been more confused than usual at home and called 911 today for further treatment and evaluation. EMS notes patient had to be placed on 3L NC due to a O2 saturation in the low 90s. Patient denies any chest pain, dizziness, fever, chills, N/V, or headache. 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 History Family History: Reviewed,noncontributory to illness Social History Smoker: Cigarettes Alcohol: Denies ETOH Use Drugs: Denies Drug Use Lives In: Home Patient Family History: FH: Parkinson's disease G8 FATHER (PARKINSON), , Age: 90 Family history: Diabetes mellitus G8 MOTHER, , Age: 91 G8 FATHER (PARKINSON), , Age: 90 Allergies: Coded Allergies: Metronidazole (Verified Allergy, Intermediate, SWELLING, 08/01/24) SWELLING AND REDNESS Morphine (Verified Allergy, Mild, 08/01/24) NAUSEA/VOMITING Azithromycin (Verified Allergy, Unknown, 12/12/24) Per 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 shift RN, patient had itchiness with redness after azithromycin administration Codeine (Verified Allergy, Unknown, 08/01/24) Home Meds Active Scripts Ergocalciferol (VITAMIN D 67024 UNIT) 50,000 [place], [address] UNIT PO Q7D for 12 Days, #12 CAP Prov:DANA KRUEGER MD 10/30/24 Prednisone (Prednisone) 20 Mg Tab, 20 MG PO QAM for 3 Days, #3 TAB Prov:DANA KRUEGER MD 10/30/24 Doxycycline Monohydrate (Doxycycline Monohydrate) 100 Mg Tab, 100 MG PO Q12HR for 7 Days, #14 TAB Prov:DANA KRUEGER MD 10/30/24 Umeclidinium-Vilanterol (Anoro Ellipta 62.5-25 Mcg/INH) 1 Aer Aer, 1 AER IN DAILY for 30 Days, #1 AER 2 Refills Prov:PATRICIO DEL RIO RESIDENT 07/18/24 Acetaminophen (Tylenol 8 Hour Arthritis) 650 Mg Tab, 650 MG PO TID, #30 TAB Prov:JORGE DELGADILLO 09/28/23 Reported Medications Duloxetine HCl (Duloxetine HCl) 60 Mg Cap, 1 CAP PO DAILY 12/12/24 Pregabalin (Pregabalin) 75 Mg Cap, 1 CAP PO BID 12/12/24 Patients Own Medication (PATIENTS OWN MEDICATION) ., 45 MCG DE for SUPPLEMENT/ K2 PTS OWN MED-OBTAIN FROM PT AND SEND TO RX DRUG: FREQ: RX# EXP: DATE DISP: TECH: RPH: 08/01/24 Cholecalciferol (Vitamin D3 250 Mcg (66640 Ut)) 1 Cap Cap, 1 CAP PO QWEEKLY for SUPPLEMENT, CAP 08/01/24 Cyanocobalamin (Vitamin B12) 1,000 Mcg Tab, 1000 MCG PO DAILY for SUPPLEMENT, TAB 08/01/24 Sucralfate (Sucralfate) 1 Gm Tab, 1 GM PO ACHS for GERD, GM 08/01/24 Beclomethasone Dipropionate (Qvar Redihaler) 80 Mcg/Act Aer, 160 MCG IN BID for COPD, AER 08/01/24 Duloxetine HCl (Duloxetine Hydrocloride) 60 Mg Cap, 60 MG PO DAILY for DEPRESSION, CAP 08/01/24 Furosemide (Furosemide) 20 Mg Tab, 20 MG PO DAILY for EDEMA, MG 08/01/24 Potassium Chloride (Potassium Chloride ER) 10 Meq Tab, 10 MEQ PO DAILY for SUPP LEMENT, TAB 08/01/24 Pantoprazole Sodium Sesquihydr (Pantoprazole Sodium Dr) 40 Mg Tab, 40 MG PO DAILY for GERD, TAB 08/01/24 Simvastatin (Simvastatin) 10 Mg Tab, 10 MG PO DAILY for HIGH CHOLESTEROL, MG 08/30/23 Ranolazine (Ranolazine ER) 500 Mg Tab, 500 MG PO BID for CHEST PAIN, TAB 08/30/23 Pregabalin (Lyrica) 75 Mg Cap, 1 CAP PO BID for NERVE PAIN, 0 Refills 08/30/23 Ferrous Sulfate (Iron) 325 Mg Tab, 325 MG PO DAILY for LOW IRON, TAB 08/30/23 Hydroxyzine Hcl (Hydroxyzine Hcl) 50 Mg/Ml Inj, 25 MG IM Q6HPRN 08/30/23 Apixaban Base (ELIQUIS) 5 Mg Tab, 5 MG PO BID for STOP ON 08/05/24, TAB 08/30/23 Risedronate Sodium (Atelvia) 35 Mg Tab, 35 MG PO QWEEKLY for OSTEOPOROSIS 08/30/23 Amlodipine Besylate (Amlodipine Besylate) 5 Mg Tab, 10 MG PO DAILY for HTN 08/30/23 Fenofibrate (Fenofibrate Micronized) 134 Mg Cap, 1 CAP PO DAILY for HIGH CHOLESTEROL 11/02/15 Losartan Potassium (Losartan Potassium) 100 Mg Tab, 1 TAB PO DAILY for HTN, #30 TAB 5 Refills 11/02/15 Current Medications Current Medications Medications (Trade) Dose Ordered Sig/Callie Route PRN Reason Start Time Stop Time Status Last Admin Ceftriaxone Sodium 50 ml @ 100 mls/hr DAILY@09 IV 12/13/24 17:00 12/13/24 17:26 Azithromycin 250 ml @ 125 mls/hr DAILY IV 12/13/24 17:00 12/13/24 17:12 DC Amlodipine Besylate (Norvasc Tablet) 10 mg DAILY PO 12/14/24 10:00 Apixaban (Eliquis) 5 mg BID PO 12/13/24 22:00 Furosemide (Lasix Tablet) 20 mg DAILY PO 12/14/24 10:00 Pantoprazole Sodium (Protonix Tablet) 40 mg DAILY PO 12/14/24 10:00 Ranolazine (Ranexa ER) 500 mg BID PO 12/13/24 22:00 Sucralfate (Carafate Tab) 1 gm ACHS PO 12/13/24 17:00 12/13/24 17:26 Acetaminophen (Tylenol Suppository) 650 mg TID DE 12/13/24 22:00 Future Hold Patient Own Medication 1 cap QWEEKLY PO 12/13/24 17:00 UNV Patient Own Medication 1,000 mcg DAILY PO 12/14/24 10:00 UNV Patient Own Medication 1 cap DAILY PO 12/14/24 10:00 Patient Own Medication 325 mg DAILY PO 12/14/24 10:00 UNV Losartan Potassium (Cozaar Tablet) 100 mg DAILY PO 12/14/24 10:00 Pravastatin Sodium (Pravachol Tablet) 20 mg HS PO 12/13/24 22:00 Patient Own Medication 1 aer DAILY IN 12/14/24 10:00 UNV Doxycycline Hyclate 100 ml @ 50 mls/hr BID IV 12/13/24 22:00 Vital Signs Vital Signs Date Time Temp Pulse Resp B/P (MAP) Pulse Ox O2 Delivery O2 Flow Rate FiO2 12/13/24 15:25 97.9 89 18 144/79 (100) 96 97.9 12/13/24 15:25 Nasal Cannula* 4 36 Physical Exam gen 79 y.o. woman, lying in bed. nad. HEENT: AT/NC Heart: RRR Lung: CTA b/l Abd: soft, non-tender, non-distended Msk: no edema or cyanosis Neuro: Awake, alert, resting in bed. strength and sensation intact. SEPSIS Sepsis Screen Date sepsis recognized/suspect: Dec 13, 2024 Time Sepsis recognized/suspect: 1524 Recent Procedure: No On Antibiotic Therapy: No Respiratory Rate >20: Yes Heart Rate >90: No Temp<36 C (96.8 F) or >38.3 C: No SBP <90 or MAP <65 mmHG: No New Acute Mental Status Change: No Is the patient on CPAP, BIPAP,: No Physician Orders Urinalysis (12/13/24 15:08) Chest Portable (12/13/24 15:08) Television Reporter (12/13/24 15:08) Heplock Iv (12/13/24 15:08) Electrocardigram (12/13/24 15:08) Troponin-I Hs (12/13/24 16:08) Troponin-I Hs (12/13/24 18:08) Covid19 Antigen Faith (12/13/24 ) Ceftriaxone 1gm/50ml D5w (Rocephin) (12/13/24 17:00) Amlodipine Tablet (Norvasc Tablet) (12/14/24 10:00) Apixaban (Eliquis) (12/13/24 22:00) Furosemide Tablet (Lasix Tablet) (12/14/24 10:00) Pantoprazole Tablet (Protonix Tablet) (12/14/24 10:00) Ranolazine (Ranexa Er) (12/13/24 22:00) Sucralfate Tab (Carafate Tab) (12/13/24 17:00) Acetaminophen Suppository (Tylenol Suppo (12/13/24 22:00) (Nf) Cholecalciferol (Vitamin D3 250 Mcg (12/13/24 17:00) (Nf) Cyanocobalamin (Vitamin B12) (12/14/24 10:00) (Nf) Fenofibrate (Fenofibrate Micronized (12/14/24 10:00) (Nf) Ferrous Sulfate (Iron) (12/14/24 10:00) Losartan Tablet (Cozaar Tablet) (12/14/24 10:00) (Nf) Umeclidinium-Vilanterol (Anoro Colette (12/14/24 10:00) Ct Angio Chest Contrast (12/13/24 16:48) Doxycycline 100mg/100ml (Vibramycin) (12/13/24 22:00) Pravastatin Sodium Tablet (Pravachol Tab (12/13/24 22:00) Vital Signs Date Time Temp Pulse Resp B/P (MAP) Pulse Ox O2 Delivery O2 Flow Rate FiO2 12/13/24 15:25 97.9 89 18 144/79 (100) 96 97.9 12/13/24 15:25 89 18 96 Nasal Cannula* 4 36 12/13/24 15:23 89 12/13/24 15:04 98.3 82 22 166/84 96 98.3 Laboratory Tests Test 12/13/24 15:44 Lactic Acid Level 1.3 mmol/L (0.4-2.0) White Blood Count 7.0 10^3/uL (4.4-10.8) Medications Medications Dose Ordered Sig/Callie Route Start Time Stop Time Status Last Admin Dose Admin Ceftriaxone Sodium 50 ml @ 100 mls/hr DAILY@09 IV 12/13/24 17:00 12/13/24 17:26 Sucralfate 1 gm ACHS PO 12/13/24 17:00 12/13/24 17:26 Results Labs Test 12/13/24 17:01 12/13/24 15:44 Range/Units White Blood Count 7.0 4.4-10.8 10^3/uL Red Blood Count 3.89 L 4.0-5.20 10^6/uL Hemoglobin 10.4 L 12.2-16.2 g/dL Hematocrit 31.8 L 36.0-46.0 % Mean Corpuscular Volume 81.7 80.0-100.0 fL Mean Corpuscular Hemoglobin 26.8 L 28.0-32.0 pg Mean Corpuscular Hemoglobin Concent 32.8 32.0-36.0 g/dL Red Cell Distribution Width 17.3 H 11.8-14.3 % Platelet Count 215 140-450 10^3/uL Mean Platelet Volume 10.2 6.9-10.8 fL Neutrophils (%) (Auto) 60.8 37.0-80.0 % Lymphocytes (%) (Auto) 24.7 10.0-50.0 % Monocytes (%) (Auto) 11.1 0.0-12.0 % Eosinophils (%) (Auto) 2.9 0.0-7.0 % Basophils (%) (Auto) 0.5 0.0-2.0 % Neutrophils # (Auto) 4.3 1.6-8.6 10 ^3/uL Lymphocytes # (Auto) 1.7 0.4-5.4 10 ^3/uL Monocytes # (Auto) 0.8 0-1.3 10 ^3/uL Eosinophils # (Auto) 0.2 0-0.8 10 ^3/uL Basophils # (Auto) 0 0-0.2 10 ^3/uL Nucleated Red Blood Cells 0.1 % D-Dimer, Quantitative 2.99 H 0.0-0.49 mg/L FEU Sodium Level 145 136-145 mmol/L Potassium Level 3.7 3.5-5.1 mmol/L Chloride Level 110 H 98-107 mmol/L Carbon Dioxide Level 25 20-31 mmol/L Anion Gap 10 5-15 Blood Urea Nitrogen 16 9-23 mg/dL Creatinine 1.00 0.550-1.02 mg/dL Glomerular Filtration Rate Calc 57 >90 mL/min BUN/Creatinine Ratio 16.0 10.0-20.0 Serum Glucose 101 74-106 mg/dL Lactic Acid Level 1.3 0.4-2.0 mmol/L Calcium Level 9.6 8.7-10.4 mg/dL Total Bilirubin 0.3 0.2-1.0 mg/dL Aspartate Amino Transferase (AST) 21 13-40 U/L Alanine Aminotransferase (ALT) < 9 7-40 U/L Alkaline Phosphatase 70 46-116 U/L C-Reactive Protein High Sensitivity 2.05 H <1.0 mg/dL B-Type Natriuretic Peptide 117.12 0-100 pg/mL Total Protein 6.7 5.7-8.2 g/dL Albumin 4.2 3.2-4.8 g/dL Lipase 27 12-53 U/L Primary Diagnosis Altered mental status Elevated D-dimer Plan X-ray Shows mild congestion unclear to evaluate Check pro, CRP Ceftriaxone and doxycycline for possible community-acquired pneumonia Check sputum culture IV fluids regular diet Resume home meds Neuro check per floor protocol CT head to rule out stroke CT chest rule out PE due to elevated D-dimer Full code Lovenox for DVT prophylaxis No GI prophylaxis needed Plan discussed with: Patient Problems List: (1) Elevated d-dimer Status: Acute (2) Metabolic encephalopathy Status: Acute Date of Service: Dec 13, 2024 Billing Provider: BRUCE BOONE MD Common Visit Codes: [id number] INP/OBS CARE (MOD) BRUCE BOONE MD Dec 13, 2024 16:48
[2024-12-13] MEDS ORDERED: AZITHROMYCIN 500MG/ 250ML 250 ML IV SCH (17:00)
[2024-12-13] MEDS: cefTRIAXone 1GM/50ML D5W 50 ML IV SCH (17:26)
[2024-12-13] MEDS: SUCRALFATE 1 GM TAB PO SCH (17:26)
[2024-12-13] MEDS ORDERED: DOCUSATE SOD 100 MG CAP PO PRN (17:30)
[2024-12-13] MEDS ORDERED: ONDANSETRON HCL 4 MG/2 ML VIAL IV PRN (17:30)
[2024-12-13] MEDS ORDERED: CHOLECALCIFEROL (VITD3) 1,000UNIT=25mCg TAB PO SCH (17:45)
--- NOTE | 2024-12-13 17:54 | DVH ---
CTA Chest with intravenous contrast INDICATION: elevated d-dimer r/o PE COMPARISON: XY CHEST PORTABLE on DOS: 12/13/24, CT CT ANGIO CHEST CONTRAST on DOS: 12/10/24, XY CHEST T WO VIEWS ROUTINE on DOS: 12/10/24, CT CHEST WITHOUT CONTRAST on DOS: 07/17/24, XY CHEST PORTABLE on DOS : 07/16/24 TECHNIQUE: Multidetector spiral CTA of the chest was performed of the chest with intravenous contrast . PULMONARY ANGIOGRAPHY PROTOCOL was utilized using a bolus-tracking technique centered on the main p ulmonary artery. Axial, coronal and sagittal multiplanar and MIP reformats were performed. Radiation Dose : 1. Chest: CTDI volume is 28.91 mGy. Dose-length product is 2.54 mGy*cm The dose indicators for CT are the volume Computed Tomography (CT) Dose Index (CTDIvol) and the Dose Length Product (DLP), and are measured in units of mGy and mGy-cm, respectively. These indicators are not patient dose, but values generated from the CT scanner acquisition factors. The report includes radiation exposure data for exposures received during this examination. Findings: Pulmonary artery: No pulmonary embolism Lower neck: Normal thyroid. Lungs: Bibasilar atelectasis No focal consolidation, pleural effusion or pneumothorax. Heart/Vascular Structures: Normal heart size. No pericardial effusion. Dilated main pulmonary artery measuring up to 4.4 cm. Lymph Nodes: No adenopathy Pleura: No pleural effusion or significant pneumothorax. Musculoskeletal: No acute osseous abnormality. Soft tissues: Normal. Upper abdomen: Cholelithiasis. IMPRESSION: 1. No pulmonary embolism. 2. No acute thoracic finding. 3. Dilated main pulmonary artery measuring up to 4.4 cm, likely sequelae of chronic pulmonary arteria l hypertension.
[2024-12-13] MEDS: LACTATED RINGER'S 1,000 ML IV ONE (17:58)
[2024-12-13] MEDS: HYDROcodone-ACET 5/325MG TAB PO PRN (18:48)
[2024-12-13 18:49] LABS: COVID19 ANTIGEN SOFIA FIA NEGATIVE (NEGATIVE)
[2024-12-13 18:55] LABS: Urine Protein, UAD Negative (Negative)
--- NOTE | 2024-12-13 19:00 | ECG ---
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
[2024-12-13 19:50] VITALS: PULSE 78; RESP 78; O2SAT 96
[2024-12-13] MEDS ORDERED: ACETAMINOPHEN 325 MG RECT SUPP PR SCH (22:00)
[2024-12-13 22:11] VITALS: PULSE 76; RESP 16; O2SAT 96
[2024-12-13] MEDS: APIXABAN 5 MG TAB PO SCH (22:53)
[2024-12-13] MEDS: PRAVASTATIN SODIUM 20 MG TAB PO SCH (22:53)
[2024-12-13] MEDS: RANOLAZINE ER 500 MG TAB PO SCH (22:56)
[2024-12-13] MEDS: SODIUM CHLOR 0.9% PF (SALINE LOCK) 10ML VIAL/SYR IV SCH (22:56)
[2024-12-13] MEDS: ACETAMINOPHEN 325 MG TAB PO PRN (22:56)
[2024-12-13] MEDS: DOXYCYCLINE 100MG/100ML 100 ML IV SCH (22:59)
[2024-12-14] VITALS (7 sets, daily range): BP systolic 110–163; BP diastolic 68–95; PULSE 56–83; RESP 18–20; TEMP 97.3–98; O2SAT 95–100
--- NOTE | 2024-12-14 01:29 | DVH ---
Exam: CT CT AB PEL WO CON-NO ORAL OR IV History: persitent abd pain r/o infection or hernia Comparison Study: CT CT AB PEL WO CON-NO ORAL OR IV on DOS: 10/09/22, CT CT AB PEL WITH IV CON ONLY on DOS: 08/20/22, CT ABD PELVIS WO CONTRAST on DOS: 02/21/22, KDF on DOS: 09/19/21, CT ABD PELVIS WO CONT RAST on DOS: 09/18/21 TECHNIQUE: Multidetector CT of the abdomen was performed from lung bases to pubic symphysis. Imaging was performed without IV contrast. Axial, coronal and sagittal multiplanar reformats were obtained fr om the axial data set by the technologist. Radiation Dose Information: Dose-length product is 392 mGy*cm FINDINGS: Evaluation of solid organs is limited due to lack of intravenous contrast use. Findings: Lung Bases: Bibasilar subsegmental atelectasis. mild cardiomegaly. extensive coronary atherosclerosis . No pleural or pericardial effusion. Liver: The liver is normal in size. No focal lesions. Gallbladder and Biliary Tree: gallstone noted. Spleen: Unremarkable Pancreas: The pancreas is grossly normal in appearance. Adrenal Glands: Unremarkable Kidneys: Atrophic left kidney. Right kidney is unremarkable. Bladder: Grossly unremarkable for degree of distention. Bowel: small hiatal hernia. Small bowel and colon are normal in caliber and distribution. The append ix is not visualized; however, no secondary findings of acute appendicitis identified. Ascites: Absent Lymphadenopathy: No mesenteric, retroperitoneal or periportal lymphadenopathy. Abdominal Wall and Mesentery: Unremarkable. Vasculature: Extensive atherosclerosis of the abdominal vasculature. Pelvic Organs: Unremarkable Musculoskeletal: Multilevel bilateral rib deformity/ fracture of indeterminate acuity. Soft tissues: small fat containing ventral abdominal hernia. left inguinal post operative changes. IMPRESSION: 1. No acute abdominal or pelvic visceral finding. 2. Multilevel bilateral rib deformity/ fracture of indeterminate acuity. 3. small fat containing ventral abdominal hernia. left inguinal post operative changes.
[2024-12-14 08:07] LABS: Hematocrit 34.2 % (36.0-46.0); Hemoglobin 11.0 g/dL (12.2-16.2); Mean Corpuscular Hemoglobin 26.7 pg (28.0-32.0); Mean Corpuscular Volume 83.1 fL (80.0-100.0); Nucleated Red Blood Cells % 0.0 %
[2024-12-14 08:25] LABS: Alkaline Phosphatase 65 U/L (46-116); Anion Gap 11 (5-15); BUN/Creatinine Ratio 13.8 (10.0-20.0); Blood Urea Nitrogen 12 mg/dL (9-23); Calcium 9.3 mg/dL (8.7-10.4); Carbon Dioxide 23 mmol/L (20-31); Glucose 102 mg/dL (74-106); Potassium 3.5 mmol/L (3.5-5.1); Sodium 143 mmol/L (136-145); Total Protein 6.5 g/dL (5.7-8.2)
[2024-12-14 08:27] LABS: Albumin 4.1 g/dL (3.2-4.8); Bilirubin, Total 0.4 mg/dL (0.2-1.0)
[2024-12-14 08:32] LABS: Alanine Aminotransferase < 9 U/L (7-40); Chloride 109 mmol/L (98-107)
[2024-12-14] MEDS ORDERED: ENOXAPARIN SOD 40 MG/0.4 ML SYRINGE SC SCH (10:00)
[2024-12-14] MEDS: UMECLIDINIUM VILANTEROL IN SCH (10:00)
[2024-12-14] MEDS: CYANOCOBALAMIN 500 MCG TAB PO SCH (10:31)
[2024-12-14] MEDS: LOSARTAN POTASSIUM 50 MG TAB PO SCH (10:31)
[2024-12-14] MEDS: FUROSEMIDE 20 MG TAB PO SCH (10:32)
[2024-12-14] MEDS: FERROUS SULFATE 325mg EC TAB PO SCH (10:32)
[2024-12-14] MEDS: PANTOPRAZOLE 40 MG TAB PO SCH (10:32)
--- NOTE | 2024-12-14 13:45 | DVHPN2 ---
Subjective I am assuming the care of the patient from today onwards who was under the care of the hospitalist team. Daughter [id number] at bedside to who provided me with a history that patient was hospitalized on through for pneumonia left AMA. At home she was more confused and complaining of lower abdominal discomfort. Also patient was found to be borderline hypoxia with a known history of COPD and asthma, currently status post CT angio shows no evidence of PE, abdominal pelvic CT shows no evidence of any acute pathology. Patient is currently denies any chest pain shortness of breaths abdominal pain. 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 Medications Current Medications Medications Dose Ordered Sig/Callie Route Start Time Stop Time Status Last Admin Dose Admin Ceftriaxone Sodium 50 ml @ 100 mls/hr DAILY@09 IV 12/13/24 17:00 12/14/24 08:31 100 MLS/HR Amlodipine Besylate 10 mg DAILY PO 12/14/24 10:00 12/14/24 10:31 10 MG Apixaban 5 mg BID PO 12/13/24 22:00 12/14/24 10:32 5 MG Furosemide 20 mg DAILY PO 12/14/24 10:00 12/14/24 10:32 20 MG Pantoprazole Sodium 40 mg DAILY PO 12/14/24 10:00 12/14/24 10:32 40 MG Ranolazine 500 mg BID PO 12/13/24 22:00 12/14/24 10:32 500 MG Sucralfate 1 gm ACHS PO 12/13/24 17:00 12/14/24 12:05 1 GM Cholecalciferol 10,000 unit QWEEKLY PO 12/13/24 17:45 Hold Cyanocobalamin 1,000 mcg DAILY PO 12/14/24 10:00 12/14/24 10:31 1,000 MCG Patient Own Medication 1 cap DAILY PO 12/14/24 10:00 Ferrous Sulfate 325 mg DAILY PO 12/14/24 10:00 12/14/24 10:32 325 MG Losartan Potassium 100 mg DAILY PO 12/14/24 10:00 12/14/24 10:31 100 MG Pravastatin Sodium 20 mg HS PO 12/13/24 22:00 12/13/24 22:53 20 MG Patient Own Medication 1 aer DAILY IN 12/14/24 10:00 Doxycycline Hyclate 100 ml @ 50 mls/hr BID IV 12/13/24 22:00 12/13/24 22:59 50 MLS/HR Sodium Chloride 10 ml Q8HR IV 12/13/24 22:00 12/14/24 06:07 10 ML Docusate Sodium 100 mg BIDPRN PRN PO 12/13/24 17:30 Acetaminophen 650 mg Q6HP PRN PO 12/13/24 17:30 12/13/24 22:56 650 MG Acetaminophen/ Hydrocodone Bitart 1 tab Q4HP PRN PO 12/13/24 17:30 12/14/24 05:04 1 TAB Ondansetron HCl 4 mg Q4HP PRN IV 12/13/24 17:30 Laboratory Results Laboratory Tests 12/14/24 06:41 Chemistry Test 12/13/24 15:44 12/14/24 06:41 Albumin 4.2 g/dL (3.2-4.8) 4.1 g/dL (3.2-4.8) Calcium Level 9.6 mg/dL (8.7-10.4) 9.3 mg/dL (8.7-10.4) Total Protein 6.7 g/dL (5.7-8.2) 6.5 g/dL (5.7-8.2) Coagulation Test 12/13/24 15:44 D-Dimer, Quantitative 2.99 mg/L FEU (0.0-0.49) H Lipid panel Test 12/13/24 15:44 Lipase 27 U/L (12-53) Cardiac Markers Test 12/13/24 15:44 B-Type Natriuretic Peptide 117.12 pg/mL (0-100) LFT Test 12/13/24 15:44 12/14/24 06:41 Alanine Aminotransferase (ALT) < 9 U/L (7-40) < 9 U/L (7-40) Alkaline Phosphatase 70 U/L (46-116) 65 U/L (46-116) Aspartate Amino Transferase (AST) 21 U/L (13-40) 22 U/L (13-40) Total Bilirubin 0.3 mg/dL (0.2-1.0) 0.4 mg/dL (0.2-1.0) Urinalysis Test 12/13/24 18:21 Urine Color Light-yellow (Yellow) Urine Clarity Clear (Clear) Urine pH 7.0 (5.0-9.0) Urine Specific Combs 1.027 (1.001-1.035) Urine Protein Negative (Negative) Urine Ketones Negative (Negative) Urine Blood Negative /uL (Negative) Urine Nitrite Negative (Negative) Urine Bilirubin Negative (Negative) Urine Urobilinogen Normal mg/dL (Negative) Urine Leukocyte Esterase Negative /uL (Negative) Urine RBC <1 /hpf (0 - 4) Urine Microscopic WBC < 1 /HPF (0-5) Urine Squamous Epithelial Cells Few /hpf (<5) Urine Bacteria None seen /hpf (None Seen) Urine Glucose Normal mg/dL (Normal) Assessment/Plan Assessment/Plan 79-year-old female with a known history of CAD status post CABG, hypertension, dyslipidemia, cognitive decline, history of right leg DVT currently on Eliquis, COPD/asthma, who was recently hospitalized on 12/10 for pneumonia, left against medical advice on 12/13 presented to the hospital with altered mental status 1. Acute delirium with a possible underlying cognitive decline, currently at back to baseline 2. Acute hypoxic respiratory failure ruled out pulmonary embolism 3. CAD status post CABG 4. Hypertension 5. Dyslipidemia 6. COPD/asthma 7. History of DVT of the right lower extremity currently on Eliquis -patient has had a CT chest contrast study x2 last three days, watch for contrast induced nephropathy -gentle IV hydration, repeat BMP in a.m. -physical therapy evaluation and treatment. Plan discussed with: Patient Date of Service: Dec 14, 2024 Billing Provider: LIAN LINDA MD Common Visit Codes: [id number] INP/OBS CARE(MOD) LIAN LINDA MD Dec 14, 2024 13:45
[2024-12-14] MEDS: SOD CHL 0.45% 1,000 ML IV SCH (14:00)
[2024-12-15 01:00] VITALS: BP 122/67; PULSE 76; RESP 20; TEMP 98.7; O2SAT 100
[2024-12-15 05:00] VITALS: BP 136/64; PULSE 76; RESP 20; TEMP 98.5; O2SAT 100
[2024-12-15 07:32] LABS: Hematocrit 28.7 % (36.0-46.0); Hemoglobin 9.5 g/dL (12.2-16.2); Mean Corpuscular Hemoglobin 27.3 pg (28.0-32.0); Mean Corpuscular Volume 82.1 fL (80.0-100.0); Nucleated Red Blood Cells % 0.0 %
[2024-12-15 07:38] LABS: Albumin 3.9 g/dL (3.2-4.8); Alkaline Phosphatase 60 U/L (46-116); Anion Gap 10 (5-15); BUN/Creatinine Ratio 14.3 (10.0-20.0); Blood Urea Nitrogen 13 mg/dL (9-23); Calcium 9.0 mg/dL (8.7-10.4); Carbon Dioxide 24 mmol/L (20-31); Glucose 97 mg/dL (74-106); Potassium 3.7 mmol/L (3.5-5.1); Total Protein 6.1 g/dL (5.7-8.2)
[2024-12-15 07:39] LABS: Alanine Aminotransferase < 9 U/L (7-40); Bilirubin, Total 0.3 mg/dL (0.2-1.0); Chloride 112 mmol/L (98-107); Sodium 146 mmol/L (136-145)
[2024-12-15 09:00] VITALS: BP 154/64; PULSE 76; RESP 18; TEMP 97.5; O2SAT 100
[2024-12-15 13:00] VITALS: BP 140/55; PULSE 78; RESP 16; TEMP 97.7; O2SAT 97
[2024-12-15] MEDS ORDERED: DOXY100C79 PO (16:25)
--- NOTE | 2024-12-15 16:26 | DVHDS2 ---
Discharge Summary Date of Admission Dec 13, 2024 at 17:26 Date of Discharge: Dec 15, 2024 Labs/Diagnostic Data: Laboratory Results Test 12/15/24 05:50 12/13/24 18:21 12/13/24 17:01 12/13/24 15:44 White Blood Count 6.1 10^3/uL (4.4-10.8) Red Blood Count 3.49 10^6/uL (4.0-5.20) Hemoglobin 9.5 g/dL (12.2-16.2) Hematocrit 28.7 % (36.0-46.0) Mean Corpuscular Volume 82.1 fL (80.0-100.0) Mean Corpuscular Hemoglobin 27.3 pg (28.0-32.0) Mean Corpuscular Hemoglobin Concent 33.2 g/dL (32.0-36.0) Red Cell Distribution Width 17.3 % (11.8-14.3) Platelet Count 184 10^3/uL (140-450) Mean Platelet Volume 10.1 fL (6.9-10.8) Neutrophils (%) (Auto) 61.4 % (37.0-80.0) Lymphocytes (%) (Auto) 24.6 % (10.0-50.0) Monocytes (%) (Auto) 10.5 % (0.0-12.0) Eosinophils (%) (Auto) 2.9 % (0.0-7.0) Basophils (%) (Auto) 0.6 % (0.0-2.0) Neutrophils # (Auto) 3.7 10 ^3/uL (1.6-8.6) Lymphocytes # (Auto) 1.5 10 ^3/uL (0.4-5.4) Monocytes # (Auto) 0.6 10 ^3/uL (0-1.3) Eosinophils # (Auto) 0.2 10 ^3/uL (0-0.8) Basophils # (Auto) 0 10 ^3/uL (0-0.2) Nucleated Red Blood Cells 0.0 % Sodium Level 146 mmol/L (136-145) Potassium Level 3.7 mmol/L (3.5-5.1) Chloride Level 112 mmol/L (98-107) Carbon Dioxide Level 24 mmol/L (20-31) Anion Gap 10 (5-15) Blood Urea Nitrogen 13 mg/dL (9-23) Creatinine 0.91 mg/dL (0.550-1.02) Glomerular Filtration Rate Calc 64 mL/min (>90) BUN/Creatinine Ratio 14.3 (10.0-20.0) Serum Glucose 97 mg/dL (74-106) Calcium Level 9.0 mg/dL (8.7-10.4) Total Bilirubin 0.3 mg/dL (0.2-1.0) Aspartate Amino Transferase (AST) 22 U/L (13-40) Alanine Aminotransferase (ALT) < 9 U/L (7-40) Alkaline Phosphatase 60 U/L (46-116) Total Protein 6.1 g/dL (5.7-8.2) Albumin 3.9 g/dL (3.2-4.8) Urine Color Light-yellow (Yellow) Urine Clarity Clear (Clear) Urine pH 7.0 (5.0-9.0) Urine Specific [place] 1.027 (1.001-1.035) Urine Protein Negative (Negative) Urine Ketones Negative (Negative) Urine Blood Negative /uL (Negative) Urine Nitrite Negative (Negative) Urine Bilirubin Negative (Negative) Urine Urobilinogen Normal mg/dL (Negative) Urine Leukocyte Esterase Negative /uL (Negative) Urine RBC <1 /hpf (0 - 4) Urine Microscopic WBC < 1 /HPF (0-5) Urine Squamous Epithelial Cells Few /hpf (<5) Urine Bacteria None seen /hpf (None Seen) Urine Glucose Normal mg/dL (Normal) Troponin I High Sensitivity 5 ng/L (</=34) D-Dimer, Quantitative 2.99 mg/L FEU (0.0-0.49) Lactic Acid Level 1.3 mmol/L (0.4-2.0) C-Reactive Protein High Sensitivity 2.05 mg/dL (<1.0) B-Type Natriuretic Peptide 117.12 pg/mL (0-100) Lipase 27 U/L (12-53) Test 12/13/24 00:00 SARS-CoV-2 Antigen (Rapid) Negative (NEGATIVE) Other Laboratory Tests 12/15/24 05:50 Brief Hx & Hospital Course: 79-year-old female with a known history of CAD status post CABG, hypertension, dyslipidemia, cognitive decline, 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 Patient had hypoxia 90 % saturation on room air on admission PE has been ruled out by negative CT angio. As patient has got to CT angio with a PE protocol recently, patient was started on gentle IV hydration kidney functions are within normal limits. Patient is being discharged under stable condition on p.o. antibiotics. 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 Acute delirium with a possible underlying cognitive decline, currently at back to baseline 2. Acute hypoxic respiratory failure ruled out pulmonary embolism 3. CAD status post CABG 4. Hypertension 5. Dyslipidemia 6. COPD/asthma Discharge Disposition: Home with Health Services SNF Discharge Will this Physician continue t: No Discharge Instruct/Medications Diet: Cardiac 2g Na,low cholest Activity: No Restrictions, As Tolerated Follow Up/Referral: Follow up with the PCP in one week Medications: Doxycycline as prescribed. Scheduled Acetaminophen (Tylenol 8 Hour Arthritis), 650 MG PO TID Amlodipine Besylate (Amlodipine Besylate), 10 MG PO DAILY, (Reported) Apixaban Base (Eliquis), 5 MG PO BID, (Reported) Beclomethasone Dipropionate (Qvar Redihaler), 160 MCG IN BID, (Reported) Cholecalciferol (Vitamin D3 250 Mcg (60820 Ut)), 1 CAP PO QWEEKLY, (Reported) Cyanocobalamin (Vitamin B12), 1,000 MCG PO DAILY, (Reported) Doxycycline (Monohydrate) (Doxycycline), 100 MG PO BID Duloxetine HCl (Duloxetine Hydrocloride), 60 MG PO DAILY, (Reported) Duloxetine HCl (Duloxetine HCl), 1 CAP PO DAILY, (Reported) Ergocalciferol (Vitamin D 52744 Unit), 50,000 UNIT PO Q7D Fenofibrate (Fenofibrate Micronized), 1 CAP PO DAILY, (Reported) Ferrous Sulfate (Iron), 325 MG PO DAILY, (Reported) Furosemide (Furosemide), 20 MG PO DAILY, (Reported) Hydroxyzine Hcl (Hydroxyzine Hcl), 25 MG IM Q6HPRN, (Reported) Losartan Potassium (Losartan Potassium), 1 TAB PO DAILY, (Reported) Pantoprazole Sodium Sesquihydr (Pantoprazole Sodium Dr), 40 MG PO DAILY, (Reported) Potassium Chloride (Potassium Chloride ER), 10 MEQ PO DAILY, (Reported) Prednisone (Prednisone), 20 MG PO QAM Pregabalin (Lyrica), 1 CAP PO BID, (Reported) Pregabalin (Pregabalin), 1 CAP PO BID, (Reported) Ranolazine (Ranolazine ER), 500 MG PO BID, (Reported) Risedronate Sodium (Atelvia), 35 MG PO QWEEKLY, (Reported) Simvastatin (Simvastatin), 10 MG PO DAILY, (Reported) Sucralfate (Sucralfate), 1 GM PO ACHS, (Reported) Umeclidinium-Vilanterol (Anoro Ellipta 62.5-25 Mcg/INH), 1 AER IN DAILY Miscellaneous Medications Patients Own Medication (Patients Own Medication), 45 MCG GA, (Reported) Discontinued Medications Doxycycline Monohydrate (Doxycycline Monohydrate), 100 MG PO Q12HR Discharge Statement: "Patient was advised to return to the ER or call 911 if any headaches, dizziness, shortness of breath, chest pain, abdominal pain, bleeding, fevers, or worsening of medical condition. Patient was counseled about treatment plan, medications, possible side effects, patientverbalized understanding. All questions were answered to the best of my ability. 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 Acute delirium with a possible underlying cognitive decline, currently at back to baseline 2. Acute hypoxic respiratory failure ruled out pulmonary embolism 3. CAD status post CABG 4. Hypertension 5. Dyslipidemia 6. COPD/asthma Date of Service: Dec 15, 2024 Billing Provider: LIAN LINDA MD Common Visit Codes: 48405-BTJ/OBS DISCH DAY >30min LIAN LINDA MD Dec 15, 2024 16:26
[2024-12-15 16:57] VITALS: BP 136/68; PULSE 78; RESP 16; TEMP 97.5; O2SAT 100
[2024-12-15 17:49] VITALS: BP 119/44; TEMP 36.4
== END 2024-12-15 18:04 | disposition home or self-care (01) | DRG 193 ==
LOC: ER 15:00 → EDBD 15:00 → OVERFLOW 17:26 → WEST WING 22:05
PROVIDERS: ADMIT Internal Medicine; ATTEND Internal Medicine
DX: J12.9 Viral pneumonia, unspecified (principal); G93.41 Metabolic encephalopathy; J96.01 Acute respiratory failure with hypoxia; J44.0 Chronic obstructive pulmonary disease with (acute) lower respiratory infection; E78.5 Hyperlipidemia, unspecified; F17.210 Nicotine dependence, cigarettes, uncomplicated; I25.10 Atherosclerotic heart disease of native coronary artery without angina pectoris; I10 Essential (primary) hypertension; K21.9 Gastro-esophageal reflux disease without esophagitis; Z83.3 Family history of diabetes mellitus; Z82.0 Family history of epilepsy and other diseases of the nervous system; Z79.01 Long term (current) use of anticoagulants; Z86.718 Personal history of other venous thrombosis and embolism; Z88.1 Allergy status to other antibiotic agents; Z88.3 Allergy status to other anti-infective agents; Z88.5 Allergy status to narcotic agent; Z90.710 Acquired absence of both cervix and uterus; Z95.1 Presence of aortocoronary bypass graft; Z79.899 Other long term (current) drug therapy
CPT/HCPCS: 36415; 71045; 71275; 74176; 80053; 81001; 83605; 83690; 83880; 84484; 85025; 85379; 86141; 87081; 87426; 93005; 96365; G0378

== ENCOUNTER 2025-03-25 08:25 | Outpatient (CLI) | payer MEDICARE, MEDICAID ==
[~2025-03-25 08:25] MED LIST changes: -DOX100T PO; +DOXY100C79 PO
[2025-03-25] MEDS ORDERED: EZ PAQUE SUSP 12OZ BTL ONE (08:51)
[2025-03-25] MEDS ORDERED: GASTROGRAFIN 120 ML SOL ONE (08:51)
--- NOTE | 2025-03-25 09:46 | DVH ---
XY ESOPHAGUS BARIUM SWALLOW HISTORY: DYSPHAGIA COMPARISON: None PROCEDURE: Oral barium was administered with fluoroscopic observation of the esophagus. Spot images of the hypopharynx, esophagus, and gastroesophageal junction were obtained in numerous projections with the patient upright and supine. Total fluoroscopic time was 0.3 minutes. FINDINGS: The swallowing mechanism and the hypopharynx appear normal. Contrast distends the esophagus well, demonstrating a normal esophageal caliber and contour. There is no evidence of stricture, erosion, or mass. Appropriate primary peristalsis of the esophagus was observed under real time fluoroscopy.No extravasation of contrast is noted. IMPRESSION: Unremarkable esophagram.
== END 2025-03-25 17:00 | disposition home or self-care (01) ==
LOC: XYW 08:25
PROVIDERS: ATTEND Internal Medicine
DX: Z01.818 Encounter for other preprocedural examination (principal); R13.10 Dysphagia, unspecified
CPT/HCPCS: 74220; Q9963